=== PATIENT | male | born 1950 | race African-American/Black ===

== ENCOUNTER 2018-04-11 06:59 | Inpatient (IN) | payer MEDICARE, OTHER ==
[~2018-04-11] VITALS: Ht 160 cm; Wt 50.4 kg
[2018-04-11] VITALS (25 sets, daily range): BP systolic 61–183; BP diastolic 36–145
--- NOTE | 2018-04-11 06:55 | NUR ---
RESPIRATORY NOTE: pt recieved in ER with signs of resp distress, Addendum: 04/11/18 at 1757 by ANNETTE LANDIS RT pt bp droped and code was called, the pt was intubated by DR Grimm with endotrachial tube 8.0 21.5 @lipline on left side pt was placed on a vent with settings of AC 16 450 100% +5. sx PRN, will continue to monitor the pt
--- NOTE | 2018-04-11 06:59 | NUR ---
ED Nurse Note: Patient arrived BIBA with recent h/o respiratory arrest. Upon arrival patient was bradycardic at 50 at 0650. Pulse decreased to 44 bpm wile intubation was attempted [address] Grimm and soon after pulse was lost, code blue was established and compression began. At 0654, 1mg of epi was given, at 0657 bicarb was given, at 0659 pulse was reestablished and calcium chloride, magnesium and IV fluid bolus of 500ml was hung. Central line was established by Dr. grimm, Urinary catheter started and new IV site initiated with 1 liter fluid bolus hung before report was given to day shift nurse, isabel DE GUZMAN.
--- NOTE | 2018-04-11 07:30 | NUR ---
ED Nurse Note: Received report from GEGE Sandoval. Patient in bed, alterted, mechanically ventilated, maintaining pulse oximetry reading @ 100%. ET tube, size 8 to the right lip @ 22cm. Addendum: 04/11/18 at 1007 by JAMIR Patient has non puposeful movement on RUE with painful stimuli. IV to right AC 18g and central line to left groin noted. F/C draining yellow urine. Patient is on potline monitor.
--- NOTE | 2018-04-11 07:35 | NUR ---
ED Nurse Note: Patient ventilated, chest rise and fall noted. Performed oral suction and blood noted. RT provided suction via ET tube. Pulse oximetry reading maintained @ 99%.
[2018-04-11] MEDS ORDERED: RISPERDAL2 MG ORAL (07:39)
[2018-04-11] MEDS ORDERED: FOLIC ACID1 MG ORAL (07:39)
[2018-04-11] MEDS ORDERED: TRAZODONE HCL150 MG ORAL (07:39)
[2018-04-11] MEDS ORDERED: FEROSUL325 M1 PO (07:39)
[2018-04-11] MEDS ORDERED: BUSPIRONE HCL15 MG ORAL (07:39)
[2018-04-11] MEDS ORDERED: BENZTROPINE ME0.5 MG PO (07:39)
[2018-04-11 07:50] LABS: HEMATOCRIT 35.8 % (42.0-52.0); HEMOGLOBIN 11.3 G/DL (14.2-18.0); MEAN CORPUSCULAR VOLUME 103 FL (80-99); PLATELET COUNT 73 K/UL (150-450); RED BLOOD COUNT 3.47 M/UL (4.70-6.10); RED CELL DISTRIBUTION WIDTH 11.6 % (11.6-14.8); WHITE BLOOD COUNT 7.1 K/UL (4.8-10.8)
[2018-04-11 07:55] LABS: ANION GAP 8 mmol/L (5-15); APPEARANCE,URINE CLEAR; BILIRUBIN, URINE NEGATIVE (NEGATIVE); BLOOD UREA NITROGEN 18 mg/dL (7-18); CALCIUM 9.6 MG/DL (8.5-10.1); CARBON DIOXIDE 30 MMOL/L (21-32); CHLORIDE 100 MMOL/L (98-107); COLOR,URINE PALE YELLOW; CREATININE 1.3 MG/DL (0.55-1.30); GLUCOSE, URINE (UA) 4+ (NEGATIVE); KETONES,URINE NEGATIVE (NEGATIVE); LEUKOCYTE ESTERASE ,URINE NEGATIVE (NEGATIVE); NITRITE,URINE NEGATIVE (NEGATIVE); PH,URINE 7 (4.5-8.0); PROTEIN,URINE 3+ (NEGATIVE); SODIUM 137 MMOL/L (136-145); UROBILINOGEN,URINE NORMAL MG/DL (0.0-1.0)
--- NOTE | 2018-04-11 07:56 | NUR ---
ED Nurse Note: Patient is altered, unable to obtain any hx. unknown hx of fall.
[2018-04-11 08:07] LABS: ALANINE AMINOTRANSFERASE 53 U/L (12-78); ALBUMIN 2.4 G/DL (3.4-5.0); ALBUMIN/GLOBULIN RATIO 0.7 (1.0-2.7); ALKALINE PHOSPHATASE 71 U/L (46-116); AMYLASE 79 U/L (25-115); ASPARTATE AMINO TRANSFERASE 94 U/L (15-37); BILIRUBIN,TOTAL 0.3 MG/DL (0.2-1.0); CKMB 1.6 NG/ML (0.0-3.6); CREATINE KINASE 189 U/L (26-308); PHOSPHORUS 4.3 MG/DL (2.5-4.9)
--- NOTE | 2018-04-11 08:30 | NUR ---
ED Nurse Note: RN attempted to insert NG tub via bilateral nares and unsuccessful. RN inserted OG tube without resistance and light brown secrections with particles noted. OG tube @ 62cm to the left lip.
[2018-04-11] MEDS ORDERED: DOPamine 400mg/250ml 250 ML IV STA (08:48)
[2018-04-11 08:55] LABS: INR 0.9 (0.9-1.1)
[2018-04-11] MEDS ORDERED: Piperacillin/Tazobactam 3.375 GM in NS 110 ML IVPB ONE (09:00)
--- NOTE | 2018-04-11 09:00 | NUR ---
ED Nurse Note: Initiated Dopamine drip via central line due to SBP< 90 as ordered.
--- NOTE | 2018-04-11 09:33 | NUR ---
RADIOLOGY DEPT CHEST X-RAYS PERFORMED PRIOR TO ADMIT.LUDIN
--- NOTE | 2018-04-11 09:44 | NUR ---
ED Nurse Note: Patient returned from CT scan and remained on lunchroom monitor.
--- NOTE | 2018-04-11 09:44 | Diagnostic Imaging Report ---
Indication: Altered mental status Technique: Contiguous 5 mm thick transaxial imaging of the head obtained in a Siemens Sensation [address] scanner. Soft tissue and bone windows generated. Automatic Exposure Control was utilized. Total Dose length Product (DLP): 1509.[address] Dose Index Volume (CTDIvol): 70.38 mGy Comparison: none Findings: There is moderate prominence of the ventricles, basal cisterns, and cerebral sulci consistent with atrophy. Moderate, nonspecific, white matter hypoattenuation is noted throughout the brain consistent with chronic small vessel disease. There is disproportionate the moderate to severe atrophy of the cerebellum noted. There is no midline shift, edema, acute hemorrhage, mass effect, or abnormal extra-axial fluid collections. Bones and extra osseous soft tissues are unremarkable. Extensive opacification of the paranasal sinuses demonstrated. Impression: No acute intracranial bleed, mass effect or edema. Moderate atrophy of the brain. Cerebellar atrophy is more pronounced. Evidence of chronic small vessel disease involving white matter tracts. Pansinusitis The CT scanner at [facility] is accredited by the [employer] and the scans are performed using dose optimization techniques as appropriate to a performed exam including Automatic Exposure control.
--- NOTE | 2018-04-11 09:47 | Emergency Room Report ---
History of Present Illness General Chief Complaint: CPR Source: EMS, Caregiver Present Illness HPI Patient presents with paramedics after cardiopulmonary arrest patient Was documented to have blood pressure attempts of intubation were made however patient presents without any airway Upon arrival the patient has vomitus on the left side of his face and clothing GCS of 3 Unresponsive Required initial airway intubation and CPR was also initiated Manager Pool presents with reports that patient has been somewhat ill for the past 3 days Other members at the facility had also been ill This morning the patient had breakfast Had gone to the restroom and was visualized by staff having a syncopal episode History of present illness is otherwise limited secondary to the patient's mental status Allergies: Coded Allergies: No Known Allergies (Unverified , 04/11/18) Patient History Limited by: medical condition Pertinent Family History: unable to obtain Reviewed Nursing Documentation: PMH: Agreed; PSxH: Agreed Nursing Documentation-PMH History Of Psychiatric Problem: Yes Review of Systems All Other Systems: limited - Other than the ones mentioned in the history of present illness all others are reviewed however they do stay limited due to the patient's mental status Physical Exam Vital Signs Date Time Temp Pulse Resp B/P (MAP) Pulse Ox O2 Delivery O2 Flow Rate FiO2 04/11/18 06:53 110 10 137/90 97 Ambu-Bag 15.0 04/11/18 07:00 100 04/11/18 07:52 97.5 Sp02 EP Interpretation: reviewed, normal General Appearance: severe distress - No palpable pulses, GCS 3 Head: normocephalic, atraumatic Eyes: bilateral eye other - 4mm bilaterally minimal response ENT: dry mucus membranes - Vomitus present Neck: other - Severe scoliosis Respiratory: other - No active respirations Cardiovascular #1: other - No palpable pulses edema in both lower extremities Gastrointestinal: soft Musculoskeletal: other - Patient has severe scoliosis with also palpable mass left back area Neurologic: other - GCS of 3, unresponsive Skin: other - Poor turgor Lymphatic: no adenopathy Procedures Critical Care Time Critical Care Time 70 minutes for multiple re-evaluations, clinical presentation, consultants, concern for cardiopulmonary not including any procedural time Central Line Central Line : Consent: Emergent Central Line Lumen: triple Maximal Sterile Barrier Tech: yes cap, yes mask, yes sterile gown, yes sterile gloves, yes large sterile sheet, yes hand hygiene, yes chlorhexidine prep Central Line Postion: femoral (L) Complications: Small hematoma right femoral area Central Line Post Position: sutured Attempts: Other - 2 Patient Tolerated: Well Complications: Other - The femoral vein was cannulated on the right side however I was not able to advance the guidewire, patient appears to have some anatomical, anomaly, there is also a secondary hematoma on the right groin pressure dressing was applied here. After this the left groin was prepped and central line placed without discomfort Intubation Intubation : Consent: Emergent Intubation Method: orotracheal Tube Size (cm): 8.0 Breath Sounds after Intubation: equal Intubation Complications: no complications Post Intubation Xray: Yes Attempts: One Patient Tolerated: Well Complications: None Progress Copious amounts of vomitus at the oral mucosa and airway Medical Decision Making Diagnostic Impression: Primary Impression: Cardiopulmonary arrest ER Course Patient presents in acute CODE STATUS CPR initiated Patient has airway intubation Please refer to the code sheet for full specifics We were able to obtain pulses patient is provided with broad-spectrum antibiotics given his consideration for possible aspiration IV fluid and dopamine are ordered for Appropriate vital signs Patient is in critical condition I spoke to the hammer mill operator as well Who reports that patient was feeling ill for the past several days Patient has further stabilized however remains critical and extremely acidotic likely secondary to CPR and lactic acidosis and requires ICU admission Labs Test 04/11/18 07:15 04/11/18 07:27 04/11/18 08:29 White Blood Count 7.1 K/UL (4.8-10.8) Red Blood Count 3.47 M/UL (4.70-6.10) Hemoglobin 11.3 G/DL (14.2-18.0) Hematocrit 35.8 % (42.0-52.0) Mean Corpuscular Volume 103 FL (80-99) Mean Corpuscular Hemoglobin 32.5 PG (27.0-31.0) Mean Corpuscular Hemoglobin Concent 31.5 G/DL (32.0-36.0) Red Cell Distribution Width 11.6 % (11.6-14.8) Platelet Count 73 K/UL (150-450) Mean Platelet Volume 10.3 FL (6.5-10.1) Neutrophils (%) (Auto) % (45.0-75.0) Lymphocytes (%) (Auto) % (20.0-45.0) Monocytes (%) (Auto) % (1.0-10.0) Eosinophils (%) (Auto) % (0.0-3.0) Basophils (%) (Auto) % (0.0-2.0) Prothrombin Time 10.0 SEC (9.30-11.50) Prothromb Time International Ratio 0.9 (0.9-1.1) Activated Partial Thromboplast Time 24 SEC (23-33) Urine Color Pale yellow Urine Appearance Clear Urine pH 7 (4.5-8.0) Urine Specific [place] 1.010 (1.005-1.035) Urine Protein 3+ (NEGATIVE) Urine Glucose (UA) 4+ (NEGATIVE) Urine Ketones Negative (NEGATIVE) Urine Blood 4+ (NEGATIVE) Urine Nitrite Negative (NEGATIVE) Urine Bilirubin Negative (NEGATIVE) Urine Urobilinogen Normal MG/DL (0.0-1.0) Urine Leukocyte Esterase Negative (NEGATIVE) Urine RBC 15-20 /HPF (0 - 0) Urine WBC 0-2 /HPF (0 - 0) Urine Squamous Epithelial Cells None /LPF (NONE/OCC) Urine Bacteria Few /HPF (NONE) Sodium Level 137 MMOL/L (136-145) Potassium Level 4.0 MMOL/L (3.5-5.1) Chloride Level 100 MMOL/L (98-107) Carbon Dioxide Level 30 MMOL/L (21-32) Anion Gap 8 mmol/L (5-15) Blood Urea Nitrogen 18 mg/dL (7-18) Creatinine 1.3 MG/DL (0.55-1.30) Estimat Glomerular Filtration Rate > 60 mL/min (>60) Glucose Level 247 MG/DL (74-106) Lactic Acid Level 6.20 mmol/L (0.4-2.0) 7.10 mmol/L (0.66-2.22) Calcium Level 9.6 MG/DL (8.5-10.1) Phosphorus Level 4.3 MG/DL (2.5-4.9) Magnesium Level 3.4 MG/DL (1.8-2.4) Total Bilirubin 0.3 MG/DL (0.2-1.0) Aspartate Amino Transf (AST/SGOT) 94 U/L (15-37) Alanine Aminotransferase (ALT/SGPT) 53 U/L (12-78) Alkaline Phosphatase 71 U/L (46-116) Total Creatine Kinase 189 U/L (26-308) Creatine Kinase MB 1.6 NG/ML (0.0-3.6) Creatine Kinase MB Relative Index 0.8 Troponin I 0.296 ng/mL (0.000-0.056) Pro-B-Type Natriuretic Peptide 2703 pg/mL (0-125) Total Protein 5.8 G/DL (6.4-8.2) Albumin 2.4 G/DL (3.4-5.0) Globulin 3.4 g/dL Albumin/Globulin Ratio 0.7 (1.0-2.7) Amylase Level 79 U/L (25-115) Lipase 161 U/L (73-393) Arterial Blood pH 7.140 (7.350-7.450) Arterial Blood Partial Pressure CO2 69.5 mmHg (35.0-45.0) Arterial Blood Partial Pressure O2 274.2 mmHg (75.0-100.0) Arterial Blood HCO3 23.3 mmol/L (22.0-26.0) Arterial Blood Oxygen Saturation 100.0 % (95-100) Arterial Blood Base Excess -6.4 (-2-2) Joesph Test Positive Rhythm Strip Diag. Results EP Interpretation: yes Rate: 66 Rhythm: NSR, no PVC's, no ectopy Chest X-Ray Diagnostic Results Chest X-Ray Diagnostic Results : Chest X-Ray Ordered: Yes # of Views/Limited/Complete: 1 View Indication: Chest Pain EP Interpretation: Yes Interpretation: no effusion, no pneumothorax, other - Significantly distorted image secondary to scoliosis ET tube appears to be at the jer Impression: Other - Significant limitation ET tube appears to be a jer Electronically Signed by: Maria L Grimm DO Last Vital Signs Date Time Temp Pulse Resp B/P (MAP) Pulse Ox O2 Delivery O2 Flow Rate FiO2 04/11/18 09:29 103/62 04/11/18 09:04 80 04/11/18 09:03 59 20 94 Mechanical Ventilator 04/11/18 07:52 97.5 04/11/18 06:53 15.0 Status: improved Disposition: ADMITTED INPATIENT Condition: Critical Referrals: Vivienne Urena MD (PCP) Maria L Grimm DO Apr 11, 2018 09:47
--- NOTE | 2018-04-11 09:56 | NUR ---
ED Nurse Note: Confirmed OG tube placement with Dr. Grimm.
--- NOTE | 2018-04-11 10:06 | NUR ---
ED Nurse Note: Patient is abimbola upper body/bilateral arms. ERMD notified.
--- NOTE | 2018-04-11 10:42 | NUR ---
ED Nurse Note: Moved patient to hospital bed. Serosangunious drainage noted via OG tube and ERMD notifed. Changed patient's weight to 48kg using bedscale and changed dopamine rate according to his weight. Addendum: 04/11/18 at 1109 by JAMIR Abdomen soft, non- distended.
[2018-04-11] MEDS ORDERED: LORazepam Inj 2mg/ml 1ml IV ONE (10:45)
--- NOTE | 2018-04-11 11:00 | NUR ---
ED Nurse Note: RT adjusted ET tube as ordered. Size 8 ET tube at 21.5cm, left lip.
--- NOTE | 2018-04-11 11:00 | Diagnostic Imaging Report ---
Indication: Dyspnea Comparison: None A single view chest radiograph was obtained. Findings: Endotracheal tube is at or just above the jer. The lungs are foreshortened and evaluation of the tip is limited due to kyphosis. Interstitial edema versus central pulmonary infiltrates noted. IMPRESSION: Interstitial edema versus infiltrates. Limited evaluation
--- NOTE | 2018-04-11 11:01 | Diagnostic Imaging Report ---
Indication: Dyspnea Comparison: None A single view chest radiograph was obtained. Findings: Endotracheal tube appears slightly low-lying. However the patient is extremely kyphotic and there is foreshortening of the lungs. At worse the tip is just above the jer. The tip is likely higher than this. Central bronchovascular markings are prominent. Underlying infiltrate and/or pulmonary edema may be present. There is no significant change compared to the last examination done about one hour earlier. The nasogastric tube is in good position curled in the stomach. IMPRESSION: Central pulmonary edema versus infiltrates. Endotracheal tube evaluation is limited but the tip is likely just above the jer. NG tube in good position
--- NOTE | 2018-04-11 12:27 | NUR ---
ED Nurse Note: Repositioned patient to left side.
--- NOTE | 2018-04-11 12:56 | NUR ---
ED Nurse Note: Caregiver from boarding care here at bedside and states staff assisted patient to bathroom and patient collpased to the floor and his facial color changed. Staff assisted patient to the floor. RT at bedside and obtaining sample for ABG.
[2018-04-11] MEDS ORDERED: Vancomycin 1gm/D5W 275ml IVPB ONE ×2 (13:30)
[2018-04-11] MEDS: 1/2NS w/KCl 20mEq 1000ml 1,000 ML IV SCH (13:43)
[2018-04-11] MEDS: DOPamine 400mg/250ml 250 ML IV SCH ×2 (15:00→22:12)
--- NOTE | 2018-04-11 15:25 | NUR ---
NURSE NOTES: Admitted 68 year old male patient from ER. Endorsement received from GEGE Correa. No eye opening, no response to pain, orally intubated with ET 8.0, 21 lipline. Maintaining saturation with vent settings AC 18, Vt 450, PEEP 5, 80% FiO2. With OGT, noted with bloody output from the tube. Placement reconfirmed per auscultation. Black catheter F16 connected to urimeter, clear yellow urine in the bag. With left wrist g 18 and right AC g18 heplock. Left femoral TLC present, ongoing 1/2NS w/ KCl 20 meqs at 75ml/hr. As per ER nurse, dopamine has been turned off since 1500H. Maintaining blood pressure. Patient noted to be kyphotic. Skin is intact, picture was taken at ER for sacral redness. No redness noted upon admission at ICU. Head of bed elevated. As per endorsement patient has 1 episode of seizure at ER. Placed on seizure precaution. Bed locked and in low position. Bed alarm on.
--- NOTE | 2018-04-11 15:30 | NUR ---
ED Nurse Note: Patient is being transferred to ICU, accompained by RT, EMT and this RN. Patient maintained SBP > 90. HR was 92 with BP 146/75. Belonging (socks) given to patient's caregiver.
--- NOTE | 2018-04-11 16:00 | NUR ---
NURSE NOTES: Patient's rectal temperature 102F. Cooling measures initiated. Awaiting for cooling blanket from central supply.
[2018-04-11] MEDS: Zosyn 3.375gm q8h **Extended infusion IVPB SCH ×4 (16:03→22:33)
--- NOTE | 2018-04-11 17:00 | NUR ---
NURSE NOTES: Patient's schedule manager from board and care at bedside. As per her patient has no previous history of seizure.
--- NOTE | 2018-04-11 17:30 | NUR ---
NURSE NOTES: Patient seen and examined by Dr. Torres, with new order for Heparin SQ for DVT prophylaxis.
--- NOTE | 2018-04-11 17:45 | NUR ---
NURSE NOTES: Dr. Urena made aware of Heparin order of Dr. Brian barrientos aware of low plt.73- with order to go ahead and give the heparin. Suggested for dupplex study of both lower extremities-for SCD- Dr. Urena choose to have Herparin SQ instead for DVT prophylaxis
[2018-04-11] MEDS ORDERED: Piperacillin/Tazobactam 2.25 GM in D5W 55 ML IVPB SCH (18:00)
--- NOTE | 2018-04-11 18:00 | NUR ---
NURSE NOTES: Placed patient on cooling blanket. Rectal temp 103F. No PRN medication for fever. Paged Dr. Staples for further orders.
--- NOTE | 2018-04-11 19:00 | Consultation ---
DATE OF CONSULTATION: 04/11/2018 CONSULTING PHYSICIAN: Brian Torres M.D. REFERRING PHYSICIAN: Vivienne Urena M.D. REASON FOR CONSULTATION: Respiratory failure. HISTORY OF PRESENT ILLNESS: The patient is a 68-year-old unfortunate male who has been in a failure to thrive over the past three days. The patient apparently is ambulatory but nonverbal usually. The patient was noted to be unresponsive and was brought in by paramedics after cardiopulmonary arrest. The patient was intubated on pressors. The patient's care discussed with caregiver the bedside. The patient apparently had breakfast at morning, gone to the restroom, had a syncopal episode. The history is otherwise limited. The patient currently is on the ventilator, unable to respond, sedated, hypotensive. PAST MEDICAL HISTORY: Not fully clarified. MEDICATIONS: At home reviewed. ALLERGIES: Reviewed. REVIEW OF SYSTEMS: Unobtainable. However, the patient does have underlying history of psychiatric disorder, as well as developmental delay and cognitive dysfunction. The patient is essentially nonverbal. SOCIAL HISTORY: The patient is disabled. Does not smoke or drink currently. PHYSICAL EXAMINATION: GENERAL: An ill-appearing male of short stature. VITAL SIGNS: Blood pressure 142/81, pulse 94, respiratory rate 18, saturations 99%, temperature is 99. HEENT: Negative. NECK: Supple. The patient is orally intubated. LUNGS: Coarse breath sounds. Rhonchi bilaterally. CARDIAC: S1 and S2. Regular rate and rhythm without murmurs, rubs, gallops. ABDOMEN: Soft, nontender, nondistended. feeding tube in place . EXTREMITIES: No cyanosis, clubbing, or edema. NEUROLOGIC: The patient with significant atrophy, sedated, difficult to fully assess otherwise. LABORATORY DATA: Reviewed. White count 10.1, hematocrit 35, platelets 273. Chemistries noted. Lactic acid elevated. Electrolytes essentially negative. Troponin 0.296. The patient's albumin 2.4. Arterial blood gases with 7.40/50/89/31. The patient's chest x-ray with evidence of bilateral pulmonary infiltrates. IMPRESSION: Pneumonia, possible aspiration, probable sepsis, evidence of thrombocytopenia, severe protein-calorie malnutrition, elevated troponin, possible non-STEMI OR, evidence of anemia. RECOMMENDATION: Supportive care for now. Pressors as needed. IV antibiotics empirically. IV hydration with caution. Followup exam and follow up arterial blood gases. Follow up chest x-ray and laboratories. Empiric antibiotics as outlined. Obtain cultures. We will follow and recommend further. The patient is critical at present. We will follow for further changes and interventions. Brian Torres M.D. DR: Celena JOB#: [id number] CC: JULY
--- NOTE | 2018-04-11 19:08 | NUR ---
RESPIRATORY NOTE: Received pt on AC 18, 450VT, 80%, PEEP +5. Pt intubated w/ ETT 8.0 @ 22cm lipline, secured by anchorfast. Pt obtunded. B/S eryn. rhonchi, sxn moderate amounts of thin/thick, bloody secretions. Vent plugged into red outlet, amubag at bedside. No SOB/distress noted at this time. Will continue to monitor pt.
--- NOTE | 2018-04-11 19:30 | NUR ---
NURSE NOTES: Received new order from Dr. Ayanna RESENDIZ tylenol.
[2018-04-11] MEDS: Dyna-Hex 2% Top Sol 2oz TOPIC SCH (20:04)
[2018-04-11] MEDS: Acetaminophen 650 MG SUPP RECTAL PRN (20:07)
--- NOTE | 2018-04-11 21:00 | NUR ---
NURSE NOTES: Patient afebrile, cooling mattress turned off.
[2018-04-11] MEDS: Heparin 5000 units/ml inj SUBQ SCH ×2 (21:23→21:26)
--- NOTE | 2018-04-11 21:30 | NUR ---
NURSE NOTES: Patient bucking the vent, informed Dr. Torres. With new order for Ativan 1mg IVP Q3 PRN.
[2018-04-11] MEDS: LORazepam Inj 2mg/ml 1ml IV PRN (21:57)
--- NOTE | 2018-04-11 22:00 | NUR ---
NURSE NOTES: Patient SBP at 60s mmHg. Dopamine restarted at 4mcg/kg/min
[2018-04-12] VITALS (42 sets, daily range): BP systolic 65–167; BP diastolic 39–142
--- NOTE | 2018-04-12 | NUR ---
NURSE NOTES: Patient repositioned. Secretions suctioned. Still noted with bloody secretions.
--- NOTE | 2018-04-12 01:00 | NUR ---
NURSE NOTES: SBP 159mmHg. Patient off dopamine.
--- NOTE | 2018-04-12 03:00 | NUR ---
NURSE NOTES: Patient with eyes closed. On and off dopamine as needed.
[2018-04-12] MEDS: 1/2NS w/KCl 20mEq 1000ml 1,000 ML IV SCH ×2 (03:06→10:51)
--- NOTE | 2018-04-12 05:00 | NUR ---
NURSE NOTES: Repositioned. Afebrile. Maintaining saturation at 60% FiO2
[2018-04-12] MEDS: Zosyn 3.375gm q8h **Extended infusion IVPB SCH ×6 (05:40→21:43)
--- NOTE | 2018-04-12 06:11 | NUR ---
NURSE NOTES: SBP 77mmHg, dopamine restarted at 4mcg/kg/min
[2018-04-12 06:31] LABS: HEMATOCRIT 30.8 % (42.0-52.0); HEMOGLOBIN 10.1 G/DL (14.2-18.0); MEAN CORPUSCULAR VOLUME 100 FL (80-99); PLATELET COUNT 63 K/UL (150-450); RED BLOOD COUNT 3.08 M/UL (4.70-6.10); RED CELL DISTRIBUTION WIDTH 11.2 % (11.6-14.8); WHITE BLOOD COUNT 10.9 K/UL (4.8-10.8)
--- NOTE | 2018-04-12 07:00 | NUR ---
NURSE NOTES: Troponin 0.189, MD not called due to trending down result.
--- NOTE | 2018-04-12 07:01 | NUR ---
HAND-OFF: Report given to GEGE Sanchez per SBAR.
--- NOTE | 2018-04-12 07:02 | NUR ---
Received patient on ACVC RR 18, VT 450, 50% FIO2, PEEP +5. Patient intubated with ETT 8.0 @ 22cm lipline, secured by anchorfast. Patient is obtunded. B/S eryn. rhonchi, sxn moderate amounts of thin/thick, bloody secretions. Vent plugged into red outlet, amubag at bedside. No SOB/distress noted at this time. Will continue to monitor patient throughout the day.
[2018-04-12 07:24] LABS: ANION GAP 5 mmol/L (5-15); BLOOD UREA NITROGEN 20 mg/dL (7-18); CALCIUM 7.7 MG/DL (8.5-10.1); CARBON DIOXIDE 31 MMOL/L (21-32); CHLORIDE 103 MMOL/L (98-107); CREATININE 1.1 MG/DL (0.55-1.30); POTASSIUM 4.1 MMOL/L (3.5-5.1); SODIUM 139 MMOL/L (136-145)
--- NOTE | 2018-04-12 07:35 | NUR ---
NURSE NOTES: Report received from Marielena DE GUZMAN. Pt obtunded, nonverbal, does not follow commands. Pt orally intubated ETT 8, 21 cm lip line, AC 18, TV 450, PEEP 5, fiO2 60%. OGT clamped, pt NPO at the moment. Black intact draining clear, yellow urine to gravity. LW 18 G noted, RAC 18G ntoed, Left femoral TLC connected to 1/2 NS + 20 K at 75 cc/hr. Cooling blanket on, rectal temp 99.6. Dopamine drip turned off, SBP 140s, HR 90s. Safety measures in place with bed locked and in lowest position, side rails x3 up and bed alarm on. Will continue to monitor and continue plan of care.
[2018-04-12] MEDS: Heparin 5000 units/ml inj SUBQ SCH ×2 (08:26→21:00)
[2018-04-12] MEDS: Pantoprazole Inj IVP SCH (08:32)
--- NOTE | 2018-04-12 09:29 | Diagnostic Imaging Report ---
EXAM: XR Chest, 1 View CLINICAL HISTORY: SCREEN TECHNIQUE: Frontal view of the chest. COMPARISON: Chest x-ray dated 04/11/18 FINDINGS: Lungs: No significant change in bilateral perihilar consolidation, likely representing pulmonary edema versus pneumonia. Pleural space: Unremarkable. The costophrenic angles are sharp. No visible pneumothorax. Heart: Unremarkable. No cardiomegaly. Mediastinum: Unremarkable. Bones/joints: Severe thoracolumbar scoliotic curvature. Tubes, lines and devices: Endotracheal tube tip approximately 2.6 cm above the jer. NG tube tip in the expected region of the gastric body. EKG leads overlie the thorax. Upper abdomen: Persistent elevation of the left hemidiaphragm. IMPRESSION: 1. Endotracheal tube tip approximately 2.6 cm above the jer. 2. NG tube tip in the expected region of the gastric body. 3. No significant change in bilateral perihilar consolidation, likely representing pulmonary edema versus pneumonia. 4. Persistent elevation of the left hemidiaphragm. 5. Severe thoracolumbar scoliotic curvature.
--- NOTE | 2018-04-12 09:45 | NUR ---
NURSE NOTES: Turned and repositioned pt. Oral care done. No acute distress. Will continue to monitor.
--- NOTE | 2018-04-12 10:06 | NUR ---
RD ASSESSMENT & RECOMMENDATIONS SEE CARE ACTIVITY FOR COMPLETE ASSESSMENT DAILY ESTIMATED NEEDS: Needs based on Critical care, wasting/ 50kg 22-30 kcals/kg 3161-1175 total kcals 1.2-2 g protein/kg 60-100 g total protein 25-30 mL/kg 0343-6785 total fluid mLs NUTRITION DIAGNOSIS: Swallowing difficulty R/T respiratory status as evidenced by s/p code blue, orally intubated, NPO at this time. CURRENT TF:NPO ENTERAL NUTRITION RECOMMENDATIONS: Vital AF 1.2 @ 50ml/hr x 24 hrs to provide 1200ml, 1440kcal, 90g prot, 973ml free water * When medically appropriate and with HD stability initiate TF * Initiate Vital AF 1.2 @ 20ml/hr x 6hrs, advance 10ml q 4-6 hrs as tolerated to goal rate. * HOB over 30 degrees/ water flush per MD. WITHOUT HD STABILITY, REC TROPHIC FEEDS OF VITAL AF 1.2 @ 10ML/HR ADDITIONAL RECOMMENDATIONS: * Calibrated bedcale wt for accurate CBW * Monitor HD stability- dopamine held at this time. * Monitor lytes daily, replete as needed- low mag * Wound eval for redness @ buttock per photo
--- NOTE | 2018-04-12 11:00 | NUR ---
NURSE NOTES: Dr Urena here to see pt. Magnesium replacement ordered. 2D echo ordered as well. Will continue to monitor.
[2018-04-12] MEDS: Vancomycin 1gm/D5W 275ml IVPB SCH ×2 (12:51)
--- NOTE | 2018-04-12 13:30 | NUR ---
NURSE NOTES: Pt having fever 101. Cooling blanket turned back on. Will continue to monitor.
--- NOTE | 2018-04-12 15:46 | NUR ---
NURSE NOTES: Caregiver came to visit with pt. RN updated her with pt status. Will continue to monitor.
--- NOTE | 2018-04-12 15:50 | Pulmonolgy Critical Care Note ---
Critical Care - Asmt/Plan Assessment/Plan: Pulmonary Progress Note REASON FOR CONSULTATION: Respiratory failure. HISTORY OF PRESENT ILLNESS: The patient is a 68-year-old unfortunate male who has been in a failure to thrive over the past three days. The patient apparently is ambulatory but nonverbal usually. The patient was noted to be unresponsive and was brought in by paramedics after cardiopulmonary arrest. The patient was intubated on pressors. The patient's care discussed with caregiver the bedside. The patient apparently had breakfast at morning, gone to the restroom, had a syncopal episode. The history is otherwise limited. The patient currently is on the ventilator, unable to respond, sedated, hypotensive. PAST MEDICAL HISTORY: NA ALLERGIES: Reviewed. REVIEW OF SYSTEMS: NA OBJECTIVE: VSS noted GENERAL: An ill-appearing male of short stature. HEENT: Negative. NECK: Supple. The patient is orally intubated. LUNGS: Coarse breath sounds. Rhonchi bilaterally. CARDIAC: S1 and S2. Regular rate and rhythm without murmurs, rubs, gallops. ABDOMEN: Soft, nontender, nondistended. enteric tube in place . EXTREMITIES: No cyanosis, clubbing, or edema. NEUROLOGIC: The patient with significant atrophy, sedated, difficult to fully assess otherwise. IMPRESSION: Pneumonia, possible aspiration, probable sepsis, evidence of thrombocytopenia, severe protein-calorie malnutrition, elevated troponin, possible non-STEMI WA, evidence of anemia. RECOMMENDATION: Supportive care for now. Pressors as needed. IV antibiotics empirically. IV hydration with caution. Followup exam and follow up arterial blood gases. Follow up chest x-ray and laboratories. Empiric antibiotics as outlined. Obtain cultures. We will follow and recommend further. The patient is critical at present. We will follow for further changes and interventions. Critical Care - Objective Last 24 Hour Vital Signs Date Time Temp Pulse Resp B/P (MAP) Pulse Ox O2 Delivery O2 Flow Rate FiO2 04/12/18 15:22 94 30 65 04/12/18 15:00 96 34 165/101 98 Mechanical Ventilator 60 04/12/18 14:00 98 18 131/73 98 Mechanical Ventilator 60 04/12/18 13:00 96 19 131/82 94 Mechanical Ventilator 60 04/12/18 12:58 69 20 50 04/12/18 12:00 99 04/12/18 12:00 Mechanical Ventilator 04/12/18 12:00 101.0 93 18 137/73 97 Mechanical Ventilator 60 04/12/18 12:00 60 04/12/18 11:00 92 19 148/82 98 Mechanical Ventilator 60 04/12/18 10:45 97 32 50 04/12/18 10:00 91 25 163/142 97 Mechanical Ventilator 60 04/12/18 09:16 88 31 50 04/12/18 09:00 93 23 167/120 97 Mechanical Ventilator 60 04/12/18 08:00 60 04/12/18 08:00 99.6 93 21 142/73 93 Mechanical Ventilator 60 04/12/18 08:00 91 04/12/18 08:00 Mechanical Ventilator 04/12/18 07:17 88 18 50 04/12/18 07:00 91/55 04/12/18 06:45 94 23 143/76 95 Mechanical Ventilator 60 04/12/18 06:30 75 18 147/76 94 Mechanical Ventilator 60 04/12/18 06:15 81 19 136/70 97 Mechanical Ventilator 60 04/12/18 06:00 77/62 04/12/18 06:00 77 18 77/62 97 Mechanical Ventilator 60 04/12/18 05:01 80 18 50 04/12/18 05:00 77 18 80/48 97 Mechanical Ventilator 60 04/12/18 04:00 98.9 81 22 122/75 96 Mechanical Ventilator 70 04/12/18 04:00 60 04/12/18 04:00 Mechanical Ventilator 04/12/18 04:00 85 04/12/18 03:30 67 18 123/69 97 Mechanical Ventilator 70 04/12/18 03:30 123/69 04/12/18 03:15 71 18 121/65 98 Mechanical Ventilator 70 04/12/18 03:05 72 18 60 04/12/18 03:00 73 18 88/55 99 Mechanical Ventilator 70 04/12/18 02:45 70 18 66/46 100 Mechanical Ventilator 70 04/12/18 02:30 72 18 65/44 100 Mechanical Ventilator 70 04/12/18 02:15 76 18 76/43 98 Mechanical Ventilator 70 04/12/18 02:15 76/43 04/12/18 02:00 81 18 137/76 99 Mechanical Ventilator 70 04/12/18 01:00 82 18 138/72 94 Mechanical Ventilator 70 04/12/18 01:00 159/124 04/12/18 00:51 74 18 70 04/12/18 00:45 70 18 125/74 97 Mechanical Ventilator 70 04/12/18 00:30 72 18 117/73 97 Mechanical Ventilator 70 04/12/18 00:15 71 18 113/65 98 Mechanical Ventilator 70 04/12/18 00:00 70 04/12/18 00:00 Mechanical Ventilator 04/12/18 00:00 98.2 74 18 112/68 97 Mechanical Ventilator 70 04/12/18 00:00 75 04/12/18 00:00 113/65 04/11/18 23:45 75 18 111/67 97 Mechanical Ventilator 70 04/11/18 23:30 77 18 102/63 97 Mechanical Ventilator 70 04/11/18 23:15 81 18 93/59 97 Mechanical Ventilator 70 04/11/18 23:03 81 18 70 04/11/18 23:00 80 18 95/58 99 Mechanical Ventilator 70 04/11/18 23:00 93/59 04/11/18 22:45 87 18 86/53 98 Mechanical Ventilator 80 04/11/18 22:30 72 18 120/62 100 Mechanical Ventilator 80 04/11/18 22:15 75 18 61/36 100 Mechanical Ventilator 80 04/11/18 22:12 65/40 04/11/18 22:00 70 18 71/43 97 Mechanical Ventilator 80 04/11/18 21:30 89 26 183/145 93 Mechanical Ventilator 80 04/11/18 21:11 88 28 80 04/11/18 21:00 98.9 91 23 158/89 100 Mechanical Ventilator 80 04/11/18 20:58 99.0 04/11/18 20:00 Mechanical Ventilator 04/11/18 20:00 95 04/11/18 20:00 101.0 95 29 160/93 100 Mechanical Ventilator 80 04/11/18 20:00 80 04/11/18 19:06 99 27 80 04/11/18 19:00 92 29 152/65 92 Mechanical Ventilator 80 04/11/18 18:00 103.0 98 22 130/74 100 Mechanical Ventilator 80 04/11/18 17:27 94 18 80 04/11/18 17:00 102.0 95 18 139/79 100 Mechanical Ventilator 80 04/11/18 16:30 95 18 144/79 100 Mechanical Ventilator 80 04/11/18 16:00 Mechanical Ventilator 04/11/18 16:00 Mechanical Ventilator 04/11/18 16:00 102 20 164/82 100 Mechanical Ventilator 80 04/11/18 16:00 100 04/11/18 16:00 80 Micro: Microbiology Date/Time Source Procedure Growth Status 04/11/18 07:15 Straight Cath Urine Culture - Preliminary NO GROWTH AFTER 24 HOURS Resulted Critical Care - Subjective ROS Limited/Unobtainable: No Condition: stable FI02: 65 Vent Support Breath Rate: 18 Vent Support Mode: AC Vent Tidal Volume: 450 Sputum Amount: Small PEEP: 5.0 PIP: 19 I&O: Intake and Output 04/11/18 04/12/18 19:00 07:00 Intake Total 2657.5 ml 1086.439 ml Output Total 450 ml 700 ml Balance 2207.5 ml 386.439 ml Intake IV Total 2657.5 ml 1086.439 ml Output Urine Total 450 ml 700 ml ET-Tube: 8.0 ET Position: 22 Wally Smith MD Apr 12, 2018 15:50
--- NOTE | 2018-04-12 17:53 | NUR ---
NURSE NOTES: Turned and repositioned pt. Pt suctioned and oral care done. No acute distress. Will continue to monitor.
--- NOTE | 2018-04-12 18:45 | History and Physical Report ---
DATE OF ADMISSION: 04/11/2018 CHIEF COMPLAINT: Cardiopulmonary arrest. 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 The patient lives in a small home for mentally retarded patients conserved by the [facility]. I used to take care for this patient for more than 10 years. The patient had the cardiac arrest and the paramedics were called. He was transferred to this hospital. The patient was intubated and is in the ICU. His board and care system support administrator elected to call me to attend to this patient while he is in the hospital. PAST MEDICAL HISTORY: For my recollection, mental retardation, pulmonary hypertension, kyphoscoliosis, pancytopenia, and cerebral palsy. HOME MEDICATIONS: Cogentin, trazodone, folic acid, oral iron, Risperdal, and BuSpar. ALLERGIES: No known drug allergies. FAMILY HISTORY: Unable to obtain due to his mental condition. SOCIAL HISTORY: Unable to obtain due to his mental condition. REVIEW OF SYSTEMS: Unable to obtain due to his mental condition. PHYSICAL EXAMINATION: GENERAL: This is an elderly male, who is intubated orally. VITAL SIGNS: Blood pressure 163/142, pulse 91, respirations 25, and temperature 99.6 rectally. HEENT: The head is normocephalic and atraumatic. He is intubated transorally. NECK: Supple. Trachea midline. He has no jugular venous distention. LUNGS: Bilateral rhonchi. CHEST: He has very severe chest deformity in the form of kyphoscoliosis, deviated access, and severe deformation. ABDOMEN: Soft and nontender. Bowel sounds were active. EXTREMITIES: He has advanced muscle wasting. There was no clubbing, cyanosis, or edema. NEUROLOGIC: The patient is currently sedated. LABORATORY AND ANCILLARY DATA: His initial white count was 7.1, today 10.9; hematocrit on admission 35.8, today 30.8; and platelet count on admission was 73,000, today 63,000. Chemistry - electrolytes within normal limits. BUN 20, creatinine 1.1, and magnesium 1.5. Lactic acid on admission 7.1, today 1.6. Chest x-ray - bilateral perihilar consolidation most likely pulmonary edema versus pneumonia, persistent elevation of left hemidiaphragm, and severe thoracolumbar scoliotic curvature. ASSESSMENT: 1. Suspect bilateral pneumonia, most likely aspiration type. 2. Rule out congestive heart failure. 3. Mental retardation. 4. Pulmonary hypertension. 5. Kyphoscoliosis. 6. Pancytopenia. 7. Cerebral palsy. PLAN: 1. Continue IV fluids and antibiotics. 2. Pulmonary consult and current vent setting. 3. The Code Status to be discussed with Jeanette Aaron [employer] , although the patient's real DPOA is the [facility]. Vivienne Urena M.D. DR: DEEP JOB#: [id number] CC: JULY
[2018-04-12] MEDS: LORazepam Inj 2mg/ml 1ml IV PRN (18:50)
--- NOTE | 2018-04-12 19:04 | NUR ---
HAND-OFF: Report given to Marielena DE GUZMAN.
--- NOTE | 2018-04-12 19:05 | NUR ---
NURSE NOTES: Endorsement received from GEGE Sanchez. GCS E1 V intubated M1. ET 8.0, 21 lipline. AC 18 450 Vt 450 PEEP 5 70% FiO2. No shortness of breath. OGT present, placement rechecked per auscultation. Black F 16 draining to urimeter. Left wrist g18, right AC g18 heplock, right femoral TLC. Ongoing 1/2 NS + KCl 20meqs 50ml/hr. Head of bed elevated. BEd locked and low position, bed alarm on. Seizure precautions.
[2018-04-12] MEDS: Dyna-Hex 2% Top Sol 2oz TOPIC SCH (20:16)
[2018-04-12] MEDS ORDERED: NS 250 ML IVPB ONE (21:30)
--- NOTE | 2018-04-12 21:30 | NUR ---
NURSE NOTES: SBP at 80s, dopamine restarted at 2mcg/kg/min. Seen and examined by Dr. Smith with new orders made and carried out.
[2018-04-12] MEDS: Acetaminophen 650 MG SUPP RECTAL PRN (22:51)
--- NOTE | 2018-04-12 23:00 | NUR ---
NURSE NOTES: No shortness of breath, no signs of pain or discomfort.
[2018-04-13] VITALS (36 sets, daily range): BP systolic 83–160; BP diastolic 43–91
--- NOTE | 2018-04-13 01:00 | NUR ---
NURSE NOTES: Patient afebrile. Secretions suctioned.
--- NOTE | 2018-04-13 03:00 | NUR ---
NURSE NOTES: Repositioned patient. No acute distress
--- NOTE | 2018-04-13 05:09 | NUR ---
NURSE NOTES: Bed bath oral care, change of linens done.
--- NOTE | 2018-04-13 05:45 | NUR ---
Pt remains stable on current noted vent settings. I was able to titrate FIO2 down to 50% with SPO2 at 98%. Alarms are set and audible. No s/s respiratory distress noted. Pt was Sx as needed. [place] fast changed.
[2018-04-13] MEDS: Zosyn 3.375gm q8h **Extended infusion IVPB SCH ×6 (06:20→21:35)
[2018-04-13] MEDS: 1/2NS w/KCl 20mEq 1000ml 1,000 ML IV SCH (06:21)
--- NOTE | 2018-04-13 07:15 | NUR ---
RESPIRATORY NOTE: Patient received mechanically ventilated on PB840 with current ordered vent settings. Patient is orally intubated with a 8.0 EET with 22cm at the lip and is secured with an anchor fast. Patient presents with bilateral clear breath sounds upon auscultation. Small, thick and clear secretions were suctioned via inline suction system without incident. There is an ambu bag available at the beside and the vent is connected to a red outlet. Vent alarms are functional and audible. Will continue to monitor.
--- NOTE | 2018-04-13 07:21 | NUR ---
HAND-OFF: Report given to GEGE Erickson.
--- NOTE | 2018-04-13 08:00 | NUR ---
NURSE NOTES: Received patient not opening eyes, withdraws to deep pain. customer security clerk showing SR. ETT 8.0 /21 cm ll AC 18 VT 450 PEEP 5 FiO2 60%. Rhonchi auscultated bilaterally upper lobes, lower lobes diminished. Patient NPO. OGT intact. Non-tender abdomen, round, soft. Black intact draining. Dopamine 2 mcg/kg/min titrated off current BP systolic >130. L Wrist 18, R ac 18 Fem TLC. Patient on 1.2 NS + 20 KCL at 50 cc/hr. No changes at this time. No labs this AM per md orders. Will continue to monitor patient.
--- NOTE | 2018-04-13 08:37 | NUR ---
Social Service Note Unable to obtain history from patient. Patient is a resident of [facility]. Amaya Aaron is the sales order administrator of the facility. Amaya is not the decision maker for patient. Patient is under [facility] due to severe intellectual disabilities and scoliosis. [facility] is closed on the weekend, SW left a message in office general voice mail [phone] for elevator serviceman Lori Sultana. SW to follow up with [facility] during regular business hours. Patient is a full code at this time.
[2018-04-13] MEDS: Pantoprazole Inj IVP SCH (08:54)
[2018-04-13] MEDS: Heparin 5000 units/ml inj SUBQ SCH ×2 (08:54→20:09)
--- NOTE | 2018-04-13 10:00 | NUR ---
NURSE NOTES: Patient turned and repositioned. No changes in patient condition. Tolerating well without any dopamine. Will continue to monitor patient.
--- NOTE | 2018-04-13 10:01 | General Progress Note ---
Assessment/Plan Assessment/Plan Acute Resp Failure - Vent. m/p secondary to aspiration. Brain Anoxia -pupils still respond to light! PONCHO Jeanette Dkalcides. She'll call the regional Center tomorrow to get code status. Poor prognosis. Subjective Allergies: Coded Allergies: No Known Allergies (Unverified , 04/11/18) Subjective On vent. Objective Last 24 Hour Vital Signs Date Time Temp Pulse Resp B/P (MAP) Pulse Ox O2 Delivery O2 Flow Rate FiO2 04/13/18 09:05 73 18 50 04/13/18 09:00 88 20 127/71 98 Mechanical Ventilator 60 04/13/18 08:00 99.0 92 21 138/65 97 Mechanical Ventilator 60 04/13/18 08:00 88 04/13/18 08:00 60 04/13/18 08:00 Mechanical Ventilator 04/13/18 07:30 91 20 135/64 97 Mechanical Ventilator 60 04/13/18 07:09 82 18 50 04/13/18 07:00 90 21 132/59 97 Mechanical Ventilator 60 04/13/18 06:30 90 21 144/74 97 Mechanical Ventilator 60 04/13/18 06:00 86 18 132/60 96 Mechanical Ventilator 50 04/13/18 05:30 86 20 143/73 96 Mechanical Ventilator 60 04/13/18 05:10 92 18 50 04/13/18 05:00 132/68 04/13/18 05:00 64 18 140/69 100 Mechanical Ventilator 60 04/13/18 04:30 61 18 145/74 100 Mechanical Ventilator 60 04/13/18 04:00 73 04/13/18 04:00 60 04/13/18 04:00 Mechanical Ventilator 04/13/18 04:00 145/74 04/13/18 04:00 99.0 68 18 138/75 100 Mechanical Ventilator 60 04/13/18 03:31 87 18 60 04/13/18 03:30 88 20 150/70 95 Mechanical Ventilator 60 04/13/18 03:00 127/67 04/13/18 03:00 77 18 123/67 98 Mechanical Ventilator 60 04/13/18 02:45 81 18 115/65 97 Mechanical Ventilator 60 04/13/18 02:30 95 19 116/65 96 Mechanical Ventilator 60 04/13/18 02:00 123/73 04/13/18 02:00 98 27 123/73 93 Mechanical Ventilator 60 04/13/18 01:30 98 17 138/56 94 Mechanical Ventilator 60 04/13/18 01:24 94 19 60 04/13/18 01:00 97 19 125/72 94 Mechanical Ventilator 60 04/13/18 01:00 116/61 04/13/18 00:45 88 18 122/63 96 Mechanical Ventilator 60 04/13/18 00:30 99 19 134/73 95 Mechanical Ventilator 60 04/13/18 00:15 76 18 120/53 99 Mechanical Ventilator 60 04/13/18 00:00 120/53 04/13/18 00:00 70 04/13/18 00:00 Mechanical Ventilator 04/13/18 00:00 99.7 78 18 83/43 99 Mechanical Ventilator 60 04/13/18 00:00 75 04/12/18 23:45 81 19 86/44 100 Mechanical Ventilator 60 04/12/18 23:43 99.0 04/12/18 23:30 76 18 82/44 100 Mechanical Ventilator 60 04/12/18 23:15 78 18 119/68 100 Mechanical Ventilator 60 04/12/18 23:00 89 21 123/71 97 Mechanical Ventilator 60 04/12/18 23:00 119/68 04/12/18 22:50 76 18 60 04/12/18 22:45 76 18 104/49 100 Mechanical Ventilator 60 04/12/18 22:30 77 18 98/56 99 Mechanical Ventilator 60 04/12/18 22:15 76 18 109/70 100 Mechanical Ventilator 60 04/12/18 22:00 83 18 92/58 97 Mechanical Ventilator 60 04/12/18 22:00 109/70 04/12/18 21:33 82 18 70 04/12/18 21:30 100.0 83 18 111/59 95 Mechanical Ventilator 60 04/12/18 21:30 79/39 04/12/18 21:00 78 18 79/39 95 Mechanical Ventilator 60 04/12/18 20:30 83 20 113/63 95 Mechanical Ventilator 60 04/12/18 20:00 Mechanical Ventilator 04/12/18 20:00 95 04/12/18 20:00 99.0 91 25 147/62 97 Mechanical Ventilator 60 04/12/18 20:00 70 04/12/18 19:00 99 36 142/88 97 Mechanical Ventilator 60 04/12/18 18:44 91 35 70 04/12/18 18:00 94 34 125/85 88 Mechanical Ventilator 60 04/12/18 17:06 101 33 70 04/12/18 17:00 97 33 155/56 93 Mechanical Ventilator 60 04/12/18 16:00 99.0 96 34 153/97 95 Mechanical Ventilator 60 04/12/18 16:00 Mechanical Ventilator 04/12/18 16:00 60 04/12/18 16:00 99 04/12/18 15:22 94 30 65 04/12/18 15:00 96 34 165/101 98 Mechanical Ventilator 60 04/12/18 14:00 98 18 131/73 98 Mechanical Ventilator 60 04/12/18 13:00 96 19 131/82 94 Mechanical Ventilator 60 04/12/18 12:58 69 20 50 04/12/18 12:00 99 04/12/18 12:00 Mechanical Ventilator 04/12/18 12:00 101.0 93 18 137/73 97 Mechanical Ventilator 60 04/12/18 12:00 60 04/12/18 11:00 92 19 148/82 98 Mechanical Ventilator 60 04/12/18 10:45 97 32 50 04/12/18 10:00 91 25 163/142 97 Mechanical Ventilator 60 Intake and Output 04/12/18 04/13/18 19:00 07:00 Intake Total 785.708 ml 667.176 ml Output Total 520 ml 505 ml Balance 265.708 ml 162.176 ml Intake IV Total 785.708 ml 667.176 ml Output Urine Total 520 ml 505 ml Laboratory Tests 04/12/18 11:15: Arterial Blood pH 7.471H, Arterial Blood Partial Pressure CO2 40.4, Arterial Blood Partial Pressure O2 69.6L, Arterial Blood HCO3 28.8H, Arterial Blood Oxygen Saturation 94.0L, Arterial Blood Base Excess 4.8H, Joesph Test Positive Height (Feet): 5 Height (Inches): 3.00 Weight (Pounds): 107 Objective CV- RR Lungs B ronchi Abd SNT. BS + E + edema Vivienne Urena MD Apr 13, 2018 10:01
[2018-04-13] MEDS: DOPamine 400mg/250ml 250 ML IV SCH (11:42)
[2018-04-13] MEDS: Vancomycin 1gm/D5W 275ml IVPB SCH ×2 (11:55)
[2018-04-13] MEDS: LORazepam Inj 2mg/ml 1ml IV PRN ×2 (11:55→20:08)
--- NOTE | 2018-04-13 12:00 | NUR ---
NURSE NOTES: Patient turned and repositioned. No new orders at this time. Will continue plan of care.
--- NOTE | 2018-04-13 14:36 | Cardiology Report ---
APPROVED REPORT EXAM: Two-dimensional and M-mode echocardiogram with Doppler and color Doppler. INDICATION Congestive Heart Failure M-Mode DIMENSIONS IVSd1.2 (0.7-1.1cm)Left Atrium (MM)2.6 (1.6-4.0cm) LVDd3.6 (3.5-5.6cm)Aortic Root2.8 (2.0-3.7cm) PWd1.0 (0.7-1.1cm)Aortic Cusp Exc.2.0 (1.5-2.0cm) LVDs2.5 (2.5-4.0cm) PWs1.5 cm Technically difficult study due to patient on ventilator. Study quality precludes accurate assessment of regional wall motion. Normal left ventricular chamber size, systolic function and wall motion. Left ventricular ejection fraction estimated to be 55 %. Mild left ventricular hypertrophy. Anterior Echo-free space, may be due to pericardial fat or effusion. All other cardiac chamber sizes are within normal limits. Focal aortic valve sclerosis with adequate cusp excursion. Mildly thickened mitral valve leaflets with normal excursion. Mild mitral annulus and aortic root calcification. Normal pulmonic valve structure. Normal tricuspid valve structure. IVC is normal in size without physiological collapse. A color flow and spectral Doppler study was performed and revealed: Mild aortic insufficiency. Moderate mitral regurgitation. Mitral diastolic velocities suggest mild left ventricular diastolic dysfunction (Grade I). Mild to moderate tricuspid regurgitation. Tricuspid systolic velocities suggests peak right ventricular systolic pressure of 52 mmHg, consistent with moderate pulmonary hypertension. Mild pulmonic regurgitation present.
--- NOTE | 2018-04-13 15:32 | Cardiology Report ---
APPROVED REPORT EKG Measurement Heart [id number] Normal sinus rhythm Septal infarct, age undetermined Abnormal ECG
[2018-04-13] MEDS ORDERED: NS 275ml ONE (16:41)
[2018-04-13] MEDS ORDERED: Tubing IV Secondary IV ONE (16:41)
--- NOTE | 2018-04-13 17:58 | NUR ---
CASE MANAGEMENT: INITIAL REVIEW 04/11/2108 68 YO M [facility] FROM [facility] CC: CPR PMHx: UNABLE TO OBTAIN. GCS 3 SI:CARDIOPULMONARY ARREST T 97.5 HR 110 RR 10 B/P 137/90 SATS 97% ON 15L/AMBU- BAG GLU 247 LACTIC ACID 6.2 MG 3.4 AST 94 TROPONIN 0.296 BNP 2703 ABGs: pH 7.140 pCO2 69.5 pO2 274.2 BE -6.4 IS: NS BOLUS X1 PATIENT ADMITTED TO ICU 04/11/2018 @ 0836 DCP: DISCHARGE DISPOSITION DEPENDS ON CLINICAL COURSE. PLAN OF CARE: 1. Continue IV fluids and antibiotics. 2. Pulmonary consult and current vent setting. 04/12/2018 SI:CARDIOPULMONARY ARREST T 99 HR 76 RR 18 B/P 82/44 SATS 100% ON MECH VENT FiO2 60 WBC 10.9 BUN 20 CA 7.7 MG 1.5 TROPONIN 0.189 ABGs: pH 7.471 pO2 69.6 HCO3 28.8 O2 SAT 94 BE 4.8 IS: IVF @ 50 mL/HR ZOSYN IV Q8H PROTONIX IV QD VANCO IV Q24H DOPAMINE IV Q24H ICU STATUS DCP: DISCHARGE DISPOSITION DEPENDS ON CLINICAL COURSE. PLAN OF CARE: 1. Continue IV fluids and antibiotics. 2. Pulmonary consult and current vent setting. 04/13/2018 SI:CARDIOPULMONARY ARREST T 99.7 HR 78 RR 18 B/P 83/43 SATS 99% ON MECH VENT FiO2 60 NO LABS TODAY IS: IVF @ 50 mL/HR ZOSYN IV Q8H PROTONIX IV QD VANCO IV Q24H DOPAMINE IV Q24H ICU STATUS DCP: DISCHARGE DISPOSITION DEPENDS ON CLINICAL COURSE. PLAN OF CARE: 1. Continue IV fluids and antibiotics. 2. Pulmonary consult and current vent setting. Addendum: 04/13/18 at 1926 by Omayra J Jose Manuel CM INTERQUAL MET FOR ACUTE
--- NOTE | 2018-04-13 18:41 | Pulmonolgy Critical Care Note ---
Critical Care - Asmt/Plan Assessment/Plan: Pulmonary Progress Note REASON FOR CONSULTATION: Respiratory failure. HISTORY OF PRESENT ILLNESS: The patient is a 68-year-old unfortunate male who has been in a failure to thrive over the past three days. The patient apparently is ambulatory but nonverbal usually. The patient was noted to be unresponsive and was brought in by paramedics after cardiopulmonary arrest. The patient was intubated on pressors. The patient's care discussed with caregiver the bedside. The patient apparently had breakfast at morning, gone to the restroom, had a syncopal episode. The history is otherwise limited. The patient currently is on the ventilator, unable to respond, sedated, hypotensive. PAST MEDICAL HISTORY: NA ALLERGIES: Reviewed. REVIEW OF SYSTEMS: NA OBJECTIVE: VSS noted GENERAL: An ill-appearing male of short stature. HEENT: Negative. NECK: Supple. The patient is orally intubated. LUNGS: Coarse breath sounds. Rhonchi bilaterally. CARDIAC: S1 and S2. Regular rate and rhythm without murmurs, rubs, gallops. ABDOMEN: Soft, nontender, nondistended. enteric tube in place . EXTREMITIES: No cyanosis, clubbing, or edema. NEUROLOGIC: The patient with significant atrophy, sedated, difficult to fully assess otherwise. IMPRESSION: Pneumonia, possible aspiration, probable sepsis, evidence of thrombocytopenia, severe protein-calorie malnutrition, elevated troponin, possible non-STEMI MD, evidence of anemia. RECOMMENDATION: Supportive care for now. Pressors as needed. IV antibiotics empirically. IV hydration with caution. Followup exam and follow up arterial blood gases. Follow up chest x-ray and laboratories. Empiric antibiotics as outlined. Obtain cultures. We will follow and recommend further. The patient is critical at present. We will follow for further changes and interventions. Critical Care - Objective Last 24 Hour Vital Signs Date Time Temp Pulse Resp B/P (MAP) Pulse Ox O2 Delivery O2 Flow Rate FiO2 04/13/18 18:00 72 18 133/50 100 Mechanical Ventilator 60 04/13/18 17:00 78 18 135/51 100 Mechanical Ventilator 60 04/13/18 17:00 69 18 135/51 100 Mechanical Ventilator 60 04/13/18 16:57 67 18 60 04/13/18 16:00 70 04/13/18 16:00 Mechanical Ventilator 04/13/18 16:00 98.8 73 22 138/68 100 Mechanical Ventilator 60 04/13/18 16:00 77 04/13/18 15:02 71 18 60 04/13/18 15:00 66 18 132/61 100 Mechanical Ventilator 60 04/13/18 14:00 85 21 127/73 98 Mechanical Ventilator 60 04/13/18 13:00 88 21 148/90 98 Mechanical Ventilator 60 04/13/18 13:00 91 33 50 04/13/18 12:00 Mechanical Ventilator 04/13/18 12:00 87 04/13/18 12:00 60 04/13/18 12:00 98.9 89 22 143/91 100 Mechanical Ventilator 60 04/13/18 11:42 144/85 04/13/18 11:00 86 21 138/72 98 Mechanical Ventilator 60 04/13/18 10:43 92 31 50 04/13/18 10:00 89 20 122/70 98 Mechanical Ventilator 60 04/13/18 09:05 73 18 50 04/13/18 09:00 88 20 127/71 98 Mechanical Ventilator 60 04/13/18 08:00 99.0 92 21 138/65 97 Mechanical Ventilator 60 04/13/18 08:00 88 04/13/18 08:00 60 04/13/18 08:00 Mechanical Ventilator 04/13/18 07:30 91 20 135/64 97 Mechanical Ventilator 60 04/13/18 07:09 82 18 50 04/13/18 07:00 90 21 132/59 97 Mechanical Ventilator 60 04/13/18 06:30 90 21 144/74 97 Mechanical Ventilator 60 04/13/18 06:00 86 18 132/60 96 Mechanical Ventilator 50 04/13/18 05:30 86 20 143/73 96 Mechanical Ventilator 60 04/13/18 05:10 92 18 50 04/13/18 05:00 132/68 04/13/18 05:00 64 18 140/69 100 Mechanical Ventilator 60 04/13/18 04:30 61 18 145/74 100 Mechanical Ventilator 60 04/13/18 04:00 73 04/13/18 04:00 60 04/13/18 04:00 Mechanical Ventilator 04/13/18 04:00 145/74 04/13/18 04:00 99.0 68 18 138/75 100 Mechanical Ventilator 60 04/13/18 03:31 87 18 60 04/13/18 03:30 88 20 150/70 95 Mechanical Ventilator 60 04/13/18 03:00 127/67 04/13/18 03:00 77 18 123/67 98 Mechanical Ventilator 60 04/13/18 02:45 81 18 115/65 97 Mechanical Ventilator 60 04/13/18 02:30 95 19 116/65 96 Mechanical Ventilator 60 04/13/18 02:00 123/73 04/13/18 02:00 98 27 123/73 93 Mechanical Ventilator 60 04/13/18 01:30 98 17 138/56 94 Mechanical Ventilator 60 04/13/18 01:24 94 19 60 04/13/18 01:00 97 19 125/72 94 Mechanical Ventilator 60 04/13/18 01:00 116/61 04/13/18 00:45 88 18 122/63 96 Mechanical Ventilator 60 04/13/18 00:30 99 19 134/73 95 Mechanical Ventilator 60 04/13/18 00:15 76 18 120/53 99 Mechanical Ventilator 60 04/13/18 00:00 120/53 04/13/18 00:00 70 04/13/18 00:00 Mechanical Ventilator 04/13/18 00:00 99.7 78 18 83/43 99 Mechanical Ventilator 60 04/13/18 00:00 75 04/12/18 23:45 81 19 86/44 100 Mechanical Ventilator 60 04/12/18 23:43 99.0 04/12/18 23:30 76 18 82/44 100 Mechanical Ventilator 60 04/12/18 23:15 78 18 119/68 100 Mechanical Ventilator 60 04/12/18 23:00 89 21 123/71 97 Mechanical Ventilator 60 04/12/18 23:00 119/68 04/12/18 22:50 76 18 60 04/12/18 22:45 76 18 104/49 100 Mechanical Ventilator 60 04/12/18 22:30 77 18 98/56 99 Mechanical Ventilator 60 04/12/18 22:15 76 18 109/70 100 Mechanical Ventilator 60 04/12/18 22:00 83 18 92/58 97 Mechanical Ventilator 60 04/12/18 22:00 109/70 04/12/18 21:33 82 18 70 04/12/18 21:30 100.0 83 18 111/59 95 Mechanical Ventilator 60 04/12/18 21:30 79/39 04/12/18 21:00 78 18 79/39 95 Mechanical Ventilator 60 04/12/18 20:30 83 20 113/63 95 Mechanical Ventilator 60 04/12/18 20:00 Mechanical Ventilator 04/12/18 20:00 95 04/12/18 20:00 99.0 91 25 147/62 97 Mechanical Ventilator 60 04/12/18 20:00 70 04/12/18 19:00 99 36 142/88 97 Mechanical Ventilator 60 04/12/18 18:44 91 35 70 Micro: Microbiology Date/Time Source Procedure Growth Status 04/11/18 07:30 Blood Blood Culture - Preliminary NO GROWTH AFTER 24 HOURS Resulted 04/11/18 07:15 Blood Blood Culture - Preliminary NO GROWTH AFTER 24 HOURS Resulted 04/11/18 07:47 Nasal Nares MRSA Culture - Final NO METHICILLIN RESISTANT STAPH AUREUS... Complete 04/11/18 07:15 Straight Cath Urine Culture - Preliminary NO GROWTH AFTER 48 HOURS Resulted 04/11/18 07:47 Rectum VRE Culture - Final NO VANCOMYCIN RESISTANT ENTEROCOCCUS ... Complete Critical Care - Subjective ROS Limited/Unobtainable: No FI02: 60 Vent Support Breath Rate: 18 Vent Support Mode: AC Vent Tidal Volume: 450 Sputum Amount: Moderate PEEP: 5.0 PIP: 26 I&O: Intake and Output 04/12/18 04/13/18 19:00 07:00 Intake Total 785.708 ml 751.823 ml Output Total 520 ml 505 ml Balance 265.708 ml 246.823 ml Intake IV Total 785.708 ml 751.823 ml Output Urine Total 520 ml 505 ml ET-Tube: 8.0 ET Position: 22 Wally Smith MD Apr 13, 2018 18:41
--- NOTE | 2018-04-13 18:57 | NUR ---
RESPIRATORY NOTE: Received patient on 840 vent. Vent settings are: A/C rate of 18, Vt 450, FI02 60%, PEEP +-5. No respiratory distress noted, pt. Sp02 @ 96%. Vent plugged on red outlet. Will continue to monitor pt.
--- NOTE | 2018-04-13 19:17 | NUR ---
HAND-OFF: Report given to Carlos DE GUZMAN using SBAR. VSS. No dsitress noted.
--- NOTE | 2018-04-13 20:00 | NUR ---
NURSE NOTES: Received patient not opening eyes, withdraws to deep pain. laboratory monitor showing SR. ETT 8.0 /21 cm ll AC 18 VT 450 PEEP 5 FiO2 50%. Rhonchi auscultated bilaterally upper lobes, lower lobes diminished. Patient NPO. OGT intact. Non-tender abdomen, round, soft. Black intact draining. L Wrist 18, R ac 18 Fem TLC. Patient on 1.2 NS + 20 KCL at 50 cc/hr. No changes at this time. Will continue to monitor patient.
[2018-04-13] MEDS: Dyna-Hex 2% Top Sol 2oz TOPIC SCH (20:05)
[2018-04-13] MEDS ORDERED: Atropine Inj 1mg/10ml Syr ONE (21:40)
[2018-04-13] MEDS ORDERED: Sodium Bicarbonate 8.4% 50ml Inj ONE (21:40)
[2018-04-13] MEDS ORDERED: Calcium Chloride 10% 10ml carpuject IVP ONE (21:40)
[2018-04-13] MEDS ORDERED: Magnesium Sulfate 2ml Inj ONE (21:40)
--- NOTE | 2018-04-13 22:00 | NUR ---
NURSE NOTES: Repositioned patient, no acute distress at this time, Ativan 1mg given , will continue to monitor.
[2018-04-14] VITALS (23 sets, daily range): BP systolic 109–179; BP diastolic 46–87
--- NOTE | 2018-04-14 00:50 | NUR ---
NURSE NOTES: Repositioned and provided oral care, FiO2 at 40%, while saturating at 98%, will continue to monitor patients progress.
--- NOTE | 2018-04-14 02:00 | NUR ---
NURSE NOTES: Repositioned and suction, NAD
[2018-04-14] MEDS: 1/2NS w/KCl 20mEq 1000ml 1,000 ML IV SCH ×2 (03:19→21:05)
[2018-04-14] MEDS: LORazepam Inj 2mg/ml 1ml IV PRN ×2 (03:20→21:04)
--- NOTE | 2018-04-14 04:00 | NUR ---
NURSE NOTES: Repositioned and suctioned, NAD, no new changes
[2018-04-14] MEDS: Zosyn 3.375gm q8h **Extended infusion IVPB SCH ×6 (05:43→21:05)
--- NOTE | 2018-04-14 06:00 | NUR ---
NURSE NOTES: Vitals remains stable, no acute distress.
--- NOTE | 2018-04-14 07:25 | NUR ---
NURSE NOTES: Patient received lying in bed, eyes closed, withdraws to pain. Intubated, vent settings: AC-18, TV-450, FiO2-50%, PEEP-5, oxygen sat at 95%, no acute distress. No non-verbal signs of pain noted. Orogastric tube present, NPO. HOB at semi-zaldivar's position. Black catheter present and draining to yellow urine. Left femoral TLC running 1/2 NS with 20 mEq KCL at 50 ml/hr, asymptomatic. Bilateral lower extremities noted with +1 pitting edema; heels offloaded with pillows. Sinus Rhythm on the monitor. Safety measures implemented. Will continue to monitor the patient.
--- NOTE | 2018-04-14 07:33 | NUR ---
RESPIRATORY NOTE: received pt on vent, intubated with ett 8.0 placed 22cm at the lip. no resp distress noted at this time. vent plugged into redoutlet with ambu bag at bedside. alarms are on and audible will cont to monitor .
--- NOTE | 2018-04-14 07:59 | Critical Care Progress Note ---
Assessment/Plan Assessment/Plan IMPRESSION: Pneumonia, aspiration, probable sepsis, evidence of thrombocytopenia, severe protein-calorie malnutrition, elevated troponin, possible non-STEMI AR, evidence of anemia. acute respiratory failure, hypoxemia PLAN care noted IV antibiotics respiratory care Ventilatory support supportive meds supportive care suction as needed consider wean oxygen therapy and taper prognosis guarded nutrition medications/laboratory data/nursing notes/ICU care reviewed in detail note reviewed and edited care discussed with RN and RT ICU time spent 40 minutes Critical Care - Subjective Interval Events: weekend events noted on vent ROS Limited/Unobtainable: Yes Condition: critical EKG Rhythm: Sinus Rhythm I&O: Intake and Output 04/13/18 04/14/18 19:00 07:00 Intake Total 667.5 ml 1115.0 ml Output Total 450 ml 425 ml Balance 217.5 ml 690.0 ml Intake IV Total 667.5 ml 1115.0 ml Output Urine Total 450 ml 425 ml Critical Care - Objective ET-Tube: 8.0 ET Position: 22 Last 24 Hour Vital Signs Date Time Temp Pulse Resp B/P (MAP) Pulse Ox O2 Delivery O2 Flow Rate FiO2 04/14/18 07:30 88 24 40 04/14/18 07:00 85 18 136/65 97 Mechanical Ventilator 40 04/14/18 06:00 66 18 121/57 98 Mechanical Ventilator 40 04/14/18 05:00 83 19 116/46 97 Mechanical Ventilator 40 04/14/18 04:32 85 31 40 04/14/18 04:00 Mechanical Ventilator 04/14/18 04:00 87 04/14/18 04:00 99.1 85 25 126/56 99 Mechanical Ventilator 40 04/14/18 04:00 40 04/14/18 03:05 92 36 40 04/14/18 03:00 90 30 152/87 99 Mechanical Ventilator 40 04/14/18 02:00 89 25 141/71 96 Mechanical Ventilator 40 04/14/18 01:25 80 20 40 04/14/18 01:00 78 22 140/66 95 Mechanical Ventilator 40 04/14/18 00:00 40 04/14/18 00:00 Mechanical Ventilator 04/14/18 00:00 99.6 82 21 145/72 98 Mechanical Ventilator 40 04/14/18 00:00 79 04/13/18 23:11 67 18 60 04/13/18 23:00 66 22 147/63 98 Mechanical Ventilator 50 04/13/18 22:00 98.9 68 30 114/53 99 Mechanical Ventilator 50 04/13/18 21:21 89 18 60 04/13/18 21:00 84 33 160/91 98 Mechanical Ventilator 50 04/13/18 20:00 85 04/13/18 20:00 Mechanical Ventilator 04/13/18 20:00 100.0 89 35 160/85 97 Mechanical Ventilator 50 04/13/18 20:00 50 04/13/18 19:20 50 04/13/18 19:19 86 18 159/77 100 Mechanical Ventilator 50 04/13/18 19:00 70 18 145/62 100 Mechanical Ventilator 60 04/13/18 18:56 93 18 60 04/13/18 18:00 72 18 133/50 100 Mechanical Ventilator 60 04/13/18 17:00 78 18 135/51 100 Mechanical Ventilator 60 04/13/18 17:00 69 18 135/51 100 Mechanical Ventilator 60 04/13/18 16:57 67 18 60 04/13/18 16:00 70 04/13/18 16:00 Mechanical Ventilator 04/13/18 16:00 98.8 73 22 138/68 100 Mechanical Ventilator 60 04/13/18 16:00 77 04/13/18 15:02 71 18 60 04/13/18 15:00 66 18 132/61 100 Mechanical Ventilator 60 04/13/18 14:00 85 21 127/73 98 Mechanical Ventilator 60 04/13/18 13:00 88 21 148/90 98 Mechanical Ventilator 60 04/13/18 13:00 91 33 50 04/13/18 12:00 Mechanical Ventilator 04/13/18 12:00 87 04/13/18 12:00 60 04/13/18 12:00 98.9 89 22 143/91 100 Mechanical Ventilator 60 04/13/18 11:42 144/85 04/13/18 11:00 86 21 138/72 98 Mechanical Ventilator 60 04/13/18 10:43 92 31 50 04/13/18 10:00 89 20 122/70 98 Mechanical Ventilator 60 04/13/18 09:05 73 18 50 04/13/18 09:00 88 20 127/71 98 Mechanical Ventilator 60 04/13/18 08:00 99.0 92 21 138/65 97 Mechanical Ventilator 60 04/13/18 08:00 88 04/13/18 08:00 60 04/13/18 08:00 Mechanical Ventilator Labs: Labs Test 04/11/18 08:29 04/11/18 13:00 04/11/18 17:59 04/12/18 04:00 Lactic Acid Level 7.10 mmol/L (0.66-2.22) 3.20 mmol/L (0.4-2.0) 1.60 mmol/L (0.4-2.0) Arterial Blood pH 7.406 (7.350-7.450) Arterial Blood Partial Pressure CO2 50.4 mmHg (35.0-45.0) Arterial Blood Partial Pressure O2 89.7 mmHg (75.0-100.0) Arterial Blood HCO3 30.9 mmol/L (22.0-26.0) Arterial Blood Oxygen Saturation 96.7 % (95-100) Arterial Blood Base Excess 5.3 (-2-2) Joesph Test Positive White Blood Count 10.9 K/UL (4.8-10.8) Red Blood Count 3.08 M/UL (4.70-6.10) Hemoglobin 10.1 G/DL (14.2-18.0) Hematocrit 30.8 % (42.0-52.0) Mean Corpuscular Volume 100 FL (80-99) Mean Corpuscular Hemoglobin 32.7 PG (27.0-31.0) Mean Corpuscular Hemoglobin Concent 32.8 G/DL (32.0-36.0) Red Cell Distribution Width 11.2 % (11.6-14.8) Platelet Count 63 K/UL (150-450) Mean Platelet Volume 9.6 FL (6.5-10.1) Neutrophils (%) (Auto) % (45.0-75.0) Lymphocytes (%) (Auto) % (20.0-45.0) Monocytes (%) (Auto) % (1.0-10.0) Eosinophils (%) (Auto) % (0.0-3.0) Basophils (%) (Auto) % (0.0-2.0) Differential Total Cells Counted 100 Neutrophils % (Manual) 56 % (45-75) Lymphocytes % (Manual) 4 % (20-45) Monocytes % (Manual) 11 % (1-10) Eosinophils % (Manual) 0 % (0-3) Basophils % (Manual) 0 % (0-2) Band Neutrophils 29 % (0-8) Platelet Estimate Decreased Platelet Morphology Normal Red Blood Cell Morphology Normal Sodium Level 139 MMOL/L (136-145) Potassium Level 4.1 MMOL/L (3.5-5.1) Chloride Level 103 MMOL/L (98-107) Carbon Dioxide Level 31 MMOL/L (21-32) Anion Gap 5 mmol/L (5-15) Blood Urea Nitrogen 20 mg/dL (7-18) Creatinine 1.1 MG/DL (0.55-1.30) Estimat Glomerular Filtration Rate > 60 mL/min (>60) Glucose Level 92 MG/DL (74-106) Calcium Level 7.7 MG/DL (8.5-10.1) Magnesium Level 1.5 MG/DL (1.8-2.4) Troponin I 0.189 ng/mL (0.000-0.056) Test 04/12/18 11:15 Arterial Blood pH 7.471 (7.350-7.450) Arterial Blood Partial Pressure CO2 40.4 mmHg (35.0-45.0) Arterial Blood Partial Pressure O2 69.6 mmHg (75.0-100.0) Arterial Blood HCO3 28.8 mmol/L (22.0-26.0) Arterial Blood Oxygen Saturation 94.0 % (95-100) Arterial Blood Base Excess 4.8 (-2-2) Joesph Test Positive Objective: GENERAL: An ill-appearing male of short stature. obtunded HEENT: Negative. NECK: Supple. The patient remains orally intubated. LUNGS: Coarse breath sounds. Rhonchi bilaterally. no wheeze CARDIAC: S1 and S2. Regular rate and rhythm without murmurs, rubs, gallops. ABDOMEN: Soft, nontender, nondistended. feeding tube in place . EXTREMITIES: No cyanosis, clubbing, or edema. NEUROLOGIC: The patient with significant muscular atrophy, sedated Brian Torres MD Apr 14, 2018 07:59
--- NOTE | 2018-04-14 08:10 | NUR ---
NURSE NOTES: Dr. Torres in facility, weaning determination ordered for patient. Will inform RT.
--- NOTE | 2018-04-14 08:40 | NUR ---
RESPIRATORY NOTE: Order received to wean pt. pt changed to SIMV 12 450 PS 8 +5 fio2 40% at 0835. Pt reaching Vt of 200-250mL and RR increased to 35-40. will notify nurse of pt status during weaning trial.
--- NOTE | 2018-04-14 08:43 | NUR ---
NURSE NOTES: RT tried to wean patient, VT increased along with increased respirations. Unable to wean at this time per RT. Patient was placed back on AC mode.
[2018-04-14] MEDS: Heparin 5000 units/ml inj SUBQ SCH ×2 (09:00→21:05)
--- NOTE | 2018-04-14 09:00 | NUR ---
NURSE NOTES: Paged for Dr. Urena, patient with no AM labs.
[2018-04-14] MEDS: Pantoprazole Inj IVP SCH (09:15)
--- NOTE | 2018-04-14 10:00 | NUR ---
NURSE NOTES: Patient comfortable in bed, no signs of pain or distress noted. Oral suctioning provided. Heels offloaded. Will continue to monitor the patient.
--- NOTE | 2018-04-14 10:29 | NUR ---
Social Service Note SW spoke with patient's multimedia services manager at [facility] Lori Sultana [phone]. Patient doesn't have family. 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 Consents to be faxed to [phone].
--- NOTE | 2018-04-14 12:24 | NUR ---
NURSE NOTES: Patient kept bucking on the ventilator, bite block placed by RT.
[2018-04-14] MEDS: DOPamine 400mg/250ml 250 ML IV SCH (12:30)
[2018-04-14] MEDS: Vancomycin 750mg/NS 250ml IVPB SCH (14:23)
--- NOTE | 2018-04-14 14:27 | NUR ---
CASE MANAGEMENT: REVIEW SI: ALOC . PNA T 101.3 HR 94 RR 37 BP 154/62 SAT 93% MECH VENT FIO2 50 IS: VANCO IV Q12HR NS IVF @50ML/HR PROTONIX IV QD HEPARIN SQ Q12HR ICU STATUS DCP: PATIENT IS FROM [facility]
--- NOTE | 2018-04-14 16:30 | NUR ---
NURSE NOTES: Patient on cooling blanket. Temperature noted to be 100.1. Cooling measures implemented.
--- NOTE | 2018-04-14 16:35 | General Progress Note ---
Assessment/Plan Assessment/Plan Acute Resp Failure - Vent. m/p secondary to aspiration. Brain Anoxia -pupils still respond to light! PONCHO Jeanette Darcy. She'll call the regional Center to get code status. Poor prognosis. Subjective Allergies: Coded Allergies: No Known Allergies (Unverified , 04/11/18) Subjective On vent. Objective Last 24 Hour Vital Signs Date Time Temp Pulse Resp B/P (MAP) Pulse Ox O2 Delivery O2 Flow Rate FiO2 04/14/18 16:00 50 04/14/18 16:00 73 14 109/53 98 Mechanical Ventilator 50 04/14/18 16:00 Mechanical Ventilator 04/14/18 15:05 80 25 40 04/14/18 15:00 69 17 131/59 99 Mechanical Ventilator 50 04/14/18 14:00 83 25 179/79 100 Mechanical Ventilator 50 04/14/18 13:00 98.1 94 29 154/62 93 Mechanical Ventilator 50 04/14/18 12:36 93 35 40 04/14/18 12:00 91 04/14/18 12:00 50 04/14/18 12:00 101.3 90 37 100 Mechanical Ventilator 50 04/14/18 12:00 Mechanical Ventilator 04/14/18 11:00 95 24 143/71 97 Mechanical Ventilator 50 04/14/18 10:39 94 24 40 04/14/18 10:00 97 27 145/67 95 Mechanical Ventilator 50 04/14/18 09:00 80 17 126/63 96 Mechanical Ventilator 50 04/14/18 08:43 88 24 40 04/14/18 08:37 95 04/14/18 08:00 87 04/14/18 08:00 50 04/14/18 08:00 Mechanical Ventilator 04/14/18 08:00 99.7 89 26 133/58 96 Mechanical Ventilator 50 04/14/18 07:30 88 24 40 04/14/18 07:00 85 18 136/65 97 Mechanical Ventilator 40 04/14/18 06:00 66 18 121/57 98 Mechanical Ventilator 40 04/14/18 05:00 83 19 116/46 97 Mechanical Ventilator 40 04/14/18 04:32 85 31 40 04/14/18 04:00 Mechanical Ventilator 04/14/18 04:00 87 04/14/18 04:00 99.1 85 25 126/56 99 Mechanical Ventilator 40 04/14/18 04:00 40 04/14/18 03:05 92 36 40 04/14/18 03:00 90 30 152/87 99 Mechanical Ventilator 40 04/14/18 02:00 89 25 141/71 96 Mechanical Ventilator 40 04/14/18 01:25 80 20 40 04/14/18 01:00 78 22 140/66 95 Mechanical Ventilator 40 04/14/18 00:00 40 04/14/18 00:00 Mechanical Ventilator 04/14/18 00:00 99.6 82 21 145/72 98 Mechanical Ventilator 40 04/14/18 00:00 79 04/13/18 23:11 67 18 60 04/13/18 23:00 66 22 147/63 98 Mechanical Ventilator 50 04/13/18 22:00 98.9 68 30 114/53 99 Mechanical Ventilator 50 04/13/18 21:21 89 18 60 04/13/18 21:00 84 33 160/91 98 Mechanical Ventilator 50 04/13/18 20:00 85 04/13/18 20:00 Mechanical Ventilator 04/13/18 20:00 100.0 89 35 160/85 97 Mechanical Ventilator 50 04/13/18 20:00 50 04/13/18 19:20 50 04/13/18 19:19 86 18 159/77 100 Mechanical Ventilator 50 04/13/18 19:00 70 18 145/62 100 Mechanical Ventilator 60 04/13/18 18:56 93 18 60 04/13/18 18:00 72 18 133/50 100 Mechanical Ventilator 60 04/13/18 17:00 78 18 135/51 100 Mechanical Ventilator 60 04/13/18 17:00 69 18 135/51 100 Mechanical Ventilator 60 04/13/18 16:57 67 18 60 Intake and Output 04/13/18 04/14/18 19:00 07:00 Intake Total 667.5 ml 1115.0 ml Output Total 450 ml 425 ml Balance 217.5 ml 690.0 ml Intake IV Total 667.5 ml 1115.0 ml Output Urine Total 450 ml 425 ml Laboratory Tests 04/14/18 11:20: Vancomycin Level Trough 6.1 Height (Feet): 5 Height (Inches): 3.00 Weight (Pounds): 106 Objective CV- RR Lungs B ronchi Abd SNT. BS + E + edema Vivienne Urena MD Apr 14, 2018 16:35
--- NOTE | 2018-04-14 16:36 | NUR ---
NURSE NOTES: Dr. Staples agreed to no labs this morning, cbc, bmp, abg ordered for tomorrow. Informed MD of patient NPO, metrologist recommended Vital AF 1.2 at 50 ml/hr, MD agreed, water flush 60 Q6H. Orders noted and carried out.
--- NOTE | 2018-04-14 19:22 | NUR ---
HAND-OFF: Report given to GEGE Gonzalez.
--- NOTE | 2018-04-14 20:00 | NUR ---
NURSE NOTES: Patient received lying in bed, eyes closed, withdraws to pain. Intubated, vent settings: AC-18, TV-450, FiO2-50%, PEEP-5, oxygen sat at 100%, no acute distress. No non-verbal signs of pain noted. OGT present and receiving Vital AF 1.2 at 20ml/hr. HOB at semi-zaldivar's position. Black catheter present and draining to yellow urine. Left femoral TLC running 1/2 NS with 20 mEq KCL at 50 ml/hr, asymptomatic. Bilateral lower extremities noted with +1 pitting edema; heels offloaded with pillows. Sinus Rhythm on the monitor. Safety measures implemented. Will continue to monitor the patient.
[2018-04-14] MEDS: Dyna-Hex 2% Top Sol 2oz TOPIC SCH (21:03)
--- NOTE | 2018-04-14 22:00 | NUR ---
NURSE NOTES: Patient repositioned, temperature is 99.4F. Vitals remains stable. Patient is tachypnic, Ativan 1 mg given.
--- NOTE | 2018-04-14 23:13 | Cardiology Progress Note ---
Subjective Subjective [id number] Objective Last 24 Hour Vital Signs Date Time Temp Pulse Resp B/P (MAP) Pulse Ox O2 Delivery O2 Flow Rate FiO2 04/14/18 23:04 76 21 40 04/14/18 20:39 83 34 40 04/14/18 19:19 86 31 40 04/14/18 19:00 77 17 163/62 99 Mechanical Ventilator 50 04/14/18 18:00 92 29 168/74 96 Mechanical Ventilator 50 04/14/18 17:00 100.1 85 23 157/80 96 Mechanical Ventilator 50 04/14/18 16:56 89 25 40 04/14/18 16:00 50 04/14/18 16:00 73 14 109/53 98 Mechanical Ventilator 50 04/14/18 16:00 Mechanical Ventilator 04/14/18 16:00 86 04/14/18 15:05 80 25 40 04/14/18 15:00 69 17 131/59 99 Mechanical Ventilator 50 04/14/18 14:00 83 25 179/79 100 Mechanical Ventilator 50 04/14/18 13:00 98.1 94 29 154/62 93 Mechanical Ventilator 50 04/14/18 12:36 93 35 40 04/14/18 12:00 91 04/14/18 12:00 50 04/14/18 12:00 101.3 90 37 100 Mechanical Ventilator 50 04/14/18 12:00 Mechanical Ventilator 04/14/18 11:00 95 24 143/71 97 Mechanical Ventilator 50 04/14/18 10:39 94 24 40 04/14/18 10:00 97 27 145/67 95 Mechanical Ventilator 50 04/14/18 09:00 80 17 126/63 96 Mechanical Ventilator 50 04/14/18 08:43 88 24 40 04/14/18 08:37 95 04/14/18 08:00 87 04/14/18 08:00 50 04/14/18 08:00 Mechanical Ventilator 04/14/18 08:00 99.7 89 26 133/58 96 Mechanical Ventilator 50 04/14/18 07:30 88 24 40 04/14/18 07:00 85 18 136/65 97 Mechanical Ventilator 40 04/14/18 06:00 66 18 121/57 98 Mechanical Ventilator 40 04/14/18 05:00 83 19 116/46 97 Mechanical Ventilator 40 04/14/18 04:32 85 31 40 04/14/18 04:00 Mechanical Ventilator 1/14/19 04:00 87 04/14/18 04:00 99.1 85 25 126/56 99 Mechanical Ventilator 40 04/14/18 04:00 40 04/14/18 03:05 92 36 40 04/14/18 03:00 90 30 152/87 99 Mechanical Ventilator 40 04/14/18 02:00 89 25 141/71 96 Mechanical Ventilator 40 04/14/18 01:25 80 20 40 04/14/18 01:00 78 22 140/66 95 Mechanical Ventilator 40 04/14/18 00:00 40 04/14/18 00:00 Mechanical Ventilator 04/14/18 00:00 99.6 82 21 145/72 98 Mechanical Ventilator 40 04/14/18 00:00 79 Intake and Output 04/13/18 04/14/18 19:00 07:00 Intake Total 667.5 ml 1115.0 ml Output Total 450 ml 425 ml Balance 217.5 ml 690.0 ml Intake IV Total 667.5 ml 1115.0 ml Output Urine Total 450 ml 425 ml Laboratory Tests Test 04/14/18 11:20 Vancomycin Level Trough 6.1 ug/mL (5.0-12.0) Sharmaine Crowder MD Apr 14, 2018 23:13
[2018-04-15] VITALS (24 sets, daily range): BP systolic 99–166; BP diastolic 55–80
--- NOTE | 2018-04-15 | NUR ---
NURSE NOTES: Patient repositioned and provided oral care, NAD. Vitals stable, bite block placed for protection.
[2018-04-15] MEDS: Vancomycin 750mg/NS 250ml IVPB SCH ×2 (02:00→14:00)
--- NOTE | 2018-04-15 02:00 | NUR ---
NURSE NOTES: Patient repositioned and provided oral care. Vitals remain stable.
--- NOTE | 2018-04-15 03:15 | Consultation ---
DATE OF CONSULTATION: 04/15/2018 IDENTIFICATION DATA: A 68-year-old gentleman. REASON FOR EVALUATION: Abnormal echo and post cardiorespiratory arrest. HISTORY OF PRESENT ILLNESS: Unfortunately, the patient is unable to give any history. He is intubated and there is no family member or anybody else who can give any history. There is only paperwork and the patient assessment will give some input. Apparently, this is an unfortunate 68-year-old gentleman, who lives in the institution due to his mental retardation and he had a cardiac arrest, was resuscitated, brought to the emergency department, and intubated in critical condition. The patient, at this time, is unable to give any history. At present time, he is stable. He was given antibiotics and fluid hydration and he still is on the respirator. PAST MEDICAL HISTORY: Significant for hypertension, pulmonary hypertension, mental retardation, kyphoscoliosis, and cerebral palsy. HOME MEDICATIONS: Include trazodone, Cogentin, folic acid, oral iron, Risperdal, and BuSpar. ALLERGIES: Not reported. REVIEW OF SYSTEMS: Unobtainable as the patient is intubated. PHYSICAL EXAMINATION: VITAL SIGNS: The patient is sedated and intubated. He does not respond to verbal stimuli. His blood pressure is 150/80 and 160/70. His heart rate is 80. He is in sinus rhythm. His oxygen saturation on FiO2 40% was 94%. HEENT: The patient's pupils are difficult to assess because he has deviation of his gaze and it appears that he has sluggish pupil reaction. Appears that he has stiff neck with kyphoscoliosis and he is intubated. NECK: The patient appears to have contraction and scoliosis and deformities of his neck. His neck veins appear to be somewhat distended. LUNGS: Some crackles bilaterally. HEART: Regular with loud S1. PMI is in the sixth intercostal space in the mid clavicular line. There is no left apical lift or heave. ABDOMEN: Soft and scaphoid. No masses palpable. EXTREMITIES: His lower extremities are thin with evidence of muscle wasting. Distal pulses are diminished. IMAGING: His chest x-ray showed cardiomegaly and pulmonary venous congestion, but the quality of the chest x-ray is very poor. His EKG shows sinus rhythm with nonspecific ST and T changes. LABORATORY DATA: Remarkable for WBC 7.1, up to 10.9, his hemoglobin is 10.1, and his platelets are 63,000. His troponin noted to be elevated at 0.189 at the last time and previous one was 0.296. His lactic acid is very high, initially, it was 7.1 and now down to 3.2. His magnesium level was 3.4. His creatinine was 1.3 and glucose was 247. ProBNP level was 2703 and albumin 2.4. His echocardiogram reviewed and he has normal left ventricular function, normally functioning valve, moderate MR, and pulmonary hypertension. IMPRESSION AND RECOMMENDATION: The patient has acute respiratory failure and post cardiac arrest. I would suspect most likely it is due to pulmonary causes, questionable aspiration versus pneumonia. He has suffered multiorgan damage including elevated troponin, which I contribute to the "_end organ damage." He has myocardial infarction type 2 and not type 1," because it does not look like the patient had primary coronary or cardiac event. I am seeing him because his echocardiogram and EKG are not remarkable and his troponin is mildly elevated, which could be mostly due to myocardial damage as a result of septic shock and injury. His BNP level is elevated, but it is nonspecific and could be due to sepsis. In summary, based on the patient's EKG, physical examination, and an echocardiogram evaluation, I believe that his primary problem is pneumonia and sepsis and his cardiac injury is secondary. At this time, he is hemodynamically stable and he is intubated. I do not know how easy it is going to be to extubate him and it is going to be difficult to extubate. He is getting antibiotics and we are going to monitor closely his urine output and his progress. Hopefully, he will be able to get extubated and then probably needs assessment for possible aspiration or further workup for pneumonia as per primary care medical doctor and licensed massage therapist. Thank you very much for your consultation. This was ICU consult, 1 hour. Sharmaine Crowder M.D. DR: NELIA JOB#: [id number] CC: JULY
--- NOTE | 2018-04-15 04:00 | NUR ---
NURSE NOTES: Repositioned patient, NAD, Vitals remains stable.
[2018-04-15 05:57] LABS: HEMATOCRIT 29.6 % (42.0-52.0); HEMOGLOBIN 9.7 G/DL (14.2-18.0); MEAN CORPUSCULAR VOLUME 100 FL (80-99); PLATELET COUNT 95 K/UL (150-450); RED BLOOD COUNT 2.97 M/UL (4.70-6.10); RED CELL DISTRIBUTION WIDTH 11.3 % (11.6-14.8); WHITE BLOOD COUNT 11.1 K/UL (4.8-10.8)
--- NOTE | 2018-04-15 06:00 | NUR ---
NURSE NOTES: Patient cleaned and repositioned. NAD, Vitals remains stable.
[2018-04-15] MEDS: Zosyn 3.375gm q8h **Extended infusion IVPB SCH ×6 (06:18→21:44)
[2018-04-15 06:22] LABS: ALANINE AMINOTRANSFERASE 30 U/L (12-78); ALBUMIN/GLOBULIN RATIO 0.6 (1.0-2.7); ALKALINE PHOSPHATASE 59 U/L (46-116); ANION GAP 14 mmol/L (5-15); ASPARTATE AMINO TRANSFERASE 72 U/L (15-37); BLOOD UREA NITROGEN 29 mg/dL (7-18); CALCIUM 7.8 MG/DL (8.5-10.1); CARBON DIOXIDE 19 MMOL/L (21-32); CHLORIDE 101 MMOL/L (98-107); CREATININE 0.8 MG/DL (0.55-1.30); POTASSIUM 5.1 MMOL/L (3.5-5.1); SODIUM 134 MMOL/L (136-145)
--- NOTE | 2018-04-15 07:44 | Critical Care Progress Note ---
Assessment/Plan Assessment/Plan IMPRESSION: Pneumonia, aspiration, probable sepsis, evidence of thrombocytopenia, severe protein-calorie malnutrition, elevated troponin, possible non-STEMI AR, evidence of anemia. acute respiratory failure, hypoxemia PLAN care noted IV antibiotics respiratory care Ventilatory support supportive meds supportive care suction as needed try to wean oxygen therapy and taper prognosis guarded nutrition medications/laboratory data/nursing notes/ICU care reviewed in detail note reviewed and edited care discussed with RN and RT ICU time spent 40 minutes Critical Care - Subjective Interval Events: remains ill on vent care noted overnight events ROS Limited/Unobtainable: Yes EKG Rhythm: Sinus Rhythm Residuals: minimal Tube Feeding Tolerated: yes I&O: Intake and Output 04/14/18 04/15/18 19:00 07:00 Intake Total 1003.4 ml 1150 ml Output Total 455 ml 525 ml Balance 548.4 ml 625 ml Intake IV Total 893.4 ml 810 ml Tube Feeding 20 ml 340 ml Other 90 ml Output Urine Total 455 ml 525 ml Critical Care - Objective ET-Tube: 8.0 ET Position: 22 Last 24 Hour Vital Signs Date Time Temp Pulse Resp B/P (MAP) Pulse Ox O2 Delivery O2 Flow Rate FiO2 04/15/18 06:45 92 40 40 04/15/18 06:00 72 22 166/78 100 Mechanical Ventilator 40 04/15/18 05:00 88 32 137/58 99 Mechanical Ventilator 40 04/15/18 04:42 73 21 40 04/15/18 04:00 88 04/15/18 04:00 98.6 84 32 149/73 100 Mechanical Ventilator 40 04/15/18 04:00 40 04/15/18 04:00 Mechanical Ventilator 04/15/18 03:00 85 32 150/55 99 Mechanical Ventilator 40 04/15/18 02:34 82 34 40 04/15/18 02:00 85 23 152/63 96 Mechanical Ventilator 40 04/15/18 01:10 82 37 40 04/15/18 01:00 98.7 82 22 153/73 100 Mechanical Ventilator 40 04/15/18 00:00 81 04/15/18 00:00 Mechanical Ventilator 04/15/18 00:00 40 04/15/18 00:00 84 32 162/77 100 Mechanical Ventilator 40 04/14/18 23:04 76 21 40 04/14/18 23:00 86 32 161/73 100 Mechanical Ventilator 40 04/14/18 22:00 84 31 152/64 100 Mechanical Ventilator 40 04/14/18 21:00 84 32 159/79 97 Mechanical Ventilator 40 04/14/18 20:39 83 34 40 04/14/18 20:00 99.6 86 31 162/73 99 Mechanical Ventilator 40 04/14/18 20:00 69 04/14/18 20:00 Mechanical Ventilator 04/14/18 20:00 40 04/14/18 19:19 86 31 40 04/14/18 19:00 77 17 163/62 99 Mechanical Ventilator 50 04/14/18 18:00 92 29 168/74 96 Mechanical Ventilator 50 04/14/18 17:00 100.1 85 23 157/80 96 Mechanical Ventilator 50 04/14/18 16:56 89 25 40 04/14/18 16:00 50 04/14/18 16:00 73 14 109/53 98 Mechanical Ventilator 50 04/14/18 16:00 Mechanical Ventilator 04/14/18 16:00 86 04/14/18 15:05 80 25 40 04/14/18 15:00 69 17 131/59 99 Mechanical Ventilator 50 04/14/18 14:00 83 25 179/79 100 Mechanical Ventilator 50 04/14/18 13:00 98.1 94 29 154/62 93 Mechanical Ventilator 50 04/14/18 12:36 93 35 40 04/14/18 12:00 91 04/14/18 12:00 50 04/14/18 12:00 101.3 90 37 100 Mechanical Ventilator 50 04/14/18 12:00 Mechanical Ventilator 04/14/18 11:00 95 24 143/71 97 Mechanical Ventilator 50 04/14/18 10:39 94 24 40 04/14/18 10:00 97 27 145/67 95 Mechanical Ventilator 50 04/14/18 09:00 80 17 126/63 96 Mechanical Ventilator 50 04/14/18 08:43 88 24 40 04/14/18 08:37 95 04/14/18 08:00 87 04/14/18 08:00 50 04/14/18 08:00 Mechanical Ventilator 04/14/18 08:00 99.7 89 26 133/58 96 Mechanical Ventilator 50 Labs: Labs Test 04/12/18 11:15 04/14/18 11:20 04/15/18 04:25 Arterial Blood pH 7.471 (7.350-7.450) Arterial Blood Partial Pressure CO2 40.4 mmHg (35.0-45.0) Arterial Blood Partial Pressure O2 69.6 mmHg (75.0-100.0) Arterial Blood HCO3 28.8 mmol/L (22.0-26.0) Arterial Blood Oxygen Saturation 94.0 % (95-100) Arterial Blood Base Excess 4.8 (-2-2) Joesph Test Positive Vancomycin Level Trough 6.1 ug/mL (5.0-12.0) White Blood Count 11.1 K/UL (4.8-10.8) Red Blood Count 2.97 M/UL (4.70-6.10) Hemoglobin 9.7 G/DL (14.2-18.0) Hematocrit 29.6 % (42.0-52.0) Mean Corpuscular Volume 100 FL (80-99) Mean Corpuscular Hemoglobin 32.6 PG (27.0-31.0) Mean Corpuscular Hemoglobin Concent 32.7 G/DL (32.0-36.0) Red Cell Distribution Width 11.3 % (11.6-14.8) Platelet Count 95 K/UL (150-450) Mean Platelet Volume 9.4 FL (6.5-10.1) Neutrophils (%) (Auto) % (45.0-75.0) Lymphocytes (%) (Auto) % (20.0-45.0) Monocytes (%) (Auto) % (1.0-10.0) Eosinophils (%) (Auto) % (0.0-3.0) Basophils (%) (Auto) % (0.0-2.0) Sodium Level 134 MMOL/L (136-145) Potassium Level 5.1 MMOL/L (3.5-5.1) Chloride Level 101 MMOL/L (98-107) Carbon Dioxide Level 19 MMOL/L (21-32) Anion Gap 14 mmol/L (5-15) Blood Urea Nitrogen 29 mg/dL (7-18) Creatinine 0.8 MG/DL (0.55-1.30) Estimat Glomerular Filtration Rate > 60 mL/min (>60) Glucose Level 45 MG/DL (74-106) Calcium Level 7.8 MG/DL (8.5-10.1) Magnesium Level 1.7 MG/DL (1.8-2.4) Total Bilirubin 1.0 MG/DL (0.2-1.0) Aspartate Amino Transf (AST/SGOT) 72 U/L (15-37) Alanine Aminotransferase (ALT/SGPT) 30 U/L (12-78) Alkaline Phosphatase 59 U/L (46-116) Total Protein 5.5 G/DL (6.4-8.2) Albumin 2.0 G/DL (3.4-5.0) Globulin 3.5 g/dL Albumin/Globulin Ratio 0.6 (1.0-2.7) Objective: GENERAL: An ill-appearing male of short stature. obtunded HEENT: Negative. NECK: Supple. The patient remains orally intubated. LUNGS: Coarse breath sounds. Rhonchi bilaterally. no wheeze CARDIAC: S1 and S2. Regular rate and rhythm without murmurs, rubs, gallops. ABDOMEN: Soft, nontender, nondistended. feeding tube in place . EXTREMITIES: No cyanosis, clubbing, or edema. NEUROLOGIC: The patient with significant muscular atrophy, sedated Brian Torres MD Apr 15, 2018 07:44
--- NOTE | 2018-04-15 08:48 | NUR ---
RADIOLOGY DEPT CHEST X-RAY DONE.-P.DYE
[2018-04-15] MEDS: Pantoprazole Inj IVP SCH (09:00)
[2018-04-15] MEDS: Heparin 5000 units/ml inj SUBQ SCH ×2 (09:00→20:31)
--- NOTE | 2018-04-15 10:00 | NUR ---
NURSE NOTES: Patient comfortable in bed, no signs of pain or distress noted. Oral suctioning provided. Heels offloaded. Will continue to monitor the patient.
--- NOTE | 2018-04-15 12:00 | Diagnostic Imaging Report ---
Indication: Dyspnea Comparison: 04/12/2018 A single view chest radiograph was obtained. Findings: There is foreshortening of the lungs secondary to a severe kyphoscoliosis. Difficult to exclude or evaluate for pulmonary disease. There is suggestion of central infiltrates within the lungs bilaterally. Correlate clinically. The appearance is similar on the last occasion. The endotracheal tube is projected over the jer. The tip of the catheter is difficult to assess adequately given the severe foreshortening of the lungs. A lateral view or cross-sectional imaging may be helpful in this regard. NG tube is in good position curled within the stomach. IMPRESSION: No significant radiographic change compared to 04/12/2018. Again there is some difficulty in assessing the position of the endotracheal tube tip which appears to be right at the level of the jer.
--- NOTE | 2018-04-15 12:00 | NUR ---
NURSE NOTES: Patient repositioned and provided oral care, NAD. Vitals stable, bite block placed for protection
[2018-04-15] MEDS: DOPamine 400mg/250ml 250 ML IV SCH (12:30)
--- NOTE | 2018-04-15 12:48 | NUR ---
CASE MANAGEMENT: REVIEW SI: ALOC . PNA T 98.6 HR 92 RR 42 BP 150/70 SAT 100% MECH VENT FIO2 40 WBC 11.1 H/H 9.7/29.6 NA 134 ABG: PH 7.350 PCO2 31.9 PO2 101.1 HCO3 17.2 IS: VANCO IV Q12HR NS IVF @50ML/HR PROTONIX IV QD HEPARIN SQ Q12HR ZOSYN IV Q8HR ICU STATUS DCP: PATIENT IS FROM [facility]
--- NOTE | 2018-04-15 14:00 | NUR ---
NURSE NOTES: Patient repositioned and provided oral care. Vitals remain stable.
--- NOTE | 2018-04-15 14:00 | NUR ---
NURSE NOTES: Repositioned patient, NAD, Vitals remains stable.
--- NOTE | 2018-04-15 16:52 | NUR ---
Social Service Note CHRISTY spoke with Dr. Urena regarding the plan of care for patient. Dr. Urena and consultants feels prognosis is grave and there is no chance of meaningful recovery. Dr. Urena would like to focus on end of life care. CHRISTY left a message for Lori Sultana [phone] environmental services worker at the [facility]. Will monitor and follow up.
--- NOTE | 2018-04-15 16:53 | General Progress Note ---
Assessment/Plan Assessment/Plan Acute Resp Failure - Vent. m/p secondary to aspiration. Brain Anoxia -pupils still respond to light! PONCHO Taveras. She'll call the [facility] to get code status. Poor prognosis. All noted. PONCHO Nunez. Awaiting [facility]'s Decision ----> Dr. Mcgrath. Expect Care Withdrawal! Subjective Allergies: Coded Allergies: No Known Allergies (Unverified , 04/11/18) Subjective On vent. Objective Last 24 Hour Vital Signs Date Time Temp Pulse Resp B/P (MAP) Pulse Ox O2 Delivery O2 Flow Rate FiO2 04/15/18 15:20 91 43 40 04/15/18 13:07 86 37 40 04/15/18 12:30 149/68 04/15/18 11:18 92 42 40 04/15/18 10:00 73 22 149/68 100 Mechanical Ventilator 40 04/15/18 09:00 72 22 150/70 100 Mechanical Ventilator 40 04/15/18 08:52 88 35 40 04/15/18 08:00 98.6 84 32 140/73 100 Mechanical Ventilator 40 04/15/18 08:00 40 04/15/18 08:00 Mechanical Ventilator 04/15/18 08:00 85 04/15/18 07:00 75 22 152/78 100 Mechanical Ventilator 40 04/15/18 06:45 92 40 40 04/15/18 06:00 72 22 166/78 100 Mechanical Ventilator 40 04/15/18 05:00 88 32 137/58 99 Mechanical Ventilator 40 04/15/18 04:42 73 21 40 04/15/18 04:00 88 04/15/18 04:00 98.6 84 32 149/73 100 Mechanical Ventilator 40 04/15/18 04:00 40 04/15/18 04:00 Mechanical Ventilator 04/15/18 03:00 85 32 150/55 99 Mechanical Ventilator 40 04/15/18 02:34 82 34 40 04/15/18 02:00 85 23 152/63 96 Mechanical Ventilator 40 04/15/18 01:10 82 37 40 04/15/18 01:00 98.7 82 22 153/73 100 Mechanical Ventilator 40 04/15/18 00:00 81 04/15/18 00:00 Mechanical Ventilator 04/15/18 00:00 40 04/15/18 00:00 84 32 162/77 100 Mechanical Ventilator 40 04/14/18 23:04 76 21 40 04/14/18 23:00 86 32 161/73 100 Mechanical Ventilator 40 04/14/18 22:00 84 31 152/64 100 Mechanical Ventilator 40 04/14/18 21:00 84 32 159/79 97 Mechanical Ventilator 40 04/14/18 20:39 83 34 40 04/14/18 20:00 99.6 86 31 162/73 99 Mechanical Ventilator 40 04/14/18 20:00 69 04/14/18 20:00 Mechanical Ventilator 04/14/18 20:00 40 04/14/18 19:19 86 31 40 04/14/18 19:00 77 17 163/62 99 Mechanical Ventilator 50 04/14/18 18:00 92 29 168/74 96 Mechanical Ventilator 50 04/14/18 17:00 100.1 85 23 157/80 96 Mechanical Ventilator 50 04/14/18 16:56 89 25 40 Intake and Output 04/14/18 04/15/18 19:00 07:00 Intake Total 1003.4 ml 1190 ml Output Total 455 ml 575 ml Balance 548.4 ml 615 ml Intake IV Total 893.4 ml 810 ml Tube Feeding 20 ml 380 ml Other 90 ml Output Urine Total 455 ml 575 ml Laboratory Tests 04/15/18 04:25: White Blood Count 11.1H, Red Blood Count 2.97L, Hemoglobin 9.7L, Hematocrit 29.6L, Mean Corpuscular Volume 100H, Mean Corpuscular Hemoglobin 32.6H, Mean Corpuscular Hemoglobin Concent 32.7, Red Cell Distribution Width 11.3L, Platelet Count 95L, Mean Platelet Volume 9.4, Neutrophils (%) (Auto) , Lymphocytes (%) (Auto) , Monocytes (%) (Auto) , Eosinophils (%) (Auto) , Basophils (%) (Auto) , Sodium Level 134L, Potassium Level 5.1, Chloride Level 101, Carbon Dioxide Level 19L, Anion Gap 14, Blood Urea Nitrogen 29H, Creatinine 0.8, Estimat Glomerular Filtration Rate > 60, Glucose Level 45L, Calcium Level 7.8L, Magnesium Level 1.7L, Total Bilirubin 1.0, Aspartate Amino Transf (AST/SGOT) 72H, Alanine Aminotransferase (ALT/SGPT) 30, Alkaline Phosphatase 59, Total Protein 5.5L, Albumin 2.0L, Globulin 3.5, Albumin/ Globulin Ratio 0.6L 04/15/18 09:52: Arterial Blood pH 7.350, Arterial Blood Partial Pressure CO2 31.9L, Arterial Blood Partial Pressure O2 101.1H, Arterial Blood HCO3 17.2*L, Arterial Blood Oxygen Saturation 96.8, Arterial Blood Base Excess -7.4L, Joesph Test Positive Height (Feet): 5 Height (Inches): 3.00 Weight (Pounds): 105 Objective CV- RR Lungs B ronchi Abd SNT. BS + E + edema Vivienne Urena MD Apr 15, 2018 16:53
[2018-04-15] MEDS: 1/2NS w/KCl 20mEq 1000ml 1,000 ML IV SCH (17:48)
--- NOTE | 2018-04-15 19:08 | NUR ---
HAND-OFF: Report given to GEGE Cloud.
--- NOTE | 2018-04-15 19:15 | NUR ---
NURSE NOTES: Received pt in bed with eyes closed. Sinus rhythm on the monitor. orally intubated ETT 8, 21 cm at the lip line. AC 18, Vt 450, P5 fio23 40%. OGT feeding vital AF @ 50cc/hr. 50 cc residual noted at this time. Left wrist and right AC PIV flushed with no signs of infiltration. Left femoral running 1/2 NS with 20KCL @ 50cc/hr. Black cath draining by gravity. Temperature 99.0 rectal at this time. Bed in lowest position, side rails upx3. Fall, aspiration and seizure precautions in place. No signs of distress noted. Will continue to monitor.
[2018-04-15] MEDS: Dyna-Hex 2% Top Sol 2oz TOPIC SCH (19:48)
--- NOTE | 2018-04-15 21:00 | NUR ---
NURSE NOTES: CHG bath given at this time. Central Line dressing also changed, noted to be soiled. pt noted to have a BM at this time. Cleaned, turned and repositioned at this time. afebrile. no signs of distress noted. Will continue to monitor.
--- NOTE | 2018-04-15 22:51 | Cardiology Progress Note ---
Assessment/Plan Assessment/Plan post cardiorespiratory arrest, most likely after respiratory arrest, sepsis, pneumonia, troponin elevation due to myocardial damage with septic shock. continue abx and supportive therapy Subjective Subjective The patient remains intubated, he is unresponsive, and is breathing with vent Objective Last 24 Hour Vital Signs Date Time Temp Pulse Resp B/P (MAP) Pulse Ox O2 Delivery O2 Flow Rate FiO2 04/15/18 22:00 98.8 89 32 99/57 100 Mechanical Ventilator 40 04/15/18 21:00 98.8 92 32 137/59 100 Mechanical Ventilator 40 04/15/18 21:00 89 32 40 04/15/18 20:00 Mechanical Ventilator 04/15/18 20:00 40 04/15/18 20:00 89 04/15/18 20:00 99.3 89 32 142/69 100 Mechanical Ventilator 40 04/15/18 19:30 90 34 40 04/15/18 19:00 79 22 139/77 100 Mechanical Ventilator 40 04/15/18 18:00 75 22 142/79 100 Mechanical Ventilator 40 04/15/18 17:15 88 43 40 04/15/18 17:00 73 22 150/68 100 Mechanical Ventilator 40 04/15/18 16:00 40 04/15/18 16:00 Mechanical Ventilator 04/15/18 16:00 81 04/15/18 16:00 98.6 80 32 137/73 100 Mechanical Ventilator 40 04/15/18 15:20 91 43 40 04/15/18 15:00 73 22 140/68 100 Mechanical Ventilator 40 04/15/18 14:00 Mechanical Ventilator 04/15/18 14:00 74 22 159/65 100 Mechanical Ventilator 40 04/15/18 13:07 86 37 40 04/15/18 13:00 80 22 144/68 100 Mechanical Ventilator 40 04/15/18 12:30 149/68 04/15/18 12:00 Mechanical Ventilator 04/15/18 12:00 83 04/15/18 12:00 98.6 84 32 120/80 100 Mechanical Ventilator 40 04/15/18 12:00 40 04/15/18 11:18 92 42 40 04/15/18 11:00 75 22 140/68 100 Mechanical Ventilator 40 04/15/18 10:00 73 22 149/68 100 Mechanical Ventilator 40 04/15/18 09:00 72 22 150/70 100 Mechanical Ventilator 40 04/15/18 08:52 88 35 40 04/15/18 08:00 98.6 84 32 140/73 100 Mechanical Ventilator 40 04/15/18 08:00 40 04/15/18 08:00 Mechanical Ventilator 04/15/18 08:00 85 04/15/18 07:00 75 22 152/78 100 Mechanical Ventilator 40 04/15/18 06:45 92 40 40 04/15/18 06:00 72 22 166/78 100 Mechanical Ventilator 40 04/15/18 05:00 88 32 137/58 99 Mechanical Ventilator 40 04/15/18 04:42 73 21 40 04/15/18 04:00 88 04/15/18 04:00 98.6 84 32 149/73 100 Mechanical Ventilator 40 04/15/18 04:00 40 04/15/18 04:00 Mechanical Ventilator 04/15/18 03:00 85 32 150/55 99 Mechanical Ventilator 40 04/15/18 02:34 82 34 40 04/15/18 02:00 85 23 152/63 96 Mechanical Ventilator 40 04/15/18 01:10 82 37 40 04/15/18 01:00 98.7 82 22 153/73 100 Mechanical Ventilator 40 04/15/18 00:00 81 04/15/18 00:00 Mechanical Ventilator 04/15/18 00:00 40 04/15/18 00:00 84 32 162/77 100 Mechanical Ventilator 40 04/14/18 23:04 76 21 40 04/14/18 23:00 86 32 161/73 100 Mechanical Ventilator 40 General Appearance: lethargic, on vent EENT: other Neck: no JVD Rhythm: NSR Cardiovascular: tachycardia Respiratory/Chest: crackles/rales Abdomen: soft Extremities: other - thin Intake and Output 04/14/18 04/15/18 19:00 07:00 Intake Total 1003.4 ml 1190 ml Output Total 455 ml 575 ml Balance 548.4 ml 615 ml Intake IV Total 893.4 ml 810 ml Tube Feeding 20 ml 380 ml Other 90 ml Output Urine Total 455 ml 575 ml Laboratory Tests Test 04/15/18 04:25 04/15/18 09:52 White Blood Count 11.1 K/UL (4.8-10.8) H Red Blood Count 2.97 M/UL (4.70-6.10) L Hemoglobin 9.7 G/DL (14.2-18.0) L Hematocrit 29.6 % (42.0-52.0) L Mean Corpuscular Volume 100 FL (80-99) H Mean Corpuscular Hemoglobin 32.6 PG (27.0-31.0) H Mean Corpuscular Hemoglobin Concent 32.7 G/DL (32.0-36.0) Red Cell Distribution Width 11.3 % (11.6-14.8) L Platelet Count 95 K/UL (150-450) L Mean Platelet Volume 9.4 FL (6.5-10.1) Neutrophils (%) (Auto) % (45.0-75.0) Lymphocytes (%) (Auto) % (20.0-45.0) Monocytes (%) (Auto) % (1.0-10.0) Eosinophils (%) (Auto) % (0.0-3.0) Basophils (%) (Auto) % (0.0-2.0) Sodium Level 134 MMOL/L (136-145) L Potassium Level 5.1 MMOL/L (3.5-5.1) Chloride Level 101 MMOL/L (98-107) Carbon Dioxide Level 19 MMOL/L (21-32) L Anion Gap 14 mmol/L (5-15) Blood Urea Nitrogen 29 mg/dL (7-18) H Creatinine 0.8 MG/DL (0.55-1.30) Estimat Glomerular Filtration Rate > 60 mL/min (>60) Glucose Level 45 MG/DL (74-106) L Calcium Level 7.8 MG/DL (8.5-10.1) L Magnesium Level 1.7 MG/DL (1.8-2.4) L Total Bilirubin 1.0 MG/DL (0.2-1.0) Aspartate Amino Transf (AST/SGOT) 72 U/L (15-37) H Alanine Aminotransferase (ALT/SGPT) 30 U/L (12-78) Alkaline Phosphatase 59 U/L (46-116) Total Protein 5.5 G/DL (6.4-8.2) L Albumin 2.0 G/DL (3.4-5.0) L Globulin 3.5 g/dL Albumin/Globulin Ratio 0.6 (1.0-2.7) L Arterial Blood pH 7.350 (7.350-7.450) Arterial Blood Partial Pressure CO2 31.9 mmHg (35.0-45.0) L Arterial Blood Partial Pressure O2 101.1 mmHg (75.0-100.0) H Arterial Blood HCO3 17.2 mmol/L (22.0-26.0) *L Arterial Blood Oxygen Saturation 96.8 % (95-100) Arterial Blood Base Excess -7.4 (-2-2) L Jeosph Test Positive Sharmaine Crowder MD Apr 15, 2018 22:51
--- NOTE | 2018-04-15 23:00 | NUR ---
NURSE NOTES: Sinus rhythm on the monitor. Continues on same vent settings at this time. No signs of distress noted. Will continue to monitor
[2018-04-16] VITALS (24 sets, daily range): BP systolic 82–169; BP diastolic 51–91
--- NOTE | 2018-04-16 02:00 | NUR ---
NURSE NOTES: Pt remains with eyes closed. Sinus rhythm on the monitor. Tolerating current vent settings. Oral care performed. Turned and repositioned for comfort. No signs of distress noted. Will continue to monitor.
[2018-04-16] MEDS: Vancomycin 750mg/NS 250ml IVPB SCH (02:22)
[2018-04-16] MEDS: Vancomycin 1gm/D5W 275ml IVPB SCH ×4 (02:57→14:04)
--- NOTE | 2018-04-16 04:00 | NUR ---
NURSE NOTES: Morning care provided at this time. Turned and repositioned at this time. no signs of distress noted. Will continue to monitor
[2018-04-16] MEDS: Zosyn 3.375gm q8h **Extended infusion IVPB SCH ×6 (05:27→22:09)
--- NOTE | 2018-04-16 06:00 | NUR ---
NURSE NOTES: afebrile at this time. Sinus rhythm on the monitor. No signs of distress noted. Will continue to monitor.
--- NOTE | 2018-04-16 07:02 | NUR ---
RESPIRATORY NOTE: Patient received mechanically ventilated on PB 840 with current ordered vent settings. Patient is orally intubated with ETT size 8.0 with 22cm at the lip line and secured with an anchor fast with bite block in place. There are bilateral coarse breath sounds presents upon auscultation. Small amount of thick yellow secretions were suctioned without incident. There is an ambu bag available at the bedside and the vent is connected to a red outlet. Vent alarms are functional and audible. Will continue to monitor.
--- NOTE | 2018-04-16 07:24 | NUR ---
NURSE NOTES: Received pt from [facility]. Pt is obtunded, no response to tactile stimuli. Pupils are sluggish but pt has gag reflex. Orally intubated with ETT 8/21cm at lipline, AC 18/TV 450/FIO2 40%/PEEP +5, SPO2 100%, RR 24. OGT running vital AF 1.5@50cc/hr. No residual noted. FC draining kirti colored urine to gravity. Patient is edematous. L. femoral TLC running 1/2NS w/20kcl running @50cc/hr. LW 18G and RW 18G saline locked. NSR on pipe blanks cut off saw operator. Bed locked, alarmed and in lowest position.
--- NOTE | 2018-04-16 07:25 | NUR ---
HAND-OFF: Report given to Daniela RN using SBAR. VS Stable.
[2018-04-16] MEDS: Pantoprazole Inj IVP SCH (08:38)
[2018-04-16] MEDS: Heparin 5000 units/ml inj SUBQ SCH ×2 (08:42→20:31)
--- NOTE | 2018-04-16 08:42 | NUR ---
NURSE NOTES: blood secretions noted, heparin held.
--- NOTE | 2018-04-16 09:23 | NUR ---
NURSE NOTES: Turned and repositioned, sxn provided. Blood tinged thick secretions noted. Rectal temp 99.3, failed x2 wean attempt, Dr Travis is aware.
--- NOTE | 2018-04-16 12:14 | NUR ---
CASE MANAGEMENT: REVIEW SI: ALOC . PNA T 99.3 HR 92 RR 37 BP 148/71 SAT 99% MECH VENT FIO2 40 IS: VANCO IV Q12HR NS IVF @50ML/HR PROTONIX IV QD HEPARIN SQ Q12HR ZOSYN IV Q8HR ICU STATUS DCP: PATIENT IS FROM [facility]
--- NOTE | 2018-04-16 12:28 | General Progress Note ---
Assessment/Plan Assessment/Plan Acute Resp Failure - Vent. m/p secondary to aspiration. Brain Anoxia -pupils still respond to light! PONCHO Taveras. She'll call the [facility] to get code status. Poor prognosis. All noted. PONCHO Nunez. Awaiting [facility]'s Decision ----> Dr. Mcgrath. Expect Care Withdrawal! Subjective Allergies: Coded Allergies: No Known Allergies (Unverified , 04/11/18) Subjective On vent. Objective Last 24 Hour Vital Signs Date Time Temp Pulse Resp B/P (MAP) Pulse Ox O2 Delivery O2 Flow Rate FiO2 04/16/18 12:00 Mechanical Ventilator 04/16/18 12:00 40 04/16/18 11:28 93 35 40 04/16/18 11:00 81 29 123/55 99 Mechanical Ventilator 40 04/16/18 10:00 95 29 150/91 99 Mechanical Ventilator 40 04/16/18 09:12 95 31 40 04/16/18 09:00 97 29 101/59 99 Mechanical Ventilator 40 04/16/18 08:32 90 35 Mechanical Ventilator 40 04/16/18 08:15 100 04/16/18 08:00 95 33 128/61 99 Mechanical Ventilator 40 04/16/18 08:00 95 04/16/18 08:00 Mechanical Ventilator 04/16/18 08:00 95 28 128/61 99 Mechanical Ventilator 40 04/16/18 08:00 40 04/16/18 07:00 99.3 92 37 135/84 99 Mechanical Ventilator 40 04/16/18 06:59 97 30 40 04/16/18 06:00 96 37 107/89 99 Mechanical Ventilator 40 04/16/18 05:00 93 32 148/71 99 Mechanical Ventilator 40 04/16/18 04:51 92 33 40 04/16/18 04:00 Mechanical Ventilator 04/16/18 04:00 40 04/16/18 04:00 86 04/16/18 04:00 99.3 95 43 169/83 99 Mechanical Ventilator 40 04/16/18 03:13 88 33 40 04/16/18 03:00 99 43 153/65 100 Mechanical Ventilator 40 04/16/18 02:00 98 18 140/62 100 Mechanical Ventilator 40 04/16/18 01:30 101 25 40 04/16/18 01:00 99.8 98 36 99 Mechanical Ventilator 40 04/16/18 00:00 40 04/16/18 00:00 78 18 82/51 100 Mechanical Ventilator 40 04/16/18 00:00 Mechanical Ventilator 04/16/18 00:00 83 04/15/18 23:05 96 31 40 04/15/18 23:00 90 23 124/80 83 Mechanical Ventilator 40 04/15/18 22:00 98.8 89 32 99/57 100 Mechanical Ventilator 40 04/15/18 21:00 98.8 92 32 137/59 100 Mechanical Ventilator 40 04/15/18 21:00 89 32 40 04/15/18 20:00 Mechanical Ventilator 04/15/18 20:00 40 04/15/18 20:00 89 04/15/18 20:00 99.3 89 32 142/69 100 Mechanical Ventilator 40 04/15/18 19:30 90 34 40 04/15/18 19:00 79 22 139/77 100 Mechanical Ventilator 40 04/15/18 18:00 75 22 142/79 100 Mechanical Ventilator 40 04/15/18 17:15 88 43 40 04/15/18 17:00 73 22 150/68 100 Mechanical Ventilator 40 04/15/18 16:00 40 04/15/18 16:00 Mechanical Ventilator 04/15/18 16:00 81 04/15/18 16:00 98.6 80 32 137/73 100 Mechanical Ventilator 40 04/15/18 15:20 91 43 40 04/15/18 15:00 73 22 140/68 100 Mechanical Ventilator 40 04/15/18 14:00 Mechanical Ventilator 04/15/18 14:00 74 22 159/65 100 Mechanical Ventilator 40 04/15/18 13:07 86 37 40 04/15/18 13:00 80 22 144/68 100 Mechanical Ventilator 40 04/15/18 12:30 149/68 Intake and Output 04/15/18 04/16/18 19:00 07:00 Intake Total 1362.500 ml 1242.5 ml Output Total 970 ml 755 ml Balance 392.500 ml 487.5 ml Intake Free Water 60 ml IV Total 882.500 ml 582.5 ml Tube Feeding 480 ml 600 ml Output Urine Total 970 ml 755 ml # Bowel Movements 1 Laboratory Tests 04/16/18 00:40: Vancomycin Level Trough 11.7 Height (Feet): 5 Height (Inches): 3.00 Weight (Pounds): 106 Objective CV- RR Lungs B chechi Santana SNT. BS + E + edema Vivienne Urena MD Apr 16, 2018 12:28
[2018-04-16] MEDS: DOPamine 400mg/250ml 250 ML IV SCH (12:30)
--- NOTE | 2018-04-16 12:33 | NUR ---
NURSE NOTES: Dr. Diaz at bedside. no new orders given.
--- NOTE | 2018-04-16 13:19 | NUR ---
RD ASSESSMENT & RECOMMENDATIONS SEE CARE ACTIVITY FOR COMPLETE ASSESSMENT DAILY ESTIMATED NEEDS: Needs based on Critical care, wasting/ 50kg 22-30 kcals/kg 7969-7656 total kcals 1.2-2 g protein/kg 60-100 g total protein 25-30 mL/kg 4712-1502 total fluid mLs NUTRITION DIAGNOSIS: Swallowing difficulty R/T respiratory status as evidenced by s/p code blue, orally intubated, on OGT feeding CURRENT TF:Vital AF 1.2 @ 50ml/hr x 24 hrs ENTERAL NUTRITION RECOMMENDATIONS: Vital AF 1.2 @ 50ml/hr x 24 hrs to provide 1200ml, 1440kcal, 90g prot, 973ml free water * Maintain current TF. * HOB over 30 degrees/ water flush per MD. WITHOUT HD STABILITY, REC TROPHIC FEEDS OF VITAL AF 1.2 @ 10ML/HR ADDITIONAL RECOMMENDATIONS: * Calibrated bedcale wt for accurate CBW * Monitor HD stability- dopamine held at this time. * Monitor lytes daily, replete as needed- low mag * Wound eval for redness @buttock per photo
[2018-04-16] MEDS: 1/2NS w/KCl 20mEq 1000ml 1,000 ML IV SCH (14:11)
[2018-04-16] MEDS ORDERED: Tubing IV Secondary IV ONE (14:54)
[2018-04-16] MEDS ORDERED: D5W 275ml ONE (14:54)
[2018-04-16] MEDS ORDERED: NS 275ml ONE (14:54)
--- NOTE | 2018-04-16 15:29 | NUR ---
NURSE NOTES: Turned and repositioned, pt kept clean and dry. IV abx infusing well. tolerating feeding well, no residual noted. Rectal temp 99.4.
--- NOTE | 2018-04-16 16:05 | NUR ---
Social Service Note SW spoke with Dr. Mcgrath (district medical examiner of the [facility]) who indicated that more time is needed to determine futility of care. SW indicated making a determination of care within the next [address] Mcgrath will call the unit daily for updates. Will continue to monitor.
--- NOTE | 2018-04-16 16:14 | Pulmonolgy Critical Care Note ---
Critical Care - Asmt/Plan Assessment/Plan: Pulmonary Progress Note REASON FOR CONSULTATION: Respiratory failure. HISTORY OF PRESENT ILLNESS: The patient is a 68-year-old unfortunate male who has been in a failure to thrive over the past three days. The patient apparently is ambulatory but nonverbal usually. The patient was noted to be unresponsive and was brought in by paramedics after cardiopulmonary arrest. The patient was intubated on pressors. The patient's care discussed with caregiver the bedside. The patient apparently had breakfast at morning, gone to the restroom, had a syncopal episode. The history is otherwise limited. The patient currently is on the ventilator, unable to respond, sedated, hypotensive. PAST MEDICAL HISTORY: NA ALLERGIES: Reviewed. REVIEW OF SYSTEMS: NA OBJECTIVE: VSS noted Objective: GENERAL: An ill-appearing male of short stature. obtunded HEENT: Negative. NECK: Supple. The patient remains orally intubated. LUNGS: Coarse breath sounds. Rhonchi bilaterally. no wheeze CARDIAC: S1 and S2. Regular rate and rhythm without murmurs, rubs, gallops. ABDOMEN: Soft, nontender, nondistended. feeding tube in place . EXTREMITIES: No cyanosis, clubbing, or edema. NEUROLOGIC: The patient with significant muscular atrophy, sedated IMPRESSION: Pneumonia, aspiration, probable sepsis, evidence of thrombocytopenia, severe protein-calorie malnutrition, elevated troponin, possible non-STEMI DC, evidence of anemia. acute respiratory failure, hypoxemia PLAN care noted IV antibiotics respiratory care Ventilatory support supportive meds supportive care suction as needed try to wean oxygen therapy and taper prognosis guarded nutrition medications/laboratory data/nursing notes/ICU care reviewed in detail note reviewed and edited care discussed with RN and RT ICU time spent 40 minutes Critical Care - Subjective Interval Events: remains ill on vent care noted overnight events ROS Limited/Unobtainable: Yes EKG Rhythm: Sinus Rhythm Residuals: minimal Tube Feeding Tolerated: yes I&O: Intake and Output 04/14/18 04/15/18 19:00 07:00 Intake Total 1003.4 ml 1150 ml Output Total 455 ml 525 ml Balance 548.4 ml 625 ml Intake IV Total 893.4 ml 810 ml Tube Feeding 20 ml 340 ml Other 90 ml Output Urine Total 455 ml 525 ml Critical Care - Objective ET-Tube: 8.0 ET Position: 22 Labs Test 1/12/19 11:15 04/14/18 11:20 04/15/18 04:25 Arterial Blood pH 7.471 (7.350-7.450) Arterial Blood Partial Pressure CO2 40.4 mmHg (35.0-45.0) Arterial Blood Partial Pressure O2 69.6 mmHg (75.0-100.0) Arterial Blood HCO3 28.8 mmol/L (22.0-26.0) Arterial Blood Oxygen Saturation 94.0 % (95-100) Arterial Blood Base Excess 4.8 (-2-2) Joesph Test Positive Vancomycin Level Trough 6.1 ug/mL (5.0-12.0) White Blood Count 11.1 K/UL (4.8-10.8) Red Blood Count 2.97 M/UL (4.70-6.10) Hemoglobin 9.7 G/DL (14.2-18.0) Hematocrit 29.6 % (42.0-52.0) Mean Corpuscular Volume 100 FL (80-99) Mean Corpuscular Hemoglobin 32.6 PG (27.0-31.0) Mean Corpuscular Hemoglobin Concent 32.7 G/DL (32.0-36.0) Red Cell Distribution Width 11.3 % (11.6-14.8) Platelet Count 95 K/UL (150-450) Mean Platelet Volume 9.4 FL (6.5-10.1) Neutrophils (%) (Auto) % (45.0-75.0) Lymphocytes (%) (Auto) % (20.0-45.0) Monocytes (%) (Auto) % (1.0-10.0) Eosinophils (%) (Auto) % (0.0-3.0) Basophils (%) (Auto) % (0.0-2.0) Sodium Level 134 MMOL/L (136-145) Potassium Level 5.1 MMOL/L (3.5-5.1) Chloride Level 101 MMOL/L (98-107) Carbon Dioxide Level 19 MMOL/L (21-32) Anion Gap 14 mmol/L (5-15) Blood Urea Nitrogen 29 mg/dL (7-18) Creatinine 0.8 MG/DL (0.55-1.30) Estimat Glomerular Filtration Rate > 60 mL/min (>60) Glucose Level 45 MG/DL (74-106) Calcium Level 7.8 MG/DL (8.5-10.1) Magnesium Level 1.7 MG/DL (1.8-2.4) Total Bilirubin 1.0 MG/DL (0.2-1.0) Aspartate Amino Transf (AST/SGOT) 72 U/L (15-37) Alanine Aminotransferase (ALT/SGPT) 30 U/L (12-78) Alkaline Phosphatase 59 U/L (46-116) Total Protein 5.5 G/DL (6.4-8.2) Albumin 2.0 G/DL (3.4-5.0) Globulin 3.5 g/dL Albumin/Globulin Ratio 0.6 (1.0-2.7) Critical Care - Objective Last 24 Hour Vital Signs Date Time Temp Pulse Resp B/P (MAP) Pulse Ox O2 Delivery O2 Flow Rate FiO2 04/16/18 16:00 Mechanical Ventilator 04/16/18 15:00 95.0 94 30 146/81 99 Mechanical Ventilator 40 04/16/18 14:38 94 32 40 04/16/18 14:00 94 30 146/66 99 Mechanical Ventilator 40 04/16/18 13:00 93 30 148/70 99 Mechanical Ventilator 40 04/16/18 12:42 86 19 40 04/16/18 12:30 164/66 04/16/18 12:00 Mechanical Ventilator 04/16/18 12:00 83 04/16/18 12:00 40 04/16/18 12:00 94 30 127/54 99 Mechanical Ventilator 40 04/16/18 11:28 93 35 40 04/16/18 11:00 81 29 123/55 99 Mechanical Ventilator 40 04/16/18 10:00 95 29 150/91 99 Mechanical Ventilator 40 04/16/18 09:12 95 31 40 04/16/18 09:00 97 29 101/59 99 Mechanical Ventilator 40 04/16/18 08:32 90 35 Mechanical Ventilator 40 04/16/18 08:15 100 04/16/18 08:00 95 33 128/61 99 Mechanical Ventilator 40 04/16/18 08:00 95 04/16/18 08:00 Mechanical Ventilator 04/16/18 08:00 95 28 128/61 99 Mechanical Ventilator 40 04/16/18 08:00 40 04/16/18 07:00 99.3 92 37 135/84 99 Mechanical Ventilator 40 04/16/18 06:59 97 30 40 04/16/18 06:00 96 37 107/89 99 Mechanical Ventilator 40 04/16/18 05:00 93 32 148/71 99 Mechanical Ventilator 40 04/16/18 04:51 92 33 40 04/16/18 04:00 Mechanical Ventilator 04/16/18 04:00 40 04/16/18 04:00 86 04/16/18 04:00 99.3 95 43 169/83 99 Mechanical Ventilator 40 04/16/18 03:13 88 33 40 04/16/18 03:00 99 43 153/65 100 Mechanical Ventilator 40 04/16/18 02:00 98 18 140/62 100 Mechanical Ventilator 40 04/16/18 01:30 101 25 40 04/16/18 01:00 99.8 98 36 99 Mechanical Ventilator 40 04/16/18 00:00 40 04/16/18 00:00 78 18 82/51 100 Mechanical Ventilator 40 04/16/18 00:00 Mechanical Ventilator 04/16/18 00:00 83 04/15/18 23:05 96 31 40 04/15/18 23:00 90 23 124/80 83 Mechanical Ventilator 40 04/15/18 22:00 98.8 89 32 99/57 100 Mechanical Ventilator 40 04/15/18 21:00 98.8 92 32 137/59 100 Mechanical Ventilator 40 04/15/18 21:00 89 32 40 04/15/18 20:00 Mechanical Ventilator 04/15/18 20:00 40 04/15/18 20:00 89 04/15/18 20:00 99.3 89 32 142/69 100 Mechanical Ventilator 40 04/15/18 19:30 90 34 40 04/15/18 19:00 79 22 139/77 100 Mechanical Ventilator 40 04/15/18 18:00 75 22 142/79 100 Mechanical Ventilator 40 04/15/18 17:15 88 43 40 04/15/18 17:00 73 22 150/68 100 Mechanical Ventilator 40 Critical Care - Subjective ROS Limited/Unobtainable: No FI02: 40 Vent Support Breath Rate: 18 Vent Support Mode: AC Vent Tidal Volume: 450 Sputum Amount: Small PEEP: 5.0 PIP: 38 Tube Feeding Amount: 50 I&O: Intake and Output 04/15/18 04/16/18 19:00 07:00 Intake Total 1362.500 ml 1242.5 ml Output Total 970 ml 755 ml Balance 392.500 ml 487.5 ml Intake Free Water 60 ml IV Total 882.500 ml 582.5 ml Tube Feeding 480 ml 600 ml Output Urine Total 970 ml 755 ml # Bowel Movements 1 ET-Tube: 8.0 ET Position: 22 Wally Smith MD Apr 16, 2018 16:14
--- NOTE | 2018-04-16 17:23 | NUR ---
NURSE NOTES: No change in condition. FLACC 0. x1 soft brown BM noted. NSR on ekg monitor. tolerating GTF well, no residual noted.
--- NOTE | 2018-04-16 19:18 | NUR ---
HAND-OFF: Report given to GEGE Cloud.
[2018-04-16] MEDS: Dyna-Hex 2% Top Sol 2oz TOPIC SCH (19:27)
--- NOTE | 2018-04-16 19:30 | NUR ---
NURSE NOTES: Received pt in bed with eyes closed. Sinus rhythm on the monitor. orally intubated ETT 8, 21 cm at the lip line. AC 18, Vt 450, P5 fio23 40%. OGT feeding vital AF @ 50cc/hr. 15cc residual noted at this time. Left wrist and right AC PIV flushed with no signs of infiltration. Left femoral running 1/2 NS with 20KCL @ 50cc/hr. Black cath draining by gravity. Temperature 99.3 rectal at this time. Bed in lowest position, side rails upx3. Fall, aspiration and seizure precautions in place. No signs of distress noted. Will continue to monitor.
--- NOTE | 2018-04-16 21:30 | NUR ---
NURSE NOTES: MD Smith made rounds at this time. ordered for Weaning tomorrow morning. Orders read back and confirmed by MD. Will continue with plan of care.
[2018-04-17] VITALS (24 sets, daily range): BP systolic 119–171; BP diastolic 42–137
--- NOTE | 2018-04-17 | NUR ---
NURSE NOTES: Pt afebrile at this time. Turned and repositioned for comfort. no signs of distress noted. Will continue with plan of care.
--- NOTE | 2018-04-17 02:30 | NUR ---
NURSE NOTES: Morning care, CHG bath provided at this time. Noted to have one bm at this time. Cleaned, turned and repositioned at this time. No signs of distress noted. Will continue with plan of care.
[2018-04-17] MEDS: Vancomycin 1gm/D5W 275ml IVPB SCH ×4 (02:38→15:45)
--- NOTE | 2018-04-17 04:30 | NUR ---
NURSE NOTES: No neuro changes at this time. Pt remains with eyes closed. afebrile. Will continue to monitor
[2018-04-17] MEDS: Zosyn 3.375gm q8h **Extended infusion IVPB SCH ×6 (05:27→21:45)
--- NOTE | 2018-04-17 06:22 | NUR ---
NURSE NOTES: Pt afebrile at this time. Cooling blanket on at this time. Temp 99.3. Tolerating feeding. Turned and repositioned at this time. Will continue to monitor.
--- NOTE | 2018-04-17 07:11 | NUR ---
NURSE NOTES: Received pt from [facility]. Pt is obtunded, no response to tactile stimuli. Pupils are sluggish. Orally intubated with ETT 8/21cm at lipline, AC 18/TV 450/FIO2 40%/PEEP +5, SPO2 100%, RR 24. OGT running vital AF 1.5@50cc/hr. No residual noted. FC draining kirti colored urine to gravity. Patient is edematous. L. femoral TLC running 1/2NS w/20kcl running @50cc/hr. LW 18G and RW 18G saline locked. NSR on color television console monitor. Bed locked, alarmed and in lowest position.
--- NOTE | 2018-04-17 07:17 | NUR ---
HAND-OFF: Report given to Daniela DE GUZMAN using SBAR.
--- NOTE | 2018-04-17 07:29 | NUR ---
RESPIRATORY NOTE: Patient received mechanically ventilated on PB 840 with current ordered vent settings. Patient is orally intubated with ETT size 8.0 at 22cm at the lip line secured with an anchor fast. Patient presents with bilateral coarse breath sounds. Thick white/yellow secretions suctioned without incident. There is an ambu bag available the bedside and the vent is connected to a red outlet. Vent alarms are functional and audible. Will continue to monitor.
[2018-04-17] MEDS: Pantoprazole Inj IVP SCH (08:30)
[2018-04-17] MEDS: Heparin 5000 units/ml inj SUBQ SCH ×2 (08:31→20:43)
--- NOTE | 2018-04-17 08:53 | NUR ---
NURSE NOTES: Received labs for CBC, CMP and CXR. read back given and verified.
--- NOTE | 2018-04-17 09:23 | NUR ---
NURSE NOTES: x1 loose dark brown BM noted. Notified Dr. polanco for stool OB but no new orders. Turned and repositioned, kept dry and clean.
[2018-04-17 10:30] LABS: HEMOGLOBIN 9.5 G/DL (14.2-18.0); MEAN CORPUSCULAR VOLUME 98 FL (80-99); PLATELET COUNT 124 K/UL (150-450); RED BLOOD COUNT 2.97 M/UL (4.70-6.10); RED CELL DISTRIBUTION WIDTH 11.5 % (11.6-14.8); WHITE BLOOD COUNT 9.6 K/UL (4.8-10.8)
[2018-04-17 10:43] LABS: ALANINE AMINOTRANSFERASE 27 U/L (12-78); ALBUMIN 1.6 G/DL (3.4-5.0); ALBUMIN/GLOBULIN RATIO 0.5 (1.0-2.7); ALKALINE PHOSPHATASE 54 U/L (46-116); ANION GAP 8 mmol/L (5-15); ASPARTATE AMINO TRANSFERASE 43 U/L (15-37); BILIRUBIN,TOTAL 0.6 MG/DL (0.2-1.0); BLOOD UREA NITROGEN 23 mg/dL (7-18); CALCIUM 7.5 MG/DL (8.5-10.1); CARBON DIOXIDE 26 MMOL/L (21-32); CHLORIDE 100 MMOL/L (98-107); CREATININE 0.6 MG/DL (0.55-1.30); POTASSIUM 4.2 MMOL/L (3.5-5.1); SODIUM 134 MMOL/L (136-145)
--- NOTE | 2018-04-17 11:33 | NUR ---
NURSE NOTES: Patient's condition remains the same. Sxn given, blood tinged secretions noted.
--- NOTE | 2018-04-17 12:01 | Critical Care Progress Note ---
Assessment/Plan Assessment/Plan IMPRESSION: Pneumonia, aspiration, probable sepsis, evidence of thrombocytopenia, severe protein-calorie malnutrition, elevated troponin, possible non-STEMI AR, evidence of anemia. acute respiratory failure, hypoxemia PLAN care noted IV antibiotics respiratory care monitor culture Ventilatory support supportive meds supportive care rechck labs for change suction as needed try to wean and reduce back up rate anxiolytics if needed oxygen therapy and taper prognosis guarded nutrition tolerated medications/laboratory data/nursing notes/ICU care reviewed in detail note reviewed and edited care discussed with RN and RT ICU time spent 38 minutes Critical Care - Subjective Interval Events: on vent tachypneic with wean on AC18 d/w RN at bedside ROS Limited/Unobtainable: Yes Condition: critical EKG Rhythm: Sinus Rhythm Residuals: minimal Tube Feeding Tolerated: yes I&O: Intake and Output 04/16/18 04/17/18 18:59 06:59 Intake Total 1866.124 ml 1553.708 ml Output Total 850 ml 720 ml Balance 1016.124 ml 833.708 ml Intake Free Water 60 ml 60 ml IV Total 1206.124 ml 893.708 ml Tube Feeding 600 ml 600 ml Output Urine Total 850 ml 720 ml # Bowel Movements 1 1 Critical Care - Objective CXR: persistent infiltrates ET-Tube: 8.0 ET Position: 22 Last 24 Hour Vital Signs Date Time Temp Pulse Resp B/P (MAP) Pulse Ox O2 Delivery O2 Flow Rate FiO2 04/17/18 11:10 93 27 40 04/17/18 08:50 98 04/17/18 08:49 91 24 40 04/17/18 08:00 40 04/17/18 08:00 99.0 77 18 141/91 98 Mechanical Ventilator 40 04/17/18 08:00 Mechanical Ventilator 04/17/18 07:25 91 38 40 04/17/18 07:00 90 37 141/78 100 Mechanical Ventilator 40 04/17/18 06:00 88 38 164/86 100 Mechanical Ventilator 40 04/17/18 05:06 85 32 40 04/17/18 05:00 85 29 152/72 98 Mechanical Ventilator 40 04/17/18 04:00 82 04/17/18 04:00 40 04/17/18 04:00 Mechanical Ventilator 04/17/18 04:00 91 31 129/58 98 Mechanical Ventilator 40 04/17/18 03:00 99.3 88 29 125/57 97 Mechanical Ventilator 40 04/17/18 02:58 85 23 40 04/17/18 02:00 93 32 119/70 96 Mechanical Ventilator 40 04/17/18 01:30 89 24 40 04/17/18 01:00 92 20 133/69 97 Mechanical Ventilator 40 04/17/18 00:00 Mechanical Ventilator 04/17/18 00:00 90 04/17/18 00:00 40 04/17/18 00:00 93 24 136/72 97 Mechanical Ventilator 40 04/17/18 00:00 88 30 142/79 97 Mechanical Ventilator 40 04/16/18 23:22 80 24 40 04/16/18 23:00 98.9 93 32 144/74 98 Mechanical Ventilator 40 04/16/18 22:00 88 30 142/79 97 Mechanical Ventilator 40 04/16/18 21:30 84 22 40 04/16/18 21:00 94 35 100/80 97 Mechanical Ventilator 40 04/16/18 20:00 40 04/16/18 20:00 91 04/16/18 20:00 91 33 157/77 98 Mechanical Ventilator 40 04/16/18 20:00 Mechanical Ventilator 04/16/18 19:30 93 36 40 04/16/18 19:00 98.6 91 30 149/80 98 Mechanical Ventilator 40 04/16/18 18:00 88 30 144/81 99 Mechanical Ventilator 40 04/16/18 17:00 94 30 151/85 99 Mechanical Ventilator 40 04/16/18 16:56 92 33 40 04/16/18 16:01 77 34 159/88 100 Mechanical Ventilator 40 04/16/18 16:00 75 04/16/18 16:00 Mechanical Ventilator 04/16/18 16:00 40 04/16/18 16:00 95.0 77 4 159/88 100 Mechanical Ventilator 40 04/16/18 15:00 95.0 94 30 146/81 99 Mechanical Ventilator 40 04/16/18 14:38 94 32 40 04/16/18 14:00 94 30 146/66 99 Mechanical Ventilator 40 04/16/18 13:00 93 30 148/70 99 Mechanical Ventilator 40 04/16/18 12:42 86 19 40 04/16/18 12:30 164/66 04/16/18 12:00 Mechanical Ventilator 04/16/18 12:00 83 1/16/19 12:00 40 04/16/18 12:00 94 30 127/54 99 Mechanical Ventilator 40 Labs: Labs Test 04/15/18 04:25 04/15/18 09:52 04/16/18 00:40 04/17/18 10:00 White Blood Count 11.1 K/UL (4.8-10.8) 9.6 K/UL (4.8-10.8) Red Blood Count 2.97 M/UL (4.70-6.10) 2.97 M/UL (4.70-6.10) Hemoglobin 9.7 G/DL (14.2-18.0) 9.5 G/DL (14.2-18.0) Hematocrit 29.6 % (42.0-52.0) 29.0 % (42.0-52.0) Mean Corpuscular Volume 100 FL (80-99) 98 FL (80-99) Mean Corpuscular Hemoglobin 32.6 PG (27.0-31.0) 32.1 PG (27.0-31.0) Mean Corpuscular Hemoglobin Concent 32.7 G/DL (32.0-36.0) 32.9 G/DL (32.0-36.0) Red Cell Distribution Width 11.3 % (11.6-14.8) 11.5 % (11.6-14.8) Platelet Count 95 K/UL (150-450) 124 K/UL (150-450) Mean Platelet Volume 9.4 FL (6.5-10.1) 8.8 FL (6.5-10.1) Neutrophils (%) (Auto) % (45.0-75.0) % (45.0-75.0) Lymphocytes (%) (Auto) % (20.0-45.0) % (20.0-45.0) Monocytes (%) (Auto) % (1.0-10.0) % (1.0-10.0) Eosinophils (%) (Auto) % (0.0-3.0) % (0.0-3.0) Basophils (%) (Auto) % (0.0-2.0) % (0.0-2.0) Sodium Level 134 MMOL/L (136-145) 134 MMOL/L (136-145) Potassium Level 5.1 MMOL/L (3.5-5.1) 4.2 MMOL/L (3.5-5.1) Chloride Level 101 MMOL/L (98-107) 100 MMOL/L (98-107) Carbon Dioxide Level 19 MMOL/L (21-32) 26 MMOL/L (21-32) Anion Gap 14 mmol/L (5-15) 8 mmol/L (5-15) Blood Urea Nitrogen 29 mg/dL (7-18) 23 mg/dL (7-18) Creatinine 0.8 MG/DL (0.55-1.30) 0.6 MG/DL (0.55-1.30) Estimat Glomerular Filtration Rate > 60 mL/min (>60) > 60 mL/min (>60) Glucose Level 45 MG/DL (74-106) 138 MG/DL (74-106) Calcium Level 7.8 MG/DL (8.5-10.1) 7.5 MG/DL (8.5-10.1) Magnesium Level 1.7 MG/DL (1.8-2.4) Total Bilirubin 1.0 MG/DL (0.2-1.0) 0.6 MG/DL (0.2-1.0) Aspartate Amino Transf (AST/SGOT) 72 U/L (15-37) 43 U/L (15-37) Alanine Aminotransferase (ALT/SGPT) 30 U/L (12-78) 27 U/L (12-78) Alkaline Phosphatase 59 U/L (46-116) 54 U/L (46-116) Total Protein 5.5 G/DL (6.4-8.2) 5.0 G/DL (6.4-8.2) Albumin 2.0 G/DL (3.4-5.0) 1.6 G/DL (3.4-5.0) Globulin 3.5 g/dL 3.4 g/dL Albumin/Globulin Ratio 0.6 (1.0-2.7) 0.5 (1.0-2.7) Arterial Blood pH 7.350 (7.350-7.450) Arterial Blood Partial Pressure CO2 31.9 mmHg (35.0-45.0) Arterial Blood Partial Pressure O2 101.1 mmHg (75.0-100.0) Arterial Blood HCO3 17.2 mmol/L (22.0-26.0) Arterial Blood Oxygen Saturation 96.8 % (95-100) Arterial Blood Base Excess -7.4 (-2-2) Joesph Test Positive Vancomycin Level Trough 11.7 ug/mL (5.0-12.0) Differential Total Cells Counted 100 Neutrophils % (Manual) 87 % (45-75) Lymphocytes % (Manual) 1 % (20-45) Monocytes % (Manual) 10 % (1-10) Eosinophils % (Manual) 1 % (0-3) Basophils % (Manual) 0 % (0-2) Myelocytes % 1 % (0-0) Band Neutrophils 0 % (0-8) Platelet Estimate Decreased Platelet Morphology Normal Red Blood Cell Morphology Normal Objective: GENERAL: An ill-appearing male of short stature. obtunded HEENT: Negative. NECK: Supple. The patient remains orally intubated. LUNGS: Coarse breath sounds. Rhonchi bilaterally. no wheeze CARDIAC: S1 and S2. Regular rate and rhythm without murmurs, rubs, gallops. ABDOMEN: Soft, nontender, nondistended. feeding tube in place . EXTREMITIES: No cyanosis, clubbing, or edema. NEUROLOGIC: The patient with significant muscular atrophy, sedated Brian Torres MD Apr 17, 2018 12:01
--- NOTE | 2018-04-17 12:09 | Diagnostic Imaging Report ---
Indication: Dyspnea Comparison: 04/15/2018 A single view chest radiograph was obtained. Findings: No radiographic change appreciated. Cardiopulmonary appearance is unchanged. Endotracheal tube position is unchanged. Severe kyphoscoliosis noted. IMPRESSION: No radiographic change
[2018-04-17] MEDS: DOPamine 400mg/250ml 250 ML IV SCH (12:30)
--- NOTE | 2018-04-17 13:47 | NUR ---
NURSE NOTES: Rectal temp 99.4, tolerating feeding well. pupils showing exotropia.
--- NOTE | 2018-04-17 14:18 | NUR ---
CASE MANAGEMENT: REVIEW SI: ALOC . PNA T 99.8 HR 93 RR 32 BP 164/86 SAT 97% MECH VENT FIO2 40 H/H 9.5/29.0 NA 134 BUN 23 IS: VANCO IV Q12HR NS IVF @50ML/HR PROTONIX IV QD HEPARIN SQ Q12HR ZOSYN IV Q8HR DOPAMINE IV Q24HR ICU STATUS DCP: PATIENT IS FROM [facility]
[2018-04-17] MEDS: 1/2NS w/KCl 20mEq 1000ml 1,000 ML IV SCH (14:37)
--- NOTE | 2018-04-17 15:30 | NUR ---
NURSE NOTES: Patient has begun to posture (decerebrate), rectal temp 99.6, cooling measures applied.
--- NOTE | 2018-04-17 16:03 | General Progress Note ---
Assessment/Plan Assessment/Plan Acute Resp Failure - Vent. m/p secondary to aspiration. Brain Anoxia -pupils still respond to light! PONCHO Taveras. She'll call the [facility] to get code status. Poor prognosis. All noted. PONCHO Nunez. PONCHO Mcgrath. She "wants to give him another 48 hours???"" Subjective Allergies: Coded Allergies: No Known Allergies (Unverified , 04/11/18) Subjective On vent. Objective Last 24 Hour Vital Signs Date Time Temp Pulse Resp B/P (MAP) Pulse Ox O2 Delivery O2 Flow Rate FiO2 04/17/18 14:55 82 19 40 04/17/18 13:29 88 27 40 04/17/18 13:00 92 26 135/76 98 Mechanical Ventilator 40 04/17/18 12:30 135/76 04/17/18 12:00 94 04/17/18 12:00 40 04/17/18 12:00 Mechanical Ventilator 04/17/18 12:00 99.8 94 37 147/72 100 Mechanical Ventilator 40 04/17/18 11:10 93 27 40 04/17/18 11:00 96 37 146/75 100 Mechanical Ventilator 40 04/17/18 10:00 94 37 154/75 100 Mechanical Ventilator 40 04/17/18 09:00 90 37 151/85 100 Mechanical Ventilator 40 04/17/18 08:50 98 04/17/18 08:49 91 24 40 04/17/18 08:00 40 04/17/18 08:00 99.0 77 18 141/91 98 Mechanical Ventilator 40 04/17/18 08:00 87 04/17/18 08:00 Mechanical Ventilator 04/17/18 07:25 91 38 40 04/17/18 07:00 90 37 141/78 100 Mechanical Ventilator 40 04/17/18 06:00 88 38 164/86 100 Mechanical Ventilator 40 04/17/18 05:06 85 32 40 04/17/18 05:00 85 29 152/72 98 Mechanical Ventilator 40 04/17/18 04:00 82 04/17/18 04:00 40 04/17/18 04:00 Mechanical Ventilator 04/17/18 04:00 91 31 129/58 98 Mechanical Ventilator 40 04/17/18 03:00 99.3 88 29 125/57 97 Mechanical Ventilator 40 1/17/19 02:58 85 23 40 04/17/18 02:00 93 32 119/70 96 Mechanical Ventilator 40 04/17/18 01:30 89 24 40 04/17/18 01:00 92 20 133/69 97 Mechanical Ventilator 40 04/17/18 00:00 Mechanical Ventilator 04/17/18 00:00 90 04/17/18 00:00 40 04/17/18 00:00 93 24 136/72 97 Mechanical Ventilator 40 04/17/18 00:00 88 30 142/79 97 Mechanical Ventilator 40 04/16/18 23:22 80 24 40 04/16/18 23:00 98.9 93 32 144/74 98 Mechanical Ventilator 40 04/16/18 22:00 88 30 142/79 97 Mechanical Ventilator 40 04/16/18 21:30 84 22 40 04/16/18 21:00 94 35 100/80 97 Mechanical Ventilator 40 04/16/18 20:00 40 04/16/18 20:00 91 04/16/18 20:00 91 33 157/77 98 Mechanical Ventilator 40 04/16/18 20:00 Mechanical Ventilator 04/16/18 19:30 93 36 40 04/16/18 19:00 98.6 91 30 149/80 98 Mechanical Ventilator 40 04/16/18 18:00 88 30 144/81 99 Mechanical Ventilator 40 04/16/18 17:00 94 30 151/85 99 Mechanical Ventilator 40 04/16/18 16:56 92 33 40 Intake and Output 04/16/18 04/17/18 19:00 07:00 Intake Total 1866.124 ml 1581.208 ml Output Total 850 ml 705 ml Balance 1016.124 ml 876.208 ml Intake Free Water 60 ml 60 ml IV Total 1206.124 ml 921.208 ml Tube Feeding 600 ml 600 ml Output Urine Total 850 ml 705 ml # Bowel Movements 1 1 Laboratory Tests 04/17/18 10:00: White Blood Count 9.6, Red Blood Count 2.97L, Hemoglobin 9.5L, Hematocrit 29.0L , Mean Corpuscular Volume 98, Mean Corpuscular Hemoglobin 32.1H, Mean Corpuscular Hemoglobin Concent 32.9, Red Cell Distribution Width 11.5L, Platelet Count 124L, Mean Platelet Volume 8.8, Neutrophils (%) (Auto) , Lymphocytes (%) (Auto) , Monocytes (%) (Auto) , Eosinophils (%) (Auto) , Basophils (%) (Auto) , Differential Total Cells Counted 100, Neutrophils % ( Manual) 87H, Lymphocytes % (Manual) 1L, Monocytes % (Manual) 10, Eosinophils % ( Manual) 1, Basophils % (Manual) 0, Myelocytes % 1H, Band Neutrophils 0, Platelet Estimate DecreasedL, Platelet Morphology Normal, Red Blood Cell Morphology Normal, Sodium Level 134L, Potassium Level 4.2, Chloride Level 100, Carbon Dioxide Level 26, Anion Gap 8, Blood Urea Nitrogen 23H, Creatinine 0.6, Estimat Glomerular Filtration Rate > 60, Glucose Level 138H, Calcium Level 7.5L , Total Bilirubin 0.6, Aspartate Amino Transf (AST/SGOT) 43H, Alanine Aminotransferase (ALT/SGPT) 27, Alkaline Phosphatase 54, Total Protein 5.0L, Albumin 1.6L, Globulin 3.4, Albumin/Globulin Ratio 0.5L Height (Feet): 5 Height (Inches): 3.00 Weight (Pounds): 107 Objective CV- RR Lungs B ronchi Santana SNT. BS + E + edema Vivienne Urena MD Apr 17, 2018 16:03
--- NOTE | 2018-04-17 17:50 | NUR ---
NURSE NOTES: Rectal tube inserted per dr. polanco. Rectal temp 100.3, Tylenol given as per ordered. Cooling measures applied.
--- NOTE | 2018-04-17 19:28 | NUR ---
HAND-OFF: Report given to GEGE Herndon using SBAR.
--- NOTE | 2018-04-17 19:30 | NUR ---
NURSE NOTES: Received report from GEGE Suarez. Pt is in bed with eyes closed. Sinus rhythm on the monitor. Orally intubated ETT 8, 21 cm at the lip line. AC 18, Vt 450, PEEP5, FiO2 40%. OGT feeding vital AF1.5 @ 50cc/hr, 10cc residual noted at this time. Left wrist and right AC PIV both 18G, flushed with no signs of infiltration. Left femoral TLC running 1/2 NS with 20KCL @ 50cc/hr. Black cath draining by gravity. [id number] rectal at this time, on cooling blanket. Rectal tube newly inserted, no stool at this time. Bed in lowest position, side rails upx3. Fall, aspiration and seizure precautions in place. No signs of distress noted. Will continue to monitor. Addendum: 04/18/18 at 0237 by AZUL BAHENA RN RN Addendum: Vital AF 1.2 at 50ml/hr.
[2018-04-17] MEDS: Dyna-Hex 2% Top Sol 2oz TOPIC SCH (20:40)
--- NOTE | 2018-04-17 21:44 | Cardiology Progress Note ---
Assessment/Plan Assessment/Plan improving, off pressors, still on vent cardiac stable Subjective Subjective The patient remains intubated, he is unresponsive, and is breathing with vent Objective Last 24 Hour Vital Signs Date Time Temp Pulse Resp B/P (MAP) Pulse Ox O2 Delivery O2 Flow Rate FiO2 04/17/18 21:00 93 23 40 04/17/18 20:00 40 04/17/18 20:00 Mechanical Ventilator 04/17/18 19:17 94 36 40 04/17/18 18:00 94 33 166/42 100 Mechanical Ventilator 40 04/17/18 17:06 86 30 40 04/17/18 17:00 99.2 92 33 169/82 100 Mechanical Ventilator 40 04/17/18 16:00 92 33 165/79 100 Mechanical Ventilator 40 04/17/18 16:00 Mechanical Ventilator 04/17/18 16:00 40 04/17/18 16:00 94 04/17/18 15:00 86 30 152/96 100 Mechanical Ventilator 40 04/17/18 14:55 82 19 40 04/17/18 14:00 89 32 141/74 98 Mechanical Ventilator 40 04/17/18 13:29 88 27 40 04/17/18 13:00 92 26 135/76 98 Mechanical Ventilator 40 04/17/18 12:30 135/76 04/17/18 12:00 94 04/17/18 12:00 40 04/17/18 12:00 Mechanical Ventilator 04/17/18 12:00 99.8 94 37 147/72 100 Mechanical Ventilator 40 04/17/18 11:10 93 27 40 04/17/18 11:00 96 37 146/75 100 Mechanical Ventilator 40 04/17/18 10:00 94 37 154/75 100 Mechanical Ventilator 40 04/17/18 09:00 90 37 151/85 100 Mechanical Ventilator 40 04/17/18 08:50 98 04/17/18 08:49 91 24 40 04/17/18 08:00 40 04/17/18 08:00 99.0 77 18 141/91 98 Mechanical Ventilator 40 04/17/18 08:00 87 04/17/18 08:00 Mechanical Ventilator 04/17/18 07:25 91 38 40 04/17/18 07:00 90 37 141/78 100 Mechanical Ventilator 40 04/17/18 06:00 88 38 164/86 100 Mechanical Ventilator 40 04/17/18 05:06 85 32 40 04/17/18 05:00 85 29 152/72 98 Mechanical Ventilator 40 04/17/18 04:00 82 04/17/18 04:00 40 04/17/18 04:00 Mechanical Ventilator 04/17/18 04:00 91 31 129/58 98 Mechanical Ventilator 40 04/17/18 03:00 99.3 88 29 125/57 97 Mechanical Ventilator 40 04/17/18 02:58 85 23 40 04/17/18 02:00 93 32 119/70 96 Mechanical Ventilator 40 04/17/18 01:30 89 24 40 04/17/18 01:00 92 20 133/69 97 Mechanical Ventilator 40 04/17/18 00:00 Mechanical Ventilator 04/17/18 00:00 90 04/17/18 00:00 40 04/17/18 00:00 93 24 136/72 97 Mechanical Ventilator 40 04/17/18 00:00 88 30 142/79 97 Mechanical Ventilator 40 04/16/18 23:22 80 24 40 04/16/18 23:00 98.9 93 32 144/74 98 Mechanical Ventilator 40 04/16/18 22:00 88 30 142/79 97 Mechanical Ventilator 40 General Appearance: on vent EENT: PERRL/EOMI Neck: no JVD Rhythm: NSR Cardiovascular: normal rate Respiratory/Chest: crackles/rales Abdomen: distended Intake and Output 04/16/18 04/17/18 19:00 07:00 Intake Total 1866.124 ml 1581.208 ml Output Total 850 ml 705 ml Balance 1016.124 ml 876.208 ml Intake Free Water 60 ml 60 ml IV Total 1206.124 ml 921.208 ml Tube Feeding 600 ml 600 ml Output Urine Total 850 ml 705 ml # Bowel Movements 1 1 Laboratory Tests Test 04/17/18 10:00 White Blood Count 9.6 K/UL (4.8-10.8) Red Blood Count 2.97 M/UL (4.70-6.10) L Hemoglobin 9.5 G/DL (14.2-18.0) L Hematocrit 29.0 % (42.0-52.0) L Mean Corpuscular Volume 98 FL (80-99) Mean Corpuscular Hemoglobin 32.1 PG (27.0-31.0) H Mean Corpuscular Hemoglobin Concent 32.9 G/DL (32.0-36.0) Red Cell Distribution Width 11.5 % (11.6-14.8) L Platelet Count 124 K/UL (150-450) L Mean Platelet Volume 8.8 FL (6.5-10.1) Neutrophils (%) (Auto) % (45.0-75.0) Lymphocytes (%) (Auto) % (20.0-45.0) Monocytes (%) (Auto) % (1.0-10.0) Eosinophils (%) (Auto) % (0.0-3.0) Basophils (%) (Auto) % (0.0-2.0) Differential Total Cells Counted 100 Neutrophils % (Manual) 87 % (45-75) H Lymphocytes % (Manual) 1 % (20-45) L Monocytes % (Manual) 10 % (1-10) Eosinophils % (Manual) 1 % (0-3) Basophils % (Manual) 0 % (0-2) Myelocytes % 1 % (0-0) H Band Neutrophils 0 % (0-8) Platelet Estimate Decreased L Platelet Morphology Normal Red Blood Cell Morphology Normal Sodium Level 134 MMOL/L (136-145) L Potassium Level 4.2 MMOL/L (3.5-5.1) Chloride Level 100 MMOL/L (98-107) Carbon Dioxide Level 26 MMOL/L (21-32) Anion Gap 8 mmol/L (5-15) Blood Urea Nitrogen 23 mg/dL (7-18) H Creatinine 0.6 MG/DL (0.55-1.30) Estimat Glomerular Filtration Rate > 60 mL/min (>60) Glucose Level 138 MG/DL (74-106) H Calcium Level 7.5 MG/DL (8.5-10.1) L Total Bilirubin 0.6 MG/DL (0.2-1.0) Aspartate Amino Transf (AST/SGOT) 43 U/L (15-37) H Alanine Aminotransferase (ALT/SGPT) 27 U/L (12-78) Alkaline Phosphatase 54 U/L (46-116) Total Protein 5.0 G/DL (6.4-8.2) L Albumin 1.6 G/DL (3.4-5.0) L Globulin 3.4 g/dL Albumin/Globulin Ratio 0.5 (1.0-2.7) L Sharmaine Crowder MD Apr 17, 2018 21:44
[2018-04-17] MEDS: Acetaminophen 650mg/20.3ml GT PRN (21:46)
--- NOTE | 2018-04-17 22:00 | NUR ---
NURSE NOTES: Pt's resting bed, in no acute distress. VS stable. Will continue to monitor.
[2018-04-18] VITALS (24 sets, daily range): BP systolic 90–169; BP diastolic 33–112
--- NOTE | 2018-04-18 | NUR ---
NURSE NOTES: Pt's resting bed, Afebrile at this time, in no acute distress. VS stable. Will continue to monitor.
--- NOTE | 2018-04-18 02:00 | NUR ---
NURSE NOTES: Pt's resting bed, afebrile at this time, in no acute distress. VS stable. Will continue to monitor.
[2018-04-18] MEDS: Vancomycin 1gm/D5W 275ml IVPB SCH ×4 (02:23→13:58)
--- NOTE | 2018-04-18 04:00 | NUR ---
NURSE NOTES: Pt's resting in bed, in no acute distress. VS stable. Will continue to monitor.
[2018-04-18] MEDS: Zosyn 3.375gm q8h **Extended infusion IVPB SCH ×6 (05:48→21:34)
--- NOTE | 2018-04-18 06:00 | NUR ---
NURSE NOTES: Pt's resting in bed, in no acute distress. VS stable. Will continue to monitor.
[2018-04-18] MEDS: 1/2NS w/KCl 20mEq 1000ml 1,000 ML IV SCH ×2 (06:51→11:19)
--- NOTE | 2018-04-18 07:01 | NUR ---
RESPIRATORY NOTE: Received pt on current vent settings. Endotracheal tube is patent and secured via anchor fast. Suctioned pt prn. Vent alarms are on and audible. Vent is plugged into red outlet. Will monitor pt progress.
--- NOTE | 2018-04-18 07:11 | NUR ---
HAND-OFF: Report given to GEGE Suarez.
--- NOTE | 2018-04-18 07:15 | NUR ---
NURSE NOTES: Received pt from GEGE Herndon. Pt is obtunded, no response to tactile stimuli. Patient continues to posture. Pupils are sluggish, exotropic. Orally intubated with ETT 8/21cm at lipline, AC 18/TV 450/FIO2 40%/PEEP +5, SPO2 100%, RR 24. OGT running vital AF 1.2@50cc/hr. No residual noted. FC draining kirti colored urine to gravity. Patient has general edematous. L. femoral TLC running 1/2NS w/20kcl running @50cc/hr. LW 18G and RW 18G patent, asymptomatic,saline locked. Rectal temp 99.6, cooling blanket applied. NSR on general internal medicine doctor. Bed locked, alarmed and in lowest position.
[2018-04-18] MEDS: Pantoprazole Inj IVP SCH (08:15)
[2018-04-18] MEDS: Heparin 5000 units/ml inj SUBQ SCH ×2 (09:00→20:49)
--- NOTE | 2018-04-18 09:07 | NUR ---
NURSE NOTES: Bleeding noted on sxn via ETT. Heparing 5K held.
--- NOTE | 2018-04-18 09:17 | NUR ---
NURSE NOTES: Rectal temp 101.0, tylenol given as per ordered. Cooling measures continued.
[2018-04-18] MEDS: Acetaminophen 650mg/20.3ml GT PRN (09:21)
--- NOTE | 2018-04-18 11:30 | NUR ---
NURSE NOTES: No change in condition. Turned and repositioned. cooling mattress continued, rectal temp 99.8
[2018-04-18] MEDS: DOPamine 400mg/250ml 250 ML IV SCH (12:30)
--- NOTE | 2018-04-18 12:44 | Pulmonolgy Critical Care Note ---
Critical Care - Asmt/Plan Assessment/Plan: Pulmonary Progress Note REASON FOR CONSULTATION: Respiratory failure. IMPRESSION: Pneumonia, aspiration, probable sepsis, evidence of thrombocytopenia, severe protein-calorie malnutrition, elevated troponin, possible non-STEMI PR, evidence of anemia. acute respiratory failure, hypoxemia PLAN care noted IV antibiotics respiratory care monitor culture Ventilatory support supportive meds supportive care rechck labs for change suction as needed try to wean and reduce back up rate anxiolytics if needed oxygen therapy and taper prognosis guarded nutrition tolerated medications/laboratory data/nursing notes/ICU care reviewed in detail note reviewed and edited care discussed with RN and RT ICU time spent 45 minutes PAST MEDICAL HISTORY: NA ALLERGIES: Reviewed. REVIEW OF SYSTEMS: NA OBJECTIVE: VSS noted Objective: GENERAL: An ill-appearing male of short stature. obtunded HEENT: Negative. NECK: Supple. The patient remains orally intubated. LUNGS: Coarse breath sounds. Rhonchi bilaterally. no wheeze CARDIAC: S1 and S2. Regular rate and rhythm without murmurs, rubs, gallops. ABDOMEN: Soft, nontender, nondistended. feeding tube in place . EXTREMITIES: No cyanosis, clubbing, or edema. NEUROLOGIC: The patient with significant muscular atrophy, sedated IMPRESSION: Pneumonia, aspiration, probable sepsis, evidence of thrombocytopenia, severe protein-calorie malnutrition, elevated troponin, possible non-STEMI PR, evidence of anemia. acute respiratory failure, hypoxemia PLAN care noted IV antibiotics respiratory care Ventilatory support supportive meds supportive care suction as needed try to wean oxygen therapy and taper prognosis guarded nutrition medications/laboratory data/nursing notes/ICU care reviewed in detail note reviewed and edited care discussed with RN and RT ICU time spent 40 minutes Critical Care - Subjective Interval Events: remains ill on vent care noted overnight events ROS Limited/Unobtainable: Yes EKG Rhythm: Sinus Rhythm Residuals: minimal Tube Feeding Tolerated: yes I&O: Intake and Output 04/14/18 04/15/18 19:00 07:00 Intake Total 1003.4 ml 1150 ml Output Total 455 ml 525 ml Balance 548.4 ml 625 ml Intake IV Total 893.4 ml 810 ml Tube Feeding 20 ml 340 ml Other 90 ml Output Urine Total 455 ml 525 ml Critical Care - Objective ET-Tube: 8.0 ET Position: 22 Labs Test 04/12/18 11:15 04/14/18 11:20 04/15/18 04:25 Arterial Blood pH 7.471 (7.350-7.450) Arterial Blood Partial Pressure CO2 40.4 mmHg (35.0-45.0) Arterial Blood Partial Pressure O2 69.6 mmHg (75.0-100.0) Arterial Blood HCO3 28.8 mmol/L (22.0-26.0) Arterial Blood Oxygen Saturation 94.0 % (95-100) Arterial Blood Base Excess 4.8 (-2-2) Joesph Test Positive Vancomycin Level Trough 6.1 ug/mL (5.0-12.0) White Blood Count 11.1 K/UL (4.8-10.8) Red Blood Count 2.97 M/UL (4.70-6.10) Hemoglobin 9.7 G/DL (14.2-18.0) Hematocrit 29.6 % (42.0-52.0) Mean Corpuscular Volume 100 FL (80-99) Mean Corpuscular Hemoglobin 32.6 PG (27.0-31.0) Mean Corpuscular Hemoglobin Concent 32.7 G/DL (32.0-36.0) Red Cell Distribution Width 11.3 % (11.6-14.8) Platelet Count 95 K/UL (150-450) Mean Platelet Volume 9.4 FL (6.5-10.1) Neutrophils (%) (Auto) % (45.0-75.0) Lymphocytes (%) (Auto) % (20.0-45.0) Monocytes (%) (Auto) % (1.0-10.0) Eosinophils (%) (Auto) % (0.0-3.0) Basophils (%) (Auto) % (0.0-2.0) Sodium Level 134 MMOL/L (136-145) Potassium Level 5.1 MMOL/L (3.5-5.1) Chloride Level 101 MMOL/L (98-107) Carbon Dioxide Level 19 MMOL/L (21-32) Anion Gap 14 mmol/L (5-15) Blood Urea Nitrogen 29 mg/dL (7-18) Creatinine 0.8 MG/DL (0.55-1.30) Estimat Glomerular Filtration Rate > 60 mL/min (>60) Glucose Level 45 MG/DL (74-106) Calcium Level 7.8 MG/DL (8.5-10.1) Magnesium Level 1.7 MG/DL (1.8-2.4) Total Bilirubin 1.0 MG/DL (0.2-1.0) Aspartate Amino Transf (AST/SGOT) 72 U/L (15-37) Alanine Aminotransferase (ALT/SGPT) 30 U/L (12-78) Alkaline Phosphatase 59 U/L (46-116) Total Protein 5.5 G/DL (6.4-8.2) Albumin 2.0 G/DL (3.4-5.0) Globulin 3.5 g/dL Albumin/Globulin Ratio 0.6 (1.0-2.7) Critical Care - Objective Last 24 Hour Vital Signs Date Time Temp Pulse Resp B/P (MAP) Pulse Ox O2 Delivery O2 Flow Rate FiO2 04/18/18 11:08 78 25 40 04/18/18 11:00 93 25 166/64 98 Mechanical Ventilator 40 04/18/18 10:00 100.4 95 29 138/65 98 Mechanical Ventilator 40 04/18/18 09:51 100.6 04/18/18 09:05 81 26 40 04/18/18 09:00 101.0 95 29 132/76 99 Mechanical Ventilator 40 04/18/18 08:00 40 04/18/18 08:00 93 04/18/18 08:00 98.7 84 25 130/103 100 Mechanical Ventilator 40 04/18/18 08:00 Mechanical Ventilator 04/18/18 07:01 77 24 40 04/18/18 07:00 98.6 90 30 118/85 93 Mechanical Ventilator 40 04/18/18 06:00 82 29 119/76 99 Mechanical Ventilator 40 04/18/18 05:00 98.6 74 23 118/71 92 Mechanical Ventilator 40 04/18/18 04:54 79 28 40 04/18/18 04:00 40 04/18/18 04:00 Mechanical Ventilator 04/18/18 04:00 83 04/18/18 04:00 85 31 137/81 94 Mechanical Ventilator 40 04/18/18 03:49 80 29 40 04/18/18 03:00 99.2 77 29 140/69 100 Mechanical Ventilator 40 04/18/18 02:00 70 18 103/59 100 Mechanical Ventilator 40 04/18/18 01:20 78 32 40 04/18/18 01:00 72 18 121/53 100 Mechanical Ventilator 40 04/18/18 00:00 98.7 89 32 149/112 98 Mechanical Ventilator 40 04/18/18 00:00 88 04/18/18 00:00 Mechanical Ventilator 04/18/18 00:00 40 04/17/18 23:48 90 35 40 04/17/18 23:00 90 34 158/102 Mechanical Ventilator 40 04/17/18 22:00 101.1 93 33 140/76 99 Mechanical Ventilator 40 04/17/18 21:00 93 23 40 04/17/18 21:00 93 25 145/68 100 Mechanical Ventilator 40 04/17/18 20:00 40 04/17/18 20:00 96 04/17/18 20:00 92 31 146/65 100 Mechanical Ventilator 40 04/17/18 20:00 Mechanical Ventilator 04/17/18 19:17 94 36 40 04/17/18 19:00 100.5 94 33 171/137 100 Mechanical Ventilator 40 04/17/18 18:00 94 33 166/42 100 Mechanical Ventilator 40 04/17/18 17:06 86 30 40 04/17/18 17:00 99.2 92 33 169/82 100 Mechanical Ventilator 40 04/17/18 16:00 92 33 165/79 100 Mechanical Ventilator 40 04/17/18 16:00 Mechanical Ventilator 04/17/18 16:00 40 04/17/18 16:00 94 04/17/18 15:00 86 30 152/96 100 Mechanical Ventilator 40 04/17/18 14:55 82 19 40 04/17/18 14:00 89 32 141/74 98 Mechanical Ventilator 40 04/17/18 13:29 88 27 40 04/17/18 13:00 92 26 135/76 98 Mechanical Ventilator 40 Critical Care - Subjective ROS Limited/Unobtainable: No FI02: 40 Vent Support Breath Rate: 18 Vent Support Mode: AC Vent Tidal Volume: 450 Sputum Amount: Moderate PEEP: 5.0 PIP: 26 Tube Feeding Amount: 50 I&O: Intake and Output 04/17/18 04/18/18 18:59 06:59 Intake Total 797.5 ml 1751.875 ml Output Total 425 ml 360 ml Balance 372.5 ml 1391.875 ml Intake Free Water 120 ml 160 ml IV Total 77.5 ml 991.875 ml Tube Feeding 600 ml 600 ml Output Urine Total 425 ml 360 ml # Bowel Movements 14 1 ET-Tube: 8.0 ET Position: 22 Wally Smith MD Apr 18, 2018 12:44
--- NOTE | 2018-04-18 13:21 | NUR ---
NURSE NOTES: Turned and repositioned, kept dry and clean. VSS
--- NOTE | 2018-04-18 13:49 | NUR ---
CASE MANAGEMENT: REVIEW SI: ALOC . PNA T 100.6 HR 96 RR 29 BP 166/64 SAT 95% MECH VENT FIO2 40 IS: VANCO IV Q12HR DOPAMINE IV Q24HR ZOSYN IV Q8HR 1/2 NS w/KCl 20mEq IVF @50ML/HR ICU STATUS DCP: PATIENT IS FROM [facility]
--- NOTE | 2018-04-18 15:10 | NUR ---
NURSE NOTES: Ordered stat ABG per protocol due to spo2 79-83%, ABG results show hyperoxygenation. Will continue same vent setting and change pulse ox location.
--- NOTE | 2018-04-18 15:50 | General Progress Note ---
Assessment/Plan Assessment/Plan Acute Resp Failure - Vent. m/p secondary to aspiration. Brain Anoxia -pupils still respond to light! PONCHO Taveras. She'll call the [facility] to get code status. Poor prognosis. All noted. PONCHO Nunez. PONCHO Mcgrath. She "wants to give him another 48 hours???" Subjective Allergies: Coded Allergies: No Known Allergies (Unverified , 04/11/18) Subjective On vent. Objective Last 24 Hour Vital Signs Date Time Temp Pulse Resp B/P (MAP) Pulse Ox O2 Delivery O2 Flow Rate FiO2 04/18/18 15:30 79 26 40 04/18/18 13:19 83 28 40 04/18/18 12:30 148/82 04/18/18 12:00 Mechanical Ventilator 04/18/18 12:00 96 22 148/82 95 Mechanical Ventilator 40 04/18/18 12:00 40 04/18/18 11:08 78 25 40 04/18/18 11:00 93 25 166/64 98 Mechanical Ventilator 40 04/18/18 10:00 100.4 95 29 138/65 98 Mechanical Ventilator 40 04/18/18 09:51 100.6 04/18/18 09:05 81 26 40 04/18/18 09:00 101.0 95 29 132/76 99 Mechanical Ventilator 40 04/18/18 08:00 40 04/18/18 08:00 93 04/18/18 08:00 98.7 84 25 130/103 100 Mechanical Ventilator 40 04/18/18 08:00 Mechanical Ventilator 04/18/18 07:01 77 24 40 04/18/18 07:00 98.6 90 30 118/85 93 Mechanical Ventilator 40 04/18/18 06:00 82 29 119/76 99 Mechanical Ventilator 40 04/18/18 05:00 98.6 74 23 118/71 92 Mechanical Ventilator 40 04/18/18 04:54 79 28 40 04/18/18 04:00 40 04/18/18 04:00 Mechanical Ventilator 04/18/18 04:00 83 04/18/18 04:00 85 31 137/81 94 Mechanical Ventilator 40 04/18/18 03:49 80 29 40 04/18/18 03:00 99.2 77 29 140/69 100 Mechanical Ventilator 40 04/18/18 02:00 70 18 103/59 100 Mechanical Ventilator 40 04/18/18 01:20 78 32 40 04/18/18 01:00 72 18 121/53 100 Mechanical Ventilator 40 04/18/18 00:00 98.7 89 32 149/112 98 Mechanical Ventilator 40 04/18/18 00:00 88 04/18/18 00:00 Mechanical Ventilator 04/18/18 00:00 40 04/17/18 23:48 90 35 40 04/17/18 23:00 90 34 158/102 Mechanical Ventilator 40 04/17/18 22:00 101.1 93 33 140/76 99 Mechanical Ventilator 40 04/17/18 21:00 93 23 40 04/17/18 21:00 93 25 145/68 100 Mechanical Ventilator 40 04/17/18 20:00 40 04/17/18 20:00 96 04/17/18 20:00 92 31 146/65 100 Mechanical Ventilator 40 04/17/18 20:00 Mechanical Ventilator 04/17/18 19:17 94 36 40 04/17/18 19:00 100.5 94 33 171/137 100 Mechanical Ventilator 40 04/17/18 18:00 94 33 166/42 100 Mechanical Ventilator 40 04/17/18 17:06 86 30 40 04/17/18 17:00 99.2 92 33 169/82 100 Mechanical Ventilator 40 04/17/18 16:00 92 33 165/79 100 Mechanical Ventilator 40 04/17/18 16:00 Mechanical Ventilator 04/17/18 16:00 40 04/17/18 16:00 94 Intake and Output 04/17/18 04/18/18 18:59 06:59 Intake Total 797.5 ml 1751.875 ml Output Total 425 ml 360 ml Balance 372.5 ml 1391.875 ml Intake Free Water 120 ml 160 ml IV Total 77.5 ml 991.875 ml Tube Feeding 600 ml 600 ml Output Urine Total 425 ml 360 ml # Bowel Movements 14 1 Height (Feet): 5 Height (Inches): 3.00 Weight (Pounds): 107 Objective CV- RR Lungs B ronchi Abd SNT. BS + E + edema Vivienne Urena MD Apr 18, 2018 15:50
--- NOTE | 2018-04-18 18:58 | NUR ---
RESPIRATORY NOTE: Received pt on AC 18, 450VT, 50%, PEEP +5. Pt intubated w/ ETT 8.0 @ 22cm lipline, secured by anchorfast. Pt flat effect, minimal movements. Bite block in place as pt tends to clench his jaw. B/S eryn. rhonchi/diminished, sxn minimal amounts of thick, pink secretions. Vent plugged into red outlet, ambubag at bedside. Pt in no apparent distress at this time. Will continue to monitor pt.
--- NOTE | 2018-04-18 19:27 | NUR ---
HAND-OFF: Report given to GEGE Cloud.
--- NOTE | 2018-04-18 19:30 | NUR ---
NURSE NOTES: Received pt in bed with eyes closed. Sinus rhythm on the monitor. orally intubated ETT 8, 21 cm at the lip line. AC 18, Vt 450, P5 fio23 40%. OGT feeding vital AF 1.2 @ 50cc/hr. no residual noted at this time. Left femoral running 1/2 NS with 20 meq k @ 50cc/hr. Black cath draining by gravity. Temperature 99.3 rectal at this time. Bed in lowest position, side rails upx3. Fall, aspiration and seizure precautions in place. No signs of distress noted. Will continue to monitor
[2018-04-18] MEDS: Dyna-Hex 2% Top Sol 2oz TOPIC SCH (20:06)
--- NOTE | 2018-04-18 21:30 | NUR ---
NURSE NOTES: CHG bath given at this time. Rectal tube noted with some leaking reinflated Balloon at this time. Black cath continues to drain well. Turned and repositioned for comfort. Will continue to monitor
--- NOTE | 2018-04-18 23:30 | NUR ---
NURSE NOTES: Pt turned and repositioned at this time. afebrile at this time. No signs of distress noted. Will continue to monitor
[2018-04-19] VITALS (23 sets, daily range): BP systolic 72–116; BP diastolic 31–98
--- NOTE | 2018-04-19 02:00 | NUR ---
NURSE NOTES: Temp. 99.6. Cooling blanket on at this time.
[2018-04-19] MEDS: Acetaminophen 650mg/20.3ml GT PRN (02:55)
[2018-04-19] MEDS: Vancomycin 1gm/D5W 275ml IVPB SCH ×4 (02:58→13:30)
--- NOTE | 2018-04-19 03:02 | NUR ---
NURSE NOTES: Temp 101.45 rectal. 650 mg IV NGT tube given at this time. Cooling blanket and fan on.
--- NOTE | 2018-04-19 05:14 | NUR ---
NURSE NOTES: Temperature going down. Now 98.5 after Tylenol was given. Pt has no neuro changes at this time. Suctioned turned and repositioned at this time. Will continue to monitor
[2018-04-19] MEDS: Zosyn 3.375gm q8h **Extended infusion IVPB SCH ×6 (05:45→23:00)
--- NOTE | 2018-04-19 06:46 | NUR ---
RESPIRATORY NOTE: Received pt on current vent settings. Endotracheal tube is patent and secured via anchor fast. Suctioned pt prn. No resp distress noted. Vent alarms are on and audible. Vent is plugged into red outlet. Will monitor pt progress.
--- NOTE | 2018-04-19 07:17 | NUR ---
HAND-OFF: Report given to Ann DE GUZMAN using SBAR.VS stable, no signs of distress noted.
--- NOTE | 2018-04-19 07:30 | NUR ---
NURSE NOTES: Received report from Ai. Pt in bed with eyes closed, opens eyes with shaking or light pain. Sinus rhythm to Sinus nicola on monitor. Temp 98.8 rectal pt with ETT 8, 21 cm at the lip line. AC 18, Vt 450, P5 FI02 40%. Abdomen flat, hyperactive bowel sounds, rectal tube draining brown liquid stool. OGT feeding Vital AF 1.2 @ 50cc/hr. No residual noted. Black cath draining by gravity, draining yellow urine. LT femoral running 1/2 NS w/ 20 MEQ KCL @ 50ml/hr. Bed in lowest position, side rails upx3. Fall, aspiration and seizure precautions in place. Will continue to monitor
[2018-04-19] MEDS: Heparin 5000 units/ml inj SUBQ SCH ×2 (09:00→21:12)
--- NOTE | 2018-04-19 10:00 | NUR ---
NURSE NOTES: Turned and repositioned, kept dry and clean. VSS
[2018-04-19] MEDS: Pantoprazole Inj IVP SCH (10:18)
--- NOTE | 2018-04-19 11:07 | Critical Care Progress Note ---
Assessment/Plan Assessment/Plan IMPRESSION: Pneumonia, aspiration, probable sepsis, evidence of thrombocytopenia, severe protein-calorie malnutrition, elevated troponin, possible non-STEMI NM, evidence of anemia. acute respiratory failure, hypoxemia PLAN care noted IV antibiotics respiratory care monitor culture Ventilatory support supportive meds supportive care rechck labs for change suction as needed try to wean and reduce back up rate anxiolytics if needed oxygen therapy and taper prognosis guarded nutrition tolerated medications/laboratory data/nursing notes/ICU care reviewed in detail note reviewed and edited care discussed with RN and RT ICU time spent 40 minutes Critical Care - Subjective Interval Events: care noted and reviewed ROS Limited/Unobtainable: Yes Condition: critical EKG Rhythm: Sinus Rhythm Residuals: minimal Tube Feeding Tolerated: yes I&O: Intake and Output 04/18/18 04/19/18 19:00 07:00 Intake Total 770 ml 1447.5 ml Output Total 370 ml 585 ml Balance 400 ml 862.5 ml Intake Free Water 120 ml 120 ml IV Total 50 ml 727.5 ml Tube Feeding 600 ml 600 ml Output Urine Total 370 ml 485 ml Stool Total 100 ml # Bowel Movements 1 3 Critical Care - Objective ET-Tube: 8.0 ET Position: 22 Last 24 Hour Vital Signs Date Time Temp Pulse Resp B/P (MAP) Pulse Ox O2 Delivery O2 Flow Rate FiO2 04/19/18 09:16 73 20 50 04/19/18 08:00 Mechanical Ventilator 04/19/18 08:00 50 04/19/18 07:00 60 19 95/36 100 Mechanical Ventilator 40 04/19/18 06:46 78 18 50 04/19/18 06:00 75 19 101/76 98 Mechanical Ventilator 40 04/19/18 05:15 82 24 50 04/19/18 05:00 80 19 116/98 98 Mechanical Ventilator 40 04/19/18 04:00 76 04/19/18 04:00 Mechanical Ventilator 04/19/18 04:00 98.9 70 22 101/76 100 Mechanical Ventilator 40 04/19/18 04:00 40 04/19/18 03:29 100.1 04/19/18 03:05 75 20 50 04/19/18 03:00 81 18 101/42 99 Mechanical Ventilator 40 04/19/18 02:00 65 18 99/41 100 Mechanical Ventilator 40 04/19/18 01:05 74 22 50 04/19/18 01:00 64 19 95/48 Mechanical Ventilator 40 04/19/18 00:00 Mechanical Ventilator 04/19/18 00:00 67 04/19/18 00:00 99.2 70 22 95/48 100 Mechanical Ventilator 40 04/18/18 23:01 67 18 50 04/18/18 23:00 64 18 90/33 100 Mechanical Ventilator 40 04/18/18 22:00 99.3 63 19 90/33 98 Mechanical Ventilator 40 04/18/18 21:00 68 25 104/42 98 Mechanical Ventilator 40 04/18/18 20:54 74 24 50 04/18/18 20:00 76 04/18/18 20:00 Mechanical Ventilator 04/18/18 20:00 40 04/18/18 20:00 77 13 146/69 95 Mechanical Ventilator 40 04/18/18 19:00 99.2 82 25 135/86 86 Mechanical Ventilator 40 04/18/18 18:56 87 25 50 04/18/18 18:00 99.3 72 18 143/64 95 Mechanical Ventilator 40 04/18/18 17:00 79 22 169/71 95 Mechanical Ventilator 40 04/18/18 16:43 83 27 40 04/18/18 16:00 94 04/18/18 16:00 Mechanical Ventilator 04/18/18 16:00 40 04/18/18 16:00 80 22 162/100 95 Mechanical Ventilator 40 04/18/18 15:30 79 26 40 04/18/18 15:00 87 22 160/98 95 Mechanical Ventilator 40 04/18/18 14:00 88 22 153/81 95 Mechanical Ventilator 40 04/18/18 13:19 83 28 40 04/18/18 13:00 89 22 166/74 95 Mechanical Ventilator 40 04/18/18 12:30 148/82 04/18/18 12:00 Mechanical Ventilator 04/18/18 12:00 96 04/18/18 12:00 96 22 148/82 95 Mechanical Ventilator 40 04/18/18 12:00 40 04/18/18 11:08 78 25 40 Labs: Labs Test 04/17/18 10:00 04/18/18 17:08 White Blood Count 9.6 K/UL (4.8-10.8) Red Blood Count 2.97 M/UL (4.70-6.10) Hemoglobin 9.5 G/DL (14.2-18.0) Hematocrit 29.0 % (42.0-52.0) Mean Corpuscular Volume 98 FL (80-99) Mean Corpuscular Hemoglobin 32.1 PG (27.0-31.0) Mean Corpuscular Hemoglobin Concent 32.9 G/DL (32.0-36.0) Red Cell Distribution Width 11.5 % (11.6-14.8) Platelet Count 124 K/UL (150-450) Mean Platelet Volume 8.8 FL (6.5-10.1) Neutrophils (%) (Auto) % (45.0-75.0) Lymphocytes (%) (Auto) % (20.0-45.0) Monocytes (%) (Auto) % (1.0-10.0) Eosinophils (%) (Auto) % (0.0-3.0) Basophils (%) (Auto) % (0.0-2.0) Differential Total Cells Counted 100 Neutrophils % (Manual) 87 % (45-75) Lymphocytes % (Manual) 1 % (20-45) Monocytes % (Manual) 10 % (1-10) Eosinophils % (Manual) 1 % (0-3) Basophils % (Manual) 0 % (0-2) Myelocytes % 1 % (0-0) Band Neutrophils 0 % (0-8) Platelet Estimate Decreased Platelet Morphology Normal Red Blood Cell Morphology Normal Sodium Level 134 MMOL/L (136-145) Potassium Level 4.2 MMOL/L (3.5-5.1) Chloride Level 100 MMOL/L (98-107) Carbon Dioxide Level 26 MMOL/L (21-32) Anion Gap 8 mmol/L (5-15) Blood Urea Nitrogen 23 mg/dL (7-18) Creatinine 0.6 MG/DL (0.55-1.30) Estimat Glomerular Filtration Rate > 60 mL/min (>60) Glucose Level 138 MG/DL (74-106) Calcium Level 7.5 MG/DL (8.5-10.1) Total Bilirubin 0.6 MG/DL (0.2-1.0) Aspartate Amino Transf (AST/SGOT) 43 U/L (15-37) Alanine Aminotransferase (ALT/SGPT) 27 U/L (12-78) Alkaline Phosphatase 54 U/L (46-116) Total Protein 5.0 G/DL (6.4-8.2) Albumin 1.6 G/DL (3.4-5.0) Globulin 3.4 g/dL Albumin/Globulin Ratio 0.5 (1.0-2.7) Arterial Blood pH 7.427 (7.350-7.450) Arterial Blood Partial Pressure CO2 40.2 mmHg (35.0-45.0) Arterial Blood Partial Pressure O2 462.9 mmHg (75.0-100.0) Arterial Blood HCO3 25.9 mmol/L (22.0-26.0) Arterial Blood Oxygen Saturation 99.2 % (95-100) Arterial Blood Base Excess 1.5 (-2-2) Joesph Test Positive Objective: GENERAL: An ill-appearing male of short stature. obtunded HEENT: Negative. NECK: Supple. The patient remains orally intubated. LUNGS: Coarse breath sounds. Rhonchi bilaterally. no wheeze CARDIAC: S1 and S2. Regular rate and rhythm without murmurs, rubs, gallops. ABDOMEN: Soft, nontender, nondistended. feeding tube in place . EXTREMITIES: No cyanosis, clubbing, or edema. NEUROLOGIC: The patient with significant muscular atrophy, sedated Brian Torres MD Apr 19, 2018 11:07
--- NOTE | 2018-04-19 11:30 | NUR ---
NURSE NOTES: MD PALMA HERE TO SEE PT. WAS INFORMED OF BRADYCARDIA 46. BP STABLE. RECOMMENDATION PRESENTED FOR AM LABS. RECEIVED ORDER TO PLACE BMP, CBC FOR TODAY.
--- NOTE | 2018-04-19 11:59 | General Progress Note ---
Assessment/Plan Assessment/Plan Acute Resp Failure - Vent. m/p secondary to aspiration. Brain Anoxia -pupils still respond to light! PONCHO Taveras. She'll call the regional Center to get code status. Poor prognosis. All noted. PONCHO Nunez. PONCHO Mcgrath. She "wants to give him another 48 hours???" Subjective Allergies: Coded Allergies: No Known Allergies (Unverified , 04/11/18) Subjective On vent. Objective Last 24 Hour Vital Signs Date Time Temp Pulse Resp B/P (MAP) Pulse Ox O2 Delivery O2 Flow Rate FiO2 04/19/18 10:51 76 20 50 04/19/18 09:16 73 20 50 04/19/18 08:00 Mechanical Ventilator 04/19/18 08:00 50 04/19/18 07:00 60 19 95/36 100 Mechanical Ventilator 40 04/19/18 06:46 78 18 50 04/19/18 06:00 75 19 101/76 98 Mechanical Ventilator 40 04/19/18 05:15 82 24 50 04/19/18 05:00 80 19 116/98 98 Mechanical Ventilator 40 04/19/18 04:00 76 04/19/18 04:00 Mechanical Ventilator 04/19/18 04:00 98.9 70 22 101/76 100 Mechanical Ventilator 40 04/19/18 04:00 40 04/19/18 03:29 100.1 04/19/18 03:05 75 20 50 04/19/18 03:00 81 18 101/42 99 Mechanical Ventilator 40 04/19/18 02:00 65 18 99/41 100 Mechanical Ventilator 40 04/19/18 01:05 74 22 50 04/19/18 01:00 64 19 95/48 Mechanical Ventilator 40 04/19/18 00:00 Mechanical Ventilator 04/19/18 00:00 67 04/19/18 00:00 99.2 70 22 95/48 100 Mechanical Ventilator 40 04/18/18 23:01 67 18 50 04/18/18 23:00 64 18 90/33 100 Mechanical Ventilator 40 04/18/18 22:00 99.3 63 19 90/33 98 Mechanical Ventilator 40 04/18/18 21:00 68 25 104/42 98 Mechanical Ventilator 40 04/18/18 20:54 74 24 50 04/18/18 20:00 76 04/18/18 20:00 Mechanical Ventilator 04/18/18 20:00 40 04/18/18 20:00 77 13 146/69 95 Mechanical Ventilator 40 04/18/18 19:00 99.2 82 25 135/86 86 Mechanical Ventilator 40 04/18/18 18:56 87 25 50 04/18/18 18:00 99.3 72 18 143/64 95 Mechanical Ventilator 40 04/18/18 17:00 79 22 169/71 95 Mechanical Ventilator 40 04/18/18 16:43 83 27 40 04/18/18 16:00 94 04/18/18 16:00 Mechanical Ventilator 04/18/18 16:00 40 04/18/18 16:00 80 22 162/100 95 Mechanical Ventilator 40 04/18/18 15:30 79 26 40 04/18/18 15:00 87 22 160/98 95 Mechanical Ventilator 40 04/18/18 14:00 88 22 153/81 95 Mechanical Ventilator 40 04/18/18 13:19 83 28 40 04/18/18 13:00 89 22 166/74 95 Mechanical Ventilator 40 04/18/18 12:30 148/82 04/18/18 12:00 Mechanical Ventilator 04/18/18 12:00 96 04/18/18 12:00 96 22 148/82 95 Mechanical Ventilator 40 04/18/18 12:00 40 Intake and Output 04/18/18 04/19/18 19:00 07:00 Intake Total 770 ml 1447.5 ml Output Total 370 ml 585 ml Balance 400 ml 862.5 ml Intake Free Water 120 ml 120 ml IV Total 50 ml 727.5 ml Tube Feeding 600 ml 600 ml Output Urine Total 370 ml 485 ml Stool Total 100 ml # Bowel Movements 1 3 Laboratory Tests 04/18/18 17:08: Arterial Blood pH 7.427, Arterial Blood Partial Pressure CO2 40.2, Arterial Blood Partial Pressure O2 462.9H, Arterial Blood HCO3 25.9, Arterial Blood Oxygen Saturation 99.2, Arterial Blood Base Excess 1.5, Joesph Test Positive Height (Feet): 5 Height (Inches): 3.00 Weight (Pounds): 108 Objective CV- RR Lungs B ronchi Abd SNT. BS + E + edema Vivienne Urena MD Apr 19, 2018 11:59
--- NOTE | 2018-04-19 12:00 | NUR ---
NURSE NOTES: MD TIRADO HERE TO CHECK PT, PLACED CONSULT.
--- NOTE | 2018-04-19 12:16 | Cardiac Electrophysiology PN ---
Subjective Subjective Patient seen and examined. EP consult done at request of Dr Urena for bradycardia Objective Last 24 Hour Vital Signs Date Time Temp Pulse Resp B/P (MAP) Pulse Ox O2 Delivery O2 Flow Rate FiO2 04/19/18 10:51 76 20 50 04/19/18 09:16 73 20 50 04/19/18 08:00 Mechanical Ventilator 04/19/18 08:00 50 04/19/18 07:00 60 19 95/36 100 Mechanical Ventilator 40 04/19/18 06:46 78 18 50 04/19/18 06:00 75 19 101/76 98 Mechanical Ventilator 40 04/19/18 05:15 82 24 50 04/19/18 05:00 80 19 116/98 98 Mechanical Ventilator 40 04/19/18 04:00 76 04/19/18 04:00 Mechanical Ventilator 04/19/18 04:00 98.9 70 22 101/76 100 Mechanical Ventilator 40 04/19/18 04:00 40 04/19/18 03:29 100.1 04/19/18 03:05 75 20 50 04/19/18 03:00 81 18 101/42 99 Mechanical Ventilator 40 04/19/18 02:00 65 18 99/41 100 Mechanical Ventilator 40 04/19/18 01:05 74 22 50 04/19/18 01:00 64 19 95/48 Mechanical Ventilator 40 04/19/18 00:00 Mechanical Ventilator 04/19/18 00:00 67 04/19/18 00:00 99.2 70 22 95/48 100 Mechanical Ventilator 40 04/18/18 23:01 67 18 50 04/18/18 23:00 64 18 90/33 100 Mechanical Ventilator 40 04/18/18 22:00 99.3 63 19 90/33 98 Mechanical Ventilator 40 04/18/18 21:00 68 25 104/42 98 Mechanical Ventilator 40 04/18/18 20:54 74 24 50 04/18/18 20:00 76 04/18/18 20:00 Mechanical Ventilator 04/18/18 20:00 40 04/18/18 20:00 77 13 146/69 95 Mechanical Ventilator 40 04/18/18 19:00 99.2 82 25 135/86 86 Mechanical Ventilator 40 04/18/18 18:56 87 25 50 04/18/18 18:00 99.3 72 18 143/64 95 Mechanical Ventilator 40 04/18/18 17:00 79 22 169/71 95 Mechanical Ventilator 40 04/18/18 16:43 83 27 40 04/18/18 16:00 94 04/18/18 16:00 Mechanical Ventilator 04/18/18 16:00 40 04/18/18 16:00 80 22 162/100 95 Mechanical Ventilator 40 04/18/18 15:30 79 26 40 04/18/18 15:00 87 22 160/98 95 Mechanical Ventilator 40 04/18/18 14:00 88 22 153/81 95 Mechanical Ventilator 40 04/18/18 13:19 83 28 40 04/18/18 13:00 89 22 166/74 95 Mechanical Ventilator 40 04/18/18 12:30 148/82 Intake and Output 04/18/18 04/19/18 19:00 07:00 Intake Total 770 ml 1447.5 ml Output Total 370 ml 585 ml Balance 400 ml 862.5 ml Intake Free Water 120 ml 120 ml IV Total 50 ml 727.5 ml Tube Feeding 600 ml 600 ml Output Urine Total 370 ml 485 ml Stool Total 100 ml # Bowel Movements 1 3 Laboratory Tests Test 04/18/18 17:08 Arterial Blood pH 7.427 (7.350-7.450) Arterial Blood Partial Pressure CO2 40.2 mmHg (35.0-45.0) Arterial Blood Partial Pressure O2 462.9 mmHg (75.0-100.0) H Arterial Blood HCO3 25.9 mmol/L (22.0-26.0) Arterial Blood Oxygen Saturation 99.2 % (95-100) Arterial Blood Base Excess 1.5 (-2-2) Joesph Test Positive Tono Crisostomo MD Apr 19, 2018 12:16
[2018-04-19] MEDS: DOPamine 400mg/250ml 250 ML IV SCH (12:30)
[2018-04-19 13:23] LABS: HEMATOCRIT 29.2 % (42.0-52.0); HEMOGLOBIN 9.8 G/DL (14.2-18.0); MEAN CORPUSCULAR VOLUME 96 FL (80-99); PLATELET COUNT 115 K/UL (150-450); RED BLOOD COUNT 3.03 M/UL (4.70-6.10); RED CELL DISTRIBUTION WIDTH 12.4 % (11.6-14.8); WHITE BLOOD COUNT 11.7 K/UL (4.8-10.8)
[2018-04-19] MEDS: 1/2NS w/KCl 20mEq 1000ml 1,000 ML IV SCH (13:25)
[2018-04-19 13:29] LABS: ANION GAP 10 mmol/L (5-15); BLOOD UREA NITROGEN 39 mg/dL (7-18); CALCIUM 7.1 MG/DL (8.5-10.1); CARBON DIOXIDE 18 MMOL/L (21-32); CHLORIDE 113 MMOL/L (98-107); POTASSIUM 3.1 MMOL/L (3.5-5.1); SODIUM 141 MMOL/L (136-145)
--- NOTE | 2018-04-19 13:48 | NUR ---
CASE MANAGEMENT: REVIEW 04/19/2018 SI: ALOC . PNA T 98.9 HR 70 RR 22 B/P 101/76 SATS 100% ON MECH VENT FiO2 40 WBC 11.7 K 3.1 CL 113 CO2 18 BUN 39 GLU 166 CA 7.1 IS: VANCO IV Q12HR DOPAMINE IV Q24HR ZOSYN IV Q8HR 1/2 NS w/KCl 20mEq IVF @50 ML/HR ICU STATUS DCP: PATIENT IS FROM [facility] CARE PLAN OF CARE: EEG WEANING DETERMINATION
--- NOTE | 2018-04-19 15:40 | NUR ---
NURSE NOTES: HERE TO DO EEG ON PT. VSS. WILL CONTINUE TO MONITOR PT.
--- NOTE | 2018-04-19 15:42 | NUR ---
NURSE NOTES: PAGED MD PALAM REGARDING BMP RESULTS FOR K 3.1. AWAITING CALL BACK
--- NOTE | 2018-04-19 19:28 | NUR ---
NURSE NOTES: PAGED MD PALACIO REGARDING K 3.1. AWAITING CALL BACK ALSO FROM LOUIE.
--- NOTE | 2018-04-19 19:44 | NUR ---
HAND-OFF: Report given to BEATRIZ. ENDORSED F/U W REGARDING K 3.1
--- NOTE | 2018-04-19 19:45 | NUR ---
NURSE NOTES: Received report from Gareth DE GUZMAN. Pt in bed with eyes closed, opens eyes with shaking or light pain. Sinus rhythm on monitor HR 70. Temp 99.4 rectally, with cooling blanket. pt with ETT 8, 21 cm at the lip line. AC 18, Vt 450, P5 FI02 40%. rectal tube draining brown liquid stool. OGT feeding Vital AF 1.2 @ 50cc/hr. No residual noted. Black cath draining by gravity, draining yellow urine. LT femoral running 1/2 NS w/ 20 MEQ KCL @ 50ml/hr. Bed in lowest position, side rails upx3. Fall, aspiration and seizure precautions in place. Will continue to monitor plan of care
[2018-04-19] MEDS ORDERED: NS 275ml ONE (19:51)
[2018-04-19] MEDS ORDERED: Tubing IV Secondary IV ONE (19:51)
--- NOTE | 2018-04-19 20:42 | Cardiology Progress Note ---
Assessment/Plan Assessment/Plan noted CXR, his ET tube is down to jer, needs to be pulled out will replace K , its 3.1 noted nicola episode it is not significant Subjective Subjective remains intubater, not responsive, has repetitive motionts of his mouth no communication Objective Last 24 Hour Vital Signs Date Time Temp Pulse Resp B/P (MAP) Pulse Ox O2 Delivery O2 Flow Rate FiO2 04/19/18 20:00 50 04/19/18 20:00 99.4 76 20 110/53 100 Mechanical Ventilator 40 04/19/18 19:21 72 21 50 04/19/18 19:00 72 19 110/55 100 Mechanical Ventilator 40 04/19/18 18:00 75 12 97/44 100 Mechanical Ventilator 40 04/19/18 17:00 77 19 113/49 97 Mechanical Ventilator 40 04/19/18 16:32 68 18 50 04/19/18 16:00 Mechanical Ventilator 04/19/18 16:00 99.1 76 19 101/52 97 Mechanical Ventilator 40 04/19/18 16:00 88 04/19/18 16:00 50 04/19/18 15:00 78 19 110/55 97 Mechanical Ventilator 40 04/19/18 14:41 80 20 50 04/19/18 14:00 78 19 115/55 97 Mechanical Ventilator 40 04/19/18 13:00 77 16 97 Mechanical Ventilator 40 04/19/18 12:42 81 22 50 04/19/18 12:00 50 04/19/18 12:00 Mechanical Ventilator 04/19/18 12:00 98.9 52 18 85/39 98 Mechanical Ventilator 40 04/19/18 12:00 64 04/19/18 11:00 72 24 111/39 99 Mechanical Ventilator 40 04/19/18 10:51 76 20 50 04/19/18 10:00 55 18 72/31 99 Mechanical Ventilator 40 04/19/18 09:16 73 20 50 04/19/18 09:00 53 18 102/53 100 Mechanical Ventilator 40 04/19/18 08:00 49 04/19/18 08:00 98.9 47 18 74/33 100 Mechanical Ventilator 40 04/19/18 08:00 Mechanical Ventilator 04/19/18 08:00 50 04/19/18 07:00 60 19 95/36 100 Mechanical Ventilator 40 04/19/18 06:46 78 18 50 04/19/18 06:00 75 19 101/76 98 Mechanical Ventilator 40 04/19/18 05:15 82 24 50 04/19/18 05:00 80 19 116/98 98 Mechanical Ventilator 40 04/19/18 04:00 76 04/19/18 04:00 Mechanical Ventilator 04/19/18 04:00 98.9 70 22 101/76 100 Mechanical Ventilator 40 04/19/18 04:00 40 04/19/18 03:29 100.1 04/19/18 03:05 75 20 50 04/19/18 03:00 81 18 101/42 99 Mechanical Ventilator 40 04/19/18 02:00 65 18 99/41 100 Mechanical Ventilator 40 04/19/18 01:05 74 22 50 04/19/18 01:00 64 19 95/48 Mechanical Ventilator 40 04/19/18 00:00 Mechanical Ventilator 04/19/18 00:00 67 04/19/18 00:00 99.2 70 22 95/48 100 Mechanical Ventilator 40 04/18/18 23:01 67 18 50 04/18/18 23:00 64 18 90/33 100 Mechanical Ventilator 40 04/18/18 22:00 99.3 63 19 90/33 98 Mechanical Ventilator 40 04/18/18 21:00 68 25 104/42 98 Mechanical Ventilator 40 04/18/18 20:54 74 24 50 General Appearance: on vent, other - not communicating Neck: no JVD Rhythm: NSR, SB Cardiovascular: normal rate Respiratory/Chest: crackles/rales Abdomen: non tender Intake and Output 04/18/18 04/19/18 18:59 06:59 Intake Total 797.5 ml 1420.0 ml Output Total 360 ml 475 ml Balance 437.5 ml 945.0 ml Intake Free Water 120 ml 120 ml IV Total 77.5 ml 700.0 ml Tube Feeding 600 ml 600 ml Output Urine Total 360 ml 475 ml # Bowel Movements 1 3 Laboratory Tests Test 04/19/18 12:00 White Blood Count 11.7 K/UL (4.8-10.8) H Red Blood Count 3.03 M/UL (4.70-6.10) L Hemoglobin 9.8 G/DL (14.2-18.0) L Hematocrit 29.2 % (42.0-52.0) L Mean Corpuscular Volume 96 FL (80-99) Mean Corpuscular Hemoglobin 32.4 PG (27.0-31.0) H Mean Corpuscular Hemoglobin Concent 33.7 G/DL (32.0-36.0) Red Cell Distribution Width 12.4 % (11.6-14.8) Platelet Count 115 K/UL (150-450) L Mean Platelet Volume 9.9 FL (6.5-10.1) Neutrophils (%) (Auto) % (45.0-75.0) Lymphocytes (%) (Auto) % (20.0-45.0) Monocytes (%) (Auto) % (1.0-10.0) Eosinophils (%) (Auto) % (0.0-3.0) Basophils (%) (Auto) % (0.0-2.0) Differential Total Cells Counted 100 Neutrophils % (Manual) 66 % (45-75) Lymphocytes % (Manual) 3 % (20-45) L Monocytes % (Manual) 0 % (1-10) L Eosinophils % (Manual) 0 % (0-3) Basophils % (Manual) 0 % (0-2) Myelocytes % 1 % (0-0) H Band Neutrophils 30 % (0-8) H Nucleated Red Blood Cells 1 /100 WBC Platelet Estimate Decreased L Platelet Morphology Normal Red Blood Cell Morphology Normal Sodium Level 141 MMOL/L (136-145) Potassium Level 3.1 MMOL/L (3.5-5.1) L Chloride Level 113 MMOL/L (98-107) H Carbon Dioxide Level 18 MMOL/L (21-32) L Anion Gap 10 mmol/L (5-15) Blood Urea Nitrogen 39 mg/dL (7-18) H Creatinine 1.0 MG/DL (0.55-1.30) Estimat Glomerular Filtration Rate > 60 mL/min (>60) Glucose Level 166 MG/DL (74-106) H Calcium Level 7.1 MG/DL (8.5-10.1) Sharmaine Hirsch MD Apr 19, 2018 20:42
--- NOTE | 2018-04-19 20:52 | NUR ---
NURSE NOTES: seen and examined by Dr Crowder with new order noted and carried out. MD made aware of potassium level 3.1, per Dr. Crowder pulled out ETT 1 inch per chest xray result. called Fletcher RT and pulled out ETT 1 inch. ordered stat chest chest xray. charge nurse aware.
[2018-04-19] MEDS: Dyna-Hex 2% Top Sol 2oz TOPIC SCH (21:00)
--- NOTE | 2018-04-19 21:30 | Consultation ---
DATE OF CONSULTATION: 04/19/2018 CARDIAC ELECTROPHYSIOLOGY CONSULTATION CONSULTING PHYSICIAN: Tono Crisostomo M.D. REFERRING PHYSICIAN: Vivienne Urena M.D. REASON FOR CONSULTATION: Bradycardia. HISTORY OF PRESENT ILLNESS: The patient is a 68-year-old unfortunate gentleman with history of hypertension, pulmonary hypertension, mental retardation, cerebral palsy, and kyphoscoliosis, who had cardiac arrest, was resuscitated and brought to the emergency room, and was intubated. The patient was subsequently evaluated by Dr. Crowder from Cardiology perspective in view of the elevated troponin of type 2 myocardial infarction. The patient today developed recurrent episodes of bradycardia with heart rate up into 40s. Cardiac electrophysiology consultation was requested for further evaluation and management. Upon my evaluation, the patient is not able to provide any information. He is intubated, on the ventilator. REVIEW OF SYSTEMS: Cannot be obtained. PAST MEDICAL HISTORY: As mentioned above. FAMILY HISTORY: Noncontributory. SOCIAL HISTORY: He is a [facility] patient. PHYSICAL EXAMINATION: VITAL SIGNS: Show blood pressure of 101/52. Pulse is 70 and regular, earlier it was 40. Respirations 18 and he is afebrile. HEAD AND NECK: Shows no JVD. He is intubated. LUNGS: Coarse rhonchi. CARDIOVASCULAR: Shows regular S1 and S2 with no gallop. ABDOMEN: Soft. EXTREMITIES: No pitting edema. LABORATORY DATA: White count of 11.7, hemoglobin 9.8, hematocrit 29.2, platelet count of 115,000. Sodium 141, potassium 3.1, BUN of 39, creatinine of 1, and glucose of 166. ASSESSMENT AND PLAN: 1. Bradycardic episodes. The heart rate dropped to 40s, but it is transient. Currently, heart rate is up to 50s and 60s again. The patient is not on any sinus aftab or AV aftab blocking agents. We will watch the patient on telemetry, check thyroid function tests, and repeat cardiac enzymes. 2. Type 2 myocardial infarction. 3. Respiratory failure, on the ventilator. 4. Mental retardation. 5. Sepsis, on broad-spectrum IV antibiotics. Thank you very much, Dr. Urena, for allowing me to participate in the care of this patient. Please do not hesitate to contact me for any questions regarding my evaluation. Tono Crisostomo M.D. DR: Naveed JOB#: [id number] CC:
--- NOTE | 2018-04-19 23:39 | Diagnostic Imaging Report ---
EXAM: XR Chest, 1 View CLINICAL HISTORY: MALPOSITION TECHNIQUE: Frontal view of the chest. COMPARISON: No relevant prior studies available. FINDINGS: Lungs: Patchy alveolar opacities seen within the left lung, slightly decreased compared to the prior study. Pleural space: Unremarkable. No pneumothorax. Heart: Unremarkable. No cardiomegaly. Mediastinum: Unremarkable. Bones/joints: Scoliosis. Vasculature: Atherosclerosis of the aorta. Tubes, lines and devices: ET tube is seen within the right mainstem bronchus 6 mm below the jer. Recommend retraction by at least 3.5 cm. Gastric tube tip in the stomach. IMPRESSION: 1. ET tube is seen within the right mainstem bronchus 6 mm below the jer. Recommend retraction by at least 3.5 cm. 2. Patchy alveolar opacities seen within the left lung, slightly decreased compared to the prior study. 3. Gastric tube tip in the stomach. Critical Value Communications 04/19/18 23:48 Call Doctor Regarding Life Threatening Misplaced Tube or Line, called Dr. Glass on 04/19 23:47 (-08:00)
--- NOTE | 2018-04-19 23:50 | NUR ---
HAND-OFF: Report given to Kellen DE GUZMAN.Dr. Urena called regarding the chest xray result per MD pulled out the OGT. Charge nurse aware.
[2018-04-20] VITALS (24 sets, daily range): BP systolic 93–165; BP diastolic 45–131
--- NOTE | 2018-04-20 | NUR ---
NURSE NOTES: Report received from GEGE Tyler. Pt Obtunded. ekg monitor shows SR. Pt has an ETT8 in place 22 @ lip. Ventilator settings: AC18, VT450 FiO2:40%, PEEP:5. Pt has an OGT in place with Vital AF 1.5 running at 50 ml/hr. Rectal tube and antoine catheter present and draining well. Scrotal and generalized edema noted. Pt has a L femoral TLC with 1/2 [id number] running @ 50 ml/hr. Bed in lowest position, bed alarms place. Will continue to monitor and with patients plan of care.
--- NOTE | 2018-04-20 00:20 | NUR ---
NURSE NOTES: Paged Dr. Urena regarding the chest xray result impression ET tube is seen within the right mainstem bronchus 6 mm below the jer. Recommend retraction by at least 3.5cm. gastric tube tip in the stomach. Dr. Urena called back and made aware of the result. called RT to pulled out 3.5c. ETT. will repeat stat chest xray. charge nurse aware. Patient in bed no s/s of acute distress noted.
--- NOTE | 2018-04-20 00:25 | NUR ---
NURSE NOTES: RT informed and pulled ETT from 22cm to 18.5cm on lip. Stat CXR ordered. Will continue to monitor and await results.
[2018-04-20] MEDS: Vancomycin 1gm/D5W 275ml IVPB SCH ×4 (01:40→15:49)
--- NOTE | 2018-04-20 02:10 | NUR ---
NURSE NOTES: Pt repositioned and currently resting. VSS. No signs of acute distress.
--- NOTE | 2018-04-20 04:00 | NUR ---
NURSE NOTES: Pt cleaned and repositioned. Optifoam placed for prevention of skin breakdown. Repeat CXR done as well.
--- NOTE | 2018-04-20 05:28 | Diagnostic Imaging Report ---
EXAM: XR Chest, 1 View CLINICAL HISTORY: TUBE PLCMT TECHNIQUE: Frontal view of the chest. COMPARISON: 04/19/18 FINDINGS: Lungs: Stable appearance of left lung infiltrates. Pleural space: Unremarkable. No pneumothorax. Heart: Unremarkable. No cardiomegaly. Mediastinum: Unremarkable. Bones/joints: Scoliosis. Tubes, lines and devices: The ET tube appears to be 1 cm above the jer. OG tube tip within the body the stomach. IMPRESSION: 1. The ET tube appears to be 1 cm above the jer. OG tube tip within the body the stomach. 2. Stable appearance of left lung infiltrates.
[2018-04-20] MEDS: Zosyn 3.375gm q8h **Extended infusion IVPB SCH ×4 (05:32→15:50)
[2018-04-20 05:57] LABS: ANION GAP 4 mmol/L (5-15); BLOOD UREA NITROGEN 28 mg/dL (7-18); CALCIUM 7.6 MG/DL (8.5-10.1); CARBON DIOXIDE 30 MMOL/L (21-32); CHLORIDE 99 MMOL/L (98-107); CREATININE 0.6 MG/DL (0.55-1.30); POTASSIUM 4.5 MMOL/L (3.5-5.1); SODIUM 133 MMOL/L (136-145)
--- NOTE | 2018-04-20 07:35 | NUR ---
NURSE NOTES: Patient received from GEGE Foreman. Patient observed to be obtunded. Patient does not open eyes spontaneously, does not follow commands, does not have any pain responses but did have slight response to scratch at the bottom of the his feet BL. Patient is being monitored on the child monitor. VS 115/97 HR 77, RR 24 SPO2 100. Patient is in SR. Patient is currently mechanically ventilated with vent settings ETT 8.0, AC 18, TV 450, FIO2 40% PEEP 5. Patient is tolerating well. Upon auscultation, patient has rhonchi throughout. Patient has an OGT running Vital AF 1.5 at 50 ml per hour. 60 ml flush was given with 5 ml residual. Patient has a rectal tube draining greenish brown liquid stool to gravity. Belly sounds are hypoactive. Patient has a rectal probe monitoring temp that is now 99.9 and on a cooling blanket for cooling measures. Patient has a Black catheter draining light kirti urine to gravity. Patient has 3+ edema on both BUE and BLE. Patient has 1/2 NS with 20 KCL running through LFem TLC. Safety measures are in place with bed locked in the lowest position, side rails padded for sz precautions. Will continue to monitor and follow plan of care. Addendum: 04/20/18 at 1123 by BOOGIE WHITTEN RN Oral and meatal care performed
[2018-04-20] MEDS: Pantoprazole Inj IVP SCH (08:17)
[2018-04-20] MEDS: 1/2NS w/KCl 20mEq 1000ml 1,000 ML IV SCH (08:17)
[2018-04-20] MEDS: Heparin 5000 units/ml inj SUBQ SCH ×2 (08:18→20:33)
--- NOTE | 2018-04-20 10:00 | NUR ---
NURSE NOTES: Patient was repositioned, cleaned and a partial linen change. VSS and patient not in any acute distress. Will continue to monitor.
--- NOTE | 2018-04-20 10:19 | Critical Care Progress Note ---
Assessment/Plan Assessment/Plan IMPRESSION: Pneumonia, aspiration, probable sepsis, evidence of thrombocytopenia, severe protein-calorie malnutrition, elevated troponin, possible non-STEMI AK, evidence of anemia. acute respiratory failure, hypoxemia PLAN care noted IV antibiotics respiratory care as is monitor cultures for change Ventilatory support supportive meds supportive care as outlined; meds reviewed recheck labs for change and optimize suction as needed try to wean and reduce back up rate if able anxiolytics if needed oxygen therapy and taper prognosis guarded nutrition tolerated trach vs terminal extubation discussed medications/laboratory data/nursing notes/ICU care reviewed in detail note reviewed and edited care discussed with RN and RT ICU time spent 40 minutes Critical Care - Subjective Interval Events: care noted and reviewed on vent and trying to wean on AC 18 very poor volumes on CPAP ROS Limited/Unobtainable: Yes Condition: critical EKG Rhythm: Sinus Rhythm Residuals: minimal Tube Feeding Tolerated: yes I&O: Intake and Output 04/19/18 04/20/18 19:00 07:00 Intake Total 1158.708 ml 1360 ml Output Total 840 ml 585 ml Balance 318.708 ml 775 ml Intake Free Water 120 ml 60 ml IV Total 438.708 ml 700 ml Tube Feeding 600 ml 600 ml Output Urine Total 440 ml 510 ml Stool Total 400 ml 75 ml # Bowel Movements 3 1 Critical Care - Objective ET-Tube: 8.0 ET Position: 18 Last 24 Hour Vital Signs Date Time Temp Pulse Resp B/P (MAP) Pulse Ox O2 Delivery O2 Flow Rate FiO2 04/20/18 09:02 72 20 50 04/20/18 09:02 99 04/20/18 09:00 100.0 78 26 107/45 100 Mechanical Ventilator 40 04/20/18 08:00 Mechanical Ventilator 04/20/18 08:00 40 04/20/18 08:00 98.9 77 24 107/45 100 Mechanical Ventilator 40 04/20/18 07:22 78 22 50 04/20/18 07:00 99.0 77 24 115/97 100 Mechanical Ventilator 40 04/20/18 06:00 99.0 71 18 108/55 100 Mechanical Ventilator 40 04/20/18 05:00 98.6 65 18 104/46 100 Mechanical Ventilator 40 04/20/18 04:57 60 18 50 04/20/18 04:00 73 04/20/18 04:00 50 04/20/18 04:00 Mechanical Ventilator 04/20/18 04:00 75 21 112/69 100 Mechanical Ventilator 40 04/20/18 03:14 84 22 50 04/20/18 03:00 70 21 97/59 100 Mechanical Ventilator 40 04/20/18 02:00 76 22 114/53 100 Mechanical Ventilator 40 04/20/18 01:19 82 24 50 04/20/18 01:00 78 20 109/53 100 Mechanical Ventilator 40 04/20/18 00:00 71 04/20/18 00:00 50 04/20/18 00:00 70 19 93/49 100 Mechanical Ventilator 40 04/20/18 00:00 Mechanical Ventilator 04/19/18 23:19 74 22 50 04/19/18 23:00 74 18 106/47 100 Mechanical Ventilator 40 04/19/18 22:00 70 24 100/72 99 Mechanical Ventilator 40 04/19/18 21:00 73 21 99/57 100 Mechanical Ventilator 40 04/19/18 20:49 77 24 50 04/19/18 20:00 Mechanical Ventilator 04/19/18 20:00 50 04/19/18 20:00 70 04/19/18 20:00 99.4 76 20 110/53 100 Mechanical Ventilator 40 04/19/18 19:21 72 21 50 04/19/18 19:00 72 19 110/55 100 Mechanical Ventilator 40 04/19/18 18:00 75 12 97/44 100 Mechanical Ventilator 40 04/19/18 17:00 77 19 113/49 97 Mechanical Ventilator 40 04/19/18 16:32 68 18 50 04/19/18 16:00 Mechanical Ventilator 04/19/18 16:00 99.1 76 19 101/52 97 Mechanical Ventilator 40 04/19/18 16:00 88 04/19/18 16:00 50 04/19/18 15:00 78 19 110/55 97 Mechanical Ventilator 40 04/19/18 14:41 80 20 50 04/19/18 14:00 78 19 115/55 97 Mechanical Ventilator 40 04/19/18 13:00 77 16 97 Mechanical Ventilator 40 04/19/18 12:42 81 22 50 04/19/18 12:00 50 04/19/18 12:00 Mechanical Ventilator 04/19/18 12:00 98.9 52 18 85/39 98 Mechanical Ventilator 40 04/19/18 12:00 64 04/19/18 11:00 72 24 111/39 99 Mechanical Ventilator 40 04/19/18 10:51 76 20 50 Labs: Labs Test 04/18/18 17:08 04/19/18 12:00 04/20/18 04:42 Arterial Blood pH 7.427 (7.350-7.450) Arterial Blood Partial Pressure CO2 40.2 mmHg (35.0-45.0) Arterial Blood Partial Pressure O2 462.9 mmHg (75.0-100.0) Arterial Blood HCO3 25.9 mmol/L (22.0-26.0) Arterial Blood Oxygen Saturation 99.2 % (95-100) Arterial Blood Base Excess 1.5 (-2-2) Joesph Test Positive White Blood Count 11.7 K/UL (4.8-10.8) Red Blood Count 3.03 M/UL (4.70-6.10) Hemoglobin 9.8 G/DL (14.2-18.0) Hematocrit 29.2 % (42.0-52.0) Mean Corpuscular Volume 96 FL (80-99) Mean Corpuscular Hemoglobin 32.4 PG (27.0-31.0) Mean Corpuscular Hemoglobin Concent 33.7 G/DL (32.0-36.0) Red Cell Distribution Width 12.4 % (11.6-14.8) Platelet Count 115 K/UL (150-450) Mean Platelet Volume 9.9 FL (6.5-10.1) Neutrophils (%) (Auto) % (45.0-75.0) Lymphocytes (%) (Auto) % (20.0-45.0) Monocytes (%) (Auto) % (1.0-10.0) Eosinophils (%) (Auto) % (0.0-3.0) Basophils (%) (Auto) % (0.0-2.0) Differential Total Cells Counted 100 Neutrophils % (Manual) 66 % (45-75) Lymphocytes % (Manual) 3 % (20-45) Monocytes % (Manual) 0 % (1-10) Eosinophils % (Manual) 0 % (0-3) Basophils % (Manual) 0 % (0-2) Myelocytes % 1 % (0-0) Band Neutrophils 30 % (0-8) Nucleated Red Blood Cells 1 /100 WBC Platelet Estimate Decreased Platelet Morphology Normal Red Blood Cell Morphology Normal Sodium Level 141 MMOL/L (136-145) 133 MMOL/L (136-145) Potassium Level 3.1 MMOL/L (3.5-5.1) 4.5 MMOL/L (3.5-5.1) Chloride Level 113 MMOL/L (98-107) 99 MMOL/L (98-107) Carbon Dioxide Level 18 MMOL/L (21-32) 30 MMOL/L (21-32) Anion Gap 10 mmol/L (5-15) 4 mmol/L (5-15) Blood Urea Nitrogen 39 mg/dL (7-18) 28 mg/dL (7-18) Creatinine 1.0 MG/DL (0.55-1.30) 0.6 MG/DL (0.55-1.30) Estimat Glomerular Filtration Rate > 60 mL/min (>60) > 60 mL/min (>60) Glucose Level 166 MG/DL (74-106) 108 MG/DL (74-106) Calcium Level 7.1 MG/DL (8.5-10.1) 7.6 MG/DL (8.5-10.1) Magnesium Level 1.7 MG/DL (1.8-2.4) Troponin I 0.029 ng/mL (0.000-0.056) Thyroid Stimulating Hormone (TSH) 5.635 uiU/mL (0.358-3.740) Free Thyroxine 1.03 NG/DL (0.76-1.46) Objective: GENERAL: An ill-appearing male of short stature. reduced LOC HEENT: Negative. NECK: Supple. The patient remains orally intubated. LUNGS: Coarse breath sounds. Rhonchi bilaterally. no wheeze at present CARDIAC: S1 and S2. Regular rate and rhythm without murmurs, rubs, gallops. ABDOMEN: Soft, nontender, nondistended. feeding tube in place . EXTREMITIES: No cyanosis, clubbing, or edema. NEUROLOGIC: The patient with significant muscular atrophy, sedated Brian Torres MD Apr 20, 2018 10:19
--- NOTE | 2018-04-20 11:15 | NUR ---
RD ASSESSMENT & RECOMMENDATIONS SEE CARE ACTIVITY FOR COMPLETE ASSESSMENT DAILY ESTIMATED NEEDS: Needs based on Critical care, wasting/ 50kg 22-30 kcals/kg 2240-1850 total kcals 1.2-2 g protein/kg 60-100 g total protein 25-30 mL/kg 7998-6636 total fluid mLs NUTRITION DIAGNOSIS: Swallowing difficulty R/T respiratory status as evidenced by s/p code blue, orally intubated, on OGT feeding. CURRENT TF:Vital AF 1.2 @ 50ml/hr x 24 hrs ENTERAL NUTRITION RECOMMENDATIONS: Vital AF 1.2 @ 50ml/hr x 24 hrs to provide 1200ml, 1440kcal, 90g prot, 973ml free water * Maintain current TF. . * HOB over 30 degrees/ water flush per MD. WITHOUT HD STABILITY, REC TROPHIC FEEDS OF VITAL AF 1.2 @ 10ML/HR ADDITIONAL RECOMMENDATIONS: * Calibrated bedcale wt for accurate CBW * Monitor HD stability- dopamine held at this time. * Monitor lytes daily, replete as needed- low mag * Wound eval for redness @buttock per photo
[2018-04-20] MEDS: DOPamine 400mg/250ml 250 ML IV SCH (11:34)
--- NOTE | 2018-04-20 12:05 | NUR ---
NURSE NOTES: Patient observed to slightly more responsive. Patient opens eyes to stimulus especially while doing oral care. Eyes blink however do not track, patient does not follow commands. Patient has painful and tickle stimulus on the bottom of BL feet. Patient is contracted on BUE. Patient is being monitored on the superintendent logging. VSS. Patient is in SR. Patient is currently mechanically ventilated with vent settings ETT 8.0, AC 18, TV 450, FIO2 40% PEEP 5. Patient is tolerating well. Oral care was performed. Patient had copious amounts of oral secretions suctioned orally. Patient has an OGT running Vital AF 1.5 at 50 ml per hour. Patient has a rectal tube draining greenish brown liquid stool to gravity. Patient has a rectal probe monitoring temp that is now 99.0 and on a cooling blanket for cooling measures. Patient has a Black catheter draining light kirti urine to gravity. Patient has 1/2 NS with 20 KCL running through LFem TLC. Safety measures are in place with bed locked in the lowest position, side rails padded for sz precautions. Will continue to monitor and follow plan of care.
--- NOTE | 2018-04-20 13:42 | Cardiac Electrophysiology PN ---
Assessment/Plan Assessment/Plan 1. Bradycardic episodes. The heart rate dropped to 40s, but it is transient. The patient is not on any sinus aftab or AV aftab blocking agents. Watch on telemetry. TSH is high but T4 normal 2. Type 2 myocardial infarction. 3. Respiratory failure, on the ventilator. 4. Mental retardation. 5. Sepsis, on broad-spectrum IV antibiotics. 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 In SR. Off pressors Objective Last 24 Hour Vital Signs Date Time Temp Pulse Resp B/P (MAP) Pulse Ox O2 Delivery O2 Flow Rate FiO2 04/20/18 13:06 80 19 40 04/20/18 12:00 40 04/20/18 12:00 74 04/20/18 12:00 Mechanical Ventilator 04/20/18 11:06 75 20 40 04/20/18 10:00 100.0 78 22 130/55 100 Mechanical Ventilator 40 04/20/18 09:02 72 20 50 04/20/18 09:02 99 04/20/18 09:00 100.0 78 26 107/45 100 Mechanical Ventilator 40 04/20/18 08:00 Mechanical Ventilator 04/20/18 08:00 40 04/20/18 08:00 98.9 77 24 107/45 100 Mechanical Ventilator 40 04/20/18 08:00 75 04/20/18 07:22 78 22 50 04/20/18 07:00 99.0 77 24 115/97 100 Mechanical Ventilator 40 04/20/18 06:00 99.0 71 18 108/55 100 Mechanical Ventilator 40 04/20/18 05:00 98.6 65 18 104/46 100 Mechanical Ventilator 40 04/20/18 04:57 60 18 50 04/20/18 04:00 73 04/20/18 04:00 50 04/20/18 04:00 Mechanical Ventilator 04/20/18 04:00 75 21 112/69 100 Mechanical Ventilator 40 04/20/18 03:14 84 22 50 04/20/18 03:00 70 21 97/59 100 Mechanical Ventilator 40 04/20/18 02:00 76 22 114/53 100 Mechanical Ventilator 40 04/20/18 01:19 82 24 50 04/20/18 01:00 78 20 109/53 100 Mechanical Ventilator 40 04/20/18 00:00 71 04/20/18 00:00 50 04/20/18 00:00 70 19 93/49 100 Mechanical Ventilator 40 04/20/18 00:00 Mechanical Ventilator 04/19/18 23:19 74 22 50 04/19/18 23:00 74 18 106/47 100 Mechanical Ventilator 40 04/19/18 22:00 70 24 100/72 99 Mechanical Ventilator 40 04/19/18 21:00 73 21 99/57 100 Mechanical Ventilator 40 04/19/18 20:49 77 24 50 04/19/18 20:00 Mechanical Ventilator 04/19/18 20:00 50 04/19/18 20:00 70 04/19/18 20:00 99.4 76 20 110/53 100 Mechanical Ventilator 40 04/19/18 19:21 72 21 50 04/19/18 19:00 72 19 110/55 100 Mechanical Ventilator 40 04/19/18 18:00 75 12 97/44 100 Mechanical Ventilator 40 04/19/18 17:00 77 19 113/49 97 Mechanical Ventilator 40 04/19/18 16:32 68 18 50 04/19/18 16:00 Mechanical Ventilator 04/19/18 16:00 99.1 76 19 101/52 97 Mechanical Ventilator 40 04/19/18 16:00 88 04/19/18 16:00 50 04/19/18 15:00 78 19 110/55 97 Mechanical Ventilator 40 04/19/18 14:41 80 20 50 04/19/18 14:00 78 19 115/55 97 Mechanical Ventilator 40 Intake and Output 04/19/18 04/20/18 19:00 07:00 Intake Total 1158.708 ml 1360 ml Output Total 840 ml 585 ml Balance 318.708 ml 775 ml Intake Free Water 120 ml 60 ml IV Total 438.708 ml 700 ml Tube Feeding 600 ml 600 ml Output Urine Total 440 ml 510 ml Stool Total 400 ml 75 ml # Bowel Movements 3 1 Laboratory Tests Test 04/20/18 04:42 Sodium Level 133 MMOL/L (136-145) L Potassium Level 4.5 MMOL/L (3.5-5.1) Chloride Level 99 MMOL/L (98-107) Carbon Dioxide Level 30 MMOL/L (21-32) Anion Gap 4 mmol/L (5-15) L Blood Urea Nitrogen 28 mg/dL (7-18) H Creatinine 0.6 MG/DL (0.55-1.30) Estimat Glomerular Filtration Rate > 60 mL/min (>60) Glucose Level 108 MG/DL (74-106) H Calcium Level 7.6 MG/DL (8.5-10.1) L Magnesium Level 1.7 MG/DL (1.8-2.4) L Troponin I 0.029 ng/mL (0.000-0.056) Thyroid Stimulating Hormone (TSH) 5.635 uiU/mL (0.358-3.740) Free Thyroxine 1.03 NG/DL (0.76-1.46) Objective HEAD AND NECK: No JVD.Orally intubated.OG tube is in LUNGS: Coarse rhonchi. CARDIOVASCULAR: Shows regular S1 and S2 with no gallop. ABDOMEN: Soft. EXTREMITIES: 1 plus pitting edema. Tono Crisostomo MD Apr 20, 2018 13:42
--- NOTE | 2018-04-20 13:42 | NUR ---
CASE MANAGEMENT: REVIEW 04/20/2018 SI: ALOC . PNA T 100 HR 78 RR 22 B/P 130/55 SATS 100% ON MECH VENT FiO2 40 NA 133 BUN 28 GLU 108 CA 7.6 IS: VANCO IV Q12HR DOPAMINE IV Q24HR ZOSYN IV Q8HR 1/2 NS w/KCl 20mEq IVF @50 ML/HR ICU STATUS DCP: PATIENT IS FROM [facility] CARE PLAN OF CARE: EEG WEANING DETERMINATION
--- NOTE | 2018-04-20 14:30 | NUR ---
NURSE NOTES: Patient repositioned, cleaned and continues to be monitored on the rectal probe for temp. Patient now has temp within NL range. Cooling measures are in place with cooling blanket. VSS and not in any acute distress. Will continue to monitor.
--- NOTE | 2018-04-20 14:33 | General Progress Note ---
Assessment/Plan Assessment/Plan Acute Resp Failure - Vent. m/p secondary to aspiration. Brain Anoxia - waking up. Poor prognosis. Prognosis seems better now! Subjective Allergies: Coded Allergies: No Known Allergies (Unverified , 04/11/18) Subjective On vent. Objective Last 24 Hour Vital Signs Date Time Temp Pulse Resp B/P (MAP) Pulse Ox O2 Delivery O2 Flow Rate FiO2 04/20/18 14:00 97.9 70 22 124/84 95 Mechanical Ventilator 40 04/20/18 13:06 80 19 40 04/20/18 13:00 98.0 75 21 118/59 100 Mechanical Ventilator 40 04/20/18 12:00 40 04/20/18 12:00 74 04/20/18 12:00 98.9 77 22 158/77 100 Mechanical Ventilator 40 04/20/18 12:00 Mechanical Ventilator 04/20/18 11:06 75 20 40 04/20/18 11:00 99.0 77 22 141/71 100 Mechanical Ventilator 40 04/20/18 10:00 100.0 78 22 130/55 100 Mechanical Ventilator 40 04/20/18 09:02 72 20 50 04/20/18 09:02 99 04/20/18 09:00 100.0 78 26 107/45 100 Mechanical Ventilator 40 04/20/18 08:00 Mechanical Ventilator 04/20/18 08:00 40 04/20/18 08:00 98.9 77 24 107/45 100 Mechanical Ventilator 40 04/20/18 08:00 75 04/20/18 07:22 78 22 50 04/20/18 07:00 99.0 77 24 115/97 100 Mechanical Ventilator 40 04/20/18 06:00 99.0 71 18 108/55 100 Mechanical Ventilator 40 04/20/18 05:00 98.6 65 18 104/46 100 Mechanical Ventilator 40 04/20/18 04:57 60 18 50 04/20/18 04:00 73 04/20/18 04:00 50 04/20/18 04:00 Mechanical Ventilator 04/20/18 04:00 75 21 112/69 100 Mechanical Ventilator 40 04/20/18 03:14 84 22 50 04/20/18 03:00 70 21 97/59 100 Mechanical Ventilator 40 04/20/18 02:00 76 22 114/53 100 Mechanical Ventilator 40 04/20/18 01:19 82 24 50 04/20/18 01:00 78 20 109/53 100 Mechanical Ventilator 40 04/20/18 00:00 71 04/20/18 00:00 50 04/20/18 00:00 70 19 93/49 100 Mechanical Ventilator 40 04/20/18 00:00 Mechanical Ventilator 04/19/18 23:19 74 22 50 04/19/18 23:00 74 18 106/47 100 Mechanical Ventilator 40 04/19/18 22:00 70 24 100/72 99 Mechanical Ventilator 40 04/19/18 21:00 73 21 99/57 100 Mechanical Ventilator 40 04/19/18 20:49 77 24 50 04/19/18 20:00 Mechanical Ventilator 04/19/18 20:00 50 04/19/18 20:00 70 04/19/18 20:00 99.4 76 20 110/53 100 Mechanical Ventilator 40 04/19/18 19:21 72 21 50 04/19/18 19:00 72 19 110/55 100 Mechanical Ventilator 40 04/19/18 18:00 75 12 97/44 100 Mechanical Ventilator 40 04/19/18 17:00 77 19 113/49 97 Mechanical Ventilator 40 04/19/18 16:32 68 18 50 04/19/18 16:00 Mechanical Ventilator 04/19/18 16:00 99.1 76 19 101/52 97 Mechanical Ventilator 40 04/19/18 16:00 88 04/19/18 16:00 50 04/19/18 15:00 78 19 110/55 97 Mechanical Ventilator 40 04/19/18 14:41 80 20 50 Intake and Output 04/19/18 04/20/18 19:00 07:00 Intake Total 1158.708 ml 1360 ml Output Total 840 ml 585 ml Balance 318.708 ml 775 ml Intake Free Water 120 ml 60 ml IV Total 438.708 ml 700 ml Tube Feeding 600 ml 600 ml Output Urine Total 440 ml 510 ml Stool Total 400 ml 75 ml # Bowel Movements 3 1 Laboratory Tests 04/20/18 04:42: Sodium Level 133L, Potassium Level 4.5, Chloride Level 99, Carbon Dioxide Level 30, Anion Gap 4L, Blood Urea Nitrogen 28H, Creatinine 0.6, Estimat Glomerular Filtration Rate > 60, Glucose Level 108H, Calcium Level 7.6L, Magnesium Level 1.7L, Troponin I 0.029, Thyroid Stimulating Hormone (TSH) 5.635H, Free Thyroxine 1.03 Height (Feet): 5 Height (Inches): 3.00 Weight (Pounds): 108 Objective CV- RR Lungs B ronchi Abd SNT. BS + E + edema Waking up!!! Vivienne Urena MD Apr 20, 2018 14:32
--- NOTE | 2018-04-20 15:52 | Cardiology Progress Note ---
Assessment/Plan Problem List: (1) Cardiopulmonary arrest Status: stable, unchanged Status Narrative Respiratory failure/ L pneumonia s/p cardiopulmonary arrest Assessment/Plan Continue current supportive care. IV antibiotics - vanco, zosyn, and vent support. He is currently off pressors, normotensive and w/ HRs 70s. Brief episodes of sinus rates to 50s yesterday, now resolved. ECHO w/ normal LV systolic function, mod MR, TR and moderate pulm hypertension. 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 Intubated, not responsive Objective Last 24 Hour Vital Signs Date Time Temp Pulse Resp B/P (MAP) Pulse Ox O2 Delivery O2 Flow Rate FiO2 04/20/18 15:00 98.1 70 22 150/131 95 Mechanical Ventilator 40 04/20/18 14:58 71 22 40 04/20/18 14:00 97.9 70 22 124/84 95 Mechanical Ventilator 40 04/20/18 13:06 80 19 40 04/20/18 13:00 98.0 75 21 118/59 100 Mechanical Ventilator 40 04/20/18 12:00 40 04/20/18 12:00 74 04/20/18 12:00 98.9 77 22 158/77 100 Mechanical Ventilator 40 04/20/18 12:00 Mechanical Ventilator 04/20/18 11:06 75 20 40 04/20/18 11:00 99.0 77 22 141/71 100 Mechanical Ventilator 40 04/20/18 10:00 100.0 78 22 130/55 100 Mechanical Ventilator 40 04/20/18 09:02 72 20 50 04/20/18 09:02 99 04/20/18 09:00 100.0 78 26 107/45 100 Mechanical Ventilator 40 04/20/18 08:00 Mechanical Ventilator 04/20/18 08:00 40 04/20/18 08:00 98.9 77 24 107/45 100 Mechanical Ventilator 40 04/20/18 08:00 75 04/20/18 07:22 78 22 50 04/20/18 07:00 99.0 77 24 115/97 100 Mechanical Ventilator 40 04/20/18 06:00 99.0 71 18 108/55 100 Mechanical Ventilator 40 04/20/18 05:00 98.6 65 18 104/46 100 Mechanical Ventilator 40 04/20/18 04:57 60 18 50 1/20/19 04:00 73 04/20/18 04:00 50 04/20/18 04:00 Mechanical Ventilator 04/20/18 04:00 75 21 112/69 100 Mechanical Ventilator 40 04/20/18 03:14 84 22 50 04/20/18 03:00 70 21 97/59 100 Mechanical Ventilator 40 04/20/18 02:00 76 22 114/53 100 Mechanical Ventilator 40 04/20/18 01:19 82 24 50 04/20/18 01:00 78 20 109/53 100 Mechanical Ventilator 40 04/20/18 00:00 71 04/20/18 00:00 50 04/20/18 00:00 70 19 93/49 100 Mechanical Ventilator 40 04/20/18 00:00 Mechanical Ventilator 04/19/18 23:19 74 22 50 04/19/18 23:00 74 18 106/47 100 Mechanical Ventilator 40 04/19/18 22:00 70 24 100/72 99 Mechanical Ventilator 40 04/19/18 21:00 73 21 99/57 100 Mechanical Ventilator 40 04/19/18 20:49 77 24 50 04/19/18 20:00 Mechanical Ventilator 04/19/18 20:00 50 04/19/18 20:00 70 04/19/18 20:00 99.4 76 20 110/53 100 Mechanical Ventilator 40 04/19/18 19:21 72 21 50 04/19/18 19:00 72 19 110/55 100 Mechanical Ventilator 40 04/19/18 18:00 75 12 97/44 100 Mechanical Ventilator 40 04/19/18 17:00 77 19 113/49 97 Mechanical Ventilator 40 04/19/18 16:32 68 18 50 04/19/18 16:00 Mechanical Ventilator 04/19/18 16:00 99.1 76 19 101/52 97 Mechanical Ventilator 40 04/19/18 16:00 88 04/19/18 16:00 50 General Appearance: lethargic, on vent EENT: other - et tube and og tubes Neck: no JVD Rhythm: NSR Cardiovascular: normal rate, regular rhythm, no gallop/murmur Respiratory/Chest: other - fairly clear anteriorly Abdomen: non tender, soft Extremities: moderate edema - 2+ pitting edema of feet- calf bilat, other - contractures of upper extremities bilat Intake and Output 04/19/18 04/20/18 19:00 07:00 Intake Total 1158.708 ml 1360 ml Output Total 840 ml 585 ml Balance 318.708 ml 775 ml Intake Free Water 120 ml 60 ml IV Total 438.708 ml 700 ml Tube Feeding 600 ml 600 ml Output Urine Total 440 ml 510 ml Stool Total 400 ml 75 ml # Bowel Movements 3 1 Laboratory Tests Test 04/20/18 04:42 Sodium Level 133 MMOL/L (136-145) L Potassium Level 4.5 MMOL/L (3.5-5.1) Chloride Level 99 MMOL/L (98-107) Carbon Dioxide Level 30 MMOL/L (21-32) Anion Gap 4 mmol/L (5-15) L Blood Urea Nitrogen 28 mg/dL (7-18) H Creatinine 0.6 MG/DL (0.55-1.30) Estimat Glomerular Filtration Rate > 60 mL/min (>60) Glucose Level 108 MG/DL (74-106) H Calcium Level 7.6 MG/DL (8.5-10.1) L Magnesium Level 1.7 MG/DL (1.8-2.4) L Troponin I 0.029 ng/mL (0.000-0.056) Thyroid Stimulating Hormone (TSH) 5.635 uiU/mL (0.358-3.740) Free Thyroxine 1.03 NG/DL (0.76-1.46) Mignon Suarez MD Apr 20, 2018 15:52
--- NOTE | 2018-04-20 16:33 | NUR ---
NURSE NOTES: Patient continues to open eyes with stimulus especially while doing oral care, blinks but does not track to voice or while calling his name. Patient does not spontaneously open his eyes. Patient has painful and tickle stimulus on the bottom of BL feet intermittently. Patient is contracted on BUE. Patient is being monitored on the monitor tech. VSS. Patient is in SR. Patient is currently mechanically ventilated with vent settings ETT 8.0, AC 18, TV 450, FIO2 40% PEEP 5. Oral care was performed. Patient has an OGT running Vital AF 1.5 at 50 ml per hour which is goal. Patient has a rectal tube draining greenish brown liquid stool to gravity. Patient has a rectal probe monitoring temp that is now within NL range. Patient is on a cooling blanket for cooling measures. Patient has a Black catheter draining light kirti urine to gravity. Patient has 1/2 NS with 20 KCL running @ 50 ml through LFem TLC. Safety measures are in place with bed locked in the lowest position, side rails padded for sz precautions. Will continue to monitor and follow plan of care.
--- NOTE | 2018-04-20 18:52 | NUR ---
RESPIRATORY NOTE: Received pt on AC 18, 450VT, 40%, PEEP +5. Pt intubated w/ ETT 8.0 @ 18cm lipline, secured by anchorfast. Pt flat effect, minimal movements. B/S eryn. rhonchi/diminished, sxn minimal amounts of thick, pale-yellow to pink secretions w/ occasional red specks. Vent plugged into red outlet, ambubag at bedside. Pt in no apparent distress at this time. Will continue to monitor pt.
--- NOTE | 2018-04-20 19:10 | NUR ---
HAND-OFF: Report given to GEGE Stevens. VSS and patient is not in any acute distress.
--- NOTE | 2018-04-20 19:20 | NUR ---
NURSE NOTES: Recvd.on a vent.orally intubated,See settings.lungs few scatt.Rh.diminished BS at Bases.P.Ox.98-100%.See V/S.Scope SR occ.Ectopy.Pos.Chg.Lethargic,Reacts to pain stimulation.Suctioned thin beige sec.NS lavage,Pos.Gag reflex.OGT Feeding in progress,F/Cath patent diuresis well.IV Thera.infusing.See I/O.
[2018-04-20] MEDS: Dyna-Hex 2% Top Sol 2oz TOPIC SCH (20:24)
--- NOTE | 2018-04-20 21:50 | NUR ---
NURSE NOTES: Repositioned,Kept comfortable.Suctioned.Backrub with Lotion.Due meds admin.No distress.Cont.Monitoring.
[2018-04-20] MEDS: Piperacillin/Tazobactam 3.375 GM in NS 110 ML IVPB SCH (22:41)
[2018-04-21] VITALS (25 sets, daily range): BP systolic 89–142; BP diastolic 41–78
--- NOTE | 2018-04-21 00:10 | NUR ---
NURSE NOTES: Suctioned,Pos.chg.Neuro status same.See V/S.Afebrile.Scope rhythm same.Erika.OGT Feeding.Water Flush given.
--- NOTE | 2018-04-21 02:00 | NUR ---
NURSE NOTES: Suctioned.P.Ox.98-100% on same vent settings.Pos.chg.No Distress.
[2018-04-21] MEDS: Vancomycin 1 GM in D5W 275 ML IVPB SCH ×2 (02:17→14:34)
--- NOTE | 2018-04-21 04:15 | NUR ---
NURSE NOTES: Pos.chg q 2hrs,Suctioned prn.Erika.Vent settings.P.Ox-98-100%.OGT Feeding remain in progress.VSS.Scope rhythm same.Cont.monitoring
[2018-04-21] MEDS: Piperacillin/Tazobactam 3.375 GM in NS 110 ML IVPB SCH ×3 (06:10→22:23)
[2018-04-21] MEDS: 1/2NS w/KCl 20mEq 1000ml 1,000 ML IV SCH (06:44)
--- NOTE | 2018-04-21 07:15 | NUR ---
HAND-OFF: Report given to GEGE HYMAN.
--- NOTE | 2018-04-21 07:18 | NUR ---
NURSE NOTES: Patient received from Rodney DE GUZMAN. Patient responds to some tactile stimulus and light/deep pain stimulus. Patient opens eyes intermittently however does not track or respond to voice. Patient does not follow commands. Patient does not appear in any acute distress and is without facial grimacing. Patient is contracted on BUE, has +2 edema BUE and +2 edema BLE. Patient is being monitored on the cafeteria monitor. VS 92/53, HR 65, RR 18, SPO2 99%. Patient is in SR. Patient is currently mechanically ventilated with vent settings ETT 8.0, AC 18, TV 450, FIO2 40% PEEP 5. Oral care was performed. Patient responds while doing oral care and has a positive gag reflex. Patient has an OGT running Vital AF 1.5 at 50 ml per hour which is goal. Patient did not have residual and a 60 ml flush was given. Upon auscultation, patient had hyperactive bowel sounds in all four quadrants. Patient has a rectal tube draining greenish brown liquid stool to gravity. Patient has a rectal probe monitoring temp due to patient being febrile previously. Patient is on a cooling blanket for cooling measures however is only monitored at this time. Patient has a Black catheter draining light kirti urine to gravity. Patient has 1/2 NS with 20 KCL running @ 50 ml through LFem TLC. Safety measures are in place with bed locked in the lowest position, side rails padded for sz precautions. Will continue to monitor and follow plan of care.
--- NOTE | 2018-04-21 07:23 | Critical Care Progress Note ---
Assessment/Plan Assessment/Plan IMPRESSION: Pneumonia, aspiration, probable sepsis, evidence of thrombocytopenia, severe protein-calorie malnutrition, elevated troponin, possible non-STEMI OR, evidence of anemia. acute respiratory failure, hypoxemia PLAN care noted IV antibiotics respiratory care as is monitor cultures for change Ventilatory support on AC supportive meds supportive care as outlined; overnight events reviewed recheck labs for change and optimize suction as needed unsuccessful wean on multiple attempts anxiolytics if needed oxygen therapy and taper prognosis guarded nutrition tolerated trach vs terminal extubation discussed medications/laboratory data/nursing notes/ICU care reviewed in detail note reviewed and edited care discussed with RN and RT ICU time spent 38 minutes Critical Care - Subjective Interval Events: unable to wean poor lung volumes on CPAP poor LOC unable to protect airway ROS Limited/Unobtainable: Yes Condition: critical EKG Rhythm: Sinus Rhythm Residuals: minimal Tube Feeding Tolerated: yes I&O: Intake and Output 04/20/18 04/21/18 19:00 07:00 Intake Total 1604.916 ml 1605.0 ml Output Total 725 ml 580 ml Balance 879.916 ml 1025.0 ml Intake Free Water 120 ml IV Total 944.916 ml 935.0 ml Tube Feeding 600 ml 550 ml Other 60 ml Output Urine Total 500 ml 460 ml Stool Total 225 ml 120 ml Critical Care - Objective CXR: noted and reviewed ET-Tube: 8.0 ET Position: 18 Last 24 Hour Vital Signs Date Time Temp Pulse Resp B/P (MAP) Pulse Ox O2 Delivery O2 Flow Rate FiO2 04/21/18 06:00 70 18 110/49 99 Mechanical Ventilator 40 04/21/18 05:00 70 22 40 04/21/18 05:00 69 23 128/47 99 Mechanical Ventilator 40 04/21/18 04:00 75 04/21/18 04:00 40 04/21/18 04:00 Mechanical Ventilator 04/21/18 04:00 97.9 75 23 142/59 98 Mechanical Ventilator 40 04/21/18 03:00 84 23 135/78 98 Mechanical Ventilator 40 04/21/18 02:57 83 27 40 04/21/18 02:00 84 23 125/62 98 Mechanical Ventilator 40 04/21/18 01:05 81 24 40 04/21/18 01:00 80 26 128/74 98 Mechanical Ventilator 40 04/21/18 00:00 40 04/21/18 00:00 77 04/21/18 00:00 97.2 77 21 108/49 98 Mechanical Ventilator 40 04/21/18 00:00 Mechanical Ventilator 04/20/18 23:00 70 23 117/92 99 Mechanical Ventilator 40 04/20/18 22:55 77 25 40 04/20/18 22:00 71 24 114/82 98 Mechanical Ventilator 40 04/20/18 21:00 73 23 133/54 98 Mechanical Ventilator 40 04/20/18 20:57 76 25 40 04/20/18 20:00 97.3 73 24 127/63 98 Mechanical Ventilator 40 04/20/18 20:00 40 04/20/18 20:00 Mechanical Ventilator 04/20/18 20:00 73 04/20/18 19:00 71 22 119/76 100 Mechanical Ventilator 40 04/20/18 18:50 86 32 40 04/20/18 18:50 86 32 Mechanical Ventilator 40 04/20/18 18:00 96.9 72 22 128/65 100 Mechanical Ventilator 40 04/20/18 17:07 78 20 40 04/20/18 17:00 97.4 77 22 120/71 100 Mechanical Ventilator 40 04/20/18 16:00 Mechanical Ventilator 04/20/18 16:00 40 04/20/18 16:00 98.2 63 21 165/75 100 Mechanical Ventilator 40 04/20/18 16:00 79 04/20/18 15:00 98.1 70 22 150/131 95 Mechanical Ventilator 40 04/20/18 14:58 71 22 40 04/20/18 14:00 97.9 70 22 124/84 95 Mechanical Ventilator 40 04/20/18 13:06 80 19 40 04/20/18 13:00 98.0 75 21 118/59 100 Mechanical Ventilator 40 04/20/18 12:00 40 04/20/18 12:00 74 04/20/18 12:00 98.9 77 22 158/77 100 Mechanical Ventilator 40 04/20/18 12:00 Mechanical Ventilator 04/20/18 11:06 75 20 40 04/20/18 11:00 99.0 77 22 141/71 100 Mechanical Ventilator 40 04/20/18 10:00 100.0 78 22 130/55 100 Mechanical Ventilator 40 04/20/18 09:02 72 20 50 04/20/18 09:02 99 1/20/19 09:00 100.0 78 26 107/45 100 Mechanical Ventilator 40 04/20/18 08:00 Mechanical Ventilator 04/20/18 08:00 40 04/20/18 08:00 98.9 77 24 107/45 100 Mechanical Ventilator 40 04/20/18 08:00 75 04/20/18 07:22 78 22 50 Labs: Labs Test 04/18/18 17:08 04/19/18 12:00 04/20/18 04:42 Arterial Blood pH 7.427 (7.350-7.450) Arterial Blood Partial Pressure CO2 40.2 mmHg (35.0-45.0) Arterial Blood Partial Pressure O2 462.9 mmHg (75.0-100.0) Arterial Blood HCO3 25.9 mmol/L (22.0-26.0) Arterial Blood Oxygen Saturation 99.2 % (95-100) Arterial Blood Base Excess 1.5 (-2-2) Joesph Test Positive White Blood Count 11.7 K/UL (4.8-10.8) Red Blood Count 3.03 M/UL (4.70-6.10) Hemoglobin 9.8 G/DL (14.2-18.0) Hematocrit 29.2 % (42.0-52.0) Mean Corpuscular Volume 96 FL (80-99) Mean Corpuscular Hemoglobin 32.4 PG (27.0-31.0) Mean Corpuscular Hemoglobin Concent 33.7 G/DL (32.0-36.0) Red Cell Distribution Width 12.4 % (11.6-14.8) Platelet Count 115 K/UL (150-450) Mean Platelet Volume 9.9 FL (6.5-10.1) Neutrophils (%) (Auto) % (45.0-75.0) Lymphocytes (%) (Auto) % (20.0-45.0) Monocytes (%) (Auto) % (1.0-10.0) Eosinophils (%) (Auto) % (0.0-3.0) Basophils (%) (Auto) % (0.0-2.0) Differential Total Cells Counted 100 Neutrophils % (Manual) 66 % (45-75) Lymphocytes % (Manual) 3 % (20-45) Monocytes % (Manual) 0 % (1-10) Eosinophils % (Manual) 0 % (0-3) Basophils % (Manual) 0 % (0-2) Myelocytes % 1 % (0-0) Band Neutrophils 30 % (0-8) Nucleated Red Blood Cells 1 /100 WBC Platelet Estimate Decreased Platelet Morphology Normal Red Blood Cell Morphology Normal Sodium Level 141 MMOL/L (136-145) 133 MMOL/L (136-145) Potassium Level 3.1 MMOL/L (3.5-5.1) 4.5 MMOL/L (3.5-5.1) Chloride Level 113 MMOL/L (98-107) 99 MMOL/L (98-107) Carbon Dioxide Level 18 MMOL/L (21-32) 30 MMOL/L (21-32) Anion Gap 10 mmol/L (5-15) 4 mmol/L (5-15) Blood Urea Nitrogen 39 mg/dL (7-18) 28 mg/dL (7-18) Creatinine 1.0 MG/DL (0.55-1.30) 0.6 MG/DL (0.55-1.30) Estimat Glomerular Filtration Rate > 60 mL/min (>60) > 60 mL/min (>60) Glucose Level 166 MG/DL (74-106) 108 MG/DL (74-106) Calcium Level 7.1 MG/DL (8.5-10.1) 7.6 MG/DL (8.5-10.1) Magnesium Level 1.7 MG/DL (1.8-2.4) Troponin I 0.029 ng/mL (0.000-0.056) Thyroid Stimulating Hormone (TSH) 5.635 uiU/mL (0.358-3.740) Free Thyroxine 1.03 NG/DL (0.76-1.46) Objective: GENERAL: An ill-appearing male of short stature. reduced LOC, same HEENT: Negative. NECK: Supple. The patient remains orally intubated. LUNGS: Coarse breath sounds. Rhonchi noted bilaterally. no wheeze at present CARDIAC: S1 and S2. Regular rate and rhythm without murmurs, rubs, gallops. ABDOMEN: Soft, nontender, nondistended. feeding tube in place . EXTREMITIES: No cyanosis, clubbing, or edema. NEUROLOGIC: The patient with significant muscular atrophy, sedated reviewed and examined Brian Torres MD Apr 21, 2018 07:23
--- NOTE | 2018-04-21 07:36 | NUR ---
RESPIRATORY NOTE: Patient received mechanically ventilated on PB 840 with current ordered vent settings. Patient is orally intubated with size 8.0 ETT tube with 18cm at the lip and it is secured with an anchor fast. There are bilateral coarse breath sounds present upon auscultation and small amount if thick, yellow secretions were suctioned without incident. There is an ambu bag available at the bedside and the vent is connected to a red outlet. Vent alarms are functional and audible. Will continue to monitor patient.
--- NOTE | 2018-04-21 09:00 | NUR ---
NURSE NOTES: Patient has been placed on SIMV 14 PS 10. Patient is tolerating thus far. VSS and patient is not in any acute or respiratory distress. Will continue to monitor.
[2018-04-21] MEDS: Pantoprazole Inj IVP SCH (09:30)
--- NOTE | 2018-04-21 10:05 | NUR ---
NURSE NOTES: Patient has been cleaned and repositioned for comfort. VSS and continues on weaning protocol on SIMV. Patient does not appear in any acute distress and VSS. Will continue to monitor.
[2018-04-21 12:16] LABS: HEMATOCRIT 23.3 % (42.0-52.0); HEMOGLOBIN 7.7 G/DL (14.2-18.0); MEAN CORPUSCULAR VOLUME 97 FL (80-99); PLATELET COUNT 197 K/UL (150-450); RED BLOOD COUNT 2.39 M/UL (4.70-6.10); RED CELL DISTRIBUTION WIDTH 11.3 % (11.6-14.8); WHITE BLOOD COUNT 10.2 K/UL (4.8-10.8)
[2018-04-21 12:26] LABS: ANION GAP 3 mmol/L (5-15); BLOOD UREA NITROGEN 29 mg/dL (7-18); CALCIUM 7.5 MG/DL (8.5-10.1); CARBON DIOXIDE 29 MMOL/L (21-32); CHLORIDE 100 MMOL/L (98-107); CREATININE 0.7 MG/DL (0.55-1.30); POTASSIUM 4.2 MMOL/L (3.5-5.1); SODIUM 132 MMOL/L (136-145)
[2018-04-21 12:30] LABS: ALANINE AMINOTRANSFERASE 25 U/L (12-78); ALBUMIN 1.3 G/DL (3.4-5.0); ALBUMIN/GLOBULIN RATIO 0.4 (1.0-2.7); ALKALINE PHOSPHATASE 50 U/L (46-116); ASPARTATE AMINO TRANSFERASE 43 U/L (15-37); BILIRUBIN,TOTAL 0.4 MG/DL (0.2-1.0)
[2018-04-21] MEDS: DOPamine 400mg/250ml 250 ML IV SCH (12:30)
--- NOTE | 2018-04-21 12:30 | NUR ---
NURSE NOTES: Received patient and the change of staff from charge nurse Obdulia DE GUZMAN. HR 90, Oxygen saturation 94%, rwesp 18 and B/P 103/76. Patient is on weaning mode SIMV with pressure support 10.
[2018-04-21] MEDS: Heparin 5000 units/ml inj SUBQ SCH ×2 (13:16→20:36)
--- NOTE | 2018-04-21 14:42 | Cardiac Electrophysiology PN ---
Assessment/Plan Assessment/Plan 1. Bradycardic episodes. The heart rate dropped to 40s, but was transient. The patient is off any sinus aftab or AV aftab blocking agents. TSH is high but T4 normal 2. Type 2 myocardial infarction. 3. Respiratory failure, on the ventilator. 4. Mental retardation. 5. Sepsis, on broad-spectrum IV antibiotics. 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 Off pressors. No nicola overnight Objective Last 24 Hour Vital Signs Date Time Temp Pulse Resp B/P (MAP) Pulse Ox O2 Delivery O2 Flow Rate FiO2 04/21/18 14:00 86 22 111/54 98 Mechanical Ventilator 40 04/21/18 13:05 74 16 40 04/21/18 13:00 69 21 113/54 98 Mechanical Ventilator 40 04/21/18 12:30 113/54 04/21/18 12:00 Mechanical Ventilator 04/21/18 12:00 98.6 76 14 99/48 99 Mechanical Ventilator 40 04/21/18 12:00 76 04/21/18 12:00 40 04/21/18 11:28 68 22 40 04/21/18 11:00 100.0 76 23 106/51 98 Mechanical Ventilator 40 04/21/18 10:00 99.9 70 20 106/45 99 Mechanical Ventilator 40 04/21/18 09:13 99 04/21/18 09:10 76 20 40 04/21/18 09:00 98.0 83 21 114/50 99 Mechanical Ventilator 40 04/21/18 09:00 40 04/21/18 08:00 40 04/21/18 08:00 Mechanical Ventilator 04/21/18 08:00 96.8 71 18 129/50 99 Mechanical Ventilator 40 04/21/18 08:00 92 04/21/18 07:29 75 17 40 04/21/18 07:00 63 18 92/53 99 Mechanical Ventilator 40 04/21/18 06:00 70 18 110/49 99 Mechanical Ventilator 40 04/21/18 05:00 70 22 40 04/21/18 05:00 69 23 128/47 99 Mechanical Ventilator 40 04/21/18 04:00 75 04/21/18 04:00 40 04/21/18 04:00 Mechanical Ventilator 04/21/18 04:00 97.9 75 23 142/59 98 Mechanical Ventilator 40 04/21/18 03:00 84 23 135/78 98 Mechanical Ventilator 40 04/21/18 02:57 83 27 40 04/21/18 02:00 84 23 125/62 98 Mechanical Ventilator 40 04/21/18 01:05 81 24 40 04/21/18 01:00 80 26 128/74 98 Mechanical Ventilator 40 04/21/18 00:00 40 04/21/18 00:00 77 04/21/18 00:00 97.2 77 21 108/49 98 Mechanical Ventilator 40 04/21/18 00:00 Mechanical Ventilator 04/20/18 23:00 70 23 117/92 99 Mechanical Ventilator 40 04/20/18 22:55 77 25 40 04/20/18 22:00 71 24 114/82 98 Mechanical Ventilator 40 04/20/18 21:00 73 23 133/54 98 Mechanical Ventilator 40 04/20/18 20:57 76 25 40 04/20/18 20:00 97.3 73 24 127/63 98 Mechanical Ventilator 40 04/20/18 20:00 40 04/20/18 20:00 Mechanical Ventilator 04/20/18 20:00 73 04/20/18 19:00 71 22 119/76 100 Mechanical Ventilator 40 04/20/18 18:50 86 32 40 04/20/18 18:50 86 32 Mechanical Ventilator 40 04/20/18 18:00 96.9 72 22 128/65 100 Mechanical Ventilator 40 04/20/18 17:07 78 20 40 04/20/18 17:00 97.4 77 22 120/71 100 Mechanical Ventilator 40 04/20/18 16:00 Mechanical Ventilator 04/20/18 16:00 40 04/20/18 16:00 98.2 63 21 165/75 100 Mechanical Ventilator 40 04/20/18 16:00 79 04/20/18 15:00 98.1 70 22 150/131 95 Mechanical Ventilator 40 04/20/18 14:58 71 22 40 Intake and Output 04/20/18 04/21/18 19:00 07:00 Intake Total 1604.916 ml 1667.5 ml Output Total 725 ml 630 ml Balance 879.916 ml 1037.5 ml Intake Free Water 120 ml IV Total 944.916 ml 947.5 ml Tube Feeding 600 ml 600 ml Other 60 ml Output Urine Total 500 ml 510 ml Stool Total 225 ml 120 ml Laboratory Tests Test 04/21/18 12:00 04/21/18 13:30 White Blood Count 10.2 K/UL (4.8-10.8) Red Blood Count 2.39 M/UL (4.70-6.10) L Hemoglobin 7.7 G/DL (14.2-18.0) L Hematocrit 23.3 % (42.0-52.0) L Mean Corpuscular Volume 97 FL (80-99) Mean Corpuscular Hemoglobin 32.2 PG (27.0-31.0) H Mean Corpuscular Hemoglobin Concent 33.0 G/DL (32.0-36.0) Red Cell Distribution Width 11.3 % (11.6-14.8) L Platelet Count 197 K/UL (150-450) Mean Platelet Volume 9.0 FL (6.5-10.1) Neutrophils (%) (Auto) % (45.0-75.0) Lymphocytes (%) (Auto) % (20.0-45.0) Monocytes (%) (Auto) % (1.0-10.0) Eosinophils (%) (Auto) % (0.0-3.0) Basophils (%) (Auto) % (0.0-2.0) Differential Total Cells Counted 100 Neutrophils % (Manual) 89 % (45-75) H Lymphocytes % (Manual) 4 % (20-45) L Monocytes % (Manual) 5 % (1-10) Eosinophils % (Manual) 2 % (0-3) Basophils % (Manual) 0 % (0-2) Band Neutrophils 0 % (0-8) Platelet Estimate Adequate Platelet Morphology Normal Hypochromasia 1+ Macrocytosis 1+ Sodium Level 132 MMOL/L (136-145) L Potassium Level 4.2 MMOL/L (3.5-5.1) Chloride Level 100 MMOL/L (98-107) Carbon Dioxide Level 29 MMOL/L (21-32) Anion Gap 3 mmol/L (5-15) L Blood Urea Nitrogen 29 mg/dL (7-18) H Creatinine 0.7 MG/DL (0.55-1.30) Estimat Glomerular Filtration Rate > 60 mL/min (>60) Glucose Level 106 MG/DL (74-106) Calcium Level 7.5 MG/DL (8.5-10.1) L Total Bilirubin 0.4 MG/DL (0.2-1.0) Aspartate Amino Transf (AST/SGOT) 43 U/L (15-37) H Alanine Aminotransferase (ALT/SGPT) 25 U/L (12-78) Alkaline Phosphatase 50 U/L (46-116) Total Protein 4.5 G/DL (6.4-8.2) L Albumin 1.3 G/DL (3.4-5.0) L Globulin 3.2 g/dL Albumin/Globulin Ratio 0.4 (1.0-2.7) L Vancomycin Level Trough 15.3 ug/mL (5.0-12.0) H Objective HEAD AND NECK: No JVD.Orally intubated.OG tube is in LUNGS: Coarse rhonchi. CARDIOVASCULAR: Shows regular S1 and S2 with no gallop. ABDOMEN: Soft. EXTREMITIES: 1 plus pitting edema. Tono Crisostomo MD Apr 21, 2018 14:42
--- NOTE | 2018-04-21 15:30 | NUR ---
NURSE NOTES: Patient was seen by Dr. Crowder . HR 81, oxygen saturation 98% and B/P 107/50. No s/s of acute distress.
--- NOTE | 2018-04-21 17:57 | General Progress Note ---
Assessment/Plan Assessment/Plan Acute Resp Failure - Vent. m/p secondary to aspiration. Brain Anoxia - waking up. Poor prognosis. Prognosis seems better now! Subjective Allergies: Coded Allergies: No Known Allergies (Unverified , 04/11/18) Subjective On vent. Objective Last 24 Hour Vital Signs Date Time Temp Pulse Resp B/P (MAP) Pulse Ox O2 Delivery O2 Flow Rate FiO2 04/21/18 17:00 80 18 101/46 98 Mechanical Ventilator 40 04/21/18 16:57 65 18 40 04/21/18 16:00 98.4 64 18 89/41 99 Mechanical Ventilator 40 04/21/18 16:00 64 04/21/18 16:00 Mechanical Ventilator 04/21/18 16:00 40 04/21/18 15:08 86 29 40 04/21/18 15:00 50 24 107/50 98 Mechanical Ventilator 40 04/21/18 14:00 86 22 111/54 98 Mechanical Ventilator 40 04/21/18 13:05 74 16 40 04/21/18 13:00 69 21 113/54 98 Mechanical Ventilator 40 04/21/18 12:30 113/54 04/21/18 12:00 Mechanical Ventilator 04/21/18 12:00 98.6 76 14 99/48 99 Mechanical Ventilator 40 04/21/18 12:00 76 04/21/18 12:00 40 04/21/18 11:28 68 22 40 04/21/18 11:00 100.0 76 23 106/51 98 Mechanical Ventilator 40 04/21/18 10:00 99.9 70 20 106/45 99 Mechanical Ventilator 40 04/21/18 09:13 99 04/21/18 09:10 76 20 40 04/21/18 09:00 98.0 83 21 114/50 99 Mechanical Ventilator 40 04/21/18 09:00 40 04/21/18 08:00 40 04/21/18 08:00 Mechanical Ventilator 04/21/18 08:00 96.8 71 18 129/50 99 Mechanical Ventilator 40 04/21/18 08:00 92 04/21/18 07:29 75 17 40 04/21/18 07:00 63 18 92/53 99 Mechanical Ventilator 40 04/21/18 06:00 70 18 110/49 99 Mechanical Ventilator 40 04/21/18 05:00 70 22 40 04/21/18 05:00 69 23 128/47 99 Mechanical Ventilator 40 04/21/18 04:00 75 04/21/18 04:00 40 04/21/18 04:00 Mechanical Ventilator 04/21/18 04:00 97.9 75 23 142/59 98 Mechanical Ventilator 40 04/21/18 03:00 84 23 135/78 98 Mechanical Ventilator 40 04/21/18 02:57 83 27 40 04/21/18 02:00 84 23 125/62 98 Mechanical Ventilator 40 04/21/18 01:05 81 24 40 04/21/18 01:00 80 26 128/74 98 Mechanical Ventilator 40 04/21/18 00:00 40 04/21/18 00:00 77 04/21/18 00:00 97.2 77 21 108/49 98 Mechanical Ventilator 40 04/21/18 00:00 Mechanical Ventilator 04/20/18 23:00 70 23 117/92 99 Mechanical Ventilator 40 04/20/18 22:55 77 25 40 04/20/18 22:00 71 24 114/82 98 Mechanical Ventilator 40 04/20/18 21:00 73 23 133/54 98 Mechanical Ventilator 40 04/20/18 20:57 76 25 40 04/20/18 20:00 97.3 73 24 127/63 98 Mechanical Ventilator 40 04/20/18 20:00 40 04/20/18 20:00 Mechanical Ventilator 04/20/18 20:00 73 04/20/18 19:00 71 22 119/76 100 Mechanical Ventilator 40 04/20/18 18:50 86 32 40 04/20/18 18:50 86 32 Mechanical Ventilator 40 04/20/18 18:00 96.9 72 22 128/65 100 Mechanical Ventilator 40 Intake and Output 04/20/18 04/21/18 19:00 07:00 Intake Total 1604.916 ml 1667.5 ml Output Total 725 ml 630 ml Balance 879.916 ml 1037.5 ml Intake Free Water 120 ml IV Total 944.916 ml 947.5 ml Tube Feeding 600 ml 600 ml Other 60 ml Output Urine Total 500 ml 510 ml Stool Total 225 ml 120 ml Laboratory Tests 04/21/18 12:00: White Blood Count 10.2, Red Blood Count 2.39L, Hemoglobin 7.7L, Hematocrit 23.3L , Mean Corpuscular Volume 97, Mean Corpuscular Hemoglobin 32.2H, Mean Corpuscular Hemoglobin Concent 33.0, Red Cell Distribution Width 11.3L, Platelet Count 197, Mean Platelet Volume 9.0, Neutrophils (%) (Auto) , Lymphocytes (%) (Auto) , Monocytes (%) (Auto) , Eosinophils (%) (Auto) , Basophils (%) (Auto) , Differential Total Cells Counted 100, Neutrophils % ( Manual) 89H, Lymphocytes % (Manual) 4L, Monocytes % (Manual) 5, Eosinophils % ( Manual) 2, Basophils % (Manual) 0, Band Neutrophils 0, Platelet Estimate Adequate, Platelet Morphology Normal, Hypochromasia 1+, Macrocytosis 1+, Sodium Level 132L, Potassium Level 4.2, Chloride Level 100, Carbon Dioxide Level 29, Anion Gap 3L, Blood Urea Nitrogen 29H, Creatinine 0.7, Estimat Glomerular Filtration Rate > 60, Glucose Level 106, Calcium Level 7.5L, Total Bilirubin 0.4 , Aspartate Amino Transf (AST/SGOT) 43H, Alanine Aminotransferase (ALT/SGPT) 25 , Alkaline Phosphatase 50, Total Protein 4.5L, Albumin 1.3L, Globulin 3.2, Albumin/Globulin Ratio 0.4L 04/21/18 13:30: Vancomycin Level Trough 15.3H Height (Feet): 5 Height (Inches): 3.00 Weight (Pounds): 107 Objective CV- RR Lungs B ronchi Abd SNT. BS + E + edema Waking up!!! Vivienne Urena MD Apr 21, 2018 17:57
--- NOTE | 2018-04-21 18:15 | NUR ---
NURSE NOTES: Patient was seen by Dr. Chase. and Dr. Chase is aware of Hgb 7.7, Hct 23.3 and Plt count 197. No new order.
--- NOTE | 2018-04-21 18:30 | NUR ---
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 98.4 HR 50 RR 29 B/P 84/41 AC 18 TV 450 FIO2 40% PEEP 5 H/H 7.7/23.9 NA 132 BUN 29 AST 43 IS: IVF NS @ 50ML/HR VANCO IV PROTONIX IV HEPARIN SUBC ICU STATUS
--- NOTE | 2018-04-21 19:05 | NUR ---
HAND-OFF: Report given to Rodney DE GUZMAN.
--- NOTE | 2018-04-21 19:30 | NUR ---
NURSE NOTES: Recvd.pt.on a vent.Orally intubated,see settings.Reacts to tactile stimulation stiff and contracted does'nt follows command.Suctioned tk. beige sec.with some blood streak,NS Lavaged.See V/S.Scope SR.OGT Feeding in progress res-0.IV Thera.inf via TLC (L) Femo.F/Cath patent.See I/O.Pos. chg.
[2018-04-21] MEDS: Dyna-Hex 2% Top Sol 2oz TOPIC SCH (19:41)
--- NOTE | 2018-04-21 21:37 | Cardiology Progress Note ---
Assessment/Plan Assessment/Plan continue supportive respiratory care, stable from cardiac standpoint Subjective Subjective remains intubatet, opens his eyes, responsive, has repetitive motionts of his mouth does not follow commands Objective Last 24 Hour Vital Signs Date Time Temp Pulse Resp B/P (MAP) Pulse Ox O2 Delivery O2 Flow Rate FiO2 04/21/18 19:49 75 19 40 04/21/18 19:00 79 18 101/58 98 Mechanical Ventilator 40 04/21/18 18:00 78 19 107/47 98 Mechanical Ventilator 40 04/21/18 17:00 80 18 101/46 98 Mechanical Ventilator 40 04/21/18 16:57 65 18 40 04/21/18 16:00 98.4 64 18 89/41 99 Mechanical Ventilator 40 04/21/18 16:00 64 04/21/18 16:00 Mechanical Ventilator 04/21/18 16:00 40 04/21/18 15:08 86 29 40 04/21/18 15:00 50 24 107/50 98 Mechanical Ventilator 40 04/21/18 14:00 86 22 111/54 98 Mechanical Ventilator 40 04/21/18 13:05 74 16 40 04/21/18 13:00 69 21 113/54 98 Mechanical Ventilator 40 04/21/18 12:30 113/54 04/21/18 12:00 Mechanical Ventilator 04/21/18 12:00 98.6 76 14 99/48 99 Mechanical Ventilator 40 04/21/18 12:00 76 04/21/18 12:00 40 04/21/18 11:28 68 22 40 04/21/18 11:00 100.0 76 23 106/51 98 Mechanical Ventilator 40 04/21/18 10:00 99.9 70 20 106/45 99 Mechanical Ventilator 40 04/21/18 09:13 99 04/21/18 09:10 76 20 40 04/21/18 09:00 98.0 83 21 114/50 99 Mechanical Ventilator 40 04/21/18 09:00 40 04/21/18 08:00 40 04/21/18 08:00 Mechanical Ventilator 04/21/18 08:00 96.8 71 18 129/50 99 Mechanical Ventilator 40 04/21/18 08:00 92 04/21/18 07:29 75 17 40 04/21/18 07:00 63 18 92/53 99 Mechanical Ventilator 40 1/21/19 06:00 70 18 110/49 99 Mechanical Ventilator 40 04/21/18 05:00 70 22 40 04/21/18 05:00 69 23 128/47 99 Mechanical Ventilator 40 04/21/18 04:00 75 04/21/18 04:00 40 04/21/18 04:00 Mechanical Ventilator 04/21/18 04:00 97.9 75 23 142/59 98 Mechanical Ventilator 40 04/21/18 03:00 84 23 135/78 98 Mechanical Ventilator 40 04/21/18 02:57 83 27 40 04/21/18 02:00 84 23 125/62 98 Mechanical Ventilator 40 04/21/18 01:05 81 24 40 04/21/18 01:00 80 26 128/74 98 Mechanical Ventilator 40 04/21/18 00:00 40 04/21/18 00:00 77 04/21/18 00:00 97.2 77 21 108/49 98 Mechanical Ventilator 40 04/21/18 00:00 Mechanical Ventilator 04/20/18 23:00 70 23 117/92 99 Mechanical Ventilator 40 04/20/18 22:55 77 25 40 04/20/18 22:00 71 24 114/82 98 Mechanical Ventilator 40 General Appearance: cachetic, lethargic EENT: other - moderately dialted pupils Neck: normal alignment, no JVD Rhythm: NSR Cardiovascular: regular rhythm Respiratory/Chest: crackles/rales, rhonchi - bilaterally Abdomen: soft, other - contractued Intake and Output 04/20/18 04/21/18 18:59 06:59 Intake Total 1604.916 ml 1705.0 ml Output Total 690 ml 630 ml Balance 914.916 ml 1075.0 ml Intake Free Water 120 ml IV Total 944.916 ml 985.0 ml Tube Feeding 600 ml 600 ml Other 60 ml Output Urine Total 465 ml 510 ml Stool Total 225 ml 120 ml Laboratory Tests Test 04/21/18 12:00 04/21/18 13:30 White Blood Count 10.2 K/UL (4.8-10.8) Red Blood Count 2.39 M/UL (4.70-6.10) L Hemoglobin 7.7 G/DL (14.2-18.0) L Hematocrit 23.3 % (42.0-52.0) L Mean Corpuscular Volume 97 FL (80-99) Mean Corpuscular Hemoglobin 32.2 PG (27.0-31.0) H Mean Corpuscular Hemoglobin Concent 33.0 G/DL (32.0-36.0) Red Cell Distribution Width 11.3 % (11.6-14.8) L Platelet Count 197 K/UL (150-450) Mean Platelet Volume 9.0 FL (6.5-10.1) Neutrophils (%) (Auto) % (45.0-75.0) Lymphocytes (%) (Auto) % (20.0-45.0) Monocytes (%) (Auto) % (1.0-10.0) Eosinophils (%) (Auto) % (0.0-3.0) Basophils (%) (Auto) % (0.0-2.0) Differential Total Cells Counted 100 Neutrophils % (Manual) 89 % (45-75) H Lymphocytes % (Manual) 4 % (20-45) L Monocytes % (Manual) 5 % (1-10) Eosinophils % (Manual) 2 % (0-3) Basophils % (Manual) 0 % (0-2) Band Neutrophils 0 % (0-8) Platelet Estimate Adequate Platelet Morphology Normal Hypochromasia 1+ Macrocytosis 1+ Sodium Level 132 MMOL/L (136-145) L Potassium Level 4.2 MMOL/L (3.5-5.1) Chloride Level 100 MMOL/L (98-107) Carbon Dioxide Level 29 MMOL/L (21-32) Anion Gap 3 mmol/L (5-15) L Blood Urea Nitrogen 29 mg/dL (7-18) H Creatinine 0.7 MG/DL (0.55-1.30) Estimat Glomerular Filtration Rate > 60 mL/min (>60) Glucose Level 106 MG/DL (74-106) Calcium Level 7.5 MG/DL (8.5-10.1) L Total Bilirubin 0.4 MG/DL (0.2-1.0) Aspartate Amino Transf (AST/SGOT) 43 U/L (15-37) H Alanine Aminotransferase (ALT/SGPT) 25 U/L (12-78) Alkaline Phosphatase 50 U/L (46-116) Total Protein 4.5 G/DL (6.4-8.2) L Albumin 1.3 G/DL (3.4-5.0) L Globulin 3.2 g/dL Albumin/Globulin Ratio 0.4 (1.0-2.7) L Vancomycin Level Trough 15.3 ug/mL (5.0-12.0) H Sharmaine Crowder MD Apr 21, 2018 21:37
--- NOTE | 2018-04-21 22:25 | NUR ---
NURSE NOTES: HS Care rendered.Pos.chg.Backrub with Lotion.Suctioned.Due meds admin.Cont.on OGT Feeding.IV Thera.infusing well.F/Cath Patent.Diuresis well.See I/O.
[2018-04-22] VITALS (23 sets, daily range): BP systolic 93–140; BP diastolic 47–71
--- NOTE | 2018-04-22 00:10 | NUR ---
NURSE NOTES: Pos. chg.Suctioned.NS Lavage.P.Ox-98-100%.OGT Feeding Erika.See V/S.Cont.Ca.monitoring.
[2018-04-22] MEDS: Vancomycin 1 GM in D5W 275 ML IVPB SCH ×2 (02:08→13:38)
--- NOTE | 2018-04-22 02:10 | NUR ---
NURSE NOTES: Repositioned,Suctioned.Status same.No Distress.
--- NOTE | 2018-04-22 04:30 | NUR ---
NURSE NOTES: Erika.OGT Feeding.No asp.Cont.on IV Hydration.owen Vargas.Neuro Status same.Cont.monitoring.
[2018-04-22] MEDS: Piperacillin/Tazobactam 3.375 GM in NS 110 ML IVPB SCH ×3 (05:26→22:46)
[2018-04-22] MEDS: 1/2NS w/KCl 20mEq 1000ml 1,000 ML IV SCH (05:26)
--- NOTE | 2018-04-22 07:00 | NUR ---
Received patient on ACVC RR 18, VT 450, 40% FIO2, PEEP +5. Patient intubated with ETT 8.0 @ 18cm lipline, secured by anchorfast. Patient is awake. B/S eryn. rhonchi, sxn moderate amounts of thick, zamarripa white secretions. Vent plugged into red outlet, amubag at bedside. No SOB/distress noted at this time. Will continue to monitor patient throughout the day.
--- NOTE | 2018-04-22 07:15 | NUR ---
NURSE NOTES: Received pt from GEGE Stevens. Pt responds to tactile stimuli. Eyes closed, does not follow commands. Stiff and contracted in all extremities. Afebrile. Orally intubated ETT 8/18cm, AC 18, TV 450, FIo2 40%, Peep +5, SPo2 100%, RR 19. Sxn given. OGT running vital 1.2@50cc/hr, no residual noted. HOB 35 degrees. FC draining well. Left femoral TLC running 1/2NS w/20kcl@50cc/hr. No skin issues, scrotal edema noted. Bed locked, alarmed and in lowest position.
--- NOTE | 2018-04-22 07:17 | NUR ---
HAND-OFF: Report given to GEGE DAN.
--- NOTE | 2018-04-22 08:00 | Critical Care Progress Note ---
Assessment/Plan Assessment/Plan IMPRESSION: Pneumonia, aspiration, probable sepsis, evidence of thrombocytopenia, severe protein-calorie malnutrition, elevated troponin, possible non-STEMI [place], evidence of anemia. acute respiratory failure, hypoxemia PLAN care noted IV antibiotics noted respiratory care and suction as needed monitor cultures for change Ventilatory support on AC supportive meds supportive care as outlined; close follow up recheck labs for change and optimize suction as needed unsuccessful wean on multiple attempts; continue to try anxiolytics if needed oxygen therapy and taper prognosis guarded nutrition tolerated trach vs terminal extubation discussed medications/laboratory data/nursing notes/ICU care reviewed in detail note reviewed and edited care discussed with RN and RT ICU time spent 40 minutes Critical Care - Subjective Interval Events: was on SIMV yesterday slightly more alert ROS Limited/Unobtainable: Yes Condition: critical EKG Rhythm: Sinus Rhythm Residuals: minimal Tube Feeding Tolerated: yes I&O: Intake and Output 04/21/18 04/22/18 19:00 07:00 Intake Total 1871.208 ml 1712.5 ml Output Total 620 ml 375 ml Balance 1251.208 ml 1337.5 ml Intake Free Water 240 ml 150 ml IV Total 1031.208 ml 962.5 ml Tube Feeding 600 ml 600 ml Output Urine Total 520 ml 375 ml Stool Total 100 ml # Bowel Movements 100 Critical Care - Objective ET-Tube: 8.0 ET Position: 18 Last 24 Hour Vital Signs Date Time Temp Pulse Resp B/P (MAP) Pulse Ox O2 Delivery O2 Flow Rate FiO2 04/22/18 07:19 57 18 40 04/22/18 07:00 55 20 93/51 99 Mechanical Ventilator 40 04/22/18 06:00 68 18 111/59 99 Mechanical Ventilator 40 04/22/18 05:17 64 18 40 04/22/18 05:00 53 20 95/47 98 Mechanical Ventilator 40 04/22/18 04:00 55 04/22/18 04:00 Mechanical Ventilator 04/22/18 04:00 40 04/22/18 04:00 98.1 55 20 99/57 98 Mechanical Ventilator 40 04/22/18 03:59 55 18 40 04/22/18 03:00 77 20 140/59 98 Mechanical Ventilator 40 04/22/18 02:00 80 22 130/63 98 Mechanical Ventilator 40 04/22/18 01:57 76 19 40 04/22/18 01:00 77 20 140/59 100 Mechanical Ventilator 40 04/22/18 00:00 71 04/22/18 00:00 98.5 71 19 114/56 100 Mechanical Ventilator 40 04/22/18 00:00 Mechanical Ventilator 04/22/18 00:00 40 04/21/18 23:18 79 24 40 04/21/18 23:00 71 21 135/59 100 Mechanical Ventilator 40 04/21/18 22:00 78 22 115/53 99 Mechanical Ventilator 40 04/21/18 21:40 79 20 40 04/21/18 21:00 99.5 77 21 115/59 99 Mechanical Ventilator 40 04/21/18 20:00 40 04/21/18 20:00 77 04/21/18 20:00 Mechanical Ventilator 04/21/18 20:00 77 19 106/50 98 Mechanical Ventilator 40 04/21/18 19:49 75 19 40 04/21/18 19:00 79 18 101/58 98 Mechanical Ventilator 40 04/21/18 18:00 78 19 107/47 98 Mechanical Ventilator 40 04/21/18 17:00 80 18 101/46 98 Mechanical Ventilator 40 04/21/18 16:57 65 18 40 04/21/18 16:00 98.4 64 18 89/41 99 Mechanical Ventilator 40 04/21/18 16:00 64 04/21/18 16:00 Mechanical Ventilator 04/21/18 16:00 40 04/21/18 15:08 86 29 40 04/21/18 15:00 50 24 107/50 98 Mechanical Ventilator 40 04/21/18 14:00 86 22 111/54 98 Mechanical Ventilator 40 04/21/18 13:05 74 16 40 04/21/18 13:00 69 21 113/54 98 Mechanical Ventilator 40 04/21/18 12:30 113/54 04/21/18 12:00 Mechanical Ventilator 04/21/18 12:00 98.6 76 14 99/48 99 Mechanical Ventilator 40 04/21/18 12:00 76 04/21/18 12:00 40 04/21/18 11:28 68 22 40 04/21/18 11:00 100.0 76 23 106/51 98 Mechanical Ventilator 40 04/21/18 10:00 99.9 70 20 106/45 99 Mechanical Ventilator 40 04/21/18 09:13 99 04/21/18 09:10 76 20 40 04/21/18 09:00 98.0 83 21 114/50 99 Mechanical Ventilator 40 04/21/18 09:00 40 04/21/18 08:00 40 04/21/18 08:00 Mechanical Ventilator 04/21/18 08:00 96.8 71 18 129/50 99 Mechanical Ventilator 40 04/21/18 08:00 92 Labs: Labs Test 04/19/18 12:00 04/20/18 04:42 04/21/18 12:00 04/21/18 13:30 White Blood Count 11.7 K/UL (4.8-10.8) 10.2 K/UL (4.8-10.8) Red Blood Count 3.03 M/UL (4.70-6.10) 2.39 M/UL (4.70-6.10) Hemoglobin 9.8 G/DL (14.2-18.0) 7.7 G/DL (14.2-18.0) Hematocrit 29.2 % (42.0-52.0) 23.3 % (42.0-52.0) Mean Corpuscular Volume 96 FL (80-99) 97 FL (80-99) Mean Corpuscular Hemoglobin 32.4 PG (27.0-31.0) 32.2 PG (27.0-31.0) Mean Corpuscular Hemoglobin Concent 33.7 G/DL (32.0-36.0) 33.0 G/DL (32.0-36.0) Red Cell Distribution Width 12.4 % (11.6-14.8) 11.3 % (11.6-14.8) Platelet Count 115 K/UL (150-450) 197 K/UL (150-450) Mean Platelet Volume 9.9 FL (6.5-10.1) 9.0 FL (6.5-10.1) Neutrophils (%) (Auto) % (45.0-75.0) % (45.0-75.0) Lymphocytes (%) (Auto) % (20.0-45.0) % (20.0-45.0) Monocytes (%) (Auto) % (1.0-10.0) % (1.0-10.0) Eosinophils (%) (Auto) % (0.0-3.0) % (0.0-3.0) Basophils (%) (Auto) % (0.0-2.0) % (0.0-2.0) Differential Total Cells Counted 100 100 Neutrophils % (Manual) 66 % (45-75) 89 % (45-75) Lymphocytes % (Manual) 3 % (20-45) 4 % (20-45) Monocytes % (Manual) 0 % (1-10) 5 % (1-10) Eosinophils % (Manual) 0 % (0-3) 2 % (0-3) Basophils % (Manual) 0 % (0-2) 0 % (0-2) Myelocytes % 1 % (0-0) Band Neutrophils 30 % (0-8) 0 % (0-8) Nucleated Red Blood Cells 1 /100 WBC Platelet Estimate Decreased Adequate Platelet Morphology Normal Normal Red Blood Cell Morphology Normal Sodium Level 141 MMOL/L (136-145) 133 MMOL/L (136-145) 132 MMOL/L (136-145) Potassium Level 3.1 MMOL/L (3.5-5.1) 4.5 MMOL/L (3.5-5.1) 4.2 MMOL/L (3.5-5.1) Chloride Level 113 MMOL/L (98-107) 99 MMOL/L (98-107) 100 MMOL/L (98-107) Carbon Dioxide Level 18 MMOL/L (21-32) 30 MMOL/L (21-32) 29 MMOL/L (21-32) Anion Gap 10 mmol/L (5-15) 4 mmol/L (5-15) 3 mmol/L (5-15) Blood Urea Nitrogen 39 mg/dL (7-18) 28 mg/dL (7-18) 29 mg/dL (7-18) Creatinine 1.0 MG/DL (0.55-1.30) 0.6 MG/DL (0.55-1.30) 0.7 MG/DL (0.55-1.30) Estimat Glomerular Filtration Rate > 60 mL/min (>60) > 60 mL/min (>60) > 60 mL/min (>60) Glucose Level 166 MG/DL (74-106) 108 MG/DL (74-106) 106 MG/DL (74-106) Calcium Level 7.1 MG/DL (8.5-10.1) 7.6 MG/DL (8.5-10.1) 7.5 MG/DL (8.5-10.1) Magnesium Level 1.7 MG/DL (1.8-2.4) Troponin I 0.029 ng/mL (0.000-0.056) Thyroid Stimulating Hormone (TSH) 5.635 uiU/mL (0.358-3.740) Free Thyroxine 1.03 NG/DL (0.76-1.46) Hypochromasia 1+ Macrocytosis 1+ Total Bilirubin 0.4 MG/DL (0.2-1.0) Aspartate Amino Transf (AST/SGOT) 43 U/L (15-37) Alanine Aminotransferase (ALT/SGPT) 25 U/L (12-78) Alkaline Phosphatase 50 U/L (46-116) Total Protein 4.5 G/DL (6.4-8.2) Albumin 1.3 G/DL (3.4-5.0) Globulin 3.2 g/dL Albumin/Globulin Ratio 0.4 (1.0-2.7) Vancomycin Level Trough 15.3 ug/mL (5.0-12.0) Objective: GENERAL: An ill-appearing male of short stature. reduced LOC, slightly more responsive HEENT: Negative. NECK: Supple. The patient remains orally intubated. LUNGS: reduced breath sounds. Rhonchi noted bilaterally. no wheeze at present CARDIAC: S1 and S2. Regular rate and rhythm without murmurs, rubs, gallops. ABDOMEN: Soft, nontender, nondistended. feeding tube in place . EXTREMITIES: No cyanosis, clubbing, or edema. NEUROLOGIC: The patient with significant muscular atrophy, sedated reviewed and examined Brian Torres MD Apr 22, 2018 08:00
--- NOTE | 2018-04-22 08:36 | NUR ---
Weaning started. Placed on PSV 8 PEEP +5 FIO2 40%. Will monitor.
[2018-04-22] MEDS: Pantoprazole Inj IVP SCH (08:45)
[2018-04-22] MEDS: Heparin 5000 units/ml inj SUBQ SCH ×2 (08:45→20:56)
--- NOTE | 2018-04-22 08:53 | NUR ---
NURSE NOTES: bleeding noted when sxn via ett. heparin held as per protocol.
--- NOTE | 2018-04-22 10:31 | Cardiac Electrophysiology PN ---
Assessment/Plan Assessment/Plan 1. Bradycardic episodes with heart rate dropping to 40s, but was transient. Kepp off any sinus aftab or AV aftab blocking agents. TSH is high but T4 normal 2. Type 2 myocardial infarction. 3. Respiratory failure, on the ventilator. 4. Mental retardation. 5. Sepsis, on broad-spectrum IV antibiotics. 6. Dysphagia. OGT feeding. ? 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 Off pressors no arrhythmia. Objective Last 24 Hour Vital Signs Date Time Temp Pulse Resp B/P (MAP) Pulse Ox O2 Delivery O2 Flow Rate FiO2 04/22/18 10:00 77 20 109/59 98 Mechanical Ventilator 40 04/22/18 09:00 74 20 114/54 99 Mechanical Ventilator 40 04/22/18 08:37 71 24 40 04/22/18 08:00 Mechanical Ventilator 04/22/18 08:00 98.7 73 20 111/58 98 Mechanical Ventilator 40 04/22/18 08:00 40 04/22/18 07:19 57 18 40 04/22/18 07:00 55 20 93/51 99 Mechanical Ventilator 40 04/22/18 06:00 68 18 111/59 99 Mechanical Ventilator 40 04/22/18 05:17 64 18 40 04/22/18 05:00 53 20 95/47 98 Mechanical Ventilator 40 04/22/18 04:00 55 04/22/18 04:00 Mechanical Ventilator 04/22/18 04:00 40 04/22/18 04:00 98.1 55 20 99/57 98 Mechanical Ventilator 40 04/22/18 03:59 55 18 40 04/22/18 03:00 77 20 140/59 98 Mechanical Ventilator 40 04/22/18 02:00 80 22 130/63 98 Mechanical Ventilator 40 04/22/18 01:57 76 19 40 04/22/18 01:00 77 20 140/59 100 Mechanical Ventilator 40 04/22/18 00:00 71 04/22/18 00:00 98.5 71 19 114/56 100 Mechanical Ventilator 40 04/22/18 00:00 Mechanical Ventilator 04/22/18 00:00 40 04/21/18 23:18 79 24 40 04/21/18 23:00 71 21 135/59 100 Mechanical Ventilator 40 04/21/18 22:00 78 22 115/53 99 Mechanical Ventilator 40 04/21/18 21:40 79 20 40 04/21/18 21:00 99.5 77 21 115/59 99 Mechanical Ventilator 40 04/21/18 20:00 40 04/21/18 20:00 77 04/21/18 20:00 Mechanical Ventilator 04/21/18 20:00 77 19 106/50 98 Mechanical Ventilator 40 04/21/18 19:49 75 19 40 04/21/18 19:00 79 18 101/58 98 Mechanical Ventilator 40 04/21/18 18:00 78 19 107/47 98 Mechanical Ventilator 40 04/21/18 17:00 80 18 101/46 98 Mechanical Ventilator 40 04/21/18 16:57 65 18 40 04/21/18 16:00 98.4 64 18 89/41 99 Mechanical Ventilator 40 04/21/18 16:00 64 04/21/18 16:00 Mechanical Ventilator 04/21/18 16:00 40 04/21/18 15:08 86 29 40 04/21/18 15:00 50 24 107/50 98 Mechanical Ventilator 40 04/21/18 14:00 86 22 111/54 98 Mechanical Ventilator 40 04/21/18 13:05 74 16 40 04/21/18 13:00 69 21 113/54 98 Mechanical Ventilator 40 04/21/18 12:30 113/54 04/21/18 12:00 Mechanical Ventilator 04/21/18 12:00 98.6 76 14 99/48 99 Mechanical Ventilator 40 04/21/18 12:00 76 04/21/18 12:00 40 04/21/18 11:28 68 22 40 04/21/18 11:00 100.0 76 23 106/51 98 Mechanical Ventilator 40 Intake and Output 04/21/18 04/22/18 19:00 07:00 Intake Total 1871.208 ml 1712.5 ml Output Total 620 ml 375 ml Balance 1251.208 ml 1337.5 ml Intake Free Water 240 ml 150 ml IV Total 1031.208 ml 962.5 ml Tube Feeding 600 ml 600 ml Output Urine Total 520 ml 375 ml Stool Total 100 ml # Bowel Movements 100 Laboratory Tests Test 04/21/18 12:00 04/21/18 13:30 White Blood Count 10.2 K/UL (4.8-10.8) Red Blood Count 2.39 M/UL (4.70-6.10) L Hemoglobin 7.7 G/DL (14.2-18.0) L Hematocrit 23.3 % (42.0-52.0) L Mean Corpuscular Volume 97 FL (80-99) Mean Corpuscular Hemoglobin 32.2 PG (27.0-31.0) H Mean Corpuscular Hemoglobin Concent 33.0 G/DL (32.0-36.0) Red Cell Distribution Width 11.3 % (11.6-14.8) L Platelet Count 197 K/UL (150-450) Mean Platelet Volume 9.0 FL (6.5-10.1) Neutrophils (%) (Auto) % (45.0-75.0) Lymphocytes (%) (Auto) % (20.0-45.0) Monocytes (%) (Auto) % (1.0-10.0) Eosinophils (%) (Auto) % (0.0-3.0) Basophils (%) (Auto) % (0.0-2.0) Differential Total Cells Counted 100 Neutrophils % (Manual) 89 % (45-75) H Lymphocytes % (Manual) 4 % (20-45) L Monocytes % (Manual) 5 % (1-10) Eosinophils % (Manual) 2 % (0-3) Basophils % (Manual) 0 % (0-2) Band Neutrophils 0 % (0-8) Platelet Estimate Adequate Platelet Morphology Normal Hypochromasia 1+ Macrocytosis 1+ Sodium Level 132 MMOL/L (136-145) L Potassium Level 4.2 MMOL/L (3.5-5.1) Chloride Level 100 MMOL/L (98-107) Carbon Dioxide Level 29 MMOL/L (21-32) Anion Gap 3 mmol/L (5-15) L Blood Urea Nitrogen 29 mg/dL (7-18) H Creatinine 0.7 MG/DL (0.55-1.30) Estimat Glomerular Filtration Rate > 60 mL/min (>60) Glucose Level 106 MG/DL (74-106) Calcium Level 7.5 MG/DL (8.5-10.1) L Total Bilirubin 0.4 MG/DL (0.2-1.0) Aspartate Amino Transf (AST/SGOT) 43 U/L (15-37) H Alanine Aminotransferase (ALT/SGPT) 25 U/L (12-78) Alkaline Phosphatase 50 U/L (46-116) Total Protein 4.5 G/DL (6.4-8.2) L Albumin 1.3 G/DL (3.4-5.0) L Globulin 3.2 g/dL Albumin/Globulin Ratio 0.4 (1.0-2.7) L Vancomycin Level Trough 15.3 ug/mL (5.0-12.0) H Objective HEAD AND NECK: No JVD.Orally intubated.OG tube is in LUNGS: Coarse rhonchi. CARDIOVASCULAR: Shows regular S1 and S2 with no gallop. ABDOMEN: Soft. EXTREMITIES: 1 plus pitting edema. Tono Crisostomo MD Apr 22, 2018 10:31
--- NOTE | 2018-04-22 11:28 | NUR ---
NURSE NOTES: Patient neuro status is the same. Patient tolerating SIMV well, RR 20, SPo2 100%. Turned and repositioned, kept dry and clean.
[2018-04-22] MEDS: DOPamine 400mg/250ml 250 ML IV SCH (12:30)
--- NOTE | 2018-04-22 13:24 | NUR ---
NURSE NOTES: Pt is tolerating weaning well. Turned and positioned, kept dry and clean. No s/sx of acute distress noted. IVF infusing well.
[2018-04-22] MEDS ORDERED: NS 275ml ONE (15:05)
[2018-04-22] MEDS ORDERED: Tubing IV Secondary IV ONE (15:05)
[2018-04-22] MEDS ORDERED: NS Irrig 1000ml ONE (15:05)
--- NOTE | 2018-04-22 15:32 | NUR ---
Placed patient back on previous ACVC settings. Tolerated weaning well, however I am still suctioning large amounts of bloody secretions. GEGE Suarez aware.
--- NOTE | 2018-04-22 16:18 | General Progress Note ---
Assessment/Plan Assessment/Plan Acute Resp Failure - Vent. m/p secondary to aspiration. Brain Anoxia - waking up. Poor prognosis. Prognosis seems better now! Subjective Allergies: Coded Allergies: No Known Allergies (Unverified , 04/11/18) Subjective On vent. Objective Last 24 Hour Vital Signs Date Time Temp Pulse Resp B/P (MAP) Pulse Ox O2 Delivery O2 Flow Rate FiO2 04/22/18 15:31 73 22 40 04/22/18 15:26 74 29 40 04/22/18 15:00 72 25 118/60 99 Mechanical Ventilator 40 04/22/18 14:00 75 25 120/63 98 Mechanical Ventilator 40 04/22/18 13:10 82 26 40 04/22/18 12:30 117/58 04/22/18 12:00 75 04/22/18 12:00 98.6 79 29 124/61 100 Mechanical Ventilator 40 04/22/18 12:00 40 04/22/18 12:00 Mechanical Ventilator 04/22/18 11:13 74 27 40 04/22/18 11:00 74 25 117/58 98 Mechanical Ventilator 40 04/22/18 10:00 77 20 109/59 98 Mechanical Ventilator 40 04/22/18 09:00 74 20 114/54 99 Mechanical Ventilator 40 04/22/18 09:00 98 04/22/18 08:37 71 24 40 04/22/18 08:00 Mechanical Ventilator 04/22/18 08:00 76 04/22/18 08:00 98.7 73 20 111/58 98 Mechanical Ventilator 40 04/22/18 08:00 40 04/22/18 07:19 57 18 40 04/22/18 07:00 55 20 93/51 99 Mechanical Ventilator 40 04/22/18 06:00 68 18 111/59 99 Mechanical Ventilator 40 04/22/18 05:17 64 18 40 04/22/18 05:00 53 20 95/47 98 Mechanical Ventilator 40 04/22/18 04:00 55 04/22/18 04:00 Mechanical Ventilator 04/22/18 04:00 40 04/22/18 04:00 98.1 55 20 99/57 98 Mechanical Ventilator 40 04/22/18 03:59 55 18 40 04/22/18 03:00 77 20 140/59 98 Mechanical Ventilator 40 04/22/18 02:00 80 22 130/63 98 Mechanical Ventilator 40 04/22/18 01:57 76 19 40 04/22/18 01:00 77 20 140/59 100 Mechanical Ventilator 40 04/22/18 00:00 71 04/22/18 00:00 98.5 71 19 114/56 100 Mechanical Ventilator 40 04/22/18 00:00 Mechanical Ventilator 04/22/18 00:00 40 04/21/18 23:18 79 24 40 04/21/18 23:00 71 21 135/59 100 Mechanical Ventilator 40 04/21/18 22:00 78 22 115/53 99 Mechanical Ventilator 40 04/21/18 21:40 79 20 40 04/21/18 21:00 99.5 77 21 115/59 99 Mechanical Ventilator 40 04/21/18 20:00 40 04/21/18 20:00 77 04/21/18 20:00 Mechanical Ventilator 04/21/18 20:00 77 19 106/50 98 Mechanical Ventilator 40 04/21/18 19:49 75 19 40 04/21/18 19:00 79 18 101/58 98 Mechanical Ventilator 40 04/21/18 18:00 78 19 107/47 98 Mechanical Ventilator 40 04/21/18 17:00 80 18 101/46 98 Mechanical Ventilator 40 04/21/18 16:57 65 18 40 Intake and Output 04/21/18 04/22/18 19:00 07:00 Intake Total 1871.208 ml 1762.5 ml Output Total 620 ml 375 ml Balance 1251.208 ml 1387.5 ml Intake Free Water 240 ml 150 ml IV Total 1031.208 ml 1012.5 ml Tube Feeding 600 ml 600 ml Output Urine Total 520 ml 375 ml Stool Total 100 ml # Bowel Movements 100 Height (Feet): 5 Height (Inches): 3.00 Weight (Pounds): 108 Objective CV- RR Lungs B ronchi Abd SNT. BS + E + edema Waking up!!! Vivienne Urena MD Apr 22, 2018 16:18
--- NOTE | 2018-04-22 16:29 | NUR ---
NURSE NOTES: Turned and repositioned, kept dry and clean. Scrotal edema noted, Dr shi notified, No new orders given.
--- NOTE | 2018-04-22 17:39 | NUR ---
Social Service Note SW investigating appropriate decision maker for patient. Received a call from Selena Foley [phone] stating she is the patient's sister. [facility] has no family on record. Selena states her dgt was contacted after a DNA test was completed at patient's facility. CHRISTY left a message for Amaya [phone]. CHRISTY provided sister patient's [facility] coordinator Jacqueline [phone] contact information as requested by [facility]. Sister hasn't seen patient in 50 years but has attempted to locate him. CHRISTY discussing with [employer]. Sister is requesting DNR. Will monitor and follow up.
[2018-04-22] MEDS: Dyna-Hex 2% Top Sol 2oz TOPIC SCH (19:33)
--- NOTE | 2018-04-22 19:33 | NUR ---
HAND-OFF: Report given to GEGE Stevens using SBAR. No change in condition.
--- NOTE | 2018-04-22 19:36 | NUR ---
NURSE NOTES: Recvd.on a vent.orally intubated.See settings.Back on AC mode Erika.weaning for 6hrs on SIMV this pm.Lungs Few rh,Diminished BS at Bases.P.Ox-100%.Suctioned Tk Beige with some Blood streak sec.NS Lavaged.Pos. chg.Made comfortable.OGT Feeding in progress.IV thera.infusing via TLC (L)Femo.F/Cath.intact patent, diuresis well.See I/O.
--- NOTE | 2018-04-22 21:04 | NUR ---
NURSE NOTES: HS care rendered.Pos.chg.Back rub with Lotion.Suctioned.Due medical assistant dermatology.Due HEPARIN omitted Bloody sec. suctioned from ETT.
[2018-04-23] VITALS (25 sets, daily range): BP systolic 102–181; BP diastolic 48–119
--- NOTE | 2018-04-23 00:15 | NUR ---
NURSE NOTES: Pos. chg.Suctioned.NS lavage.Neuro status same.See V/S.Scope rhythm same.No Distress.Cont.Monitoring.Tolerated OGT Feeding.
--- NOTE | 2018-04-23 02:00 | NUR ---
NURSE NOTES: Repositioned,Kept comfortable.Status unchanged.Cont.cardiac monitoring.
[2018-04-23] MEDS: Vancomycin 1 GM in D5W 275 ML IVPB SCH ×2 (02:18→15:11)
[2018-04-23] MEDS: 1/2NS w/KCl 20mEq 1000ml 1,000 ML IV SCH ×2 (02:20→23:18)
--- NOTE | 2018-04-23 04:30 | NUR ---
NURSE NOTES: Sam,Pos.chg.Suctioned.Erika.Vent settings.Leo.again for poss.weaning deter this am.VSS.Scope SR occ.Goes Oscar and pick-up back to SR.Asymptomatic.Due medical sociologist.
[2018-04-23] MEDS: Piperacillin/Tazobactam 3.375 GM in NS 110 ML IVPB SCH ×3 (05:39→21:34)
--- NOTE | 2018-04-23 07:25 | NUR ---
HAND-OFF: Report given to GEGE HOUSTON.
--- NOTE | 2018-04-23 08:30 | NUR ---
NURSE NOTES: Patient placed on CPAP with PS of 8, FIO2 40% with peep of 5, patient is breathing with no distress noted with volumes of 400-475ml per breath, patient remains tolerating weaning with saturations at 94-97%, with RR of 19-25, will continue to monitor.
[2018-04-23] MEDS: Heparin 5000 units/ml inj SUBQ SCH ×2 (09:00→20:37)
[2018-04-23] MEDS: Pantoprazole Inj IVP SCH (09:05)
--- NOTE | 2018-04-23 10:15 | NUR ---
NURSE NOTES: Dr. Urena rounded at the bedside, ordered to continue weaning and obtain an abg, no further verbal orders given,
--- NOTE | 2018-04-23 10:23 | General Progress Note ---
Assessment/Plan Assessment/Plan Acute Resp Failure - Vent. m/p secondary to aspiration. Brain Anoxia - waking up. Poor prognosis. Prognosis seems better now! Tryiing to extubate. Getting ABGs Subjective Allergies: Coded Allergies: No Known Allergies (Unverified , 04/11/18) Subjective On vent. Objective Last 24 Hour Vital Signs Date Time Temp Pulse Resp B/P (MAP) Pulse Ox O2 Delivery O2 Flow Rate FiO2 04/23/18 09:28 100 04/23/18 09:26 70 25 40 04/23/18 08:18 78 26 40 04/23/18 08:00 98.2 71 20 138/78 97 Mechanical Ventilator 40 04/23/18 07:29 79 25 40 04/23/18 07:00 56 18 114/48 98 Mechanical Ventilator 40 04/23/18 06:00 63 18 115/57 98 Mechanical Ventilator 40 04/23/18 05:30 54 18 40 04/23/18 05:00 65 18 119/54 99 Mechanical Ventilator 40 04/23/18 04:00 98.8 58 18 102/51 99 Mechanical Ventilator 40 04/23/18 04:00 58 04/23/18 04:00 Mechanical Ventilator 04/23/18 04:00 40 04/23/18 03:13 77 18 40 04/23/18 03:00 70 18 106/58 99 Mechanical Ventilator 40 04/23/18 02:00 72 18 120/59 99 Mechanical Ventilator 40 04/23/18 01:24 60 18 40 04/23/18 01:00 68 18 112/70 99 Mechanical Ventilator 40 04/23/18 00:00 40 04/23/18 00:00 98.4 74 18 113/58 99 Mechanical Ventilator 40 04/23/18 00:00 74 04/23/18 00:00 Mechanical Ventilator 04/22/18 23:30 70 18 40 04/22/18 23:00 57 18 109/56 99 Mechanical Ventilator 40 04/22/18 22:00 64 18 109/55 99 Mechanical Ventilator 40 04/22/18 21:24 64 18 40 04/22/18 21:00 70 18 120/55 99 Mechanical Ventilator 40 04/22/18 20:00 40 04/22/18 20:00 73 04/22/18 20:00 73 19 123/56 99 Mechanical Ventilator 40 04/22/18 20:00 Mechanical Ventilator 04/22/18 19:55 80 18 40 04/22/18 19:00 75 18 117/71 100 Mechanical Ventilator 40 04/22/18 19:00 98.7 72 20 117/71 100 Mechanical Ventilator 40 04/22/18 18:00 67 18 116/57 98 Mechanical Ventilator 40 04/22/18 17:25 74 26 40 04/22/18 17:00 71 18 122/54 98 Mechanical Ventilator 40 04/22/18 16:00 73 18 110/57 98 Mechanical Ventilator 40 04/22/18 16:00 40 04/22/18 16:00 77 04/22/18 16:00 Mechanical Ventilator 04/22/18 15:31 73 22 40 04/22/18 15:26 74 29 40 04/22/18 15:00 72 25 118/60 99 Mechanical Ventilator 40 04/22/18 14:00 75 25 120/63 98 Mechanical Ventilator 40 04/22/18 13:10 82 26 40 04/22/18 12:30 117/58 04/22/18 12:00 75 04/22/18 12:00 98.6 79 29 124/61 100 Mechanical Ventilator 40 04/22/18 12:00 40 04/22/18 12:00 Mechanical Ventilator 04/22/18 11:13 74 27 40 04/22/18 11:00 74 25 117/58 98 Mechanical Ventilator 40 Intake and Output 04/22/18 04/23/18 19:00 07:00 Intake Total 1609.916 ml 1732.5 ml Output Total 1010 ml 580 ml Balance 599.916 ml 1152.5 ml Intake Free Water 60 ml 120 ml IV Total 949.916 ml 1012.5 ml Tube Feeding 600 ml 600 ml Output Urine Total 1010 ml 580 ml # Bowel Movements 100 Height (Feet): 5 Height (Inches): 3.00 Weight (Pounds): 108 Objective CV- RR Lungs B ronchi Abd SNT. BS + E + edema Waking up!!! Vivienne Urena MD Apr 23, 2018 10:23
--- NOTE | 2018-04-23 10:32 | NUR ---
NURSE NOTES: Dr. Dennise Mcgrath called regarding patient condition, number to be reached at is [phone].
--- NOTE | 2018-04-23 11:33 | NUR ---
RD ASSESSMENT & RECOMMENDATIONS SEE CARE ACTIVITY FOR COMPLETE ASSESSMENT DAILY ESTIMATED NEEDS: Needs based on Critical care, wasting/ 50kg 22-30 kcals/kg 6539-9964 total kcals 1.2-2 g protein/kg 60-100 g total protein 25-30 mL/kg 6966-3238 total fluid mLs NUTRITION DIAGNOSIS: Swallowing difficulty R/T respiratory status as evidenced by s/p code blue, orally intubated, on OGT feeding. CURRENT TF:Vital AF 1.2 @ 50ml/hr x 24 hrs ENTERAL NUTRITION RECOMMENDATIONS: Vital AF 1.2 @ 50ml/hr x 24 hrs to provide 1200ml, 1440kcal, 90g prot, 973ml free water * Maintain current TF. . * HOB over 30 degrees/ water flush per MD. ADDITIONAL RECOMMENDATIONS: * Calibrated bedcale wt for accurate CBW * Monitor HD stability- dopamine held at this time. * Monitor lytes daily, replete as needed- low mag on 04/20 * Consider decrease IVF- increased edema, Na trend down, TF @ goal * Wound eval for redness @buttock per photo
--- NOTE | 2018-04-23 11:48 | NUR ---
NURSE NOTES: Dr. Torres ordered to have patient extubated and place on nasal cannula at 4L/min, RT notified and will extubate, patient remains on Cpap with PS of 8 with Fio2 of 40% with peep of 5, BP is 138/80 and HR is 76, with saturations of 97-99% with RR of 26-27, patient remains calm with no pain noted using the FLACC scale.
--- NOTE | 2018-04-23 11:56 | Cardiac Electrophysiology PN ---
Assessment/Plan Assessment/Plan 1. Bradycardic episodes with heart rate dropping to 40s, but was transient. HR 50s. Off any sinus aftab or AV aftab blocking agents. TSH is high but T4 normal 2. Type 2 myocardial infarction. 3. Respiratory failure, on the ventilator. Weaning today. 4. Mental retardation. 5. Sepsis, on broad-spectrum IV antibiotics. 6. Dysphagia. OGT feeding. 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 Was nicola down to 50s. Objective Last 24 Hour Vital Signs Date Time Temp Pulse Resp B/P (MAP) Pulse Ox O2 Delivery O2 Flow Rate FiO2 04/23/18 11:09 70 25 40 04/23/18 11:00 75 25 138/80 99 Mechanical Ventilator 40 04/23/18 10:00 73 23 137/66 99 Mechanical Ventilator 40 04/23/18 09:28 100 04/23/18 09:26 70 25 40 04/23/18 09:00 75 22 130/58 98 Mechanical Ventilator 40 04/23/18 08:18 78 26 40 04/23/18 08:00 40 04/23/18 08:00 77 04/23/18 08:00 98.2 71 20 138/78 97 Mechanical Ventilator 40 04/23/18 07:29 79 25 40 04/23/18 07:00 56 18 114/48 98 Mechanical Ventilator 40 04/23/18 06:00 63 18 115/57 98 Mechanical Ventilator 40 04/23/18 05:30 54 18 40 04/23/18 05:00 65 18 119/54 99 Mechanical Ventilator 40 04/23/18 04:00 98.8 58 18 102/51 99 Mechanical Ventilator 40 04/23/18 04:00 58 04/23/18 04:00 Mechanical Ventilator 04/23/18 04:00 40 04/23/18 03:13 77 18 40 04/23/18 03:00 70 18 106/58 99 Mechanical Ventilator 40 04/23/18 02:00 72 18 120/59 99 Mechanical Ventilator 40 04/23/18 01:24 60 18 40 04/23/18 01:00 68 18 112/70 99 Mechanical Ventilator 40 04/23/18 00:00 40 04/23/18 00:00 98.4 74 18 113/58 99 Mechanical Ventilator 40 04/23/18 00:00 74 04/23/18 00:00 Mechanical Ventilator 04/22/18 23:30 70 18 40 04/22/18 23:00 57 18 109/56 99 Mechanical Ventilator 40 04/22/18 22:00 64 18 109/55 99 Mechanical Ventilator 40 04/22/18 21:24 64 18 40 04/22/18 21:00 70 18 120/55 99 Mechanical Ventilator 40 04/22/18 20:00 40 04/22/18 20:00 73 04/22/18 20:00 73 19 123/56 99 Mechanical Ventilator 40 04/22/18 20:00 Mechanical Ventilator 04/22/18 19:55 80 18 40 04/22/18 19:00 75 18 117/71 100 Mechanical Ventilator 40 04/22/18 19:00 98.7 72 20 117/71 100 Mechanical Ventilator 40 04/22/18 18:00 67 18 116/57 98 Mechanical Ventilator 40 04/22/18 17:25 74 26 40 04/22/18 17:00 71 18 122/54 98 Mechanical Ventilator 40 04/22/18 16:00 73 18 110/57 98 Mechanical Ventilator 40 04/22/18 16:00 40 04/22/18 16:00 77 04/22/18 16:00 Mechanical Ventilator 04/22/18 15:31 73 22 40 04/22/18 15:26 74 29 40 04/22/18 15:00 72 25 118/60 99 Mechanical Ventilator 40 04/22/18 14:00 75 25 120/63 98 Mechanical Ventilator 40 04/22/18 13:10 82 26 40 04/22/18 12:30 117/58 04/22/18 12:00 75 04/22/18 12:00 98.6 79 29 124/61 100 Mechanical Ventilator 40 04/22/18 12:00 40 04/22/18 12:00 Mechanical Ventilator Intake and Output 04/22/18 04/23/18 19:00 07:00 Intake Total 1609.916 ml 1732.5 ml Output Total 1010 ml 580 ml Balance 599.916 ml 1152.5 ml Intake Free Water 60 ml 120 ml IV Total 949.916 ml 1012.5 ml Tube Feeding 600 ml 600 ml Output Urine Total 1010 ml 580 ml # Bowel Movements 100 Laboratory Tests Test 04/23/18 10:30 Arterial Blood pH 7.446 (7.350-7.450) Arterial Blood Partial Pressure CO2 43.0 mmHg (35.0-45.0) Arterial Blood Partial Pressure O2 131.6 mmHg (75.0-100.0) H Arterial Blood HCO3 28.9 mmol/L (22.0-26.0) H Arterial Blood Oxygen Saturation 98.1 % (95-100) Arterial Blood Base Excess 4.5 (-2-2) H Joesph Test Positive Objective HEAD AND NECK: No JVD.Orally intubated. OG tube is in LUNGS: Coarse rhonchi. CARDIOVASCULAR: Regular S1 and S2 with no gallop. ABDOMEN: Soft. EXTREMITIES: 1 plus pitting edema. Tono Crisostomo MD Apr 23, 2018 11:56
--- NOTE | 2018-04-23 12:00 | NUR ---
NURSE NOTES: Patient extubated and placed on nasal cannula at 4L/min, however patient has tachypnea and taking deep long breaths, so patient placed on Venti mask at 40%, will continue to monitor.
[2018-04-23] MEDS: DOPamine 400mg/250ml 250 ML IV SCH (12:30)
--- NOTE | 2018-04-23 12:45 | NUR ---
NURSE NOTES: Dr. Torres notified regarding patient remaining breathing with tachypneic and deep respirations, he ordered to have patient placed on BIPAP 12/5 at 40%, will place orders
--- NOTE | 2018-04-23 13:37 | Pulmonolgy Critical Care Note ---
Critical Care - Asmt/Plan Assessment/Plan: Pulmonary Progress Note REASON FOR CONSULTATION: Respiratory failure. Assessment/Plan IMPRESSION: Pneumonia, aspiration, probable sepsis, evidence of thrombocytopenia, severe protein-calorie malnutrition, elevated troponin, possible non-STEMI NV, evidence of anemia. acute respiratory failure, hypoxemia PLAN care noted IV antibiotics noted respiratory care and suction as needed monitor cultures for change Ventilatory support on AC supportive meds supportive care as outlined; close follow up recheck labs for change and optimize suction as needed unsuccessful wean on multiple attempts; continue to try anxiolytics if needed oxygen therapy and taper prognosis guarded nutrition tolerated trach vs terminal extubation discussed medications/laboratory data/nursing notes/ICU care reviewed in detail note reviewed and edited care discussed with RN and RT ICU time spent 40 minutes Critical Care - Subjective Interval Events: was on SIMV yesterday slightly more alert ROS Limited/Unobtainable: Yes Condition: critical EKG Rhythm: Sinus Rhythm Residuals: minimal Tube Feeding Tolerated: yes Critical Care - Objective ET-Tube: 8.0 ET Position: 18 Vital Signs Noted Labs Test 04/19/18 12:00 04/20/18 04:42 04/21/18 12:00 04/21/18 13:30 White Blood Count 11.7 K/UL (4.8-10.8) 10.2 K/UL (4.8-10.8) Red Blood Count 3.03 M/UL (4.70-6.10) 2.39 M/UL (4.70-6.10) Hemoglobin 9.8 G/DL (14.2-18.0) 7.7 G/DL (14.2-18.0) Hematocrit 29.2 % (42.0-52.0) 23.3 % (42.0-52.0) Mean Corpuscular Volume 96 FL (80-99) 97 FL (80-99) Mean Corpuscular Hemoglobin 32.4 PG (27.0-31.0) 32.2 PG (27.0-31.0) Mean Corpuscular Hemoglobin Concent 33.7 G/DL (32.0-36.0) 33.0 G/DL (32.0-36.0) Red Cell Distribution Width 12.4 % (11.6-14.8) 11.3 % (11.6-14.8) Platelet Count 115 K/UL (150-450) 197 K/UL (150-450) Mean Platelet Volume 9.9 FL (6.5-10.1) 9.0 FL (6.5-10.1) Neutrophils (%) (Auto) % (45.0-75.0) % (45.0-75.0) Lymphocytes (%) (Auto) % (20.0-45.0) % (20.0-45.0) Monocytes (%) (Auto) % (1.0-10.0) % (1.0-10.0) Eosinophils (%) (Auto) % (0.0-3.0) % (0.0-3.0) Basophils (%) (Auto) % (0.0-2.0) % (0.0-2.0) Differential Total Cells Counted 100 100 Neutrophils % (Manual) 66 % (45-75) 89 % (45-75) Lymphocytes % (Manual) 3 % (20-45) 4 % (20-45) Monocytes % (Manual) 0 % (1-10) 5 % (1-10) Eosinophils % (Manual) 0 % (0-3) 2 % (0-3) Basophils % (Manual) 0 % (0-2) 0 % (0-2) Myelocytes % 1 % (0-0) Band Neutrophils 30 % (0-8) 0 % (0-8) Nucleated Red Blood Cells 1 /100 WBC Platelet Estimate Decreased Adequate Platelet Morphology Normal Normal Red Blood Cell Morphology Normal Sodium Level 141 MMOL/L (136-145) 133 MMOL/L (136-145) 132 MMOL/L (136-145) Potassium Level 3.1 MMOL/L (3.5-5.1) 4.5 MMOL/L (3.5-5.1) 4.2 MMOL/L (3.5-5.1) Chloride Level 113 MMOL/L (98-107) 99 MMOL/L (98-107) 100 MMOL/L (98-107) Carbon Dioxide Level 18 MMOL/L (21-32) 30 MMOL/L (21-32) 29 MMOL/L (21-32) Anion Gap 10 mmol/L (5-15) 4 mmol/L (5-15) 3 mmol/L (5-15) Blood Urea Nitrogen 39 mg/dL (7-18) 28 mg/dL (7-18) 29 mg/dL (7-18) Creatinine 1.0 MG/DL (0.55-1.30) 0.6 MG/DL (0.55-1.30) 0.7 MG/DL (0.55-1.30) Estimat Glomerular Filtration Rate > 60 mL/min (>60) > 60 mL/min (>60) > 60 mL/min (>60) Glucose Level 166 MG/DL (74-106) 108 MG/DL (74-106) 106 MG/DL (74-106) Calcium Level 7.1 MG/DL (8.5-10.1) 7.6 MG/DL (8.5-10.1) 7.5 MG/DL (8.5-10.1) Magnesium Level 1.7 MG/DL (1.8-2.4) Troponin I 0.029 ng/mL (0.000-0.056) Thyroid Stimulating Hormone (TSH) 5.635 uiU/mL (0.358-3.740) Free Thyroxine 1.03 NG/DL (0.76-1.46) Hypochromasia 1+ Macrocytosis 1+ Total Bilirubin 0.4 MG/DL (0.2-1.0) Aspartate Amino Transf (AST/SGOT) 43 U/L (15-37) Alanine Aminotransferase (ALT/SGPT) 25 U/L (12-78) Alkaline Phosphatase 50 U/L (46-116) Total Protein 4.5 G/DL (6.4-8.2) Albumin 1.3 G/DL (3.4-5.0) Globulin 3.2 g/dL Albumin/Globulin Ratio 0.4 (1.0-2.7) Vancomycin Level Trough 15.3 ug/mL (5.0-12.0) Objective: GENERAL: An ill-appearing male of short stature. reduced LOC, slightly more responsive HEENT: Negative. NECK: Supple. The patient remains orally intubated. LUNGS: reduced breath sounds. Rhonchi noted bilaterally. no wheeze at present CARDIAC: S1 and S2. Regular rate and rhythm without murmurs, rubs, gallops. ABDOMEN: Soft, nontender, nondistended. feeding tube in place . EXTREMITIES: No cyanosis, clubbing, or edema. NEUROLOGIC: The patient with significant muscular atrophy, sedated reviewed and examined Critical Care - Objective Last 24 Hour Vital Signs Date Time Temp Pulse Resp B/P (MAP) Pulse Ox O2 Delivery O2 Flow Rate FiO2 04/23/18 12:30 132/97 04/23/18 12:00 76 04/23/18 12:00 98.2 97 27 132/97 97 Venturi Mask 40 04/23/18 12:00 40 04/23/18 11:09 70 25 40 04/23/18 11:00 75 25 138/80 99 Mechanical Ventilator 40 04/23/18 10:00 73 23 137/66 99 Mechanical Ventilator 40 04/23/18 09:28 100 04/23/18 09:26 70 25 40 04/23/18 09:00 75 22 130/58 98 Mechanical Ventilator 40 04/23/18 08:18 78 26 40 04/23/18 08:00 40 04/23/18 08:00 77 04/23/18 08:00 98.2 71 20 138/78 97 Mechanical Ventilator 40 04/23/18 07:29 79 25 40 04/23/18 07:00 56 18 114/48 98 Mechanical Ventilator 40 04/23/18 06:00 63 18 115/57 98 Mechanical Ventilator 40 04/23/18 05:30 54 18 40 04/23/18 05:00 65 18 119/54 99 Mechanical Ventilator 40 04/23/18 04:00 98.8 58 18 102/51 99 Mechanical Ventilator 40 04/23/18 04:00 58 04/23/18 04:00 Mechanical Ventilator 04/23/18 04:00 40 04/23/18 03:13 77 18 40 04/23/18 03:00 70 18 106/58 99 Mechanical Ventilator 40 04/23/18 02:00 72 18 120/59 99 Mechanical Ventilator 40 04/23/18 01:24 60 18 40 04/23/18 01:00 68 18 112/70 99 Mechanical Ventilator 40 04/23/18 00:00 40 04/23/18 00:00 98.4 74 18 113/58 99 Mechanical Ventilator 40 04/23/18 00:00 74 04/23/18 00:00 Mechanical Ventilator 04/22/18 23:30 70 18 40 04/22/18 23:00 57 18 109/56 99 Mechanical Ventilator 40 04/22/18 22:00 64 18 109/55 99 Mechanical Ventilator 40 04/22/18 21:24 64 18 40 04/22/18 21:00 70 18 120/55 99 Mechanical Ventilator 40 04/22/18 20:00 40 04/22/18 20:00 73 04/22/18 20:00 73 19 123/56 99 Mechanical Ventilator 40 04/22/18 20:00 Mechanical Ventilator 04/22/18 19:55 80 18 40 04/22/18 19:00 75 18 117/71 100 Mechanical Ventilator 40 04/22/18 19:00 98.7 72 20 117/71 100 Mechanical Ventilator 40 04/22/18 18:00 67 18 116/57 98 Mechanical Ventilator 40 04/22/18 17:25 74 26 40 04/22/18 17:00 71 18 122/54 98 Mechanical Ventilator 40 04/22/18 16:00 73 18 110/57 98 Mechanical Ventilator 40 04/22/18 16:00 40 04/22/18 16:00 77 04/22/18 16:00 Mechanical Ventilator 04/22/18 15:31 73 22 40 04/22/18 15:26 74 29 40 04/22/18 15:00 72 25 118/60 99 Mechanical Ventilator 40 04/22/18 14:00 75 25 120/63 98 Mechanical Ventilator 40 Critical Care - Subjective ROS Limited/Unobtainable: Yes Condition: stable FI02: 40 Vent Support Breath Rate: 18 Vent Support Mode: CPAP Vent Tidal Volume: 450 Sputum Amount: Moderate PEEP: 5.0 PIP: 24 Tube Feeding Amount: 50 I&O: Intake and Output 04/22/18 04/23/18 19:00 07:00 Intake Total 1609.916 ml 1732.5 ml Output Total 1010 ml 580 ml Balance 599.916 ml 1152.5 ml Intake Free Water 60 ml 120 ml IV Total 949.916 ml 1012.5 ml Tube Feeding 600 ml 600 ml Output Urine Total 1010 ml 580 ml # Bowel Movements 100 ET-Tube: 8.0 ET Position: 18 Wally Smith MD Apr 23, 2018 13:37
--- NOTE | 2018-04-23 13:45 | NUR ---
NURSE NOTES: Patient placed on Bipap at 12/5 at 50% and started to have RR of 14-18, deep breathing and tachypnea noted to be resolved, remains with OG-tube for medication and feeding, will continue plan of care.
--- NOTE | 2018-04-23 18:12 | Cardiology Progress Note ---
Assessment/Plan Assessment/Plan extubated hemodynamically stable, no changes from cardiac standpoint Subjective Subjective the patient was extubated this morning, he is unresponsive, and is breathing via Bipap, Objective Last 24 Hour Vital Signs Date Time Temp Pulse Resp B/P (MAP) Pulse Ox O2 Delivery O2 Flow Rate FiO2 04/23/18 17:00 97.8 74 25 156/84 96 Bi-pap 40 04/23/18 16:45 74 24 100 Full Face 40 04/23/18 16:00 81 04/23/18 16:00 40 04/23/18 16:00 82 24 146/72 100 Bi-pap 40 04/23/18 15:07 85 28 97 Full Face 40 04/23/18 15:00 87 21 132/93 100 Bi-pap 40 04/23/18 14:00 86 26 100 Full Face 50 04/23/18 14:00 76 14 135/68 100 Bi-pap 50 04/23/18 13:00 97 27 141/119 95 Venturi Mask 40 04/23/18 12:30 132/97 04/23/18 12:20 96 Venturi Mask 8.0 40 04/23/18 12:05 Venturi Mask 8.0 40 04/23/18 12:00 Venturi Mask 8.0 40 04/23/18 12:00 Venturi Mask 04/23/18 12:00 76 04/23/18 12:00 98.2 97 27 132/97 97 Venturi Mask 40 04/23/18 12:00 40 04/23/18 11:09 70 25 40 04/23/18 11:00 75 25 138/80 99 Mechanical Ventilator 40 04/23/18 10:00 73 23 137/66 99 Mechanical Ventilator 40 04/23/18 09:28 100 04/23/18 09:26 70 25 40 04/23/18 09:00 75 22 130/58 98 Mechanical Ventilator 40 04/23/18 08:18 78 26 40 04/23/18 08:00 40 04/23/18 08:00 77 04/23/18 08:00 Mechanical Ventilator 04/23/18 08:00 98.2 71 20 138/78 97 Mechanical Ventilator 40 04/23/18 07:29 79 25 40 04/23/18 07:00 56 18 114/48 98 Mechanical Ventilator 40 04/23/18 06:00 63 18 115/57 98 Mechanical Ventilator 40 04/23/18 05:30 54 18 40 04/23/18 05:00 65 18 119/54 99 Mechanical Ventilator 40 04/23/18 04:00 98.8 58 18 102/51 99 Mechanical Ventilator 40 04/23/18 04:00 58 04/23/18 04:00 Mechanical Ventilator 04/23/18 04:00 40 04/23/18 03:13 77 18 40 04/23/18 03:00 70 18 106/58 99 Mechanical Ventilator 40 04/23/18 02:00 72 18 120/59 99 Mechanical Ventilator 40 04/23/18 01:24 60 18 40 04/23/18 01:00 68 18 112/70 99 Mechanical Ventilator 40 04/23/18 00:00 40 04/23/18 00:00 98.4 74 18 113/58 99 Mechanical Ventilator 40 04/23/18 00:00 74 04/23/18 00:00 Mechanical Ventilator 04/22/18 23:30 70 18 40 04/22/18 23:00 57 18 109/56 99 Mechanical Ventilator 40 04/22/18 22:00 64 18 109/55 99 Mechanical Ventilator 40 04/22/18 21:24 64 18 40 04/22/18 21:00 70 18 120/55 99 Mechanical Ventilator 40 04/22/18 20:00 40 04/22/18 20:00 73 04/22/18 20:00 73 19 123/56 99 Mechanical Ventilator 40 04/22/18 20:00 Mechanical Ventilator 04/22/18 19:55 80 18 40 04/22/18 19:00 75 18 117/71 100 Mechanical Ventilator 40 04/22/18 19:00 98.7 72 20 117/71 100 Mechanical Ventilator 40 General Appearance: lethargic EENT: other - eyes closed Neck: no JVD Rhythm: NSR Cardiovascular: normal rate Respiratory/Chest: crackles/rales Abdomen: non tender Extremities: moderate edema - arms more than legs Neurologic: unresponsiveness Intake and Output 04/22/18 04/23/18 19:00 07:00 Intake Total 1609.916 ml 1732.5 ml Output Total 1010 ml 580 ml Balance 599.916 ml 1152.5 ml Intake Free Water 60 ml 120 ml IV Total 949.916 ml 1012.5 ml Tube Feeding 600 ml 600 ml Output Urine Total 1010 ml 580 ml # Bowel Movements 100 Laboratory Tests Test 04/23/18 10:30 Arterial Blood pH 7.446 (7.350-7.450) Arterial Blood Partial Pressure CO2 43.0 mmHg (35.0-45.0) Arterial Blood Partial Pressure O2 131.6 mmHg (75.0-100.0) H Arterial Blood HCO3 28.9 mmol/L (22.0-26.0) H Arterial Blood Oxygen Saturation 98.1 % (95-100) Arterial Blood Base Excess 4.5 (-2-2) H Joesph Test Positive Sharmaine Crowder MD Apr 23, 2018 18:12
--- NOTE | 2018-04-23 19:06 | NUR ---
HAND-OFF: Report given to GEGE Servin.
--- NOTE | 2018-04-23 19:30 | NUR ---
NURSE NOTES: Received pt in no acute distress. Asleep but opens eyes to name; non verbal, No respiratory distress but pt on the Bipap at 12/5;fiO2.40; saturating 98-100%. chest sounds diminished at bases. OGT in situ with TF of Vital AF infusing at 50ml/h with 20ml residual. Abd soft; rectal tube in place draining dark brown-greenish liquid stools. NSR on the scope; afebrile; BP stable. Left femoral TLC intact; IVF of 1/2NS with 20meqKCL infusing at 50ml/h. Scrotum and penis swollen; kept elevated on a rolled towel. Will continue to monitor.
[2018-04-23] MEDS: Dyna-Hex 2% Top Sol 2oz TOPIC SCH (20:36)
--- NOTE | 2018-04-23 22:00 | NUR ---
NURSE NOTES: Calm, asleep, bibap continues at .40 fiO2, sats 100%. no seizures noted.
[2018-04-24] VITALS (24 sets, daily range): BP systolic 123–180; BP diastolic 49–158
--- NOTE | 2018-04-24 | NUR ---
NURSE NOTES: Calm, asleep; VSS, no distress. Bipap continues, No Obvious signs of respiratory distress. HOB elevated; afebrile
--- NOTE | 2018-04-24 02:00 | NUR ---
NURSE NOTES: Status quo;Will continue to monitor
--- NOTE | 2018-04-24 02:00 | NUR ---
NURSE NOTES: Status quo. No distress, no seizures, Sleeping.
[2018-04-24] MEDS: Vancomycin 1 GM in D5W 275 ML IVPB SCH ×2 (02:40→14:22)
--- NOTE | 2018-04-24 04:00 | NUR ---
NURSE NOTES: Completed bath. Scrotal area edematous; elevated on rolled towel. Perianal area applied with calazime. left upper back dressing dry and intact. Irrigated Rectal tube and sample sent for C diff. RT suctioned via NT and obtained blood tinged secretions.
[2018-04-24 05:27] LABS: HEMATOCRIT 27.9 % (42.0-52.0); HEMOGLOBIN 9.1 G/DL (14.2-18.0); MEAN CORPUSCULAR VOLUME 100 FL (80-99); PLATELET COUNT 266 K/UL (150-450); RED CELL DISTRIBUTION WIDTH 11.9 % (11.6-14.8); WHITE BLOOD COUNT 13.4 K/UL (4.8-10.8)
[2018-04-24 05:41] LABS: ANION GAP 5 mmol/L (5-15); BLOOD UREA NITROGEN 19 mg/dL (7-18); CALCIUM 7.6 MG/DL (8.5-10.1); CARBON DIOXIDE 30 MMOL/L (21-32); CHLORIDE 103 MMOL/L (98-107); CREATININE 0.7 MG/DL (0.55-1.30); POTASSIUM 4.4 MMOL/L (3.5-5.1); SODIUM 138 MMOL/L (136-145)
--- NOTE | 2018-04-24 06:00 | NUR ---
NURSE NOTES: Tachypneic to 32bpm; O2 sats down to 84. Continues on the Bipap. Called RT to intervene. Increased fiO2 to 100% and resuctioned via NT. Will monitor.
[2018-04-24] MEDS: Piperacillin/Tazobactam 3.375 GM in NS 110 ML IVPB SCH ×3 (06:07→21:51)
--- NOTE | 2018-04-24 06:43 | NUR ---
NURSE NOTES: RR 22-24; O2 sats up to 99%. Pt calm. fiO2 titrated down to 80%.
--- NOTE | 2018-04-24 07:18 | NUR ---
HAND-OFF: Report given to Haja Knowles RN.
--- NOTE | 2018-04-24 08:00 | NUR ---
NURSE NOTES: Received patient opens eyes. Does not follow command. clock repairer showing SR. Patient currently on bipap 12/5 FiO2 80%. Patient was extubated yesterday. RR 24 Saturation 98%. Lung sounds diminished bilaterally, labored breathing noted, RT at bedside. Patient getting Vital AF at 50 cc/hr via OGT. No residual noted. Hyperactive bowel sounds on all 4 quadrants. Round, soft, non-tender abdomen. Swollen scrotum, sacral redness, R thigh DTI see WCP. L fem TLC and R hand 22. 1/2 NS with 20 KCL at 50 cc/hr via central line. No new orders at this time. Will continue plan of care.
--- NOTE | 2018-04-24 08:23 | Critical Care Progress Note ---
Assessment/Plan Assessment/Plan IMPRESSION: Pneumonia, aspiration, probable sepsis, evidence of thrombocytopenia, severe protein-calorie malnutrition, elevated troponin, possible non-STEMI GA, evidence of anemia. acute respiratory failure, hypoxemia PLAN care noted IV antibiotics noted respiratory care and suction as needed monitor cultures for change BIPAP management and monitor ABG supportive meds supportive care as outlined; close follow up recheck labs for change and optimize suction as needed oxygen therapy and taper prognosis guarded nutrition tolerated hope to avoid reintubation medications/laboratory data/nursing notes/ICU care reviewed in detail note reviewed and edited care discussed with RN and RT ICU time spent 40 minutes Critical Care - Subjective Interval Events: Remains on BiPAP Still altered Oxygenation noted and adequate Call ICU care reviewed ROS Limited/Unobtainable: Yes Condition: critical EKG Rhythm: Sinus Rhythm Residuals: minimal Tube Feeding Tolerated: yes I&O: Intake and Output 04/23/18 04/24/18 18:59 06:59 Intake Total 1707.5 ml 1705.0 ml Output Total 1120 ml 770 ml Balance 587.5 ml 935.0 ml Intake Free Water 120 ml 120 ml IV Total 957.5 ml 985.0 ml Tube Feeding 600 ml 600 ml Other 30 ml Output Urine Total 945 ml 670 ml Stool Total 175 ml 100 ml Critical Care - Objective ET-Tube: 8.0 ET Position: 18 Last 24 Hour Vital Signs Date Time Temp Pulse Resp B/P (MAP) Pulse Ox O2 Delivery O2 Flow Rate FiO2 04/24/18 07:43 96 Bi-pap 80 04/24/18 07:43 Bi-pap 04/24/18 07:06 81 24 99 Full Face 80 04/24/18 07:00 88 25 160/75 98 Bi-pap 100 04/24/18 06:00 89 24 175/83 98 Bi-pap 100 04/24/18 05:01 89 23 99 Full Face 40 04/24/18 05:00 80 27 177/158 Bi-pap 40 04/24/18 04:00 98.0 74 24 164/90 100 Bi-pap 40 04/24/18 04:00 Bi-pap 04/24/18 04:00 40 04/24/18 04:00 75 04/24/18 03:00 77 25 167/82 100 Bi-pap 40 04/24/18 02:45 67 20 99 Full Face 40 04/24/18 02:00 69 19 161/103 100 Bi-pap 40 04/24/18 01:12 72 24 99 Full Face 40 04/24/18 01:00 76 24 153/83 100 Bi-pap 40 04/24/18 00:00 Bi-pap 04/24/18 00:00 98.0 72 22 148/80 100 Bi-pap 40 04/24/18 00:00 40 04/24/18 00:00 76 04/23/18 23:23 70 18 100 Full Face 40 04/23/18 23:00 83 25 162/68 97 Bi-pap 40 04/23/18 22:00 89 25 181/77 98 Bi-pap 40 04/23/18 21:24 75 19 100 Full Face 40 04/23/18 21:00 75 23 155/67 99 Bi-pap 40 04/23/18 20:00 40 04/23/18 20:00 Bi-pap 04/23/18 20:00 98.0 76 24 144/69 Bi-pap 40 04/23/18 20:00 79 04/23/18 19:23 75 23 100 Facial 40 04/23/18 19:22 Bi-pap 40 04/23/18 19:22 100 Bi-pap 40 04/23/18 19:00 74 24 154/75 Bi-pap 40 04/23/18 18:00 77 26 147/68 96 Bi-pap 40 04/23/18 17:00 97.8 74 25 156/84 96 Bi-pap 40 04/23/18 16:45 74 24 100 Full Face 40 04/23/18 16:00 81 04/23/18 16:00 Venturi Mask 04/23/18 16:00 40 04/23/18 16:00 82 24 146/72 100 Bi-pap 40 04/23/18 15:07 85 28 97 Full Face 40 04/23/18 15:00 87 21 132/93 100 Bi-pap 40 04/23/18 14:00 86 26 100 Full Face 50 04/23/18 14:00 76 14 135/68 100 Bi-pap 50 04/23/18 13:00 97 27 141/119 95 Venturi Mask 40 04/23/18 12:30 132/97 04/23/18 12:20 96 Venturi Mask 8.0 40 04/23/18 12:05 Venturi Mask 8.0 40 04/23/18 12:00 Venturi Mask 8.0 40 04/23/18 12:00 Venturi Mask 04/23/18 12:00 76 04/23/18 12:00 98.2 97 27 132/97 97 Venturi Mask 40 04/23/18 12:00 40 04/23/18 11:09 70 25 40 04/23/18 11:00 75 25 138/80 99 Mechanical Ventilator 40 04/23/18 10:00 73 23 137/66 99 Mechanical Ventilator 40 04/23/18 09:28 100 04/23/18 09:26 70 25 40 04/23/18 09:00 75 22 130/58 98 Mechanical Ventilator 40 Labs: Labs Test 04/21/18 12:00 04/21/18 13:30 04/23/18 10:30 04/24/18 04:35 White Blood Count 10.2 K/UL (4.8-10.8) 13.4 K/UL (4.8-10.8) Red Blood Count 2.39 M/UL (4.70-6.10) 2.80 M/UL (4.70-6.10) Hemoglobin 7.7 G/DL (14.2-18.0) 9.1 G/DL (14.2-18.0) Hematocrit 23.3 % (42.0-52.0) 27.9 % (42.0-52.0) Mean Corpuscular Volume 97 FL (80-99) 100 FL (80-99) Mean Corpuscular Hemoglobin 32.2 PG (27.0-31.0) 32.3 PG (27.0-31.0) Mean Corpuscular Hemoglobin Concent 33.0 G/DL (32.0-36.0) 32.4 G/DL (32.0-36.0) Red Cell Distribution Width 11.3 % (11.6-14.8) 11.9 % (11.6-14.8) Platelet Count 197 K/UL (150-450) 266 K/UL (150-450) Mean Platelet Volume 9.0 FL (6.5-10.1) 8.3 FL (6.5-10.1) Neutrophils (%) (Auto) % (45.0-75.0) % (45.0-75.0) Lymphocytes (%) (Auto) % (20.0-45.0) % (20.0-45.0) Monocytes (%) (Auto) % (1.0-10.0) % (1.0-10.0) Eosinophils (%) (Auto) % (0.0-3.0) % (0.0-3.0) Basophils (%) (Auto) % (0.0-2.0) % (0.0-2.0) Differential Total Cells Counted 100 100 Neutrophils % (Manual) 89 % (45-75) 94 % (45-75) Lymphocytes % (Manual) 4 % (20-45) 2 % (20-45) Monocytes % (Manual) 5 % (1-10) 2 % (1-10) Eosinophils % (Manual) 2 % (0-3) 1 % (0-3) Basophils % (Manual) 0 % (0-2) 1 % (0-2) Band Neutrophils 0 % (0-8) 0 % (0-8) Platelet Estimate Adequate Adequate Platelet Morphology Normal Normal Hypochromasia 1+ 2+ Macrocytosis 1+ Sodium Level 132 MMOL/L (136-145) 138 MMOL/L (136-145) Potassium Level 4.2 MMOL/L (3.5-5.1) 4.4 MMOL/L (3.5-5.1) Chloride Level 100 MMOL/L (98-107) 103 MMOL/L (98-107) Carbon Dioxide Level 29 MMOL/L (21-32) 30 MMOL/L (21-32) Anion Gap 3 mmol/L (5-15) 5 mmol/L (5-15) Blood Urea Nitrogen 29 mg/dL (7-18) 19 mg/dL (7-18) Creatinine 0.7 MG/DL (0.55-1.30) 0.7 MG/DL (0.55-1.30) Estimat Glomerular Filtration Rate > 60 mL/min (>60) > 60 mL/min (>60) Glucose Level 106 MG/DL (74-106) 136 MG/DL (74-106) Calcium Level 7.5 MG/DL (8.5-10.1) 7.6 MG/DL (8.5-10.1) Total Bilirubin 0.4 MG/DL (0.2-1.0) Aspartate Amino Transf (AST/SGOT) 43 U/L (15-37) Alanine Aminotransferase (ALT/SGPT) 25 U/L (12-78) Alkaline Phosphatase 50 U/L (46-116) Total Protein 4.5 G/DL (6.4-8.2) Albumin 1.3 G/DL (3.4-5.0) Globulin 3.2 g/dL Albumin/Globulin Ratio 0.4 (1.0-2.7) Vancomycin Level Trough 15.3 ug/mL (5.0-12.0) Arterial Blood pH 7.446 (7.350-7.450) Arterial Blood Partial Pressure CO2 43.0 mmHg (35.0-45.0) Arterial Blood Partial Pressure O2 131.6 mmHg (75.0-100.0) Arterial Blood HCO3 28.9 mmol/L (22.0-26.0) Arterial Blood Oxygen Saturation 98.1 % (95-100) Arterial Blood Base Excess 4.5 (-2-2) Joesph Test Positive Anisocytosis 1+ Objective: GENERAL: An ill-appearing male of short stature. reduced LOC, HEENT: Negative. NECK: Supple. The patient remains on BIPAP LUNGS: reduced breath sounds. Rhonchi noted bilaterally and scattered. no wheeze at present CARDIAC: S1 and S2. Regular rate and rhythm without murmurs, rubs, gallops. ABDOMEN: Soft, nontender, nondistended. feeding tube in place . EXTREMITIES: No cyanosis, clubbing, or edema. NEUROLOGIC: The patient with significant muscular atrophy, sedated reviewed and examined Brian Torres MD Apr 24, 2018 08:23
[2018-04-24] MEDS: Pantoprazole Inj IVP SCH (08:53)
[2018-04-24] MEDS: Heparin 5000 units/ml inj SUBQ SCH ×2 (08:53→20:44)
--- NOTE | 2018-04-24 10:00 | NUR ---
NURSE NOTES: Patient turned and repositioned. No new orders at this time. VSS. No distress noted. Will continue plan of care.
--- NOTE | 2018-04-24 10:19 | NUR ---
Social Service Note SW left a second message for Jacqueline service provider at the [facility] [phone] Mcgrath [phone] of the [facility] regarding patient's sister's involvement. No return call at this time. Will follow up.
[2018-04-24] MEDS: DOPamine 400mg/250ml 250 ML IV SCH (12:00)
--- NOTE | 2018-04-24 12:00 | NUR ---
NURSE NOTES: Patient turned and repositioned. No new orders will continue to monitor patient.
--- NOTE | 2018-04-24 12:05 | NUR ---
Social Service Note CHRISTY spoke with Jacqueline at the [facility] [phone]. Per Jacqueline the [facility], they support the decision that sister Selena Foley is the surrogate decision maker and has the ability to make medical decisions and provide consents for patient. CHRISTY spoke with sister [phone] who would want patient to continue with medical treatment however is requesting DNR/DNI with artificial feedings if needed. CHRISTY left a message for Dr. Urena. Will monitor and follow up.
--- NOTE | 2018-04-24 14:00 | NUR ---
NURSE NOTES: Vital signs stable. No distress noted. Will continue plan of care.
--- NOTE | 2018-04-24 14:46 | Cardiac Electrophysiology PN ---
Assessment/Plan Assessment/Plan 1. Bradycardic episodes with heart rate dropping to 40s, but was transient. HR improved. Off any sinus aftab or AV aftab blocking agents. TSH is high but T4 normal 2. Type 2 myocardial infarction. 3. Respiratory failure, off the ventilator.On BIPAP 4. Mental retardation. 5. Sepsis, on broad-spectrum IV antibiotics. 6. Dysphagia. OGT feeding. [address] [facility] PILOT Subjective Subjective In SR. HR improved in 80s on BIPAP. Objective Last 24 Hour Vital Signs Date Time Temp Pulse Resp B/P (MAP) Pulse Ox O2 Delivery O2 Flow Rate FiO2 04/24/18 14:00 82 22 170/75 98 Bi-pap 80 04/24/18 13:00 80 22 166/70 98 Bi-pap 80 04/24/18 12:46 92 27 98 Full Face 80 04/24/18 12:00 144/80 04/24/18 12:00 80 04/24/18 12:00 91 04/24/18 12:00 Bi-pap 04/24/18 12:00 98.4 85 24 150/60 98 Bi-pap 80 04/24/18 11:17 95 31 98 Full Face 80 04/24/18 11:00 84 24 154/62 98 Bi-pap 80 04/24/18 10:00 80 25 140/65 98 Bi-pap 80 04/24/18 10:00 84 24 154/62 98 Bi-pap 80 04/24/18 09:05 84 22 97 Full Face 80 04/24/18 09:00 84 25 144/70 98 Bi-pap 100 04/24/18 08:58 174/89 04/24/18 08:00 86 04/24/18 08:00 80 04/24/18 08:00 Bi-pap 04/24/18 08:00 98.0 85 26 174/89 98 Bi-pap 100 04/24/18 07:43 96 Bi-pap 80 04/24/18 07:43 Bi-pap 04/24/18 07:06 81 24 99 Full Face 80 04/24/18 07:00 88 25 160/75 98 Bi-pap 100 04/24/18 06:00 89 24 175/83 98 Bi-pap 100 04/24/18 05:01 89 23 99 Full Face 40 04/24/18 05:00 80 27 177/158 Bi-pap 40 04/24/18 04:00 98.0 74 24 164/90 100 Bi-pap 40 04/24/18 04:00 Bi-pap 04/24/18 04:00 40 04/24/18 04:00 75 04/24/18 03:00 77 25 167/82 100 Bi-pap 40 04/24/18 02:45 67 20 99 Full Face 40 04/24/18 02:00 69 19 161/103 100 Bi-pap 40 04/24/18 01:12 72 24 99 Full Face 40 04/24/18 01:00 76 24 153/83 100 Bi-pap 40 04/24/18 00:00 Bi-pap 04/24/18 00:00 98.0 72 22 148/80 100 Bi-pap 40 04/24/18 00:00 40 04/24/18 00:00 76 04/23/18 23:23 70 18 100 Full Face 40 04/23/18 23:00 83 25 162/68 97 Bi-pap 40 04/23/18 22:00 89 25 181/77 98 Bi-pap 40 04/23/18 21:24 75 19 100 Full Face 40 04/23/18 21:00 75 23 155/67 99 Bi-pap 40 04/23/18 20:00 40 04/23/18 20:00 Bi-pap 04/23/18 20:00 98.0 76 24 144/69 Bi-pap 40 04/23/18 20:00 79 04/23/18 19:23 75 23 100 Facial 40 04/23/18 19:22 Bi-pap 40 04/23/18 19:22 100 Bi-pap 40 04/23/18 19:00 74 24 154/75 Bi-pap 40 04/23/18 18:00 77 26 147/68 96 Bi-pap 40 04/23/18 17:00 97.8 74 25 156/84 96 Bi-pap 40 04/23/18 16:45 74 24 100 Full Face 40 04/23/18 16:00 81 04/23/18 16:00 Venturi Mask 04/23/18 16:00 40 04/23/18 16:00 82 24 146/72 100 Bi-pap 40 04/23/18 15:07 85 28 97 Full Face 40 04/23/18 15:00 87 21 132/93 100 Bi-pap 40 Intake and Output 04/23/18 04/24/18 19:00 07:00 Intake Total 1707.5 ml 1655.0 ml Output Total 1100 ml 770 ml Balance 607.5 ml 885.0 ml Intake Free Water 120 ml 120 ml IV Total 957.5 ml 935.0 ml Tube Feeding 600 ml 600 ml Other 30 ml Output Urine Total 925 ml 670 ml Stool Total 175 ml 100 ml Laboratory Tests Test 04/24/18 04:35 White Blood Count 13.4 K/UL (4.8-10.8) H Red Blood Count 2.80 M/UL (4.70-6.10) L Hemoglobin 9.1 G/DL (14.2-18.0) L Hematocrit 27.9 % (42.0-52.0) L Mean Corpuscular Volume 100 FL (80-99) H Mean Corpuscular Hemoglobin 32.3 PG (27.0-31.0) H Mean Corpuscular Hemoglobin Concent 32.4 G/DL (32.0-36.0) Red Cell Distribution Width 11.9 % (11.6-14.8) Platelet Count 266 K/UL (150-450) Mean Platelet Volume 8.3 FL (6.5-10.1) Neutrophils (%) (Auto) % (45.0-75.0) Lymphocytes (%) (Auto) % (20.0-45.0) Monocytes (%) (Auto) % (1.0-10.0) Eosinophils (%) (Auto) % (0.0-3.0) Basophils (%) (Auto) % (0.0-2.0) Differential Total Cells Counted 100 Neutrophils % (Manual) 94 % (45-75) H Lymphocytes % (Manual) 2 % (20-45) L Monocytes % (Manual) 2 % (1-10) Eosinophils % (Manual) 1 % (0-3) Basophils % (Manual) 1 % (0-2) Band Neutrophils 0 % (0-8) Platelet Estimate Adequate Platelet Morphology Normal Hypochromasia 2+ Anisocytosis 1+ Sodium Level 138 MMOL/L (136-145) Potassium Level 4.4 MMOL/L (3.5-5.1) Chloride Level 103 MMOL/L (98-107) Carbon Dioxide Level 30 MMOL/L (21-32) Anion Gap 5 mmol/L (5-15) Blood Urea Nitrogen 19 mg/dL (7-18) H Creatinine 0.7 MG/DL (0.55-1.30) Estimat Glomerular Filtration Rate > 60 mL/min (>60) Glucose Level 136 MG/DL (74-106) H Calcium Level 7.6 MG/DL (8.5-10.1) L Microbiology Date/Time Source Procedure Growth Status 04/24/18 05:00 Stool Clostridium difficile Toxin Assay - Final Complete Objective HEAD AND NECK: No JVD. On BIPAP. OG tube is in LUNGS: Coarse rhonchi. CARDIOVASCULAR: Regular S1 and S2 with no gallop. ABDOMEN: Soft. EXTREMITIES: 1 plus pitting edema. Tono Crisostomo MD Apr 24, 2018 14:46
--- NOTE | 2018-04-24 16:00 | NUR ---
NURSE NOTES: Patient turned and repositioned. Transfer order obtained from Dr. Staples. Doctor spoke to power of director quality systems which is the sister. Patient is now DNR/DNI. Care plan updated. Will continue to monitor patient.
--- NOTE | 2018-04-24 16:18 | General Progress Note ---
Assessment/Plan Assessment/Plan Acute Resp Failure - improving. [facility] called me. They know pt's Sister and OK to transfer DPOA to her. OK from now on. Acknowledged. Subjective Allergies: Coded Allergies: No Known Allergies (Unverified , 04/11/18) Subjective Extubated. On Bipap. Objective Last 24 Hour Vital Signs Date Time Temp Pulse Resp B/P (MAP) Pulse Ox O2 Delivery O2 Flow Rate FiO2 04/24/18 16:00 183/103 04/24/18 15:06 93 22 98 Full Face 70 04/24/18 15:00 84 20 180/95 98 Bi-pap 80 04/24/18 14:00 82 22 170/75 98 Bi-pap 80 04/24/18 13:00 80 22 166/70 98 Bi-pap 80 04/24/18 12:46 92 27 98 Full Face 80 04/24/18 12:00 144/80 04/24/18 12:00 80 04/24/18 12:00 91 04/24/18 12:00 Bi-pap 04/24/18 12:00 98.4 85 24 150/60 98 Bi-pap 80 04/24/18 11:17 95 31 98 Full Face 80 04/24/18 11:00 84 24 154/62 98 Bi-pap 80 04/24/18 10:00 80 25 140/65 98 Bi-pap 80 04/24/18 10:00 84 24 154/62 98 Bi-pap 80 04/24/18 09:05 84 22 97 Full Face 80 04/24/18 09:00 84 25 144/70 98 Bi-pap 100 04/24/18 08:58 174/89 04/24/18 08:00 86 04/24/18 08:00 80 04/24/18 08:00 Bi-pap 04/24/18 08:00 98.0 85 26 174/89 98 Bi-pap 100 04/24/18 07:43 96 Bi-pap 80 04/24/18 07:43 Bi-pap 04/24/18 07:06 81 24 99 Full Face 80 04/24/18 07:00 88 25 160/75 98 Bi-pap 100 04/24/18 06:00 89 24 175/83 98 Bi-pap 100 04/24/18 05:01 89 23 99 Full Face 40 1/24/19 05:00 80 27 177/158 Bi-pap 40 04/24/18 04:00 98.0 74 24 164/90 100 Bi-pap 40 04/24/18 04:00 Bi-pap 04/24/18 04:00 40 04/24/18 04:00 75 04/24/18 03:00 77 25 167/82 100 Bi-pap 40 04/24/18 02:45 67 20 99 Full Face 40 04/24/18 02:00 69 19 161/103 100 Bi-pap 40 04/24/18 01:12 72 24 99 Full Face 40 04/24/18 01:00 76 24 153/83 100 Bi-pap 40 04/24/18 00:00 Bi-pap 04/24/18 00:00 98.0 72 22 148/80 100 Bi-pap 40 04/24/18 00:00 40 04/24/18 00:00 76 04/23/18 23:23 70 18 100 Full Face 40 04/23/18 23:00 83 25 162/68 97 Bi-pap 40 04/23/18 22:00 89 25 181/77 98 Bi-pap 40 04/23/18 21:24 75 19 100 Full Face 40 04/23/18 21:00 75 23 155/67 99 Bi-pap 40 04/23/18 20:00 40 04/23/18 20:00 Bi-pap 04/23/18 20:00 98.0 76 24 144/69 Bi-pap 40 04/23/18 20:00 79 04/23/18 19:23 75 23 100 Facial 40 04/23/18 19:22 Bi-pap 40 04/23/18 19:22 100 Bi-pap 40 04/23/18 19:00 74 24 154/75 Bi-pap 40 04/23/18 18:00 77 26 147/68 96 Bi-pap 40 04/23/18 17:00 97.8 74 25 156/84 96 Bi-pap 40 04/23/18 16:45 74 24 100 Full Face 40 Intake and Output 04/23/18 04/24/18 19:00 07:00 Intake Total 1707.5 ml 1655.0 ml Output Total 1100 ml 770 ml Balance 607.5 ml 885.0 ml Intake Free Water 120 ml 120 ml IV Total 957.5 ml 935.0 ml Tube Feeding 600 ml 600 ml Other 30 ml Output Urine Total 925 ml 670 ml Stool Total 175 ml 100 ml Laboratory Tests 04/24/18 04:35: White Blood Count 13.4H, Red Blood Count 2.80L, Hemoglobin 9.1L, Hematocrit 27.9L, Mean Corpuscular Volume 100H, Mean Corpuscular Hemoglobin 32.3H, Mean Corpuscular Hemoglobin Concent 32.4, Red Cell Distribution Width 11.9, Platelet Count 266, Mean Platelet Volume 8.3, Neutrophils (%) (Auto) , Lymphocytes (%) ( Auto) , Monocytes (%) (Auto) , Eosinophils (%) (Auto) , Basophils (%) (Auto) , Differential Total Cells Counted 100, Neutrophils % (Manual) 94H, Lymphocytes % (Manual) 2L, Monocytes % (Manual) 2, Eosinophils % (Manual) 1, Basophils % ( Manual) 1, Band Neutrophils 0, Platelet Estimate Adequate, Platelet Morphology Normal, Hypochromasia 2+, Anisocytosis 1+, Sodium Level 138, Potassium Level 4.4 , Chloride Level 103, Carbon Dioxide Level 30, Anion Gap 5, Blood Urea Nitrogen 19H, Creatinine 0.7, Estimat Glomerular Filtration Rate > 60, Glucose Level 136H , Calcium Level 7.6L Height (Feet): 5 Height (Inches): 3.00 Weight (Pounds): 110 Objective On BIPAP , tachypneic + dyspneic. CV- RR Lungs B ronchi Abd SNT. BS + E + edema Waking up!!! Vivienne Urena MD Apr 24, 2018 16:18
--- NOTE | 2018-04-24 17:30 | Electroencephalogram ---
DATE OF PROCEDURE: 04/19/2018 REQUESTING PHYSICIAN: Vivienne Urena M.D. READING PHYSICIAN: Antonio Gamez M.D. PROCEDURE PERFORMED: Electroencephalogram. 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 The purpose of this EEG was to evaluate the patient for the degree and type of cerebral dysfunction. TECHNICAL NOTE: This EEG was performed on a Grid20/20 Acquisition Unit with electrodes placed on the scalp according to the International 10-20 system. [id number] and [id number] montages were used. The EEG was technically satisfactory and was performed while the patient was in a comatose state. OBSERVATIONS: In the reportedly comatose state, the background activity consisted of low-voltage, slow activity in the 4-5 Hz theta and 1.5-2 Hz delta range. On external stimulation, increased EMG artifact was seen but there was no change in the EEG background. No definite focal abnormalities or epileptiform discharges were seen. IMPRESSION: This is an abnormal EEG characterized by, 1. Slowing of the background in the 4-5 Hz theta and 1.5-2 Hz delta range with low voltages. 2. No response to external stimuli on the EEG. COMMENT: This study is consistent with an encephalopathy of severe degree. Clinical correlation is recommended. Antonio Gamez M.D., M.S.P.H. DR: TONI/DONYA JOB#: [id number] MTDDennis
--- NOTE | 2018-04-24 18:00 | NUR ---
NURSE NOTES: Patient turned and repositioned. no new orders at this time. Will continue plan of care.
--- NOTE | 2018-04-24 19:15 | NUR ---
HAND-OFF: Report given to GEGE Herndon using SBAR. VSS. No distress noted.
--- NOTE | 2018-04-24 19:30 | NUR ---
NURSE NOTES: Received report from GEGE Erickson. Pt's in bed, opens eyes. Does not follow command. site monitor showing SR. Patient currently on bipap 12/5 FiO2 60%. Patient was extubated 04/23/2018. RR 24 Saturation 98%. Lung sounds diminished bilaterally, labored breathing noted, RT at bedside. Patient getting Vital AF at 50 ml/hr via OGT. No residual noted. Hyperactive bowel sounds on all 4 quadrants. Round, soft, non-tender abdomen. Swollen scrotum, sacral redness, R thigh DTI see WCP. L fem TLC and R hand 22. Running 1/2 NS with 20 KCL at 50 ml/hr via central line. No new orders at this time. HOB kept elevated, bed in low and locked position. Will continue plan of care.
[2018-04-24] MEDS: 1/2NS w/KCl 20mEq 1000ml 1,000 ML IV SCH ×2 (20:14→22:15)
[2018-04-24] MEDS: Dyna-Hex 2% Top Sol 2oz TOPIC SCH (20:43)
--- NOTE | 2018-04-24 21:55 | NUR ---
TRANSFER TO FLOOR: Patient transferred to [facility], per Dr Urena. Central line d/jean pierre without complication. Report given to GEGE Cloud. No belongings. Medications given to staff nurse. Family and or S/O informed of transfer.
--- NOTE | 2018-04-24 22:00 | NUR ---
NURSE NOTES: Received from ICU 246-G. GEGE Herndon accompanied patient with RT. Now in 241-1. Pt opened eyes with no verbal resonse. Currently on Bi-pap 03/05, fio2 60%. OGT noted with feeding Vital AF 1.2 @ 50 cc/hr. No residual noted at this time. Pt noted to be very congested with some coughing. Suctioned by RT, secretions noted to be bloody. Feeding held at this time. Right hand noted with 2 IV's at this time, patent and intact. Ordered fluids 1/2 NS w/ 20 kcl running @ 50 cc/hr. Black cath and rectal tube draining by gravity. Scrotum noted to be very edematous. Edema noted on all extremities. Bed in lowest position, side rails upx3. On SPR Mattress. No signs of distress noted. Will continue to monitor
[2018-04-25] VITALS: BP 159/89
[2018-04-25] MEDS ORDERED: Acetaminophen 650mg/20.3ml GT PRN (01:30)
[2018-04-25] MEDS: Vancomycin 1 GM in D5W 275 ML IVPB SCH ×2 (03:10→14:23)
[2018-04-25 04:00] VITALS: BP 180/90
--- NOTE | 2018-04-25 04:10 | NUR ---
NURSE NOTES: bp noted to be 180/90, rechecked another site bp 215/94. PRN hydralazine given as ordered in eMAR
[2018-04-25] MEDS: Piperacillin/Tazobactam 3.375 GM in NS 110 ML IVPB SCH ×3 (05:51→21:07)
--- NOTE | 2018-04-25 06:01 | NUR ---
NURSE NOTES: Fio2 now increased to 100 %. pt noted to hare RR 35. Slight SOB, VS Stable, 02 sat 94%. Continues on Bi-pap at this time.
--- NOTE | 2018-04-25 07:18 | NUR ---
HAND-OFF: Report given to Keri DE GUZMAN Using SBAR.
--- NOTE | 2018-04-25 07:19 | NUR ---
RESPIRATORY NOTE: received pt on bipap 03/05 at fio2 100%. current spo2 95% with HR 94. pt slightly SOB with RR 20/21. no redness visible around facial area. foam tape in place. bipap is plugged into red outlet. will cont to monitor.
--- NOTE | 2018-04-25 07:30 | NUR ---
NURSE NOTES: Received report from Moira Altamirano RN. Patient awake in bed, nonverbal, unable to make needs known and follow commands. Receiving O2 via bi-pap with settings of 12/5, FiO2 100%, saturating at 94%. OGT feeding of Vital AF running @ 50 cc/hr, no residuals noted. HoB elevated. Rectal tube in place and draining liquid brown stool. Black catheter patent and draining yellow urine. Right thumb 22g IV site infusing 1/2NS with 20 meq KCl @ 50 cc/hr and right hand 22g IV site infusing Zosyn @ 27.5 cc/hr, both asymptomatic. Bed locked in lowest position with side rails up x 3. Bed alarm on. All needs attended to. Call light within reach. Will continue to monitor.
[2018-04-25 08:00] VITALS: BP 137/75
[2018-04-25] MEDS: Pantoprazole Inj IVP SCH (08:39)
[2018-04-25] MEDS: Heparin 5000 units/ml inj SUBQ SCH ×2 (08:41→20:48)
--- NOTE | 2018-04-25 10:53 | General Progress Note ---
Assessment/Plan Assessment/Plan Acute Resp Failure - improving. [facility] called me. They know pt's Sister and OK to transfer DPOA to her. OK from now on. Acknowledged. DW pt's Sister. Pt' now DNI/DNR. Subjective Allergies: Coded Allergies: No Known Allergies (Unverified , 04/11/18) Subjective Extubated. On Bipap. Objective Last 24 Hour Vital Signs Date Time Temp Pulse Resp B/P (MAP) Pulse Ox O2 Delivery O2 Flow Rate FiO2 04/25/18 10:44 87 32 95 Full Face 80 04/25/18 09:10 86 32 95 Full Face 90 04/25/18 08:40 97 137/75 04/25/18 08:00 Bi-pap 04/25/18 08:00 100 04/25/18 08:00 98 04/25/18 08:00 97.3 97 26 137/75 97 Bi-pap 100 04/25/18 07:16 88 21 95 Full Face 100 04/25/18 05:10 92 22 95 Full Face 100 04/25/18 04:10 215/94 04/25/18 04:00 Bi-pap 04/25/18 04:00 98.1 87 35 180/90 96 Bi-pap 60 04/25/18 04:00 92 04/25/18 04:00 60 04/25/18 03:29 98 20 91 Full Face 60 04/25/18 01:29 84 20 99 Full Face 60 04/25/18 00:00 98.3 90 29 159/89 97 Bi-pap 60 04/25/18 00:00 Bi-pap 04/25/18 00:00 88 04/24/18 23:29 96 20 98 Full Face 60 04/24/18 23:00 98.6 102 29 152/78 97 Bi-pap 60 04/24/18 22:00 98.8 90 27 148/70 100 Bi-pap 60 04/24/18 21:18 105 30 96 Full Face 60 04/24/18 21:00 100 27 154/80 97 Bi-pap 60 04/24/18 20:00 60 04/24/18 20:00 90 04/24/18 20:00 Bi-pap 04/24/18 20:00 104 29 165/71 97 Bi-pap 60 04/24/18 19:10 90 30 96 Full Face 60 04/24/18 19:00 90 22 152/73 98 Bi-pap 70 04/24/18 18:00 96 123/49 04/24/18 18:00 96 20 123/49 98 Bi-pap 70 04/24/18 17:26 100 38 98 Full Face 60 04/24/18 17:00 83 22 141/57 98 Bi-pap 70 04/24/18 16:00 Bi-pap 04/24/18 16:00 70 04/24/18 16:00 183/103 04/24/18 16:00 98.8 80 20 163/66 98 Bi-pap 80 04/24/18 16:00 93 04/24/18 15:06 93 22 98 Full Face 70 04/24/18 15:00 84 20 180/95 98 Bi-pap 80 04/24/18 14:00 82 22 170/75 98 Bi-pap 80 04/24/18 13:00 80 22 166/70 98 Bi-pap 80 04/24/18 12:46 92 27 98 Full Face 80 04/24/18 12:00 144/80 04/24/18 12:00 80 04/24/18 12:00 91 04/24/18 12:00 Bi-pap 04/24/18 12:00 98.4 85 24 150/60 98 Bi-pap 80 04/24/18 11:17 95 31 98 Full Face 80 04/24/18 11:00 84 24 154/62 98 Bi-pap 80 Intake and Output 04/24/18 04/25/18 18:59 06:59 Intake Total 1787.416 ml 1260 ml Output Total 540 ml 620 ml Balance 1247.416 ml 640 ml Intake Free Water 60 ml IV Total 1187.416 ml 600 ml Tube Feeding 600 ml 600 ml Output Urine Total 540 ml 620 ml # Bowel Movements 100 Height (Feet): 5 Height (Inches): 3.00 Weight (Pounds): 111 Objective On BIPAP , tachypneic + dyspneic. CV- RR Lungs B ronchi Abd SNT. BS + E + edema Waking up!!! Vivienne Urena MD Apr 25, 2018 10:53
[2018-04-25 12:00] VITALS: BP 152/64
[2018-04-25] MEDS ORDERED: DOPamine 400mg/250ml 250 ML IV SCH (12:30)
--- NOTE | 2018-04-25 14:08 | Cardiac Electrophysiology PN ---
Assessment/Plan Assessment/Plan 1. Bradycardic episodes with heart rate dropping to 40s, but was transient. HR improved. Off any sinus aftab or AV aftab blocking agents. TSH is high but T4 normal 2. Type 2 myocardial infarction. 3. Respiratory failure,.On BIPAP 4. Mental retardation. 5. Sepsis, on broad-spectrum IV antibiotics. 6. Dysphagia. OGT feeding. PONCHO RN Subjective Subjective In SR. HR improved in 80s on BIPAP. Transferred out of ICU Objective Last 24 Hour Vital Signs Date Time Temp Pulse Resp B/P (MAP) Pulse Ox O2 Delivery O2 Flow Rate FiO2 04/25/18 12:37 92 25 94 Full Face 80 04/25/18 12:00 80 04/25/18 12:00 97.2 77 20 152/64 96 Bi-pap 80 04/25/18 12:00 Bi-pap 04/25/18 10:44 87 32 95 Full Face 80 04/25/18 09:10 86 32 95 Full Face 90 04/25/18 08:40 97 137/75 04/25/18 08:00 Bi-pap 04/25/18 08:00 100 04/25/18 08:00 98 04/25/18 08:00 97.3 97 26 137/75 97 Bi-pap 100 04/25/18 07:16 88 21 95 Full Face 100 04/25/18 05:10 92 22 95 Full Face 100 04/25/18 04:10 215/94 04/25/18 04:00 Bi-pap 04/25/18 04:00 98.1 87 35 180/90 96 Bi-pap 60 04/25/18 04:00 92 04/25/18 04:00 60 04/25/18 03:29 98 20 91 Full Face 60 04/25/18 01:29 84 20 99 Full Face 60 04/25/18 00:00 98.3 90 29 159/89 97 Bi-pap 60 04/25/18 00:00 Bi-pap 04/25/18 00:00 88 04/24/18 23:29 96 20 98 Full Face 60 04/24/18 23:00 98.6 102 29 152/78 97 Bi-pap 60 04/24/18 22:00 98.8 90 27 148/70 100 Bi-pap 60 04/24/18 21:18 105 30 96 Full Face 60 04/24/18 21:00 100 27 154/80 97 Bi-pap 60 04/24/18 20:00 60 04/24/18 20:00 90 04/24/18 20:00 Bi-pap 04/24/18 20:00 104 29 165/71 97 Bi-pap 60 04/24/18 19:10 90 30 96 Full Face 60 04/24/18 19:00 90 22 152/73 98 Bi-pap 70 04/24/18 18:00 96 123/49 04/24/18 18:00 96 20 123/49 98 Bi-pap 70 04/24/18 17:26 100 38 98 Full Face 60 04/24/18 17:00 83 22 141/57 98 Bi-pap 70 04/24/18 16:00 Bi-pap 04/24/18 16:00 70 04/24/18 16:00 183/103 04/24/18 16:00 98.8 80 20 163/66 98 Bi-pap 80 04/24/18 16:00 93 04/24/18 15:06 93 22 98 Full Face 70 04/24/18 15:00 84 20 180/95 98 Bi-pap 80 Intake and Output 04/24/18 04/25/18 19:00 07:00 Intake Total 1759.916 ml 1287.5 ml Output Total 540 ml 590 ml Balance 1219.916 ml 697.5 ml Intake Free Water 60 ml IV Total 1159.916 ml 627.5 ml Tube Feeding 600 ml 600 ml Output Urine Total 540 ml 590 ml # Bowel Movements 100 Microbiology Date/Time Source Procedure Growth Status 04/24/18 05:00 Stool Clostridium difficile Toxin Assay - Final Complete Objective HEAD AND NECK: No JVD. On BIPAP. OG tube is in LUNGS: Coarse rhonchi. CARDIOVASCULAR: Regular S1 and S2 with no gallop. ABDOMEN: Soft. EXTREMITIES: 1 plus pitting edema. Tono Crisostomo MD Apr 25, 2018 14:08
--- NOTE | 2018-04-25 14:15 | Critical Care Progress Note ---
Assessment/Plan Assessment/Plan IMPRESSION: Pneumonia, aspiration, probable sepsis, evidence of thrombocytopenia, severe protein-calorie malnutrition, elevated troponin, possible non-STEMI [place], evidence of anemia. acute respiratory failure, hypoxemia PLAN care noted IV antibiotics noted respiratory care as is BIPAP as needed repeat ABG supportive meds supportive care as outlined; close follow up recheck labs for change and optimize suction as needed oxygen therapy and taper prognosis guarded nutrition tolerated hope to avoid reintubation medications/laboratory data/nursing notes reviewed in detail note reviewed and edited care discussed with RN and RT Critical Care - Subjective Interval Events: altered overall no change mild congestion ROS Limited/Unobtainable: Yes Condition: stable EKG Rhythm: Sinus Rhythm I&O: Intake and Output 04/24/18 04/25/18 19:00 07:00 Intake Total 1759.916 ml 1287.5 ml Output Total 540 ml 590 ml Balance 1219.916 ml 697.5 ml Intake Free Water 60 ml IV Total 1159.916 ml 627.5 ml Tube Feeding 600 ml 600 ml Output Urine Total 540 ml 590 ml # Bowel Movements 100 Critical Care - Objective ET-Tube: 8.0 ET Position: 18 Last 24 Hour Vital Signs Date Time Temp Pulse Resp B/P (MAP) Pulse Ox O2 Delivery O2 Flow Rate FiO2 04/25/18 12:37 92 25 94 Full Face 80 04/25/18 12:00 80 04/25/18 12:00 97.2 77 20 152/64 96 Bi-pap 80 04/25/18 12:00 Bi-pap 04/25/18 10:44 87 32 95 Full Face 80 04/25/18 09:10 86 32 95 Full Face 90 04/25/18 08:40 97 137/75 04/25/18 08:00 Bi-pap 04/25/18 08:00 100 04/25/18 08:00 98 04/25/18 08:00 97.3 97 26 137/75 97 Bi-pap 100 04/25/18 07:16 88 21 95 Full Face 100 04/25/18 05:10 92 22 95 Full Face 100 04/25/18 04:10 215/94 04/25/18 04:00 Bi-pap 04/25/18 04:00 98.1 87 35 180/90 96 Bi-pap 60 04/25/18 04:00 92 04/25/18 04:00 60 1/25/19 03:29 98 20 91 Full Face 60 04/25/18 01:29 84 20 99 Full Face 60 04/25/18 00:00 98.3 90 29 159/89 97 Bi-pap 60 04/25/18 00:00 Bi-pap 04/25/18 00:00 88 04/24/18 23:29 96 20 98 Full Face 60 04/24/18 23:00 98.6 102 29 152/78 97 Bi-pap 60 04/24/18 22:00 98.8 90 27 148/70 100 Bi-pap 60 04/24/18 21:18 105 30 96 Full Face 60 04/24/18 21:00 100 27 154/80 97 Bi-pap 60 04/24/18 20:00 60 04/24/18 20:00 90 04/24/18 20:00 Bi-pap 04/24/18 20:00 104 29 165/71 97 Bi-pap 60 04/24/18 19:10 90 30 96 Full Face 60 04/24/18 19:00 90 22 152/73 98 Bi-pap 70 04/24/18 18:00 96 123/49 04/24/18 18:00 96 20 123/49 98 Bi-pap 70 04/24/18 17:26 100 38 98 Full Face 60 04/24/18 17:00 83 22 141/57 98 Bi-pap 70 04/24/18 16:00 Bi-pap 04/24/18 16:00 70 04/24/18 16:00 183/103 04/24/18 16:00 98.8 80 20 163/66 98 Bi-pap 80 04/24/18 16:00 93 04/24/18 15:06 93 22 98 Full Face 70 04/24/18 15:00 84 20 180/95 98 Bi-pap 80 Labs: Labs Test 04/23/18 10:30 04/24/18 04:35 Arterial Blood pH 7.446 (7.350-7.450) Arterial Blood Partial Pressure CO2 43.0 mmHg (35.0-45.0) Arterial Blood Partial Pressure O2 131.6 mmHg (75.0-100.0) Arterial Blood HCO3 28.9 mmol/L (22.0-26.0) Arterial Blood Oxygen Saturation 98.1 % (95-100) Arterial Blood Base Excess 4.5 (-2-2) Joesph Test Positive White Blood Count 13.4 K/UL (4.8-10.8) Red Blood Count 2.80 M/UL (4.70-6.10) Hemoglobin 9.1 G/DL (14.2-18.0) Hematocrit 27.9 % (42.0-52.0) Mean Corpuscular Volume 100 FL (80-99) Mean Corpuscular Hemoglobin 32.3 PG (27.0-31.0) Mean Corpuscular Hemoglobin Concent 32.4 G/DL (32.0-36.0) Red Cell Distribution Width 11.9 % (11.6-14.8) Platelet Count 266 K/UL (150-450) Mean Platelet Volume 8.3 FL (6.5-10.1) Neutrophils (%) (Auto) % (45.0-75.0) Lymphocytes (%) (Auto) % (20.0-45.0) Monocytes (%) (Auto) % (1.0-10.0) Eosinophils (%) (Auto) % (0.0-3.0) Basophils (%) (Auto) % (0.0-2.0) Differential Total Cells Counted 100 Neutrophils % (Manual) 94 % (45-75) Lymphocytes % (Manual) 2 % (20-45) Monocytes % (Manual) 2 % (1-10) Eosinophils % (Manual) 1 % (0-3) Basophils % (Manual) 1 % (0-2) Band Neutrophils 0 % (0-8) Platelet Estimate Adequate Platelet Morphology Normal Hypochromasia 2+ Anisocytosis 1+ Sodium Level 138 MMOL/L (136-145) Potassium Level 4.4 MMOL/L (3.5-5.1) Chloride Level 103 MMOL/L (98-107) Carbon Dioxide Level 30 MMOL/L (21-32) Anion Gap 5 mmol/L (5-15) Blood Urea Nitrogen 19 mg/dL (7-18) Creatinine 0.7 MG/DL (0.55-1.30) Estimat Glomerular Filtration Rate > 60 mL/min (>60) Glucose Level 136 MG/DL (74-106) Calcium Level 7.6 MG/DL (8.5-10.1) Objective: GENERAL: An ill-appearing male of short stature. reduced LOC, HEENT: Negative. NECK: Supple. The patient remains on BIPAP LUNGS: reduced breath sounds. Rhonchi noted bilaterally and scattered. no wheeze at present CARDIAC: S1 and S2. Regular rate and rhythm without murmurs, rubs, gallops. ABDOMEN: Soft, nontender, nondistended. feeding tube in place . EXTREMITIES: No cyanosis, clubbing, or edema. NEUROLOGIC: The patient with significant muscular atrophy, sedated reviewed and examined Micro: Microbiology Date/Time Source Procedure Growth Status 04/24/18 05:00 Stool Clostridium difficile Toxin Assay - Final Complete Brian Torres MD Apr 25, 2018 14:15
--- NOTE | 2018-04-25 15:03 | NUR ---
Social Service Note CHRISTY left messages for Natalio [phone] and Tawana [phone] at [facility] regarding possible referral. No return call at this time. Follow up messages left with no return call. CHRISTY informed Dr. Urena.
--- NOTE | 2018-04-25 15:38 | NUR ---
RD ASSESSMENT & RECOMMENDATIONS SEE CARE ACTIVITY FOR COMPLETE ASSESSMENT DAILY ESTIMATED NEEDS: Needs based on Pulmonary, wasting/ 50kg 25-33 kcals/kg 1619-3792 total kcals 1-1.5 g protein/kg 50-75 g total protein 25-30 mL/kg 8898-3056 total fluid mLs NUTRITION DIAGNOSIS: Swallowing difficulty R/T respiratory status as evidenced by s/p code blue, s/p extubation, on BIPAP, cont on OGT feeding. CURRENT TF:Vital AF 1.2 @ 50ml/hr x 24 hrs PO DIET RECOMMENDATIONS: PRODUCT DESIGN SPECIALIST eval when appropriate for PO diet ENTERAL NUTRITION RECOMMENDATIONS: Glucerna 1.2 @ 55ml/hr x 24 hrs to provide 1320ml, 1584kcal, 79g prot, 1062ml free water * Rec TF change to Glucerna 1.2- s/p extubation, Vital AF no longer indicated, carb controlled formula for glycemic control * Initiate Glucerna 1.2 @ 25ml/hr x 6 hrs, advance 10ml q 4-6 hrs as tolerated to goal rate. * HOB over 30 degrees/ water flush per MD. ADDITIONAL RECOMMENDATIONS: * Calibrated bedcale wt for accurate CBW * Monitor lytes daily, replete as needed * Wound eval for redness @buttock per photo * Monitor BGs, need for hypoglycemic agents (episodes of hyperglycemia) * PRODUCT DESIGN SPECIALIST eval when appropriate for oral diet
[2018-04-25 16:00] VITALS: BP 148/62
--- NOTE | 2018-04-25 16:38 | NUR ---
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 97.5 HR 89 RR 22 B/P 148/62 BIPAP FIO2 80% IS; VANCO IV ZOSYN IV IVF NS@ 80ML/HR PROTONIX IV HEPARIN SUBC MED/SURG STATUS
[2018-04-25] MEDS: 1/2NS w/KCl 20mEq 1000ml 1,000 ML IV SCH (17:45)
--- NOTE | 2018-04-25 19:10 | NUR ---
HAND-OFF: Report given to Daisy Cochran RN. Patient still on bi-pap with FiO2 80%, no respiratory distress noted, saturating at 96%.
--- NOTE | 2018-04-25 19:15 | NUR ---
NURSE NOTES: Received report from Sweta DE GUZMAN, pt. in bed with eyes open- non-verbal, no signs or symptoms of acute cardiac or respiratory distress noted, bed in lowest position and call light within easy reach, bed in lowest position and call light within easy reach, bed alarm on, side rails up x's3- safety brakes engaged, pt. appears to be tolerating current BIPAP settings at 12/5 fio2 at 100%- no distress noted, Vital AF running at 50cc/hr- no residual noted, Rectal tube intact and draining to gravity, Black intact and draining to gravity, two IVs to RT. hand both 22G- intact and patent- one IV running 1/2 NS +20meq k running at 50cc/hr. pt. appears to be resting comfortably. Safety measures continued, will continue with plan of care.
[2018-04-25 20:00] VITALS: BP 145/69
[2018-04-25] MEDS ORDERED: Dyna-Hex 2% Top Sol 2oz TOPIC SCH (20:00)
--- NOTE | 2018-04-25 20:50 | NUR ---
NURSE NOTES: Heparin not administered due to pt. bleeding when being suctioned. pt. stable and no distress noted at this time.
--- NOTE | 2018-04-25 21:36 | Cardiology Progress Note ---
Assessment/Plan Assessment/Plan remains tachypneic, unresponsive, his WBC is going up stable from cardiac standpoint Subjective Subjective the patient is on Bipap, he is unresponsive, tachypneic Objective Last 24 Hour Vital Signs Date Time Temp Pulse Resp B/P (MAP) Pulse Ox O2 Delivery O2 Flow Rate FiO2 04/25/18 21:21 84 30 96 Full Face 80 04/25/18 20:00 97.8 84 20 145/69 99 Bi-pap 80 04/25/18 19:00 89 29 95 Full Face 80 04/25/18 17:40 88 158/92 04/25/18 16:49 92 23 93 Full Face 80 04/25/18 16:00 Bi-pap 04/25/18 16:00 97.5 93 22 148/62 93 Bi-pap 80 04/25/18 16:00 80 04/25/18 16:00 89 04/25/18 14:55 83 23 96 Full Face 80 04/25/18 12:37 92 25 94 Full Face 80 04/25/18 12:00 80 04/25/18 12:00 97.2 77 20 152/64 96 Bi-pap 80 04/25/18 12:00 86 04/25/18 12:00 Bi-pap 04/25/18 10:44 87 32 95 Full Face 80 04/25/18 09:10 86 32 95 Full Face 90 04/25/18 08:40 97 137/75 04/25/18 08:00 Bi-pap 04/25/18 08:00 100 04/25/18 08:00 98 04/25/18 08:00 97.3 97 26 137/75 97 Bi-pap 100 04/25/18 07:16 88 21 95 Full Face 100 04/25/18 05:10 92 22 95 Full Face 100 04/25/18 04:10 215/94 04/25/18 04:00 Bi-pap 04/25/18 04:00 98.1 87 35 180/90 96 Bi-pap 60 04/25/18 04:00 92 04/25/18 04:00 60 04/25/18 03:29 98 20 91 Full Face 60 04/25/18 01:29 84 20 99 Full Face 60 04/25/18 00:00 98.3 90 29 159/89 97 Bi-pap 60 04/25/18 00:00 Bi-pap 04/25/18 00:00 88 04/24/18 23:29 96 20 98 Full Face 60 04/24/18 23:00 98.6 102 29 152/78 97 Bi-pap 60 04/24/18 22:00 98.8 90 27 148/70 100 Bi-pap 60 General Appearance: lethargic, other - no communication Neck: no JVD Rhythm: ST Cardiovascular: normal rate, tachycardia Respiratory/Chest: respiratory distress, accessory muscle use, inspiratory wheezing Abdomen: soft Extremities: other - contracted, edematous Intake and Output 04/24/18 04/25/18 19:00 07:00 Intake Total 1759.916 ml 1287.5 ml Output Total 540 ml 590 ml Balance 1219.916 ml 697.5 ml Intake Free Water 60 ml IV Total 1159.916 ml 627.5 ml Tube Feeding 600 ml 600 ml Output Urine Total 540 ml 590 ml # Bowel Movements 100 Microbiology Date/Time Source Procedure Growth Status 04/24/18 05:00 Stool Clostridium difficile Toxin Assay - Final Complete Sharmaine Crowder MD Apr 25, 2018 21:36
[2018-04-26] VITALS: BP 148/84
[2018-04-26] MEDS: Vancomycin 1 GM in D5W 275 ML IVPB SCH (01:36)
[2018-04-26 04:00] VITALS: BP 140/76
[2018-04-26] MEDS: Piperacillin/Tazobactam 3.375 GM in NS 110 ML IVPB SCH ×2 (05:02→14:30)
--- NOTE | 2018-04-26 06:59 | NUR ---
HAND-OFF: Report given to Reggie Rn, pt. remains stable and no signs of distress noted.
--- NOTE | 2018-04-26 07:00 | NUR ---
NURSE NOTES: RECEIVED PATIENT FROM Daisy OCAMPO RN. PATIENT IS OBTUNDED. HOOKED TO DISPENSING OPTICIAN. ON BIPAP 03/05, FIO2 AT 100%. NO SIGNS OF DISTRESS. WITH OGT VITAL AF AT 50CC/HR. NO RESIDUAL NOTED. ON RECTAL TUBE. NOTED SKIN ALTERATION. IV ON R HAND G22 AND R WRIST G22 WITH IVF RUNNING 1/2 NS AT 20MEQS KCL AT 50CC/HR. CALL LIGHT WITHIN REACH. BED AT LOWEST POSITION. SIDE RAILS UP. WILL CONTINUE TO MONITOR.
--- NOTE | 2018-04-26 07:00 | NUR ---
RESPIRATORY NOTE: pt recieved on bipap settings of 12/5 100% fio2. saturation is 94, full face mask with no redness or skin tear noted, sx PRN bipap pluged in red outlet alarms on and audible, will continue to monitor the pt
[2018-04-26 08:00] VITALS: BP 169/82
[2018-04-26] MEDS: Pantoprazole Inj IVP SCH (08:59)
[2018-04-26] MEDS: Heparin 5000 units/ml inj SUBQ SCH (09:01)
--- NOTE | 2018-04-26 09:49 | NUR ---
RESPIRATORY NOTE: pt settings increased to 18/11 for SOB will continue to monitor the pt
[2018-04-26 12:00] VITALS: BP 159/80
[2018-04-26] MEDS: 1/2NS w/KCl 20mEq 1000ml 1,000 ML IV SCH (12:17)
--- NOTE | 2018-04-26 13:22 | General Progress Note ---
Assessment/Plan Assessment/Plan Acute Resp Failure - improving. DPOA is now pt's sister. Pt' now DNI/DNR. Subjective Allergies: Coded Allergies: No Known Allergies (Unverified , 04/11/18) Subjective On Bipap. Objective Last 24 Hour Vital Signs Date Time Temp Pulse Resp B/P (MAP) Pulse Ox O2 Delivery O2 Flow Rate FiO2 04/26/18 12:00 Bi-pap 04/26/18 12:00 100 04/26/18 12:00 97.3 84 30 159/80 91 Bi-pap 90 04/26/18 10:30 81 27 94 Full Face 100 04/26/18 08:59 89 169/82 04/26/18 08:30 87 30 93 Full Face 100 04/26/18 08:00 Bi-pap 04/26/18 08:00 89 04/26/18 08:00 97.3 89 30 169/82 91 Bi-pap 90 04/26/18 08:00 100 04/26/18 06:30 87 30 Bi-pap 100 04/26/18 06:30 87 30 93 Full Face 100 04/26/18 04:43 86 30 93 Full Face 100 04/26/18 04:00 87 04/26/18 04:00 Bi-pap 04/26/18 04:00 80 04/26/18 04:00 97.9 82 20 140/76 99 Bi-pap 80 04/26/18 03:00 87 29 90 Full Face 100 04/26/18 01:40 85 25 92 Full Face 100 04/26/18 00:00 90 04/26/18 00:00 80 04/26/18 00:00 Bi-pap 04/26/18 00:00 97.9 88 22 148/84 98 Bi-pap 80 04/25/18 23:28 87 32 92 Full Face 80 04/25/18 21:21 84 30 96 Full Face 80 04/25/18 20:00 89 04/25/18 20:00 Bi-pap 04/25/18 20:00 97.8 84 20 145/69 99 Bi-pap 80 04/25/18 20:00 80 04/25/18 19:00 89 29 95 Full Face 80 04/25/18 17:40 88 158/92 04/25/18 16:49 92 23 93 Full Face 80 04/25/18 16:00 Bi-pap 04/25/18 16:00 97.5 93 22 148/62 93 Bi-pap 80 04/25/18 16:00 80 04/25/18 16:00 89 04/25/18 14:55 83 23 96 Full Face 80 Intake and Output 04/25/18 04/26/18 18:59 06:59 Intake Total 1854.920 ml 1902.4 ml Output Total 600 ml 725 ml Balance 1254.920 ml 1177.4 ml Intake Free Water 120 ml 120 ml IV Total 1084.920 ml 1182.4 ml Tube Feeding 600 ml 600 ml Other 50 ml Output Urine Total 600 ml 625 ml Stool Total 100 ml Height (Feet): 5 Height (Inches): 3.00 Weight (Pounds): 111 Objective On BIPAP , tachypneic + dyspneic. CV- RR Lungs B ronchi Abd SNT. BS + E + edema Waking up!!! Vivienne Urena MD Apr 26, 2018 13:22
--- NOTE | 2018-04-26 13:27 | Pulmonolgy Critical Care Note ---
Critical Care - Asmt/Plan Assessment/Plan: Pulmonary Progress Note Assessment/Plan IMPRESSION: Pneumonia, aspiration, probable sepsis, evidence of thrombocytopenia, severe protein-calorie malnutrition, elevated troponin, possible non-STEMI [place], evidence of anemia. acute respiratory failure, hypoxemia Patient now DNAR/DNI PLAN care noted IV antibiotics noted respiratory care as is BIPAP as needed repeat ABG supportive meds supportive care as outlined; close follow up recheck labs for change and optimize suction as needed oxygen therapy and taper prognosis guarded nutrition tolerated medications/laboratory data/nursing notes reviewed in detail note reviewed and edited care discussed with RN and RT Critical Care - Subjective Interval Events: altered overall no change mild congestion ROS Limited/Unobtainable: Yes Condition: stable EKG Rhythm: Sinus Rhythm Objective Vital Signs Noted Labs Noted Objective: GENERAL: An ill-appearing male of short stature. reduced LOC, slightly more responsive HEENT: Negative. NECK: Supple. The patient remains orally intubated. LUNGS: reduced breath sounds. Rhonchi noted bilaterally. no wheeze at present CARDIAC: S1 and S2. Regular rate and rhythm without murmurs, rubs, gallops. ABDOMEN: Soft, nontender, nondistended. feeding tube in place . EXTREMITIES: No cyanosis, clubbing, or edema. NEUROLOGIC: The patient with significant muscular atrophy, sedated reviewed and examined Critical Care - Objective Last 24 Hour Vital Signs Date Time Temp Pulse Resp B/P (MAP) Pulse Ox O2 Delivery O2 Flow Rate FiO2 04/26/18 12:00 Bi-pap 04/26/18 12:00 100 04/26/18 12:00 97.3 84 30 159/80 91 Bi-pap 90 04/26/18 10:30 81 27 94 Full Face 100 04/26/18 08:59 89 169/82 04/26/18 08:30 87 30 93 Full Face 100 04/26/18 08:00 Bi-pap 04/26/18 08:00 89 04/26/18 08:00 97.3 89 30 169/82 91 Bi-pap 90 04/26/18 08:00 100 04/26/18 06:30 87 30 Bi-pap 100 04/26/18 06:30 87 30 93 Full Face 100 04/26/18 04:43 86 30 93 Full Face 100 04/26/18 04:00 87 04/26/18 04:00 Bi-pap 04/26/18 04:00 80 04/26/18 04:00 97.9 82 20 140/76 99 Bi-pap 80 04/26/18 03:00 87 29 90 Full Face 100 04/26/18 01:40 85 25 92 Full Face 100 04/26/18 00:00 90 04/26/18 00:00 80 04/26/18 00:00 Bi-pap 04/26/18 00:00 97.9 88 22 148/84 98 Bi-pap 80 04/25/18 23:28 87 32 92 Full Face 80 04/25/18 21:21 84 30 96 Full Face 80 04/25/18 20:00 89 04/25/18 20:00 Bi-pap 04/25/18 20:00 97.8 84 20 145/69 99 Bi-pap 80 04/25/18 20:00 80 04/25/18 19:00 89 29 95 Full Face 80 04/25/18 17:40 88 158/92 04/25/18 16:49 92 23 93 Full Face 80 04/25/18 16:00 Bi-pap 04/25/18 16:00 97.5 93 22 148/62 93 Bi-pap 80 04/25/18 16:00 80 04/25/18 16:00 89 04/25/18 14:55 83 23 96 Full Face 80 Micro: Microbiology Date/Time Source Procedure Growth Status 04/24/18 05:00 Stool Clostridium difficile Toxin Assay - Final Complete Critical Care - Subjective ROS Limited/Unobtainable: No FI02: 90 Vent Support Breath Rate: 18 Vent Support Mode: BiLevel Vent Tidal Volume: 450 Sputum Amount: Copious PEEP: 5.0 PIP: 24 Tube Feeding Amount: 50 I&O: Intake and Output 04/25/18 04/26/18 18:59 06:59 Intake Total 1854.920 ml 1902.4 ml Output Total 600 ml 725 ml Balance 1254.920 ml 1177.4 ml Intake Free Water 120 ml 120 ml IV Total 1084.920 ml 1182.4 ml Tube Feeding 600 ml 600 ml Other 50 ml Output Urine Total 600 ml 625 ml Stool Total 100 ml ET-Tube: 8.0 ET Position: 18 Walyl Smith MD Apr 26, 2018 13:27
--- NOTE | 2018-04-26 14:45 | Cardiac Electrophysiology PN ---
Assessment/Plan Assessment/Plan 1. Bradycardic episodes with heart rate dropping to 40s, but was transient. HR improved. Off any sinus aftab or AV aftab blocking agents. TSH is high but T4 normal 2. Type 2 myocardial infarction. 3. Respiratory failure,.On BIPAP 4. Mental retardation. 5. Sepsis, on broad-spectrum IV antibiotics. 6. Dysphagia. OGT feeding. DW RN Subjective Subjective In SR. HR in 80s on BIPAP. No further nicola episodes Objective Last 24 Hour Vital Signs Date Time Temp Pulse Resp B/P (MAP) Pulse Ox O2 Delivery O2 Flow Rate FiO2 04/26/18 12:30 89 31 91 Full Face 100 04/26/18 12:00 Bi-pap 04/26/18 12:00 100 04/26/18 12:00 97.3 84 30 159/80 91 Bi-pap 90 04/26/18 10:30 81 27 94 Full Face 100 04/26/18 08:59 89 169/82 04/26/18 08:30 87 30 93 Full Face 100 04/26/18 08:00 Bi-pap 04/26/18 08:00 89 04/26/18 08:00 97.3 89 30 169/82 91 Bi-pap 90 04/26/18 08:00 100 04/26/18 06:30 87 30 Bi-pap 100 04/26/18 06:30 87 30 93 Full Face 100 04/26/18 04:43 86 30 93 Full Face 100 04/26/18 04:00 87 04/26/18 04:00 Bi-pap 04/26/18 04:00 80 04/26/18 04:00 97.9 82 20 140/76 99 Bi-pap 80 04/26/18 03:00 87 29 90 Full Face 100 04/26/18 01:40 85 25 92 Full Face 100 04/26/18 00:00 90 04/26/18 00:00 80 04/26/18 00:00 Bi-pap 04/26/18 00:00 97.9 88 22 148/84 98 Bi-pap 80 04/25/18 23:28 87 32 92 Full Face 80 04/25/18 21:21 84 30 96 Full Face 80 04/25/18 20:00 89 04/25/18 20:00 Bi-pap 04/25/18 20:00 97.8 84 20 145/69 99 Bi-pap 80 04/25/18 20:00 80 04/25/18 19:00 89 29 95 Full Face 80 04/25/18 17:40 88 158/92 04/25/18 16:49 92 23 93 Full Face 80 04/25/18 16:00 Bi-pap 04/25/18 16:00 97.5 93 22 148/62 93 Bi-pap 80 04/25/18 16:00 80 04/25/18 16:00 89 04/25/18 14:55 83 23 96 Full Face 80 Intake and Output 04/25/18 04/26/18 18:59 06:59 Intake Total 1854.920 ml 1902.4 ml Output Total 600 ml 725 ml Balance 1254.920 ml 1177.4 ml Intake Free Water 120 ml 120 ml IV Total 1084.920 ml 1182.4 ml Tube Feeding 600 ml 600 ml Other 50 ml Output Urine Total 600 ml 625 ml Stool Total 100 ml Laboratory Tests Test 04/26/18 13:25 Vancomycin Level Trough 22.3 ug/mL (5.0-12.0) H Microbiology Date/Time Source Procedure Growth Status 04/24/18 05:00 Stool Clostridium difficile Toxin Assay - Final Complete Objective HEAD AND NECK: No JVD. On BIPAP. OG tube is in LUNGS: Coarse rhonchi. CARDIOVASCULAR: Regular S1 and S2 with no gallop. ABDOMEN: Soft. EXTREMITIES: 1 plus pitting edema. Tono Crisostomo MD Apr 26, 2018 14:45
[2018-04-26 16:00] VITALS: BP 141/82
[2018-04-26] MEDS ORDERED: D5W 275ml ONE (17:04)
[2018-04-26] MEDS ORDERED: NS 275ml ONE ×3 (17:04→17:48)
[2018-04-26] MEDS ORDERED: Tubing IV Secondary IV ONE ×2 (17:04→17:48)
[2018-04-26 17:11] VITALS: BP 142/86
--- NOTE | 2018-04-26 17:49 | NUR ---
pt. went asgil and prenounced at 1746
[2018-04-26] MEDS ORDERED: Vancomycin 750mg/NS 250ml IVPB SCH (18:00)
--- NOTE | 2018-04-26 18:40 | NUR ---
NURSE NOTES: NOTED PATIENT TO BE DECLINING AND WENT ASYSTOLE AROUND 174. CALLED AND LEFT A MESSAGE TO DR PALMA REGARDING PASSING O THE PATIENT. CALLED AND SPOKE TO HIS SISTER FROM [place]. INFORMED CN AND HOUSE SUP. CALLED AND SPOKE WITH PENNY FROM [facility] WITH REFERRAL NUMBER [id number]. [facility] CALLED BACK AND SPOKE WITH ASHANTI THAT BODY CAN BE RELEASED TO MORTUARY. CLEANED PATIENT AND PLACED TO [employer].
--- NOTE | 2018-04-26 19:14 | NUR ---
HAND-OFF: Report given to Anant Carias RN.
--- NOTE | 2018-04-26 19:15 | NUR ---
NURSE NOTES: Received bedside report from GEGE Mas. Pt is . [facility] has be notified. Pt is prepared and ready to be taken down to the mortuary. Will call security.
--- NOTE | 2018-04-26 20:18 | Cardiology Progress Note ---
Assessment/Plan Assessment/Plan remains tachypneic, will order labs and CXR Subjective Subjective the patient is on Bipap, he is unresponsive, tachypneic, opens his eyes, but does not interact Objective Last 24 Hour Vital Signs Date Time Temp Pulse Resp B/P (MAP) Pulse Ox O2 Delivery O2 Flow Rate FiO2 04/26/18 17:11 81 142/86 04/26/18 16:51 87 35 91 Full Face 100 04/26/18 16:00 100 04/26/18 16:00 97.2 82 30 141/82 91 Bi-pap 90 04/26/18 16:00 86 04/26/18 16:00 Bi-pap 04/26/18 15:22 84 36 92 Full Face 100 04/26/18 12:30 89 31 91 Full Face 100 04/26/18 12:00 Bi-pap 04/26/18 12:00 100 04/26/18 12:00 80 04/26/18 12:00 97.3 84 30 159/80 91 Bi-pap 90 04/26/18 10:30 81 27 94 Full Face 100 04/26/18 08:59 89 169/82 04/26/18 08:30 87 30 93 Full Face 100 04/26/18 08:00 Bi-pap 04/26/18 08:00 89 04/26/18 08:00 97.3 89 30 169/82 91 Bi-pap 90 04/26/18 08:00 100 04/26/18 06:30 87 30 Bi-pap 100 04/26/18 06:30 87 30 93 Full Face 100 04/26/18 04:43 86 30 93 Full Face 100 04/26/18 04:00 87 04/26/18 04:00 Bi-pap 04/26/18 04:00 80 04/26/18 04:00 97.9 82 20 140/76 99 Bi-pap 80 04/26/18 03:00 87 29 90 Full Face 100 04/26/18 01:40 85 25 92 Full Face 100 04/26/18 00:00 90 04/26/18 00:00 80 04/26/18 00:00 Bi-pap 04/26/18 00:00 97.9 88 22 148/84 98 Bi-pap 80 04/25/18 23:28 87 32 92 Full Face 80 04/25/18 21:21 84 30 96 Full Face 80 General Appearance: other - on Bipap EENT: PERRL/EOMI Neck: supple Rhythm: NSR Respiratory/Chest: accessory muscle use, crackles/rales, inspiratory wheezing Abdomen: non tender, other - genitals edematous Extremities: moderate edema Intake and Output 04/25/18 04/26/18 19:00 07:00 Intake Total 1854.920 ml 1902.4 ml Output Total 650 ml 675 ml Balance 1204.920 ml 1227.4 ml Intake Free Water 120 ml 120 ml IV Total 1084.920 ml 1182.4 ml Tube Feeding 600 ml 600 ml Other 50 ml Output Urine Total 600 ml 625 ml Stool Total 50 ml 50 ml Laboratory Tests Test 04/26/18 13:25 Vancomycin Level Trough 22.3 ug/mL (5.0-12.0) H Microbiology Date/Time Source Procedure Growth Status 04/24/18 05:00 Stool Clostridium difficile Toxin Assay - Final Complete Sharmaine Crowder MD Apr 26, 2018 20:18
--- NOTE | 2018-04-27 11:19 | Discharge Summary ---
Discharge Summary Discharge Summary _ SUMMARY DATE OF ADMISSION: 04/11/2018 DATE OF EXPIRATION : 04/26/2018 REASON FOR ADMISSION: 68 years old male with past medical history of mental retardation, pulmonary hypertension, kyphoscoliosis, pancytopenia, cerebral palsy, presented to emergency room after reported cardiopulmonary arrest at the facility. Attempts of intubation were made by paramedics, but patient presented without any airway. Upon arrival patient had evidence of vomitus on the left side of his face and clothing. Patient was unresponsive, hypoxemic, hypotensive. CPR started. Patient required emergent oral intubation and placement of central line for pressors. Further workup initially revealed no leukocytosis ,hemoglobin 11.3 ,hematocrit 25.8. Platelet count 73. Urinalysis with evidence of hematuria , +3 protein , no evidence of UTI. BUN 18 creatinine 1.3. Lactic acid 6.2 magnesium 3.4 . AST 94 , ALT 53 . Lipase 151 Troponin elevated 0.296. CK 189 . EKG revealed sinus rhythm, no acute ischemic changes. ABG revealed severe respiratory acidosis with pH 7.[address] of the head revealed no acute intracranial bleeding, mass-effect or edema. Moderate atrophy of the brain with pronounced cerebral atrophy noted. Evidence of chronic small vessel disease, involving white matter tracts observed. Pansinusitis. Chest x-ray revealed interstitial edema versus infiltrate. Follow-up chest x-ray confirmed placement of endotracheal tube along with NG tube. It demonstrated central pulmonary edema versus infiltrates. Patient started on pressors/dopamine. Patient was admitted to ICU care for further management CONSULTANTS: distance learning administrator Dr. Crowder cardiology wet suit gluer Dr. Mclaughlin pulmonary [facility] COURSE: Patient admitted to ICU. Ventilator support and pulmonary toilet provided. Cardiology and pulmonology closely followed . Patient initially was on IV fluids and pressor/ dopamine to keep mean arterial pressure above 65. Hemodynamic status was closely monitored. Patient was able to to be weaned from pressors. Patient was continued on gentle IV fluids. When blood pressure stabilized, low-dose of calcium channel neri was added to antihypertensive regimen. DVT prophylaxis provided. Ventilator support provided. Pulmonary toilet provided. Patient was followed -up with daily ABG and chest x-ray. Ventilator settings were titrated as needed. Patient started on empiric antibiotic Echocardiogram revealed preserved ejection fraction 55% with mild left ventricular hypertrophy. No evidence of wall motion abnormality. Mild to moderate tricuspid regurgitation and moderate mitral regurgitation . Right ventricular systolic pressure of 52, consistent with moderate pulmonary hypertension. Serial troponin were monitored. Troponin trending down , the last troponin negative. Per distance learning administrator patient likely had type II non-STEMI , probably due to sepsis and pneumonia. Patient demonstrated transient episode of bradycardia with heart rate in 40s, then returned to 50-60s. C Patient was not on any sinus aftab or AV aftab blocking agents. Thyroid function test reveal mildly elevated TSH within normal free T4. Patient started on weaning protocol. Multiple attempts to wean failed. Meticulous pulmonary toilet provided. Due to multiple failing attempts to extubate, drywall mechanic recommended tracheostomy placement versus terminal extubation. Patient was finally extubated on and placed on the BiPAP with FiO2 of 80% . Patient with saturation of 98% but was tachypneic and demonstrated labored breathing and diminished breath sounds. Patient was continued on antibiotics. Blood cultures were negative. Urine culture was negative. Stool for C. difficile was negative. Patient had recurrent leukocytosis. Initial fevers resolved. Aspiration / reflux precautions were maintained. Nutritional support provided via NG tube. Dietary recommendations regarding tube feeding to improve nutritional status implemented in plan of care. GI prophylaxis provided. Bowel regimen instituted. Supportive care provided. Renal parameters and electrolytes were closely monitored. Nephrotoxins were avoided. Electrolytes corrected as needed. LFT were closely monitored AST trended down to 43. Hemoglobin hematocrit were closely monitored with goal to keep hemoglobin above 7. No need for transfusion. Platelet count improved. All consultants agreed that patient overall prognosis was poor. EEG revealed severe degree of encephalopathy. [facility] decision, DURABLE POWER OF AMMONIA STILL OPERATOR was transferred to patient's sister. Per patient's sister , CODE STATUS was changed to DNR/DNI on 04/24. Patient continued to demonstrate tachypnea and hypoxia on the BiPAP with FiO2 100%. On patient went to asystole. Patient was subsequently pronounced at 17: 49 on 04/26/18. Cause of : cardiopulmonary arrest FINAL DIAGNOSES: Status post cardiopulmonary arrest Acute hypoxemic hypercapnic respiratory failure , requiring intubation Type II NSTEMI Sepsis with shock ( requiring pressor) Pneumonia , likely aspiration Severe anoxic encephalopathy ( confirmed by EEG) Transient bradycardia -resolved Mental retardation Anemia Thrombocytopenia Pulmonary hypertension Severe protein calorie malnutrition Kyphoscoliosis Cerebral palsy I have been assigned to dictate discharge summary for this account. I was not involved in the patient's management. Laine Figueroa NP Apr 27, 2018 11:19
== END 2018-04-26 17:49 | disposition expired | DRG 720 ==
LOC: EDBD 06:59 → EDBEDREQ 07:31 → EMR 07:44 → ICU 08:11 → EDBEDREQ 09:03 → 2W 04-24 21:58
DX: A41.9 Sepsis, unspecified organism (principal); I21.A1 Myocardial infarction type 2; I46.8 Cardiac arrest due to other underlying condition; J69.0 Pneumonitis due to inhalation of food and vomit; E43 Unspecified severe protein-calorie malnutrition; J96.02 Acute respiratory failure with hypercapnia; J96.01 Acute respiratory failure with hypoxia; G93.1 Anoxic brain damage, not elsewhere classified; I27.20 Pulmonary hypertension, unspecified; D69.6 Thrombocytopenia, unspecified; R65.21 Severe sepsis with septic shock; R62.7 Adult failure to thrive; Z68.1 Body mass index [BMI] 19.9 or less, adult; F79 Unspecified intellectual disabilities; G80.9 Cerebral palsy, unspecified; M41.9 Scoliosis, unspecified; R00.1 Bradycardia, unspecified; Z66 Do not resuscitate; R31.9 Hematuria, unspecified
CPT/HCPCS: 31500; 36415; 36600; 70450; 71045; 80048; 80053; 80202; 81003; 82150; 82550; 82553; 82803; 82962; 83605; 83690; 83735; 83880; 84100; 84439; 84443; 84484; 85007; 85025; 85610; 85730; 87040; 87081; 87086; 87181; 87324; 92950; 93005; 93306; 94002; 94003; 94660; 94664; 94760; 95819; 96361; 96365; 96368; 96375; 99291; J0171